=== PATIENT | female | born 1965 | race Caucasian/White ===

== ENCOUNTER 2017-11-10 04:13 | Day surgery (SDC) | payer SELFPAY ==
[~2017-11-10] VITALS: Ht 154.9 cm; Wt 54.4 kg
[~2017-11-10 04:13] MED LIST: PRD10T PO
[2017-11-10] MEDS ORDERED: fentaNYL INJECTION 100 MCG/2 ML AMP IVP ONE ×2 (04:30→05:45)
[2017-11-10] MEDS ORDERED: ONDANSETRON 4 MG/2 ML (SDV) Z0FRAN IVP ONE ×2 (04:30→05:45)
[2017-11-10] MEDS: NS IV 1000 ML 1,000 ML IV SCH ×2 (04:38→05:39)
--- NOTE | 2017-11-10 04:38 | ED Abdominal Pain ---
General Stated Complaint: PANCREATITIS ATTACK,VOMITING,POSS FEVER Source of Information: Patient, Other Exam Limitations: No Limitations (WARREN WALSH) History of Present Illness Date Seen by Provider: November 10, 2017 Time Seen by Provider: 04:25 Initial Comments The patient presents to the ER by private conveyance with a chief complaint she is having epigastric abdominal pain consistent with her history of pancreatitis. Her epigastric pain radiates to her back. It's sharp, constant. She has poorly controlled diabetes. She does not take her blood sugars anymore because stresses are out. She had an A1c about for 5 months ago of 10. She has a history of hypertriglyceridemia above 1200 several years ago when she had a pancreatitis attack. She does not take fish oil her statins due to adverse effects. She denies alcohol intake. She does not use insulin for her diabetes just Amaryl, metformin. She says she's been taking her medications as prescribed. She denies any trauma, dysuria, chills but she thinks she might of been having some fever the last several days. The pain started last night about 2130 after eating dinner. She says the last time she had pancreatitis she had to be put in the hospital for 8 days on Dilaudid. (WARREN WALSH) Allergies and Home Medications Allergies Coded Allergies: sulfamethoxazole (Verified Allergy, Intermediate, HIVES, 03/05/16) trimethoprim (Verified Allergy, Intermediate, HIVES, 03/05/16) Home Medications Prednisone 10 Mg Tab, 10 MG PO BID Prescribed by: DEEPA RAMIREZ on 03/06/16 0149 Patient Home Medication List Home Medication List Reviewed: Yes (WARREN WALSH) Review of Systems Constitutional: No chills, No diaphoresis EENTM: No Blurred Vision, No Double Vision Respiratory: Denies Cough, Denies Shortness of Air Cardiovascular: Denies Chest Pain, Denies Edema Gastrointestinal: See HPI; Denies Abdomen Distended; Abdominal Pain; Denies Constipated, Denies Diarrhea; Nausea, Poor Appetite, Poor Fluid Intake, Vomiting Genitourinary: Denies Burning, Denies Discharge, Denies Drainage Musculoskeletal: No back pain, No joint pain Skin: No pruritus, No rash Psychiatric/Neurological: Denies Headache, Denies Numbness, Denies Paresthesia (WARERN WALSH) Past Zkegfzz-Aicmnx-Nulpdz Hx Patient Social History Alcohol Use: Denies Use Recreational Drug Use: No Smoking Status: Never a Smoker Recent Foreign Travel: No Contact w/Someone Who Travel: No Recent Hopitalizations: No (WARREN WALSH) Seasonal Allergies Seasonal Allergies: No (WARREN WALSH) Past Medical History Appendectomy Reproductive Disorders: No Pancreatitis Diabetes, Non-Insulin dep Anxiety (WARREN WALSH) Physical Exam Vital Signs Vital Signs - First Documented 11/10/17 04:20 Temp 97.7 Pulse 117 Resp 20 B/P (MAP) 149/100 (116) Pulse Ox 98 O2 Delivery Room Air (DEEPA VILLEGAS MD) Vital Signs Capillary Refill : (WARREN WALSH) General Appearance: WD/WN, mild distress HEENT: PERRL/EOMI, normal ENT inspection, TMs normal; No pharynx normal ( oropharynx is dry) Neck: non-tender, full range of motion, supple Respiratory: chest non-tender, lungs clear, normal breath sounds, no respiratory distress, no accessory muscle use Cardiovascular: normal peripheral pulses, regular rate, rhythm, no edema Peripheral Pulses: 2+ Radial Pulses (R), 2+ Radial Pulses (L) Gastrointestinal: normal bowel sounds, no organomegaly, guarding (epigastric), tenderness Extremities: normal inspection, no pedal edema, normal capillary refill Neurologic/Psychiatric: alert, oriented x 3 Skin: normal color, warm/dry (WARREN WALSH) Progress/Results/Core Measures Results/Orders Lab Results Laboratory Tests Test 11/10/17 04:30 11/10/17 04:34 11/10/17 05:10 11/10/17 06:27 Range/Units White Blood Count 5.1 4.3-11.0 10^3/uL Red Blood Count 4.93 4.35-5.85 10^6/uL Hemoglobin 14.2 11.5-16.0 G/DL Hematocrit 40 35-52 % Mean Corpuscular Volume 82 80-99 FL Mean Corpuscular Hemoglobin 29 25-34 PG Mean Corpuscular Hemoglobin Concent 35 32-36 G/DL Red Cell Distribution Width 13.4 10.0-14.5 % Platelet Count 131 130-400 10^3/uL Mean Platelet Volume 10.1 7.4-10.4 FL Neutrophils (%) (Auto) 90 H 42-75 % Lymphocytes (%) (Auto) 7 L 12-44 % Monocytes (%) (Auto) 3 0-12 % Eosinophils (%) (Auto) 0 0-10 % Basophils (%) (Auto) 0 0-10 % Neutrophils # (Auto) 4.6 1.8-7.8 X 10^3 Lymphocytes # (Auto) 0.4 L 1.0-4.0 X 10^3 Monocytes # (Auto) 0.2 0.0-1.0 X 10^3 Eosinophils # (Auto) 0.0 0.0-0.3 10^3/uL Basophils # (Auto) 0.0 0.0-0.1 10^3/uL Neutrophils % (Manual) 80 % Lymphocytes % (Manual) 6 % Monocytes % (Manual) 2 % Eosinophils % (Manual) 0 % Basophils % (Manual) 0 % Band Neutrophils 12 % Blood Morphology Comment NORMAL Sodium Level 136 135-145 MMOL/L Potassium Level 4.0 3.6-5.0 MMOL/L Chloride Level 102 98-107 MMOL/L Carbon Dioxide Level 18 L 21-32 MMOL/L Anion Gap 16 H 5-14 MMOL/L Blood Urea Nitrogen 16 7-18 MG/DL Creatinine 0.82 0.60-1.30 MG/DL Estimat Glomerular Filtration Rate > 60 BUN/Creatinine Ratio 20 Glucose Level 325 H 70-105 MG/DL Calcium Level 9.8 8.5-10.1 MG/DL Magnesium Level 1.9 1.8-2.4 MG/DL Total Bilirubin 1.2 H 0.1-1.0 MG/DL Aspartate Amino Transf (AST/SGOT) 25 5-34 U/L Alanine Aminotransferase (ALT/SGPT) 33 0-55 U/L Alkaline Phosphatase 88 40-136 U/L C-Reactive Protein High Sensitivity 1.45 H 0.00-0.50 MG/DL Total Protein 8.6 H 6.4-8.2 GM/DL Albumin 4.7 H 3.2-4.5 GM/DL Triglycerides Level 315 H <150 MG/DL Lipase 61 8-78 U/L Glucometer 308 H 276 H 70-110 MG/DL Urine Color YELLOW Urine Clarity CLEAR Urine pH 6 5-9 Urine Specific [place] 1.010 L 1.016-1.022 Urine Protein 1+ H NEGATIVE Urine Glucose (UA) 4+ H NEGATIVE Urine Ketones 3+ H NEGATIVE Urine Nitrite NEGATIVE NEGATIVE Urine Bilirubin NEGATIVE NEGATIVE Urine Urobilinogen NORMAL NORMAL MG/DL Urine Leukocyte Esterase NEGATIVE NEGATIVE Urine RBC (Auto) NEGATIVE NEGATIVE Urine RBC RARE /HPF Urine WBC NONE /HPF Urine Squamous Epithelial Cells 2-5 /HPF Urine Crystals NONE /LPF Urine Bacteria TRACE /HPF Urine Casts NONE /LPF Urine Mucus NEGATIVE /LPF Urine Culture Indicated NO Urine Opiates Screen NEGATIVE NEGATIVE Urine Oxycodone Screen NEGATIVE NEGATIVE Urine Methadone Screen NEGATIVE NEGATIVE Urine Propoxyphene Screen NEGATIVE NEGATIVE Urine Barbiturates Screen NEGATIVE NEGATIVE Ur Tricyclic Antidepressants Screen NEGATIVE NEGATIVE Urine Phencyclidine Screen NEGATIVE NEGATIVE Urine Amphetamines Screen NEGATIVE NEGATIVE Urine Methamphetamines Screen NEGATIVE NEGATIVE Urine Benzodiazepines Screen POSITIVE H NEGATIVE Urine Cocaine Screen NEGATIVE NEGATIVE Urine Cannabinoids Screen POSITIVE H NEGATIVE Test 11/10/17 06:38 Range/Units Sodium Level 138 135-145 MMOL/L Potassium Level 3.7 3.6-5.0 MMOL/L Chloride Level 107 98-107 MMOL/L Carbon Dioxide Level 18 L 21-32 MMOL/L Anion Gap 13 5-14 MMOL/L Blood Urea Nitrogen 14 7-18 MG/DL Creatinine 0.71 0.60-1.30 MG/DL Estimat Glomerular Filtration Rate > 60 BUN/Creatinine Ratio 20 Glucose Level 275 H 70-105 MG/DL Calcium Level 8.2 L 8.5-10.1 MG/DL (DEEPA VILLEGAS MD) My Orders Orders - EDEPA VILLEGAS MD Accucheck Stat ONCE (11/10/17 06:23) Abdomen, Flat & Upright/Decub (11/10/17 06:23) Us Gallbladder [id number] (11/10/17 06:23) Basic Metabolic Panel (11/10/17 06:33) Promethazine Injection (Phenergan Injec (11/10/17 07:30) Metoclopramide Injection (Reglan Injecti (11/10/17 09:00) Consult Family Medicine (11/10/17 09:18) Accucheck Stat ONCE (11/10/17 09:32) (DEEPA VILLEGAS MD) Medications Given in ED Current Medications Medications Dose Ordered Sig/Valentino Route Start Time Stop Time Status Last Admin Dose Admin Fentanyl Citrate 50 mcg ONCE ONCE IVP 11/10/17 04:30 11/10/17 04:33 DC 11/10/17 04:38 50 MCG Fentanyl Citrate 50 mcg ONCE ONCE IVP 11/10/17 05:45 11/10/17 05:46 DC 11/10/17 06:37 50 MCG Metoclopramide HCl 5 mg ONCE ONCE IVP 11/10/17 09:00 11/10/17 09:01 DC 11/10/17 08:59 5 MG Ondansetron HCl 4 mg ONCE ONCE IVP 11/10/17 04:30 11/10/17 04:33 DC 11/10/17 04:38 4 MG Ondansetron HCl 4 mg ONCE ONCE IVP 11/10/17 05:45 11/10/17 05:46 DC 11/10/17 06:23 4 MG Promethazine HCl 25 mg ONCE ONCE IVP 11/10/17 07:30 11/10/17 07:31 DC 11/10/17 07:32 25 MG (DEEPA VILLEGAS MD) Vital Signs/I&O 11/10/17 11/10/17 04:20 06:37 Temp 97.7 97.7 Pulse 117 Resp 20 B/P (MAP) 149/100 (116) Pulse Ox 98 O2 Delivery Room Air (DEEPA VILLEGAS MD) Progress Progress Note #1: Time: 04:36 Progress Note The patient is requesting that we treat her pancreatitis here in the ER and if possible she would like to do outpatient therapy. We will start with 2 L of saline, 50 g of fentanyl, 4 mg Zofran and check her lipase, triglycerides, CBC , CMP. Her vitals are okay except for tachycardia. She has significant elevated inflammatory markers or white cell count we would consider scanning looking for abscess formation around the pancreas. Progress Note #2: Time: 05:36 Progress Note Urine is positive for ketones, she has hyperglycemia, elevated gap and metabolic acidosis. She is in DKA. We started her already on 2 L of fluids. Her pain and nausea still not under control. We will give her some more fentanyl and Zofran. Negra Telles is on ICU diversion until late this morning or early afternoon at the earliest. We will look for placement nearby for ICU management of her DKA. (WARREN WALSH) Progress Note #1: Time: 06:28 Progress Note Care of this patient was assumed from Dr. Walsh at shift change. She has been reexamined. She received 2 L of IV fluids and a dose of Zofran. Fentanyl has been given for pain. On reassessment, patient seems to be a bit bloated in the upper abdomen. She has mild upper abdominal tenderness and flinches with palpation of the right upper quadrant. She began retching and dry heaving during my exam. Case was discussed with Dr. Walsh. Labs were reviewed. A repeat fingerstick blood sugar was 276. Plan at present was to transfer to [facility]. However, EMS transport is not immediately available. Due to the pain and recurrent heaving, I will perform some imaging including a KUB and upright x-ray and a gallbladder ultrasound. A BMP will also be re-checked. Patient reported having some diarrhea over the past 3 days but her last bowel movement within the last 24 hours was normal. Progress Note #2: Time: 07:30 Progress Note Despite repeat dose of Zofran, patient is retching again. A dose of Phenergan is being administered. Abdominal x-ray demonstrated no evidence for bowel obstruction. Bowel gas pattern was nonspecific. Gallbladder ultrasound is pending. Progress Note #3: Time: 08:35 Progress Note Patient is feeling better now after Phenergan. Gallbladder ultrasound revealed a thickened gallbladder wall with pericholecystic fluid suspicious for acute cholecystitis. Case was reviewed with Dr. Velasquez he will present to the emergency room to assess the patient. Surgery is tentatively anticipated. Vital signs are stable at this time and patient remains afebrile. Tachycardia resolved. Pain is controlled after multiple doses of fentanyl. Given the overall picture and progression of her workup, I do not believe at this time patient has DKA. I believe she likely has a metabolic acidosis related to vomiting and diarrhea secondary to acute cholecystitis. Transfer to [facility] will be canceled as we now have bed availability. Progress Note #4: Time: 09:04 Progress Note Patient began retching again. Reglan was ordered. Progress Note #5: Time: 09:17 Progress Note Dry heaving and retching is now controlled after Reglan. Dr. Velasquez is in the room to assess the patient. (DEEPA VILLEGAS MD) Diagnostic Imaging Diagonstic Imaging: Xray Plain Films/CT/US/NM/MRI: abdomen, pelvis Comments KUB and upright x-ray viewed by me. Report not yet available. There is a nonspecific bowel gas pattern with no evidence of obstruction or free air. Stomach is decompressed. Diagonstic Imaging: Ultrasound Plain Films/CT/US/NM/MRI: abdomen Comments Gallbladder ultrasound was discussed with electrical controls technician and report reviewed. See report below: NAME: [facility]IN[facility] REC#: [id number] PT STATUS: REG ER : 1965 PHYSICIAN: DEEPA VILLEGAS MD ADMIT DATE: 11/10/17/ER Draft Date of Exam:11/10/17 US GALLBLADDER [id number] PROCEDURE: US Gallbladder. TECHNIQUE: Multiple real-time grayscale images were obtained over the right upper quadrant in various projections. INDICATION: Abdominal pain, pancreatitis. COMPARISON: There are no prior studies available for comparison. FINDINGS: There is no evidence for cholelithiasis but the gallbladder wall is markedly thickened and irregular. The wall measures approximately 10 MM (normal 3 mm or less). There may be a trace amount of pericholecystic fluid present, as well. These findings do suggest acute cholecystitis. If further imaging is desired, then a nuclear medicine hepatobiliary scan would be recommended. The common bile duct was not visualized due to bowel gas. The pancreas was also obscured by bowel gas. The liver does not appear enlarged. There is no focal mass involving the liver and the biliary tree is not abnormally distended. The right kidney is unremarkable. The aorta was not well visualized. IMPRESSION: 1. The gallbladder wall is thickened and has a lobulated appearance. There is also a trace amount of pericholecystic fluid present. There is no evidence for cholelithiasis but the appearance of the gallbladder does suggest acute cholecystitis. Recommendations as above. 2. There is no acute abnormality of the right upper quadrant noted otherwise. Dictated on workstation # [id number] Dict: 11/10/17 0759 Trans: 11/10/17 0817 [facility] [id number] Interpreted by: NANCY RODRIGUES MD (DEEPA VILLEGAS MD) Transfer of Care Time: 06:03 Care transferred to: Antonio (WARREN WALSH) Departure Communication (Admissions) Time/Spoke to Admitting Phy: 08:02 Dr. Velasquez Time/Spoke to Consulting Phy: 09:09 Dr. Johns (DEEPA VILLEGAS MD) Impression Primary Impression: Acute cholecystitis Additional Impressions: Metabolic acidosis Nausea vomiting and diarrhea Hyperglycemia Type II diabetes mellitus Qualified Codes: E11.9 - Type 2 diabetes mellitus without complications Disposition: ADMITTED INPATIENT Condition: Improved Admissions Decision to Admit Reason: Admit from ER (General) Decision to Admit/Date: November 10, 2017 Time/Decision to Admit Time: 08:02 (DEEPA VILLEGAS MD) Transfer Time Spoke to Accepting Phy: 05:50 Transfer Progress Notes Sj Ortiz Onecall Dr Kebede, Transfer Facility: [place], [place]. Method of Transfer: EMS (WARREN WALSH) Departure-Patient Inst. Referrals: [facility] [place]) Primary Care Physician ISREAL MORELAND (Family) Primary Care Physician WARREN WALSH November 10, 2017 04:37 DEEPA VILLEGAS MD November 10, 2017 06:31
[2017-11-10 04:42] LABS: BASOPHILS % (AUTO) 0 % (0-10); EOSINOPHILS % (AUTO) 0 % (0-10); HEMATOCRIT 40 % (35-52); HEMOGLOBIN 14.2 G/DL (11.5-16.0); LYMPHOCYTES # (AUTO) 0.4 X 10^3 (1.0-4.0); LYMPHOCYTES % (AUTO) 7 % (12-44); MEAN CORPUSCULAR HEMOGLOBIN 29 PG (25-34); MEAN CORPUSCULAR HGB CONC 35 G/DL (32-36); MEAN CORPUSCULAR VOLUME 82 FL (80-99); MEAN PLATELET VOLUME 10.1 FL (7.4-10.4); MONOCYTES # (AUTO) 0.2 X 10^3 (0.0-1.0); MONOCYTES % (AUTO) 3 % (0-12); NEUTROPHILS # (AUTO) 4.6 X 10^3 (1.8-7.8); NEUTROPHILS % (AUTO) 90 % (42-75); PLATELET COUNT 131 10^3/uL (130-400); RED BLOOD COUNT 4.93 10^6/uL (4.35-5.85); RED CELL DISTRIBUTION WIDTH 13.4 % (10.0-14.5); WHITE BLOOD COUNT 5.1 10^3/uL (4.3-11.0)
[2017-11-10 05:01] LABS: BAND NEUTROPHILS 12 %; BASOPHILS % (MANUAL) 0 %; EOSINOPHILS % (MANUAL) 0 %; LYMPHOCYTES % (MANUAL) 6 %; MONOCYTES % (MANUAL) 2 %; NEUTROPHILS % (MANUAL) 80 %; RBC MORPH NORMAL
[2017-11-10 05:06] LABS: ALANINE AMINOTRANSFERASE 33 U/L (0-55); ALBUMIN 4.7 GM/DL (3.2-4.5); ALKALINE PHOSPHATASE 88 U/L (40-136); BILIRUBIN,TOTAL 1.2 MG/DL (0.1-1.0); BUN/CREATININE RATIO 20; CALCIUM 9.8 MG/DL (8.5-10.1); CARBON DIOXIDE 18 MMOL/L (21-32); CHLORIDE 102 MMOL/L (98-107); CREATININE SERUM 0.82 MG/DL (0.60-1.30); GFR ESTIMATED > 60; GLUCOSE 325 MG/DL (70-105); LIPASE 61 U/L (8-78); MAGNESIUM 1.9 MG/DL (1.8-2.4); SODIUM 136 MMOL/L (135-145); TOTAL PROTEIN 8.6 GM/DL (6.4-8.2); TRIGLYCERIDES 315 MG/DL (<150)
[2017-11-10] MEDS ORDERED: GLIM2TAB (05:07)
[2017-11-10] MEDS ORDERED: ALPR1TAB7 (05:07)
[2017-11-10] MEDS ORDERED: METF500T8 (05:07)
[2017-11-10 05:22] LABS: BILIRUBIN,URINE NEGATIVE (NEGATIVE); CLARITY,URINE CLEAR; COLOR,URINE YELLOW; GLUCOSE, URINE (UA) 4+ (NEGATIVE); KETONES,URINE 3+ (NEGATIVE); LEUKOCYTE ESTERASE ,URINE NEGATIVE (NEGATIVE); NITRITE,URINE NEGATIVE (NEGATIVE); PH,URINE 6 (5-9); PROTEIN,URINE 1+ (NEGATIVE); UROBILINOGEN,URINE NORMAL (NORMAL)
[2017-11-10 05:33] LABS: BACTERIA,URINE TRACE /HPF; RBC,URINE RARE /HPF
[2017-11-10 05:34] LABS: AMPHETAMINE SCREEN, URINE NEGATIVE (NEGATIVE); BARBITURATE SCREEN URINE NEGATIVE (NEGATIVE); BENZODIAZEPINES SCREEN URINE POSITIVE (NEGATIVE); CANNABINOID SCREEN, URINE POSITIVE (NEGATIVE); COCAINE SCREEN URINE NEGATIVE (NEGATIVE); METHADONE STAT NEGATIVE (NEGATIVE); METHAMPHETAMINE SCREEN URINE S NEGATIVE (NEGATIVE); OPIATE SCREEN URINE NEGATIVE (NEGATIVE); OXYCODONE STAT NEGATIVE (NEGATIVE); PROPOXYPHENE STAT NEGATIVE (NEGATIVE); TRICYCLIC ANTIDEPRESSANTS SCRE NEGATIVE (NEGATIVE)
[2017-11-10] MEDS ORDERED: 1/2 NS W/KCL 20 MEQ/L 1,000 ML IV SCH (06:00)
[2017-11-10 06:59] LABS: BUN/CREATININE RATIO 20; CALCIUM 8.2 MG/DL (8.5-10.1); CARBON DIOXIDE 18 MMOL/L (21-32); CHLORIDE 107 MMOL/L (98-107); CREATININE SERUM 0.71 MG/DL (0.60-1.30); GFR ESTIMATED > 60; GLUCOSE 275 MG/DL (70-105); POTASSIUM 3.7 MMOL/L (3.6-5.0); SODIUM 138 MMOL/L (135-145)
[2017-11-10] MEDS ORDERED: PROMETHAZINE INJ 25 MG/ML (PHENERGAN) AMP IVP ONE (07:30)
--- NOTE | 2017-11-10 07:56 | Diagnostic Imaging Report ---
EXAM: Abdomen, supine and erect. INDICATION: Nausea, vomiting COMPARISON: There are no prior studies available for comparison. FINDINGS: There is some gas in both the large and small bowel in a nonspecific fashion. There is no evidence for a bowel obstruction. There is no mass, organomegaly or pathological calcification evident. There does appear to be degenerative disc and bony disease at L4-5 and L5-S1. There is no fracture or acute bony abnormality evident, however. IMPRESSION: The bowel gas pattern is nonspecific. There is no acute abnormality evident. Dictated by: Dictated on workstation # [id number]
--- NOTE | 2017-11-10 08:17 | Diagnostic Imaging Report ---
PROCEDURE: US Gallbladder. TECHNIQUE: Multiple real-time grayscale images were obtained over the right upper quadrant in various projections. INDICATION: Abdominal pain, pancreatitis. COMPARISON: There are no prior studies available for comparison. FINDINGS: There is no evidence for cholelithiasis but the gallbladder wall is markedly thickened and irregular. The wall measures approximately 10 MM (normal 3 mm or less). There may be a trace amount of pericholecystic fluid present, as well. These findings do suggest acute cholecystitis. If further imaging is desired, then a nuclear medicine hepatobiliary scan would be recommended. The common bile duct was not visualized due to bowel gas. The pancreas was also obscured by bowel gas. The liver does not appear enlarged. There is no focal mass involving the liver and the biliary tree is not abnormally distended. The right kidney is unremarkable. The aorta was not well visualized. IMPRESSION: 1. The gallbladder wall is thickened and has a lobulated appearance. There is also a trace amount of pericholecystic fluid present. There is no evidence for cholelithiasis but the appearance of the gallbladder does suggest acute cholecystitis. Recommendations as above. 2. There is no acute abnormality of the right upper quadrant noted otherwise. Dictated by: Dictated on workstation # [id number]
[2017-11-10] MEDS ORDERED: METOCLOPRAMIDE INJ 10 MG/2 ML (REGLAN) IVP ONE (09:00)
[2017-11-10] MEDS ORDERED: ceFAZolin 2 GM IV Premixed 50 ML IV ONE (09:30)
--- NOTE | 2017-11-10 09:33 | Consultation ---
History of Present Illness History of Present Illness Patient Consulted On(mo/time) 11/10/17 09:32 Time Seen by Provider: 09:06 History of Present Illness Surgery asked to consult regarding Acute Cholecystitis. HPI per ED: The patient presents to the ER by private conveyance with a chief complaint she is having epigastric abdominal pain consistent with her history of pancreatitis. Her epigastric pain radiates to her back. It's sharp, constant. She has poorly controlled diabetes. She does not take her blood sugars anymore because stresses are out. She had an A1c about for 5 months ago of 10. She has a history of hypertriglyceridemia above 1200 several years ago when she had a pancreatitis attack. She does not take fish oil her statins due to adverse effects. She denies alcohol intake. She does not use insulin for her diabetes just Amaryl, metformin. She says she's been taking her medications as prescribed. She denies any trauma, dysuria, chills but she thinks she might of been having some fever the last several days. The pain started last night about 2130 after eating dinner. She says the last time she had pancreatitis she had to be put in the hospital for 8 days on Dilaudid. When I saw pt she still was having nausea, minimal abdominal pain (maybe 2-3 out of 10) with no real radiation of the pain. Pt does not remember why she had pancreatitis in 2004, denies gallstones or alcohol intake. Nothing is helping the vomiting. Allergies and Home Medications Allergies Coded Allergies: sulfamethoxazole (Verified Allergy, Intermediate, HIVES, 03/05/16) trimethoprim (Verified Allergy, Intermediate, HIVES, 03/05/16) Home Medications Prednisone 10 Mg Tab, 10 MG PO BID Prescribed by: DEEPA RAMIREZ on 03/06/16 0149 Patient Home Medication List Home Medication List Reviewed: Yes Past Hetkblf-Tgoigt-Gyrddu Hx Patient Social History Alcohol Use: Denies Use Recreational Drug Use: No Smoking Status: Never a Smoker 2nd Hand Smoke Exposure: No Recent Foreign Travel: No Contact w/Someone Who Travel: No Recent Infectious Disease Expo: No Recent Hopitalizations: No Seasonal Allergies Seasonal Allergies: No Surgeries History of Surgeries: Yes Surgeries: Appendectomy Respiratory History of Respiratory Disorde: No Cardiovascular History of Cardiac Disorders: No Neurological History of Neurological Disord: No Reproductive System : No Hx Reproductive Disorders: No Genitourinary History of Genitourinary Disor: No Gastrointestinal History of Gastrointestinal Di: Yes Gastrointestinal Disorders: Pancreatitis Musculoskeletal History of Musculoskeletal Dis: No Endocrine History of Endocrine Disorders: Yes Endocrine Disorders: Diabetes, Non-Insulin dep HEENT History of HEENT Disorders: No Cancer History of Cancer: No Psychosocial History of Psychiatric Problem: Yes Behavioral Health Disorders: Anxiety Integumentary History of Skin or Integumenta: No Blood Transfusions History of Blood Disorders: No Family Medical History Significant Family History: Cancer (Grandfather of stomach CA), Diabetes ( Mother, Father and Siblings), Hypertension (Parents and sister) Review of Systems-General Constitutional: No chills, No diaphoresis; dizziness, malaise, weakness EENTM: No blurred vision, No double vision, No mouth pain, No mouth swelling, No nose congestion, No throat swelling Respiratory: No cough, No dyspnea on exertion, No hemoptysis Cardiovascular: No chest pain, No edema, No palpitations Gastrointestinal: abdominal pain; No jaundice; nausea, vomiting Genitourinary: No dysuria, No frequency, No hematuria Musculoskeletal: No back pain, No joint pain, No joint swelling, No muscle stiffness Skin: No change in color, No change in hair/nails, No rash Psychiatric/Neurological: Anxiety, Depressed; Denies Headache, Denies Seizure, Denies Tingling Other pt denies any abnormal bleeding or bruising. Physical Exam-General Problems Physical Exam Vital Signs Vital Signs - First Documented 11/10/17 04:20 Temp 97.7 Pulse 117 Resp 20 B/P (MAP) 149/100 (116) Pulse Ox 98 O2 Delivery Room Air Capillary Refill : Less Than 3 Seconds General Appearance: WD/WN, moderate distress Eyes: Bilateral Eye PERRL, Bilateral Eye EOMI HEENT: pharynx normal; No scleral icterus (R), No scleral icterus (L), No pale conjunctivae (R), No pale conjunctivae (L) Neck: non-tender, full range of motion, supple, normal inspection Respiratory: chest non-tender, lungs clear, normal breath sounds, no respiratory distress, no accessory muscle use Cardiovascular: regular rate, rhythm, no edema, systolic murmur Gastrointestinal: soft, no organomegaly, no pulsatile mass, tenderness ( epigastric and RUQ) Rectal: deferred Back: no CVA tenderness, no vertebral tenderness Extremities: normal range of motion, non-tender, normal inspection, no pedal edema, no calf tenderness Neurologic/Psychiatric: 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 nml as tested, no motor/sensory deficits, alert, normal mood/affect, oriented x 3 Skin: normal color, warm/dry Lymphatic: no adenopathy (neck, axilla or groin) Data Review Labs Laboratory Tests 11/10/17 04:30: White Blood Count 5.1, Red Blood Count 4.93, Hemoglobin 14.2, Hematocrit 40, Mean Corpuscular Volume 82, Mean Corpuscular Hemoglobin 29, Mean Corpuscular Hemoglobin Concent 35, Red Cell Distribution Width 13.4, Platelet Count 131, Mean Platelet Volume 10.1, Neutrophils (%) (Auto) 90H, Lymphocytes (%) (Auto) 7L , Monocytes (%) (Auto) 3, Eosinophils (%) (Auto) 0, Basophils (%) (Auto) 0, Neutrophils # (Auto) 4.6, Lymphocytes # (Auto) 0.4L, Monocytes # (Auto) 0.2, Eosinophils # (Auto) 0.0, Basophils # (Auto) 0.0, Neutrophils % (Manual) 80, Lymphocytes % (Manual) 6, Monocytes % (Manual) 2, Eosinophils % (Manual) 0, Basophils % (Manual) 0, Band Neutrophils 12, Blood Morphology Comment NORMAL, Sodium Level 136, Potassium Level 4.0, Chloride Level 102, Carbon Dioxide Level 18L, Anion Gap 16H, Blood Urea Nitrogen 16, Creatinine 0.82, Estimat Glomerular Filtration Rate > 60, BUN/Creatinine Ratio 20, Glucose Level 325H, Calcium Level 9.8, Magnesium Level 1.9, Total Bilirubin 1.2H, Aspartate Amino Transf ( AST/SGOT) 25, Alanine Aminotransferase (ALT/SGPT) 33, Alkaline Phosphatase 88, C -Reactive Protein High Sensitivity 1.45H, Total Protein 8.6H, Albumin 4.7H, Triglycerides Level 315H, Lipase 61 11/10/17 04:34: Glucometer 308H 11/10/17 05:10: Urine Color YELLOW, Urine Clarity CLEAR, Urine pH 6, Urine Specific [place] 1.010L, Urine Protein 1+H, Urine Glucose (UA) 4+H, Urine Ketones 3+H, Urine Nitrite NEGATIVE, Urine Bilirubin NEGATIVE, Urine Urobilinogen NORMAL, Urine Leukocyte Esterase NEGATIVE, Urine RBC (Auto) NEGATIVE, Urine RBC RARE, Urine WBC NONE, Urine Squamous Epithelial Cells 2-5, Urine Crystals NONE, Urine Bacteria TRACE, Urine Casts NONE, Urine Mucus NEGATIVE, Urine Culture Indicated NO, Urine Opiates Screen NEGATIVE, Urine Oxycodone Screen NEGATIVE, Urine Methadone Screen NEGATIVE, Urine Propoxyphene Screen NEGATIVE, Urine Barbiturates Screen NEGATIVE, Ur Tricyclic Antidepressants Screen NEGATIVE, Urine Phencyclidine Screen NEGATIVE, Urine Amphetamines Screen NEGATIVE, Urine Methamphetamines Screen NEGATIVE, Urine Benzodiazepines Screen POSITIVEH, Urine Cocaine Screen NEGATIVE, Urine Cannabinoids Screen POSITIVEH 11/10/17 06:27: Glucometer 276H 11/10/17 06:38: Sodium Level 138, Potassium Level 3.7, Chloride Level 107, Carbon Dioxide Level 18L, Anion Gap 13, Blood Urea Nitrogen 14, Creatinine 0.71, Estimat Glomerular Filtration Rate > 60, BUN/Creatinine Ratio 20, Glucose Level 275H, Calcium Level 8.2L Assessment/Plan Assessment/Plan Assessment/Plan Intractable Nausea and Vomiting Acute Cholecystitis without Cholelithiasis Hyperglycemia DM II Pt will be taken to the OR for laparoscopic cholecystectomy, possible cholangiogram, possible open. She has been given IVF and her glucose is trending down. US was read as acute cholecystitis; wall 1cm thick with pericholecystic fluid. Pt WBC in normal. Discussed risks and complications not limited to pain, bleeding, infection, scar and damage to bowel or bile ducts with need for further procedure. I also discussed the fact that she may not have resolution of her symptoms; however, the gallbladder appears to be the most likely cause of her problems. She does not appear to have pancreatitis at this time, although could develop after surgery. All questions answered to her and her 's satisfaction. MAGEN WEINER DO November 10, 2017 09:33
[2017-11-10] MEDS ORDERED: MIDAZOLAM 2 MG/2 ML (VERSED) VIAL ONE (10:24)
[2017-11-10] MEDS ORDERED: fentaNYL INJECTION 100 MCG/2 ML AMP ONE ×2 (10:24→12:00)
[2017-11-10] MEDS ORDERED: LIDOCAINE/EPI 1%-1:200,000 (XYLOCAINE) 10 ML VIAL ONE (10:24)
[2017-11-10] MEDS ORDERED: SEVOFLURANE (ULTANE) 15 ML INHAL SOLN ONE ×4 (10:27→11:19)
[2017-11-10] MEDS ORDERED: ONDANSETRON 4 MG/2 ML (SDV) Z0FRAN ONE (10:27)
[2017-11-10] MEDS ORDERED: SUCCINYLCHOLINE INJ 100 MG/5 ML SYR ONE (10:27)
[2017-11-10] MEDS ORDERED: proPOfol 200 MG/20 ML (DIPRIVAN) VIAL IV ONE (10:27)
[2017-11-10] MEDS ORDERED: LIDOCAINE PF 2% 5 ML (XYLOCAINE) VIAL ONE (10:27)
[2017-11-10] MEDS ORDERED: ROCURONIUM 10 MG/ML 5 ML SYRINGE IV ONE (10:27)
[2017-11-10] MEDS: LACTATED RINGERS 1,000 ML IV PRN ×2 (10:43→11:35)
[2017-11-10] MEDS ORDERED: ceFAZolin 1,000 MG (ANCEF) VIAL ONE (10:51)
[2017-11-10] MEDS ORDERED: fentaNYL INJECTION 100 MCG/2 ML AMP IVP PRN (11:00)
[2017-11-10] MEDS ORDERED: PROMETHAZINE INJ 25 MG/ML (PHENERGAN) AMP IVP PRN (11:00)
[2017-11-10] MEDS ORDERED: HYDROmorphone 1 MG/ML (DILAUDID) 1 ML SYRINGE IV PRN (11:00)
[2017-11-10] MEDS ORDERED: diphenhydrAMINE 50 MG/ML INJ (BENADRYL) ONE (11:00)
[2017-11-10] MEDS ORDERED: ONDANSETRON 4 MG/2 ML (SDV) Z0FRAN IVP PRN (11:00)
[2017-11-10] MEDS ORDERED: NEOSTIGMINE 1 MG/ML 5 ML SYRINGE ONE (11:34)
[2017-11-10] MEDS ORDERED: GLYCOPYRROLATE 0.2 MG/ML (ROBINUL) 2 ML VIAL ONE (11:34)
--- NOTE | 2017-11-10 12:13 | Progress Note-Post Operative ---
Post-Operative Progess Note Surgeon (s)/Safety Supervisor (s) Surgeon MAGEN WEINER DO Safety Supervisor: none Pre-Operative Diagnosis Acute Hayley without stones, Hyperglycemia, Intractable nausea and vomiting Post-Operative Diagnosis Same Procedure & Operative Findings Date of Procedure 11/10/17 Procedure Performed/Findings Lap hayley with IOC Anesthesia Type GET Estimated Blood Loss Estimated blood loss (mL): 150ml Specimens/Packing Specimens Removed GB and contents MAGEN WEINER DO November 10, 2017 12:13
[2017-11-10] MEDS ORDERED: ACHD5005 PO (12:14)
--- NOTE | 2017-11-10 12:16 | Discharge Inst-Surgical ---
Discharge Inst-Surgical Depart Medication/Instructions New, Converted or Re-Newed RX: RX Given to Pt/Family Patient Instructions Follow up Appt: Make appointment for 1-2 weeks. Instructions: No lifting greater than 10 pounds. No strenuous activity. May shower in 24 hours, no tub bath or soaking. Use incentive spirometer at home as directed. No Smoking Skin/Wound Care: You need to leave the Dermabond on over incision it will fall off on its own. Symptoms to Report: Appetite Changes, Extremity Discoloration, Numbness/Tingling, Swelling Increased , Bleeding Excessive, Eyesight Changes, Pain Increased, Urine Color Change, Constipation(Persistent), Fever over 101 degree F, Pain/Pressure in chest, Urinating Difficulty, Cough Up/Vomit Blood, Heart Beat Irreg/Pounding, Pain/ Pressure in jaw, Vaginal Bleeding Increase, Cramps in feet or legs, Lightheadedness, Pain/Pressure in shoulder, Diarrhea(Persistent), Memory Changes Suddenly, Questions/Concerns, Weight gain consecutive days, Dizziness/ Fainting, Nausea/Vomiting, Shortness of Breath, Weight gain over 2 pounds. If eyes or skin turn yellow notify physician. If questions or concerns contact your physician Or seek help at emergency department. Activity Activity Instructions: Avoid Pulling & Pushing, Avoid Stress to Incision Driving Instructions: No Driving/Refer to Diet Discharge Diet: Avoid Fatty Foods, Low Fat/Low Cholesterol Diet After 24 Hours: Clear Liquid if Nauseous If Any Problems/Questions/Issu: Contact Your Physician, Go to Emergency Room, Go to [facility] Care Skin/Wound Care Infection Signs and Symptoms: Increased Redness, Foul Odor of Wound, Increased Drainage, Skin Itchy or Has a Rash, Increased Swelling, Temperature Above 101 F Wound Care Comment: heating pad to neck and shoulder tonight for pain Bathing Instructions: Shower Stitches/Floyd/Dermabond Dis: Dermabond Ice Pack: Ice On and Off Site MAGEN WEINER DO November 10, 2017 12:16
--- NOTE | 2017-11-10 12:32 | Anesthesia-General Post-Op ---
General Patient Condition Mental Status/LOC: Same as Preop Cardiovascular: Satisfactory Nausea/Vomiting: Absent Respiratory: Satisfactory Pain: Controlled Complications: Absent Post Op Complications Complications None Follow Up Care/Instructions Patient Instructions None needed. Anesthesia/Patient Condition Patient Condition Patient is doing well, no complaints, stable vital signs, no apparent adverse anesthesia problems. No complications reported per nursing. ANGLE HUANG CRNA November 10, 2017 12:32
[2017-11-10] MEDS: morphine INJ 10 MG/ML 1ML (SYR OR VIAL) IVP PRN ×2 (12:40→12:45)
--- NOTE | 2017-11-10 12:48 | Diagnostic Imaging Report ---
EXAM: FLUOROSCOPY INDICATION: GB REMOVAL IN OR COMPARISON: Gallbladder ultrasound 11/10/2017. FINDINGS: 74 images were acquired during removal of the gallbladder and intraoperative cholangiogram. Common bile duct is normal in caliber with no filling defects identified. Contrast reflux into the intrahepatic biliary ducts which appear unremarkable. IMPRESSION: Normal intraoperative cholangiogram after cholecystectomy. Fluoroscopy time 13.2 seconds. 7.74 mGy. Dictated by: Dictated on workstation # [id number]
[2017-11-10 13:30] VITALS: BP 111/74
[2017-11-10 15:55] VITALS: BP 111/74
--- NOTE | 2017-11-10 17:37 | OPERATIVE REPORT ---
DATE OF SERVICE: 11/10/2017 PREOPERATIVE DIAGNOSES: 1. Acute cholecystitis without stones. 2. Hyperglycemia. 3. Intractable nausea and vomiting. POSTOPERATIVE DIAGNOSES: 1. Acute cholecystitis without stones. 2. Hyperglycemia. 3. Intractable nausea and vomiting. PROCEDURE: Laparoscopic cholecystectomy, intraoperative cholangiogram. SURGEON: Parveen Velasquez DO. SUPERVISOR SOAKERS: None. ANESTHESIA: General endotracheal tube. SPECIMEN: Gallbladder and contents. BLOOD LOSS: Approximately 150 mL. FLUIDS: Per anesthesia. POSTOPERATIVE CONDITION: Stable. INDICATION FOR PROCEDURE: The patient is a 52-year-old female who came in with intractable nausea and vomiting, found to have acute cholecystitis. No stones seen diagnosed with ultrasound, thickened gallbladder wall and pericholecystic fluid. FINDINGS: The patient had some pericholecystic fluid and edema, but there was some thickened fat around the gallbladder and is very vascular had a lot of large veins coming from the liver into the gallbladder and there was an intrahepatic gallbladder. PROCEDURE NOTE: After informed consent was obtained, the patient was brought to the operating room, placed on the operating table in supine position. She was sterilely prepped and draped in normal fashion. Local lidocaine was used to infiltrate the skin above the umbilicus. Made incision with #11 blade, carried down to skin into subcutaneous tissue, then deepened down to subcutaneous tissue by electrocautery down to the fascia. Fascia was then incised with electrocautery and bluntly entered the abdomen, swept a finger around, placed 0 Vicryl [id number] suture, then placed 11 mm trocar port under direct visualization. Created pneumoperitoneum and placed 3 more ports in normal fashion using local lidocaine, 11 blade for stab incision and the VersaStep system, all done under direct visualization, one subxiphoid and 2 in the right upper quadrant. The patient then placed slightly reverse Trendelenburg and rotated left. Able to visualize the gallbladder looked thickened and slightly edematous. There is also very intrahepatic and there was lot of vasculature to it. Able to grasp the gallbladder at the fundus and taken in superior direction and then pushed away the duodenum which was slightly adhered down to the distal portion of the gallbladder with some blunt dissection also use a little bit of a Bovie electrocautery. Once this was pushed away then able to grasp down Anamika's pouch and pulled in the inferolateral direction and start dissecting out cystic duct and cystic artery. I was able to get around the cystic duct and placed 1 clip distally and then placed one distally two proximally on the cystic artery. Cut the cystic duct half-way through Metzenbaum scissors and shot a cholangiogram. Good spillage of dye down the cystic duct into the common bile duct and down into the small intestine, appeared to be and possibly some stones during this cholangiogram, but then they kind of went away, so I believe this may have just been some air bubbles. The contrast also went up into common hepatic and then right and left hepatics did not delineate the pancreatic duct. Removed the cholangiogram catheter, placed 2 clips proximally on the cystic duct then cut the cystic duct and cystic artery with Metzenbaum scissors. Started removing the gallbladder from bed of liver with L-hook cautery it was very intrahepatic and there was lot of big vasculature veins to it, kept bleeding because of vessels feeding the gallbladder even from the top. I ran into a couple large veins that bled a little bit controlled these with clips as well as Bovie electrocautery. It was very thickened tissue fat surrounding the gallbladder. This was very difficult to get down. Finally, able to get the gallbladder completely off the bed of liver placed a bag in the abdomen, placed the gallbladder in the bag and then removed this through a supraumbilical incision. Placed the port back in the abdomen, copiously irrigated with normal saline, suctioned this out. Hemostasis was obtained in the bed of liver with the Bovie electrocautery. There was no bleeding at the end of the case. Pictures taken to confirm this suctioned out all the fluid looked around, no other obvious pathology placed the patient supine and suctioned out the fluid and then the pneumoperitoneum, removed all ports under direct visualization and then closed the supraumbilical incision, closing the fascia with 0 Vicryl suture previously placed. Copiously irrigated all incisions with normal saline, closing 3 small 5 mm incision with a single interrupted 4-0 undyed Monocryl subcuticular stitch, closed supraumbilical incision with 3 interrupted 4-0 undyed Monocryl subcuticular stitches. Area was cleaned and dried and Dermabond placed as well as Band-Aids. The patient then transferred to recovery room in stable condition. Sponge, instrument and needle count correct at the end of the case. Job ID: [id number] DocumentID: [id number] Dictated Date: 11/10/2017 15:21:37 Check Processing Clerk Date: 11/10/2017 17:36:30 Dictated By: PARVEEN VELASQUEZ DO
== END 2017-11-10 15:50 | disposition home or self-care (01) ==
LOC: EDUNIT# 04:13 → ER 04:17 → SDC 09:37 → 4TH 09:39 → SDC 15:50
PROVIDERS: ATTEND Surgery
DX: K81.0 Acute cholecystitis (principal); E11.65 Type 2 diabetes mellitus with hyperglycemia; E87.2 Acidosis; R19.7 Diarrhea, unspecified; Z79.84 Long term (current) use of oral hypoglycemic drugs; Z79.899 Other long term (current) drug therapy
CPT/HCPCS: 36415; 74019; 76705; 80048; 80053; 80306; 81000; 82962; 83690; 83735; 84478; 84703; 85007; 85027; 86141; 86850; 86900; 86901; 86920; 87081; 88304; 96361; 96374; 96375; 96376

== ENCOUNTER 2018-07-17 11:00 | Emergency (ER) | payer SELFPAY ==
[~2018-07-17] VITALS: Ht 157.5 cm; Wt 61.2 kg
[~2018-07-17 11:00] MED LIST changes: +ACHD5005 PO; +ALPR1TAB7; +GLIM2TAB; +METF500T8
--- OUTSIDE RECORDS SUMMARY | 2018-07-17 11:05 | XMS REPORT ---
Author Author ISREAL MORELAND Organization [facility] Address [address] [place] [address] Care Team Providers Care As400 Programmer Analyst Name Role Phone ISREAL MORELAND Unavailable PROBLEMS Type Condition ICD9-CM Code [id number] Code Onset Dates Condition Status SNOMED Code Problem Anxiety disorder, unspecified F41.9 Active 228722743 Problem Violation of controlled substance agreement Z91.14 Active 478987866 Problem Intestinal malabsorption, unspecified K90.9 Active 44275254 Problem Acquired hypothyroidism E03.9 Active 848022809 Problem Diabetes E11.9 Active 022910236 Problem Hypertriglyceridemia E78.1 Active 810371124 Problem Status post cholecystectomy Z90.49 Active 984833770 ALLERGIES Substance Reaction Event Type Date Status Sulfamethoxazole-Trimethoprim anaphylaxis Drug Allergy Mar, Active ENCOUNTERS Encounter Location Date Diagnosis [facility] [id number] [place] [address] 87602- 1820 Mar, Diabetes E11.9 ; Hyperglycemia R73.9 ; Anxiety disorder, unspecified F41.9 ; Marijuana smoker F12.90 and Acquired hypothyroidism E03.9 [facility] [address] [address] 06[address] Jan, Yeast infection B37.9 [facility] [id number] [place] [address] 24762- 4444 Jan, [facility] [id number] [place] [address] 37432- 3554 Dec, Intestinal malabsorption, unspecified K90.9 ; Diarrhea, unspecified R19.7 ; Diabetes E11.9 and Marijuana smoker F12.90 [facility] [address] [facility] [id number] [id number] Dec, Dental examination Z01.20 [facility] [id number] [place] [address] [id number] Dec, 2017 Dental examination Z01.20 and Dental caries K02.9 [place] [address] 22900- 5100 02 Dec, 2017 Benzodiazepine use agreement exists Z02.89 ; Therapeutic drug monitoring Z51.81 and Violation of controlled substance agreement Z91.14 [place] [address] 50811- 4894 Nov, [facility] [address] 07269- 7752 04 Nov, 2017 Ketoacidosis E87.2 ; Status post cholecystectomy Z90.49 ; Diabetes E11.9 ; Acquired hypothyroidism E03.9 ; Hypertriglyceridemia E78.1 and Vaginal yeast infection B37.3 [place] [id number] [place] [address] 51252- 3070 October, [facility] [id number] [place] [address] 09380- 7121 Sep, [facility] [id number] [place] [address] 17886- 8722 Aug, [facility] [id number] [place] [address] 91413- 3008 Jul, [facility] [id number] [place] [address] 77760- 1862 Jun, [facility] [id number] [place] [address] 92073- 1118 Jun, Diabetes E11.9 and Drug-induced acute pancreatitis with uninfected necrosis K85.31 [facility] [address] 96037- 9794 May, [facility] [id number] [place] [address] 06767- 6174 Apr, [facility] [id number] [place] [address] 33322 -4532 Apr, Crushing injury of right foot, initial encounter S97.81XA [facility] [id number] [place] [address] 20796- 0687 Feb, [facility] [id number] [place] [address] 91474- 3142 Feb, [facility] [id number] [place] [address] 23782 -1070 Feb, Acute non-recurrent pansinusitis J01.40 [facility] [id number] [place] [address] 04902- 7955 Feb, [facility] [id number] [place] [address] 98682- 0525 Jan, [facility] [id number] [place] [address] 11155- 5577 Nov, [facility] [id number] [place] [address] 84890- 6865 October, [facility] [id number] [place] [address] 35197- 9905 October, Diabetes E11.9 ; Anxiety disorder, unspecified F41.9 and Acquired hypothyroidism E03.9 [facility] [id number] [place] [address] 38576- 9867 October, [facility] [id number] [place] [address] 09887- 4256 Sep, [facility] [id number] [place] [address] 15256- 1847 Sep, [facility] [id number] [place] [address] 56694- 4604 Aug, [facility] [id number] [place] [address] 67406- 0546 Jul, [facility] [id number] [place] [address] 84784- 2546 Jul, [facility] [id number] [place] [address] 00196- 3517 Jul, [facility] [id number] [place] [address] 90540- 4277 Jul, [facility] [id number] [place] [address] 01789- 8085 Jul, Acute non-recurrent maxillary sinusitis J01.00 [facility] [id number] [place] [address] 30052- 2807 Jul, [facility] [id number] [place] [address] 13019- 6156 Jun, [facility] [id number] [place] [address] 40997- 9375 May, [facility] [id number] [place] [address] 43608- 2800 Apr, [facility] [id number] [place] [address] 07806- 4305 Mar, Diabetes E11.9 [facility] [id number] [place] [address] 06329- 0509 28 Feb, 2016 Pelvic pain R10.2 ; Leukocytosis, unspecified D72.829 ; Constipation, unspecified constipation type K59.00 and History of pancreatitis Z87.19 [facility] [id number] [place] [address] 02629- 8124 Feb, [facility] [id number] [place] [address] 70259- 9035 14 Feb, 2016 Diabetes E11.9 [facility] [id number] [place] [address] 77925- 9347 13 Feb, 2016 [facility] [id number] [place] [address] 24331- 3997 2016 Vaginal yeast infection B37.3 [facility] [id number] [address]- 9928 Feb, [facility] [id number] [place] [address] 14941- 9386 Jan, Diabetes E11.9 [facility] [id number] [place] [address] 36855- 2450 Jan, Anxiety disorder, unspecified F41.9 [facility] [id number] [place] [address] 04743- 2886 Jan, Vaginal yeast infection B37.3 [facility] [id number] [place] [address] 31798- 5319 Jan, [facility] [id number] [place] [address] 16239- 9430 Dec, Anxiety disorder, unspecified F41.9 [facility] [id number] [place] [address] 67011- 6900 Dec, Vaginal yeast infection B37.3 [facility] [id number] [place] [address] 05409- 6235 Nov, Anxiety disorder, unspecified F41.9 [facility] [id number] [place] [address] 64080- 7395 Nov, Anxiety disorder, unspecified F41.9 [facility] [id number] [place] [address] 75540- 7311 October, Anxiety disorder, unspecified F41.9 [facility] [id number] [place] [address] 85095- 3792 October, Diabetes E11.9 [facility] [id number] [place] [address] 32300- 4366 Sep, Anxiety disorder, unspecified F41.9 [facility] [id number] [place] [address] 32232- 5733 Sep, [facility] [id number] [place] [address] 85289- 7175 Aug, Vaginal yeast infection B37.3 [facility] [id number] [place] [address] 20878- 9592 Aug, [facility] [id number] [place] [address] 95595- 6656 Jul, [facility] [id number] [place] [address] 42897- 2347 Jun, [facility] [id number] [place] [address] 05905- 0727 Jun, [facility] [id number] [place] [address] 13760- 8758 Jun, [facility] [id number] [place] [address] 65710- 7807 May, [facility] [id number] [place] [address] 38574- 7634 Apr, Diabetes E11.9 ; Acquired hypothyroidism E03.9 ; Hyperlipidemia, unspecified hyperlipidemia E78.5 and Anxiety F41.9 [facility] [id number] [place] [address] 84304- 2465 Apr, [facility] [id number] [place] [address] 88162- 8508 Mar, [facility] [id number] [place] [address] 30056- 9306 Feb, [facility] [id number] [place] [address] 99261- 1071 Feb, [facility] [id number] [place] [address] 69819- 9235 Jan, [facility] [id number] [place] [address] 975033- 5283 Dec, [facility] [id number] [place] [address] 61015- 5756 Dec, DUB (dysfunctional uterine bleeding) 626.8 and Pap test, as part of routine gynecological examination V76.2 [facility] [address], [place] [address]- 0876 Dec, [facility] [address] [address]- 8296 Dec, [facility] [address], [place] [address]- 6326 Nov, [facility] [address], [place] [address] 2546 Nov, [facility] [id number] [place] [address] 03775- 8456 Nov, Diabetes 250.00 [facility] [address], [place] [address] 2546 Nov, [facility] [address] [address]- 7616 October, [facility] [address] [address]- 0876 October, Diabetes 250.00 [facility] [address] [address]- 5256 October, [facility] [address] [address]- 9436 October, [facility] [address], [place] [address]- 2546 October, [facility] [id number] [address]- 2546 October, [facility] [address] [address]- 2546 October, [facility] [id number] [address]- 2546 Sep, [facility] [address], [place] [address]- 8507 Sep, [facility] [place] [facility] [address] [id number] [place] [address]- 7245 13 Sep, 2014 [facility] [place] [facility] [address] [id number] [place] [address]- 5421 Aug, [facility] [place] [facility] [address] [id number] [place] [address]- 2921 Aug, [facility] [place] [facility] [address] [id number] [place] [address]- 7160 Aug, [facility] [place] [facility] [address] [id number] [place] [address]- 4261 Aug, [facility] [place] [facility] [address] [id number] [place] [address]- 6471 Aug, [facility] [place] [facility] [address] [facility] [id number] [place] [address]- 9799 Aug, [facility] [place] [facility] [address] [id number] [place] [address]- 2471 Aug, [facility] [place] [facility] [address] [id number] [place] [address]- 5245 Aug, [facility] [place] [facility] [address] [id number], [place] [address]- 3791 Aug, [facility] [place] [facility] [address] [id number], [place] [address]- 8248 Jul, 2014 [facility] [place] [facility] [address] [id number], [place] [address]- 7897 Jul, 2014 [facility] [place] [facility] [address] [id number] [place] [address]- 5964 Jul, 2014 [facility] [place] [facility] [address] [id number] [place] [address]- 5681 Jul, 2014 [facility] [place] [facility] [address] [facility] [id number], [place] [address]- 1577 Jul, 2014 [facility] [place] [facility] [address] [id number] [place] [address]- 2546 Jul, [facility] [place] [facility] [address] [id number] [place] [address]- 0973 Jul, [facility] [place] [facility] [address] [id number] [place] [address]- 3406 Jul, [facility] [place] [facility] [address] [id number] [place] [address]- 9848 Jun, [facility] [place] [facility] [address] [id number] [place] [address]- 1116 Jun, [facility] [place] [facility] [address] [id number] [place] [address]- 8334 Jun, [facility] [place] [facility] [address] [id number] [place] [address]- 4210 Jun, [facility] [place] [facility] [address] [id number] [place] [address]- 5199 Jun, [facility] [place] [facility] [address] [id number] [place] [address]- 7364 Jun, [facility] [place] [facility] [address] [id number] [place] [address]- 9299 Jun, [facility] [place] [facility] [address] [id number] [place] [address]- 1545 Jun, [facility] [place] [facility] [address] [id number] [place] [address]- 1784 Jun, [facility] [place] [facility] [address] [id number] [place] [address]- 2853 Jun, [facility] [place] [facility] [address] [id number] [place] [address]- 1499 Jun, [facility] [place] [facility] [address] [id number] [place] [address]- 3226 Jun, [facility] [place] [facility] [address] [id number] [place] [address]- 5269 May, [facility] [place] [facility] [address] [id number] [place] [address]- 8062 May, [facility] [place] [facility] [address] [id number] [place] [address]- 9555 May, [facility] [place] [facility] [address] [id number] [place] [address]- 9106 May, [facility] [place] [facility] [address] [id number] [place] [address]- 2936 May, [facility] [place] [facility] [address] [id number] [place] [address]- 9049 17 May, 2014 [facility] [place] [facility] [address] [id number] [place] [address]- 0200 15 May, 2014 [facility] [place] [facility] [address] [id number] [place] [address]- 6955 May, [facility] [place] [facility] [address] [id number] [place] [address]- 7378 May, [facility] [place] [facility] [address] [id number] [place] [address]- 5923 May, [facility] [place] [facility] [address] [id number] [place] [address]- 4064 May, [facility] [place] [facility] [address] [id number] [place] [address]- 1320 May, [facility] [place] [facility] [address] [id number] [place] [address]- 2597 08 May, 2014 [facility] [place] [facility] [address] [id number] [place] [address]- 2920 Apr, [facility] [place] [facility] [address] [id number] [place] [address]- 5149 Apr, [facility] [place] [facility] [address] [id number] [place] [address]- 1524 Apr, [facility] [place] [facility] [address] [id number] [place] [address]- 6344 Apr, [facility] [place] [facility] [address] [id number] [place] [address]- 6004 Apr, [facility] [place] [facility] [address] [id number] [place] [address]- 7131 Apr, [facility] [place] [facility] [address] [id number] [place] [address]- 8863 Mar, [facility] [place] [facility] [address] [id number] [place] [address]- 9913 Mar, [facility] [place] [facility] [address] [id number] [place] [address]- 6475 Mar, [facility] [place] [facility] [address] [id number] [place] [address]- 8387 Mar, [facility] [place] [facility] [address] [id number] [place] [address]- 3297 Feb, [facility] [place] [facility] [address] [id number] [place] [address]- 1249 24 Feb, 2014 [facility] [place] [facility] [address] [id number] [place] [address]- 0310 Feb, [facility] [place] [facility] [address] [id number] [place] [address]- 4424 Feb, [facility] [place] [facility] [address] [id number] [place] [address]- 9541 Feb, [facility] [place] [facility] [address] [id number] [place] [address]- 9263 Feb, [facility] [place] [facility] [address] [id number] [place] [address]- 5560 Jan, [facility] [place] [facility] [address] [id number] [place] [address]- 6218 Jan, [facility] [place] [facility] [address] [id number] [place] [address]- 4389 Dec, [facility] [place] [facility] [address] [id number] [place] [address]- 7298 Dec, [facility] [place] [facility] [address] [id number] [place] [address]- 3688 Nov, [facility] [place] [facility] [address] [id number] [place] [address]- 6227 Nov, [facility] [place] [facility] [address] [id number] [place] [address]- 2769 Nov, [facility] [place] [facility] [address] [id number] [place] [address]- 7545 October, [facility] [place] [facility] [address] [id number] [place] [address]- 1227 October, [facility] [place] [facility] [address] [id number] [place] [address]- 8620 Sep, [facility] [place] [facility] [address] [id number] [place] [address]- 4656 Sep, [facility] [place] [facility] [address] [id number] [place] [address]- 3711 Sep, [facility] [place] [facility] [address] [id number] [place] [address]- 0871 Sep, [facility] [place] [facility] [address] [id number] [place] [address]- 3960 Sep, [facility] [place] [facility] [address] [id number] [place] [address]- 1407 Sep, [facility] [place] [facility] [address] [id number] [place] [address]- 0548 Sep, [facility] [place] [facility] [address] [id number] [place] [address]- 8858 Sep, [facility] [place] [facility] [address] [id number] [place] [address]- 9976 Sep, [facility] [place] [facility] [address] [id number] [place] [address]- 0356 Sep, [facility] [place] [facility] [address] [id number] [place] [address]- 2146 Aug, [facility] [place] [facility] [address] [id number] [place] [address]- [address] Aug, [facility] [place] [facility] [address] [id number] [place] [address] Jul, [facility] [place] [facility] [address] [id number] [place] [address] Jul, [facility] [place] [facility] [address] [id number] [place] [address] Apr, [facility] [place] [facility] [address] [id number] [place] [address] Apr, [facility] [place] [facility] [address] [id number] [place] [address] Mar, [facility] [place] [facility] [address] [id number] [place] [address] Mar, [facility] [place] [facility] [address] [id number] [place] [address] Feb, [facility] [place] [facility] [address] [id number] [place] [address] Jan, [facility] [place] [facility] [address] [id number] [place] [address] Jan, [facility] [place] [facility] [address] [id number] [place] [address] Dec, [facility] [place] [facility] [address] [id number] [place] [address] Jul, [facility] [place] [facility] [address] [id number] [place] [address]10 Jun, [facility] [place] [facility] [address] [id number] [place] [address] 25[address] May, [facility] [place] [facility] [address] [id number] [place] [address] 19 May, 2012 [facility] [place] [facility] [address] [id number] [place] 19 May, 2012 [facility] [place] [facility] [address] [id number] [place] [address] 13 May, 2012 [facility] [place] [facility] [address] [id number] [place] [address] May, [facility] [place] [facility] [address] [id number] [place] [address] Apr, [facility] [place] [facility] [address] [id number] [place] [address] Apr, [facility] [place] [facility] [address] [id number] [place] [address] 19 Mar, 2012 [facility] [place] [facility] [address] [id number] [place] [address]- [address] 18 Mar, 2012 [facility] [place] [facility] [address] [id number] [place] [address] 17 Mar, 2012 [facility] [place] [facility] [address] [id number] [place] [address]47 17 Mar, 2012 [facility] [place] [facility] [address] [facility] [id number] [place] [address] 16 Mar, 2012 [facility] [place] [facility] [address] [id number] [place] [address] 16 Mar, 2012 [facility] [place] [facility] [address] [id number] [place] [address]- [address] 15 Mar, 2012 [facility] [place] [facility] [address] [id number] [place] [address] 27 Feb, 2012 [facility] [place] [facility] [address] [id number] [place] [address]- [address] 26 Feb, 2012 [facility] [place] [facility] [address] [id number] [place] [address] Dec, [facility] [place] [facility] [address] [id number] [place] [address] Dec, [facility] [place] [facility] [address] [id number] [place] [address]- [address]94 Nov, [facility] [place] [facility] [address] [id number] [place] [address]- [address] Nov, [facility] [place] [facility] [address] [id number] [place] [address] Nov, [facility] [place] [facility] [address] [id number] [place] [address] Nov, [facility] [place] [facility] [address] [id number] [place] [address]- [address] Nov, [facility] [place] [facility] [address] [id number] [place] [address] Sep, [facility] [place] [facility] [address] [id number] [place] [address] Aug, [facility] [place] [facility] [address] [id number] [place] [address] Jul, [facility] [place] [facility] [address] [id number] [place] [address] Jun, [facility] [place] [facility] [address] [id number] [place] [address] Jun, [facility] [place] [facility] [address] [id number] [place] [address] Jun, [facility] [place] [facility] [address] [id number] [place] [address]- [address] Jun, [facility] [place] [facility] [address] [id number] [place] [address] May, [facility] [place] [facility] [address] [id number] [place] [address]- [address] May, [facility] [place] [facility] [id number] [place] [address] May, [facility] [id number] [place] [address] May, [facility] [id number] [place] [address] May, [facility] [id number] [place] [address] May, [facility] [id number] [place] [address] Mar, [facility] [id number] [place] [address] Mar, [facility] [id number] [place] [address] Jun, [facility] [id number] [place] [address]- [address] May, [facility] [id number] [place] [address] May, [facility] [id number] [address] [address] Apr, [facility] [facility] [id number] [address] Apr, [facility] [id number] [address] Mar, [facility] [id number] [address] Mar, [facility] [id number] [address] Jul, IMMUNIZATIONS No Known Immunizations SOCIAL HISTORY Never Assessed REASON FOR VISIT 3 mo f/u --CAMILLE Dillard PLAN OF CARE Activity Details Follow Up 3 Months Reason:DM Pending Test TSH VITAL SIGNS Height 62 in 2018-03-18 Weight 140.6 lbs 2018-03-18 Temperature 97.8 degrees Fahrenheit 2018-03-18 Heart Rate 72 bpm 2018-03-18 Respiratory Rate 18 2018-03-18 BMI 25.71 kg/m2 2018-03-18 Blood pressure systolic 104 mmHg 2018-03-18 Blood pressure diastolic 62 mmHg 2018-03-18 MEDICATIONS Medication Instructions Dosage Frequency Start Date End Date Duration Status Glucocard Expression Monitor w/Device as directed October, 50 Active MetFORMIN HCl ER 500 mg TAKE TWO TABLETS BY MOUTH TWICE DAILY WITH MEALS. MUST BE TEVA BRAND 90 Active Ibuprofen 800 MG Orally Once a day 1 tablet 24h Active Potassium 99 MG Orally Once a day 1 tablet 24h Active Amaryl 4 MG Orally once in AM and 1 in PM TAKE TWO TABLETS BY MOUTH 90 days Active RESULTS Name Result Date Reference Range A1C (IN HOUSE) 2018-03-18 A1C IN HOUSE 8.1 4.3 - 5.6 % Previous A1c 9.4 Lot [id number] Exp date 08/2019 PROCEDURES Procedure Date Ordered Result Body Site GLYCATED HEMOGLOBIN TEST Mar 18, 2018 ASSAY THYROID STIM HORMONE Mar 18, 2018 VENIPUNCT, ROUTINE* Mar 18, 2018 INSTRUCTIONS MEDICATIONS ADMINISTERED No Known Medications MEDICAL (GENERAL) HISTORY Type Description Date Medical History hypothyroidism Medical History type II diabetes Medical History back pain Medical History hyperlipidemia Medical History anxiety Medical History mood disorder Medical History heart murmur Medical History chronic bronchitis Medical History [place] Surgical History appendectomy Surgical History gallbladder removal Hospitalization History childbirth Hospitalization History pancreatitis 2005 Hospitalization History appendectomy Hospitalization History Anaphylaxis to Bactrim 2015
--- OUTSIDE RECORDS SUMMARY | 2018-07-17 11:05 | XMS REPORT ---
Author Author ISREAL MORELAND [facility] Address [address] [place] [address] Care Team Providers Care [place] Pumper Name Role Phone ISREAL MORELAND Unavailable PROBLEMS Type Condition ICD9-CM Code XFW61-DD Code Onset Dates Condition Status SNOMED Code Problem Anxiety disorder, unspecified F41.9 Active 608698341 Problem Violation of controlled substance agreement Z91.14 Active 584946336 Problem Intestinal malabsorption, unspecified K90.9 Active 98654313 Problem Acquired hypothyroidism E03.9 Active 072200090 Problem Diabetes E11.9 Active 240766297 Problem Hypertriglyceridemia E78.1 Active 338062989 Problem Status post cholecystectomy Z90.49 Active 144988951 ALLERGIES No Information ENCOUNTERS Encounter Location Date Diagnosis [facility] [address] [address] Mar, [facility] [address] [address] Jan, Yeast infection B37.9 [place] [address] [address] Jan, [facility] [address] [address] Dec, Intestinal malabsorption, unspecified K90.9 ; Diarrhea, unspecified R19.7 ; Diabetes E11.9 and Marijuana smoker F12.90 [facility] [address] [id number] Dec, Dental examination Z01.20 [facility] [id number] [place] [id number] Dec, Dental examination Z01.20 and Dental caries K02.9 [facility] [address] [address] Dec, Benzodiazepine use agreement exists Z02.89 ; Therapeutic drug monitoring Z51.81 and Violation of controlled substance agreement Z91.14 [place] [address] [address] 05 Nov, 2017 [place] [address] [address] Nov, Ketoacidosis E87.2 ; Status post cholecystectomy Z90.49 ; Diabetes E11.9 ; Acquired hypothyroidism E03.9 ; Hypertriglyceridemia E78.1 and Vaginal yeast infection B37.3 [place] [address] [address] October, [place] [address] [address]- [address] Sep, [place] [address] [address] Aug, [facility] [address] [address]- [address] Jul, [place] [address] [address] Jun, [place] [address] [address] Jun, Diabetes E11.9 and Drug-induced acute pancreatitis with uninfected necrosis K85.31 [place] [address] [address] May, [facility] [address] [address] Apr, [facility] [address] [address] Apr, Crushing injury of right foot, initial encounter S97.81XA [place] [address] [address] Feb, [facility] [address] [address] Feb, [facility] [id number] [address] Feb, Acute non-recurrent pansinusitis J01.40 [facility] [address] [address] Feb, [facility] [id number] [place] [address]- 7031 Jan, [facility] [id number] [place] [address] 76298- 0380 Nov, [facility] [id number] [place] [address] 06150- 2673 October, [facility] [id number] [place] [address] 25432- 6302 October, Diabetes E11.9 ; Anxiety disorder, unspecified F41.9 and Acquired hypothyroidism E03.9 [facility] [address], [place] [address] October, [facility] [id number] [place] [address] 28928- 5608 Sep, [facility] [id number] [address] 8[address] Sep, [facility] [id number] [address] Aug, [facility] [id number] [place] [address] 86[address] Jul, [facility] [id number] [place] [address] 24606- 4856 Jul, [facility] [address], [place] [address]- 24[address] Jul, [facility] [id number] [address]- 270[address] Jul, [facility] [id number] [place] [address] 12244- 3799 Jul, Acute non-recurrent maxillary sinusitis J01.00 [facility] [id number] [place] [address] 12353- 0536 Jul, [facility] [id number] [place] [address] 92532- 2025 Jun, [facility] [id number] [place] [address] 7[address]96- 5234 May, [facility] [id number] [place] [address] 58751- 3966 Apr, [facility] [id number] [place] [address] 41782- 3338 Mar, Diabetes E11.9 [facility] [id number] [place] [address] 92644- 0912 28 Feb, 2016 Pelvic pain R10.2 ; Leukocytosis, unspecified D72.829 ; Constipation, unspecified constipation type K59.00 and History of pancreatitis Z87.19 [facility] [address], [place] [address]- [address] 22 Feb, 2016 [facility] [id number] [place] [address] 77620- 7925 14 Feb, 2016 Diabetes E11.9 [facility] [address], [place] [address]- [address] 13 Feb, 2016 [facility] [id number] [place] [address] 62741- 0845 2016 Vaginal yeast infection B37.3 [facility] [id number] [place] [address] 67290- 8751 08 Feb, 2016 [facility] [id number] [place] [address] 38545- 0853 Jan, Diabetes E11.9 [facility] [id number], [place] [address]- 6[address] Jan, Anxiety disorder, unspecified F41.9 [facility] [id number] [place] [address] 151448- 5012 Jan, Vaginal yeast infection B37.3 [facility] [id number] [place] [address] 49509- 2918 Jan, [facility] [id number] [place] [address] 04866- 7342 Dec, Anxiety disorder, unspecified F41.9 [facility] [id number] [place] [address] 13263- 3402 Dec, Vaginal yeast infection B37.3 [facility] [id number] [place] [address] 05311- 9916 Nov, Anxiety disorder, unspecified F41.9 [facility] [id number] [place] [address] 40995- 0406 Nov, Anxiety disorder, unspecified F41.9 [facility] [id number] [place] [address] 03396- 3753 October, Anxiety disorder, unspecified F41.9 [facility] [address], [place] [address]- 1369 October, Diabetes E11.9 [facility] [id number] [place] [address] 06726- 5760 Sep, Anxiety disorder, unspecified F41.9 [facility] [id number] [place] [address] 98917- 9083 Sep, [facility] [id number] [place] [address] 086462- 0965 Aug, Vaginal yeast infection B37.3 [facility] [address], [place] [address]- 0565 Aug, [facility] [address], [place] [address]- 7[address] Jul, [facility] [id number] [place] [address] 616488- 5636 Jun, [facility] [id number] [place] [address] 72196- 4444 Jun, [facility] [id number] [place] [address] 96653- 0109 Jun, [facility] [id number] [place] [address] 427849- 6764 May, [facility] [id number] [place] [address] 502822- 0649 Apr, Diabetes E11.9 ; Acquired hypothyroidism E03.9 ; Hyperlipidemia, unspecified hyperlipidemia E78.5 and Anxiety F41.9 [facility] [id number] [place] [address] 78493- 9836 Apr, [facility] [id number] [place] [address] 73846- 8772 Mar, [facility] [id number] [place] [address] [id number]- 8985 Feb, [facility] [id number] [place] [address] 20933- 8008 Feb, [facility] [id number] [place] [address] 11208- 9754 Jan, [facility] [id number] [place] [address] 07027- 5903 Dec, [facility] [id number] [place] [address] 10985- 8280 Dec, DUB (dysfunctional uterine bleeding) 626.8 and Pap test, as part of routine gynecological examination V76.2 [facility] [id number] [place] [address] 20630- 3502 Dec, [facility] [address] [id number] [place] [address]- 8221 Dec, [facility] [address] [id number] [place] [address]- 2034 Nov, [facility] [address] [id number] [place] [address]- 4186 Nov, [facility] [address] [id number] [place] [address]- 3548 Nov, Diabetes 250.00 [facility] [address] [id number] [place] [address]- 2117 Nov, [facility] [address] [id number] [place] [address]- 8046 October, [facility] [address] [id number] [place] [address]- 0865 October, Diabetes 250.00 [facility] [address] [id number] [place] [address]- 9459 October, [facility] [address] [id number] [place] [address]- 3352 October, [facility] [address] [id number] [place] [address]- 5223 October, [facility] [address] [id number] [place] [address]- 2726 October, [facility] [address] [id number] [address]- 9486 October, [facility] [address] [id number] [place] [address]- 7699 Sep, [facility] [address] [id number] [place] [address]- 1540 Sep, [facility] [address] [id number] [place] [address]- 2072 Sep, [facility] [address] [id number] [place] [address]- 9807 Aug, 2014 [facility] [place] [facility] [address] [id number] [place] [address]- 9302 Aug, 2014 [facility] [place] [facility] [address] [id number] [place] [address]- 4666 Aug, 2014 [facility] [place] [facility] [address] [id number] [place] [address]- 9686 Aug, 2014 [facility] [place] [facility] [address] [id number] [place] [address]- 3086 Aug, 2014 [facility] [place] [facility] [address] [id number] [place] [address]- 6302 Aug, 2014 [facility] [place] [facility] [address] [id number] [place] [address]- 5126 Aug, 2014 [facility] [place] [facility] [address] [id number] [place] [address]- 9875 Aug, 2014 [facility] [place] [facility] [address] [id number] [place] [address]- 1560 Aug, 2014 [facility] [place] [facility] [address] [id number] [place] [address]- 1172 Jul, 2014 [facility] [place] [facility] [address] [facility] [id number] [place] [address]- 0587 Jul, 2014 [facility] [place] [facility] [address] [id number] [place] [address]- 4176 Jul, 2014 [facility] [place] [facility] [address] [facility] [id number] [place] [address]- 2546 Jul, 2014 [facility] [place] [facility] [address] [id number] [place] [address]- 5206 Jul, 2014 [facility] [place] [facility] [address] [facility] [id number] [place] [address]- 2546 Jul, 2014 [facility] [place] [facility] [address] [facility] [id number] [place] [address]- 2546 Jul, [facility] [place] [facility] [address] [id number] [place] [address]- 1379 Jul, [facility] [place] [facility] [address] [id number] [place] [address]- 8436 Jun, [facility] [place] [facility] [address] [id number] [place] [address]- 2034 Jun, [facility] [place] [facility] [address] [id number] [place] [address]- 1454 Jun, [facility] [place] [facility] [address] [id number] [place] [address]- 8422 Jun, [facility] [place] [facility] [address] [id number] [place] [address]- 1573 Jun, [facility] [place] [facility] [address] [id number] [place] [address]- 1764 Jun, [facility] [place] [facility] [address] [id number] [place] [address]- 6116 Jun, [facility] [place] [facility] [address] [id number] [place] [address]- 5586 Jun, [facility] [place] [facility] [address] [id number] [place] [address]- 0899 Jun, [facility] [place] [facility] [address] [id number], [place] [address]- 0359 Jun, [facility] [place] [facility] [address] [id number], [place] [address]- 2654 Jun, [facility] [place] [facility] [address] [id number] [place] [address]- 0001 Jun, [facility] [place] [facility] [address] [id number] [place] [address]- 9236 May, [facility] [place] [facility] [address] [id number] [place] [address]- 5684 May, [facility] [place] [facility] [address] [id number] [place] [address]- 9121 22 May, 2014 [facility] [place] [facility] [address] [id number] [place] [address]- 0709 22 May, 2014 [facility] [place] [facility] [address] [id number] [place] 5126 17 May, 2014 [facility] [place] [facility] [address] [id number] [place] 0456 17 May, 2014 [facility] [place] [facility] [address] [id number] [place] [address]- 8226 15 May, 2014 [facility] [place] [facility] [address] [id number] [place] [address]- 4890 15 May, 2014 [facility] [place] [facility] [address] [id number] [place] [address]- 5908 12 May, 2014 [facility] [place] [facility] [address] [id number] [place] [address]- 5339 08 May, 2014 [facility] [place] [facility] [address] [id number] [place] [address]- 5197 08 May, 2014 [facility] [place] [facility] [address] [id number] [place] [address]- 2628 08 May, 2014 [facility] [place] [facility] [address] [facility] [id number] [place] [address]- 9404 08 May, 2014 [facility] [place] [facility] [address] [id number] [place] [address]- 8855 Apr, [facility] [place] [facility] [address] [id number] [place] [address]- 3423 Apr, [facility] [place] [facility] [address] [id number] [place] [address]- 7662 Apr, [facility] [place] [facility] [address] [id number] [place] [address]- 6149 13 Apr, 2014 [facility] [place] [facility] [address] [id number] [place] 0132 Apr, [facility] [place] [facility] [address] [id number] [place] [address]- 8236 Apr, [facility] [place] [facility] [address] [id number] [place] [address]- 2856 Mar, [facility] [place] [facility] [address] [id number] [place] 9335 Mar, [facility] [place] [facility] [address] [id number] [place] [address]- 4102 Mar, [facility] [place] [facility] [address] [id number] [place] [address]- 4402 Mar, [facility] [place] [facility] [address] [id number] [place] [address]- 3132 Feb, [facility] [place] [facility] [address] [id number] [place] [address]- 5219 Feb, [facility] [place] [facility] [address] [id number] [place] [address]- 0926 Feb, [facility] [place] [facility] [address] [id number] [place] [address]- 0663 Feb, [facility] [place] [facility] [address] [id number] [place] [address]- 4436 Feb, [facility] [place] [facility] [address] [id number] [place] [address]- 0357 Feb, [facility] [place] [facility] [address] [id number] [place] [address]- 1417 Jan, [facility] [place] [facility] [address] [id number] [place] [address]- 8505 Jan, [facility] [place] [facility] [address] [id number] [place] [address]- 3771 Dec, [facility] [place] [facility] [address] [id number] [place] [address]- 3012 Dec, [facility] [place] [facility] [address] [id number] [place] [address]- 9583 Nov, [facility] [place] [facility] [address] [id number] [place] [address]- 3662 Nov, [facility] [place] [facility] [address] [id number] [place] 2662 Nov, [facility] [place] [facility] [address] [id number] [place] [address]- 8124 October, [facility] [place] [facility] [address] [id number] [place] [address]- 8202 October, [facility] [place] [facility] [address] [id number] [place] [address]- 3835 Sep, [facility] [place] [facility] [address] [id number] [place] [address]- 7664 Sep, [facility] [place] [facility] [address] [id number] [place] [address]- 3391 Sep, [facility] [place] [facility] [address] [id number] [place] [address]- 3117 Sep, [facility] [place] [facility] [address] [id number] [place] [address]- 1906 Sep, [facility] [place] [facility] [address] [id number] [place] [address]- 0024 Sep, [facility] [place] [facility] [address] [id number] [place] [address]- 0147 Sep, [facility] [place] [facility] [address] [id number] [place] [address]- 3454 Sep, [facility] [place] [facility] [address] [id number] [place] [address]- 0243 Sep, [facility] [place] [facility] [address] [id number] [place] [address]- 7537 Sep, [facility] [place] [facility] [address] [id number] [place] [address]- 6255 Aug, [facility] [place] [facility] [address] [id number] [place] [address]- 2546 Aug, [facility] [address] [id number] [place] [address]- 4696 Jul, [facility] [place] [facility] [address] [id number] [place] [address]- 2546 Jul, [facility] [address] [id number] [place] [address]- 2546 Apr, [facility] [place] [facility] [address] [id number] [place] [address]- 2546 Apr, [facility] [place] [facility] [address] [id number] [place] [address]- 5966 Mar, [facility] [place] [facility] [address] [id number] [place] [address]- 4466 Mar, [facility] [place] [facility] [address] [id number] [place] [address] Feb, [facility] [address] [id number] [place] [address] Jan, [facility] [place] [facility] [address] [id number] [place] [address] Jan, [facility] [address] [id number] [place] [address] Dec[place] [facility] [place] [facility] [address] [id number] [place] [address] Jul, [facility] [place] [facility] [address] [id number] [place] [address] Jun, [facility] [place] [facility] [address] [id number] [place] [address] May, [facility] [place] [facility] [address] [id number] [place] [address] May, [facility] [place] [facility] [address] [id number] [place] [address] May, [facility] [place] [facility] [address] [id number] [place] [address] May, [facility] [place] [facility] [address] [id number] [place] [address] May, [facility] [place] [facility] [address] [id number] [place] [address] Apr, [facility] [place] [facility] [address] [id number] [place] [address] Apr, [facility] [place] [facility] [address] [id number] [place] [address] 19 Mar, 2012 [facility] [place] [facility] [address] [id number] [place] [address] 18 Mar, 2012 [facility] [place] [facility] [address] [id number] [place] [address] 17 Mar, 2012 [facility] [place] [facility] [address] [id number] [place] [address] 17 Mar, 2012 [facility] [place] [facility] [address] [id number] [place] [address] 16 Mar, 2012 [facility] [place] [facility] [address] [facility] [id number] [address] 16 Mar, 2012 [facility] [place] [facility] [address] [id number], [place] [address] 15 Mar, 2012 [facility] [place] [facility] [address] [id number], [place] [address] Feb, [facility] [place] [facility] [address] [id number] [place] [address] [address] Feb, [facility] [place] [facility] [address] [id number], [place] [address] Dec, [facility] [place] [facility] [address] [facility] [id number] [place] [address] Dec, [facility] [place] [facility] [address] [id number] [place] [address] Nov, [facility] [place] [facility] [address] [id number] [place] [address] Nov, [facility] [place] [facility] [address] [id number] [place] [address] Nov, [facility] [place] [facility] [address] [id number] [place] [address] Nov, [facility] [place] [facility] [address] [id number] [place] [address] Nov, [facility] [place] [facility] [address] [id number] [place] [address] Sep, [facility] [place] [facility] [address] [id number] [place] [address] Aug, [facility] [place] [facility] [address] [id number] [place] [address] Jul, [facility] [place] [facility] [address] [id number] [place] [address] Jun, [facility] [place] [facility] [address] [id number] [place] [address] Jun, [facility] [place] [facility] [address] [id number] [place] [address] Jun, [facility] [place] [facility] [address] [id number] [place] [address] Jun, [facility] [place] [facility] [address] [id number] [place] [address] 1483 May, [facility] [place] [facility] [address] [id number] [place] [address] May, [facility] [place] [facility] [address] [id number] [place] [address] May, [facility] [place] [facility] [address] [id number] [place] [address] May, [facility] [id number] [address] May, [facility] [id number], [place] [address] May, [facility] [id number] [address] Mar, [facility] [id number] [place] [address] Mar, [facility] [id number] [address] Jun, [facility] [id number] [place] [address] May, [facility] [id number], [place] [address] May, [facility] [id number] [place] [address] Apr, [facility] [id number] [address] Apr, [facility] [id number] [place] [address] Mar, [facility] [address] [id number] [address] Mar, [facility] [address], [place] [address] Jul, IMMUNIZATIONS No Known Immunizations SOCIAL HISTORY Never Assessed REASON FOR VISIT Rx Request PLAN OF CARE VITAL SIGNS MEDICATIONS Medication Instructions Dosage Frequency Start Date End Date Duration Status Diflucan 100 mg Orally on day #1 and then 1 tab daily for 9 more days 2 tablet Jan, Feb, 10 day(s) Active RESULTS No Results PROCEDURES No Known procedures INSTRUCTIONS MEDICATIONS ADMINISTERED No Known Medications MEDICAL [...] History appendectomy Hospitalization History Anaphylaxis to Bactrim 2016
--- OUTSIDE RECORDS SUMMARY | 2018-07-17 11:06 | XMS REPORT ---
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 Name Role Phone ISREAL MORELAND Unavailable PROBLEMS Type Condition ICD9-CM Code PEG43-AL Code Onset Dates Condition Status SNOMED Code Problem Anxiety disorder, unspecified F41.9 Active 299991248 Problem Violation of controlled substance agreement Z91.14 Active 644093093 Problem Intestinal malabsorption, unspecified K90.9 Active 35236090 Problem Acquired hypothyroidism E03.9 Active 252526088 Problem Diabetes E11.9 Active 903794719 Problem Hypertriglyceridemia E78.1 Active 282156366 Problem Status post cholecystectomy Z90.49 Active 789273074 ALLERGIES No Information ENCOUNTERS Encounter Location Date Diagnosis [facility] [address] [address] Mar, [facility] [address] [address] Jan, Yeast infection B37.9 [place] [address] [address] Jan, [facility] [address] [address] Dec, Intestinal malabsorption, unspecified K90.9 ; Diarrhea, unspecified R19.7 ; Diabetes E11.9 and Marijuana smoker F12.90 [facility] [address] [id number] Dec, Dental examination Z01.20 [facility] [id number] [place] [address] [id number] Dec, Dental examination Z01.20 and Dental caries K02.9 [facility] [address] [address] Dec, Benzodiazepine use agreement exists Z02.89 ; Therapeutic drug monitoring Z51.81 and Violation of controlled substance agreement Z91.14 [place] [address] [address] 05 Nov, 2017 [place] [address] [address] Nov, Ketoacidosis E87.2 ; Status post cholecystectomy Z90.49 ; Diabetes E11.9 ; Acquired hypothyroidism E03.9 ; Hypertriglyceridemia E78.1 and Vaginal yeast infection B37.3 [place] [address] [address] October, [place] [address] [address] Sep, [place] [address] [address] Aug, 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 [address] [address] Apr, [facility] [address] [address] Apr, Crushing injury of right foot, initial encounter S97.81XA [place] [address] [address] Feb, [facility] [address], [place] [address] Feb, [facility] [address], [place] [address] Feb, Acute non-recurrent pansinusitis J01.40 [facility] [address] [address] Feb, [facility] [id number] [place] [address]- 6914 Jan, [facility] [id number] [place] [address] 76902- 3665 Nov, [facility] [id number] [place] [address]- 6801 October, [facility] [id number] [place] [address] 75[address]- 0507 October, Diabetes E11.9 ; Anxiety disorder, unspecified F41.9 and Acquired hypothyroidism E03.9 [facility] [address] [address] October, [facility] [id number] [place] [address] 43190- 1705 Sep, [facility] [address] [address] Sep, [facility] [id number] [address] Aug, [facility] [address], [place] [address] Jul, [facility] [id number] [place] [address]40- 2816 Jul, [facility] [address], [place] [address] Jul, [facility] [id number], [place] [address] Jul, [facility] [id number] [place] [address] 34[address]- 7439 Jul, Acute non-recurrent maxillary sinusitis J01.00 [facility] [address] [place] [address] 37247- 2463 Jul, [facility] [id number] [place] [address] 60411- 0444 Jun, [facility] [id number] [place] [address]- 6885 May, [facility] [id number] [place] [address] 6[address]- 2311 Apr, [facility] [id number] [place] [address]90- 6017 Mar, Diabetes E11.9 [facility] [id number] [place] [address]40- 3074 28 Feb, 2016 Pelvic pain R10.2 ; Leukocytosis, unspecified D72.829 ; Constipation, unspecified constipation type K59.00 and History of pancreatitis Z87.19 [facility] [address], [place] [address] 22 Feb, 2016 [facility] [id number] [place] [address] 31611- 1144 14 Feb, [address] [facility] [address], [place] [address] 4362 13 Feb, 2016 [facility] [id number] [place] [address] 38267- 1241 2016 Vaginal yeast infection B37.3 [facility] [address] [place] [address]- 2003 08 Feb, 2016 [facility] [id number] [place] [address] 30226- 5444 Jan, Diabetes [address]11.9 [facility] [address] [address] Jan, Anxiety disorder, unspecified F41.9 [facility] [address] [place] [address] 148045- 5051 Jan, Vaginal yeast infection B37.3 [facility] [address] [place] [address]8852- 6963 Jan, [facility] [address] [place] [address] 39049- 4129 Dec, Anxiety disorder, unspecified F41.9 [facility] [id number] [place] [address] 97948- 8912 Dec, Vaginal yeast infection B37.3 [facility] [address] [place] [address] 87510- 5224 Nov, Anxiety disorder, unspecified F41.9 [facility] [id number] [place] [address] 42441- 3464 Nov, Anxiety disorder, unspecified F41.9 [facility] [address] [place] [address] 58153- 3515 October, Anxiety disorder, unspecified F41.9 [facility] [address] [address]- 267[address] October, Diabetes E11.9 [facility] [address] [place] [address] 03248- 9531 Sep, Anxiety disorder, unspecified F41.9 [facility] [address] [place] [address] 41832- 7076 Sep, [facility] [address] [place] [address] 102542- 1344 Aug, Vaginal yeast infection B37.3 [facility] [address], [place] [address] 98[address] Aug, [facility] [address], [place] [address]- [address] Jul, [facility] [id number] [place] [address] 951229- 3953 Jun, [facility] [id number] [place] [address] 32856- 1458 Jun, [facility] [id number] [place] [address] 92861- 4837 Jun, [facility] [id number] [place] [address] 766634- 4435 May, [facility] [id number] [place] [address] 542961- 3801 Apr, Diabetes E11.9 ; Acquired hypothyroidism E03.9 ; Hyperlipidemia, unspecified hyperlipidemia E78.[address] [facility] [id number] [place] [address] 45556- 2721 Apr, [facility] [id number] [place] [address] 35670- 3740 Mar, [facility] [id number] [place] [address] 94337376- 4787 Feb, [facility] [id number] [place] [address] 22620- 9047 Feb, [facility] [id number] [place] [address] 27320- 1159 Jan, [facility] [address] [place] [address] 93810- 1715 Dec, [facility] [id number] [place] [address] 58224- 9091 Dec, DUB (dysfunctional uterine bleeding) 626.8 and Pap test, as part of routine gynecological examination V76.2 [facility] [id number] [place] [address] 24776- 7447 Dec, [facility] [address] [id number] [place] [address]- 1296 Dec, [facility] [address] [id number] [place] [address]- 1040 Nov, [facility] [address] [id number] [place] [address]- 1822 Nov, [facility] [address] [id number] [place] [address]- 9628 Nov, Diabetes 250.00 [facility] [address] [id number] [place] [address]- 4230 Nov, [facility] [address] [id number] [place] [address]- 5206 October, [facility] [address] [id number] [place] [address]- 5507 October, Diabetes 250.00 [facility] [address] [id number] [place] [address]- 5898 October, [facility] [address] [id number] [place] [address]- 0560 October, [facility] [address] [id number] [place] [address]- 2988 October, [facility] [address] [id number] [place] [address]- 5826 October, [facility] [address] [id number] [address]- 6616 October, [facility] [address] [id number] [place] [address]- 7061 Sep, [facility] [address] [id number] [place] [address]- 4428 Sep, [facility] [address] [id number] [place] [address]- 7025 Sep, [facility] [address] [id number] [place] [address]- 0632 Aug, 2014 [facility] [place] [facility] [address] [id number] [place] [address]- 5046 Aug, 2014 [facility] [place] [facility] [address] [id number] [place] [address]- 8616 Aug, 2014 [facility] [place] [facility] [address] [id number] [place] [address]- 3562 Aug, 2014 [facility] [place] [facility] [address] [id number] [place] [address]- 8831 Aug, 2014 [facility] [place] [facility] [address] [id number] [place] [address]- 1901 Aug, 2014 [facility] [place] [facility] [address] [id number] [place] [address]- 6096 Aug, 2014 [facility] [place] [facility] [address] [id number] [place] [address]- 3353 Aug, 2014 [facility] [place] [facility] [address] [id number] [place] [address]- 6811 Aug, 2014 [facility] [place] [facility] [address] [id number] [place] [address]- 1946 Jul, 2014 [facility] [place] [facility] [address] [facility] [id number] [place] [address]- 9002 Jul, 2014 [facility] [place] [facility] [address] [id number] [place] [address]- 7036 Jul, 2014 [facility] [place] [facility] [address] [facility] [id number] [place] [address]- 2546 Jul, 2014 [facility] [place] [facility] [address] [id number] [place] [address]- 4376 Jul, 2014 [facility] [place] [facility] [address] [facility] [id number] [place] [address]- 2546 Jul, 2014 [facility] [place] [facility] [address] [facility] [id number] [place] [address]- 2546 Jul, [facility] [place] [facility] [address] [id number] [place] [address]- 6661 Jul, [facility] [place] [facility] [address] [id number] [place] [address]- 1306 Jun, [facility] [place] [facility] [address] [id number] [place] [address]- 8700 Jun, [facility] [place] [facility] [address] [id number] [place] [address]- 4130 Jun, [facility] [place] [facility] [address] [id number] [place] [address]- 9497 Jun, [facility] [place] [facility] [address] [id number] [place] [address]- 1154 Jun, [facility] [place] [facility] [address] [id number] [place] [address]- 5981 Jun, [facility] [place] [facility] [address] [id number] [place] [address]- 0090 Jun, [facility] [place] [facility] [address] [id number] [place] [address]- 0469 Jun, [facility] [place] [facility] [address] [id number] [place] [address]- 9552 Jun, [facility] [place] [facility] [address] [id number], [place] [address]- 0015 Jun, [facility] [place] [facility] [address] [id number], [place] [address]- 8062 Jun, [facility] [place] [facility] [address] [id number] [place] [address]- 7941 Jun, [facility] [place] [facility] [address] [id number] [place] [address]- 6236 May, [facility] [place] [facility] [address] [id number] [place] [address]- 2562 May, [facility] [place] [facility] [address] [id number] [place] [address]- 0009 22 May, 2014 [facility] [place] [facility] [address] [id number] [place] [address]- 8449 22 May, 2014 [facility] [place] [facility] [address] [id number] [place] 4996 17 May, 2014 [facility] [place] [facility] [address] [id number] [place] [address]106 17 May, 2014 [facility] [place] [facility] [address] [id number] [place] [address]- 1564 15 May, 2014 [facility] [place] [facility] [address] [id number] [place] [address]- 7810 15 May, 2014 [facility] [place] [facility] [address] [id number] [place] [address]- 3354 12 May, 2014 [facility] [place] [facility] [address] [id number] [place] [address]- 2754 08 May, 2014 [facility] [place] [facility] [address] [id number] [place] [address]- 4117 08 May, 2014 [facility] [place] [facility] [address] [id number] [place] [address]- 4373 08 May, 2014 [facility] [place] [facility] [address] [facility] [id number] [place] [address]- 1774 08 May, 2014 [facility] [place] [facility] [address] [id number] [place] [address]- 9286 Apr, [facility] [place] [facility] [address] [id number] [place] [address]- 6946 Apr, [facility] [place] [facility] [address] [id number] [place] [address]- 6927 Apr, [facility] [place] [facility] [address] [id number] [place] [address]- 3709 13 Apr, 2014 [facility] [place] [facility] [address] [id number] [place] 2799 Apr, [facility] [place] [facility] [address] [id number] [place] [address]- 7355 Apr, [facility] [place] [facility] [address] [id number] [place] [address]- 9056 Mar, [facility] [place] [facility] [address] [id number] [place] 2808 Mar, [facility] [place] [facility] [address] [id number] [place] [address]- 8809 Mar, [facility] [place] [facility] [address] [id number] [place] [address]- 4854 Mar, [facility] [place] [facility] [address] [id number] [place] [address]- 9792 Feb, [facility] [place] [facility] [address] [id number] [place] [address]- 9948 Feb, [facility] [place] [facility] [address] [id number] [place] [address]- 6533 Feb, [facility] [place] [facility] [address] [id number] [place] [address]- 2400 Feb, [facility] [place] [facility] [address] [id number] [place] [address]- 0812 Feb, [facility] [place] [facility] [address] [id number] [place] [address]- 8129 Feb, [facility] [place] [facility] [address] [id number] [place] [address]- 4905 Jan, [facility] [place] [facility] [address] [id number] [place] [address]- 7296 Jan, [facility] [place] [facility] [address] [id number] [place] [address]- 2166 Dec, [facility] [place] [facility] [address] [id number] [place] [address]- 5630 Dec, [facility] [place] [facility] [address] [id number] [place] [address]- 7857 Nov, [facility] [place] [facility] [address] [id number] [place] [address]- 3223 Nov, [facility] [place] [facility] [address] [id number] [place] 1363 Nov, [facility] [place] [facility] [address] [id number] [place] [address]- 3568 October, [facility] [place] [facility] [address] [id number] [place] [address]- 5816 October, [facility] [place] [facility] [address] [id number] [place] [address]- 0498 Sep, [facility] [place] [facility] [address] [id number] [place] [address]- 1057 Sep, [facility] [place] [facility] [address] [id number] [place] [address]- 6993 Sep, [facility] [place] [facility] [address] [id number] [place] [address]- 2877 Sep, [facility] [place] [facility] [address] [id number] [place] [address]- 9859 Sep, [facility] [place] [facility] [address] [id number] [place] [address]- 6356 Sep, [facility] [place] [facility] [address] [id number] [place] [address]- 7037 Sep, [facility] [place] [facility] [address] [id number] [place] [address]- 1795 Sep, [facility] [place] [facility] [address] [id number] [place] [address]- 6027 Sep, [facility] [place] [facility] [address] [id number] [place] [address]- 8964 Sep, [facility] [place] [facility] [address] [id number] [place] [address]- 2679 Aug, [facility] [place] [facility] [address] [id number] [place] [address]- 2546 Aug, [facility] [address] [id number] [place] [address]- 5736 Jul, [facility] [place] [facility] [address] [id number] [place] [address]- 2546 Jul, [facility] [address] [id number] [place] [address]- 2546 Apr, [facility] [place] [facility] [address] [id number] [place] [address]- 2546 Apr, [facility] [place] [facility] [address] [id number] [place] [address]- 4306 Mar, [facility] [place] [facility] [address] [id number] [place] [address]- 7946 Mar, [facility] [place] [facility] [address] [id number] [place] [address]- 2546 Feb, [facility] [address] [id number] [place] [address]- 2546 Jan, [facility] [place] [facility] [address] [id number] [place] [address]- 2546 Jan, [facility] [address] [id number] [place] [address]- 2546 Dec, [facility] [place] [facility] [address] [id number] [place] [address]- 2546 Jul, [facility] [place] [facility] [address] [id number] [place] [address]- 2546 Jun, [facility] [place] [facility] [address] [id number] [place] [address]- 2546 May, [facility] [place] [facility] [address] [id number] [place] [address]- 2546 May, [facility] [place] [facility] [address] [id number] [place] [address]- 7018 May, [facility] [place] [facility] [address] [id number] [place] [address]- 3197 May, [facility] [place] [facility] [address] [id number] [place] [address]- 4482 May, [facility] [place] [facility] [address] [id number] [place] [address] Apr, [facility] [place] [facility] [address] [id number] [place] [address] Apr, [facility] [place] [facility] [address] [id number] [place] [address] 19 Mar, 2012 [facility] [place] [facility] [address] [id number] [place] [address] 18 Mar, 2012 [facility] [place] [facility] [address] [id number] [place] [address] 17 Mar, 2012 [facility] [place] [facility] [address] [id number] [place] [address] 17 Mar, 2012 [facility] [place] [facility] [address] [id number] [place] [address] 16 Mar, 2012 [facility] [place] [facility] [address] [facility] [id number] [address] 16 Mar, 2012 [facility] [place] [facility] [address] [id number][place] [address] 15 Mar, 2012 [facility] [place] [facility] [address] [id number], [place] [address] Feb, [facility] [place] [facility] [address] [id number] [place] [address] Feb, [facility] [place] [facility] [address] [id number], [place] [address] Dec, [facility] [place] [facility] [address] [facility] [id number] [place] [address] Dec, [facility] [place] [facility] [address] [id number] [place] [address] Nov, [facility] [place] [facility] [address] [id number] [place] [address] Nov, [facility] [place] [facility] [address] [id number] [place] [address] Nov, [facility] [place] [facility] [address] [id number] [place] [address] Nov, [facility] [place] [facility] [address] [id number] [place] [address] Nov, [facility] [place] [facility] [address] [id number] [place] [address] Sep, [facility] [place] [facility] [address] [id number] [place] [address] Aug, [facility] [place] [facility] [address] [id number] [place] [address] Jul, [facility] [place] [facility] [address] [id number] [place] [address] Jun, [facility] [place] [facility] [address] [id number] [place] [address] Jun, [facility] [place] [facility] [address] [id number] [place] [address] Jun, [facility] [place] [facility] [address] [id number] [place] [address] Jun, [facility] [place] [facility] [address] [id number] [place] [address] May, [facility] [place] [facility] [address] [id number] [place] [address] May, [facility] [place] [facility] [address] [id number] [place] [address] May, [facility] [place] [facility] [address] [id number] [place] [address] May, [facility] [address] [facility] [id number] [address] May, [facility] [id number] [address] May, [facility] [address] [facility] [id number][place] [address] Mar, [facility] [id number] [place] [address] 137[address] Mar, [facility] [address] [facility] [id number] [address] Jun, [facility] [id number] [place] [address] May, [facility] [id number] [address] May, [facility] [id number] [address] Apr, [facility] [id number] [address] Apr, [facility] [id number] [address] Mar, [facility] [id number], [place] [address] Mar, [facility] [id number] [id number] Jul, IMMUNIZATIONS No Known Immunizations SOCIAL HISTORY Never Assessed REASON FOR VISIT medication PLAN OF CARE VITAL SIGNS MEDICATIONS Unknown Medications RESULTS No Results PROCEDURES No Known procedures [...]
--- OUTSIDE RECORDS SUMMARY | 2018-07-17 11:06 | XMS REPORT ---
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 Operator Name Role Phone ISREAL MORELAND Unavailable PROBLEMS Type Condition ICD9-CM Code CQF49-DQ Code Onset Dates Condition Status SNOMED Code Problem Anxiety disorder, unspecified F41.9 Active 206531411 Problem Violation of controlled substance agreement Z91.14 Active 230189185 Problem Intestinal malabsorption, unspecified K90.9 Active 77782998 Problem Acquired hypothyroidism E03.9 Active 997987392 Problem Diabetes E11.9 Active 361022858 Problem Hypertriglyceridemia E78.1 Active 816332909 Problem Status post cholecystectomy Z90.49 Active 910468648 ALLERGIES Substance Reaction Event Type Date Status Sulfamethoxazole-Trimethoprim anaphylaxis Drug Allergy Dec, Active ENCOUNTERS Encounter Location Date Diagnosis [facility] [id number] [place] [address] 17870- 9592 Mar, [facility] [id number] [place] [address] 16133- 6843 Jan, Yeast infection B37.9 [facility] [id number] [place] [address] 14037- 8194 Jan, [facility] [id number] [place] [address] 66833- 1629 Dec, Intestinal malabsorption, unspecified K90.9 ; Diarrhea, unspecified R19.7 ; Diabetes E11.9 and Marijuana smoker F12.90 [facility] [id number] [place] [address] [id number] Dec, Dental examination Z01.20 [facility] [address] [id number] [id number] Dec, Dental examination Z01.20 and Dental caries K02.9 [facility] [id number] [place] [address] 07161- 1817 02 Dec, 2017 Benzodiazepine use agreement exists Z02.89 ; Therapeutic drug monitoring Z51.81 and Violation of controlled substance agreement Z91.14 [facility] [id number] [place] [address] 44556- 7684 05 Nov, 2017 [facility] [address] 73149- 8939 04 Nov, 2017 Ketoacidosis E87.2 ; Status post cholecystectomy Z90.49 ; Diabetes E11.9 ; Acquired hypothyroidism E03.9 ; Hypertriglyceridemia E78.1 and Vaginal yeast infection B37.3 [place] [address] [address]74- 2014 October, [facility] [address] 65608- 4091 Sep, [facility] [address] 04019- 7926 Aug, [facility] [address] 01365- 8527 Jul, [facility] [id number] [place] [address] 45003- 6622 Jun, [facility] [id number] [place] [address] 27425- 4898 Jun, Diabetes E11.9 and Drug-induced acute pancreatitis with uninfected necrosis K85.31 [facility] [id number] [place] [address] 43544- 2252 May, [facility] [address] 12101- 0246 Apr, [facility] [id number] [place] [address] 88244 -0541 10 Apr, 2017 Crushing injury of right foot, initial encounter S97.81XA [facility] [address] [id number] [address] 3708 Feb, [facility] [id number] [place] [address] 19479- 7269 Feb, [facility] [address] [address] Feb, Acute non-recurrent pansinusitis J01.40 [facility] [id number] [place] [address] 25724- 7672 Feb, [facility] [id number] [place] [address] 96255- 0773 Jan, [facility] [id number] [place] [address] 31854- 6126 Nov, [facility] [id number] [place] [address] 16371- 9156 October, [facility] [id number] [place] [address] 86635- 0403 October, Diabetes E11.9 ; Anxiety disorder, unspecified F41.9 and Acquired hypothyroidism E03.9 [facility] [id number] [place] [address] 16590- 2922 October, [facility] [address] [address]- 5866 Sep, [facility] [address] [address]- 0580 Sep, [facility] [address] [address]- 7094 Aug, [facility] [id number] [place] [address] 82826- 6743 Jul, [facility] [address] [address]- 1159 Jul, [facility] [id number] [place] [address] 47639- 4410 Jul, [facility] [address] [address]- 9137 Jul, [facility] [id number] [place] [address] 07437- 3304 Jul, Acute non-recurrent maxillary sinusitis J01.00 [facility] [id number] [place] [address] 70002- 8346 Jul, [facility] [id number] [place] [address] 79489- 7510 Jun, [facility] [id number] [place] [address] 25615- 4703 May, [facility] [id number] [place] [address] 30788- 8729 Apr, [facility] [id number] [place] [address] 93546- 3782 Mar, Diabetes E11.9 [facility] [id number] [place] [address] 36435- 3829 28 Feb, 2016 Pelvic pain R10.2 ; Leukocytosis, unspecified D72.829 ; Constipation, unspecified constipation type K59.00 and History of pancreatitis Z87.19 [facility] [address] [address]- 4401 Feb, [facility] [id number] [place] [address] 58458- 6451 14 Feb, 2016 Diabetes E11.9 [facility] [address] [address]- 5333 13 Feb, 2016 [facility] [id number] [place] [address] 80103- 2036 2016 Vaginal yeast infection B37.3 [facility] [id number] [place] [address] 68809- 4802 08 Feb, 2016 [facility] [id number] [address]- 2592 Jan, Diabetes E11.9 [facility] [id number] [place] [address] 32220- 2102 Jan, Anxiety disorder, unspecified F41.9 [facility] [id number] [place] [address] 94441- 0013 Jan, Vaginal yeast infection B37.3 [facility] [id number] [place] [address] 46858- 3506 Jan, [facility] [id number] [place] [address] 92999- 9679 Dec, Anxiety disorder, unspecified F41.9 [facility] [id number] [place] [address] 39061- 1441 Dec, Vaginal yeast infection B37.3 [facility] [id number] [place] [address] 63332- 5762 Nov, Anxiety disorder, unspecified F41.9 [facility] [id number] [place] [address] 45923- 2124 Nov, Anxiety disorder, unspecified F41.9 [facility] [id number] [place] [address] 50238- 4275 October, Anxiety disorder, unspecified F41.9 [facility] [id number] [place] [address] 22734- 9705 October, Diabetes E11.9 [facility] [id number] [place] [address] 81525- 8167 Sep, Anxiety disorder, unspecified F41.9 [facility] [id number] [place] [address] 30274- 7022 Sep, [facility] [id number] [place] [address] 57809- 6830 Aug, Vaginal yeast infection B37.3 [facility] [id number] [place] [address] 37826- 6220 Aug, [facility] [id number] [place] [address] 40883- 2228 Jul, [facility] [id number] [place] [address] 26907- 8685 Jun, [facility] [id number] [place] [address] 71464- 3197 Jun, [facility] [address] 98693- 2181 Jun, [facility] [id number] [place] [address] 83346- 9719 May, [facility] [address] 12515- 4253 Apr, Diabetes E11.9 ; Acquired hypothyroidism E03.9 ; Hyperlipidemia, unspecified hyperlipidemia E78.5 and Anxiety F41.9 [facility] [id number] [place] [address] 06804- 0134 Apr, [facility] [id number] [place] [address] 55503- 4401 Mar, [facility] [id number] [place] [address] 01989- 8199 Feb, [facility] [id number] [place] [address] 45387- 8019 Feb, [facility] [id number] [place] [address] 41870- 2323 Jan, [facility] [id number] [place] [address] 73041- 7559 Dec, [facility] [id number] [place] [address] 391024- 5118 Dec, DUB (dysfunctional uterine bleeding) 626.8 and Pap test, as part of routine gynecological examination V76.2 [facility] [id number] [place] [address] [place] [address]- 7010 Dec, [facility] [address] [id number] [place] [address]- 4453 Dec, [facility] [address] [facility] [id number] [place] [address]- 6286 Nov, [facility] [address] [id number] [place] [address]- 7156 Nov, [facility] [address] [id number] [place] [address]- 2139 Nov, Diabetes 250.00 [facility] [id number] [place] [address], [place] [address]- 3596 Nov, [facility] [id number] [place] [address]- 4446 October, [facility] [id number] [place] [address]- 8518 October, Diabetes 250.00 [facility] [address] [id number] [place] [address]- 5125 October, [facility] [id number] [place] [address]- 3725 October, [facility] [id number] [address]- 0940 October, [facility] [id number] [place] [address]- 3076 October, [facility] [address] [id number] [address]- 0866 October, [facility] [address] [id number] [place] [address]- 5176 Sep, [facility] [address] [id number] [place] [address]- 1956 Sep, [facility] [id number] [address]- 3332 Sep, [facility] [place] [facility] [address] [id number] [place] [address]- 4363 Aug, [facility] [place] [facility] [address] [id number] [place] [address]- 6392 Aug, [facility] [place] [facility] [address] [id number] [place] [address]- 5750 Aug, [facility] [place] [facility] [address] [id number] [place] [address]- 5565 Aug, 2014 [facility] [place] [facility] [address] [id number] [place] [address]- 9090 Aug, [facility] [place] [facility] [address] [id number] [place] [address]- 3238 Aug, [facility] [place] [facility] [address] [id number] [place] [address]- 2183 Aug, [facility] [place] [facility] [address] [id number] [place] [address]- 5542 Aug, [facility] [place] [facility] [address] [id number] [place] [address]- 7501 Aug, [facility] [place] [facility] [address] [id number] [place] [address]- 5347 Jul, 2014 [facility] [place] [facility] [address] [id number] [place] [address]- 8632 Jul, 2014 [facility] [place] [facility] [address] [id number] [address]- 6332 Jul, 2014 [facility] [place] [facility] [address] [id number] [place] [address]- 4231 Jul, 2014 [facility] [place] [facility] [address] [id number] [place] [address]- 8224 Jul, 2014 [facility] [place] [facility] [address] [id number] [place] [address]- 9302 Jul, 2014 [facility] [place] [facility] [address] [id number] [place] [address]- 2546 Jul, [facility] [address] [id number] [place] [address]- 4056 Jul, [facility] [place] [facility] [address] [id number] [place] [address]- 4896 Jun, [facility] [address] [id number] [place] [address]- 4856 Jun, [facility] [place] [facility] [address] [id number] [place] [address]- 5373 Jun, [facility] [address] [id number] [place] [address]- 0866 Jun, [facility] [address] [id number] [place] [address]- 8839 Jun, [facility] [address] [id number] [place] [address]- 0670 Jun, [facility] [address] [id number] [place] [address]- 5726 Jun, [facility] [place] [facility] [address] [id number] [place] [address]- 8168 Jun, [facility] [address] [id number] [place] [address]- 6121 Jun, [facility] [place] [facility] [address] [id number] [place] [address]- 8492 Jun, [facility] [place] [facility] [address] [id number] [place] [address]- 9695 Jun, [facility] [place] [facility] [address] [id number] [place] [address]- 1906 Jun, [facility] [place] [facility] [address] [id number] [place] [address]- 7466 May, [facility] [place] [facility] [address] [id number] [place] [address]- 0446 May, [facility] [place] [facility] [address] [id number] [place] [address]- 5429 May, [facility] [place] [facility] [address] [id number] [place] [address]- 0716 May, [facility] [place] [facility] [address] [id number] [place] 1451 May, [facility] [place] [facility] [address] [id number] [place] [address]- 7872 May, [facility] [place] [facility] [address] [id number] [place] [address]- 3915 May, [facility] [place] [facility] [address] [id number] [place] [address]- 6277 May, [facility] [place] [facility] [address] [id number] [place] [address]- 5439 May, [facility] [place] [facility] [address] [id number] [place] [address]- 0622 May, [facility] [place] [facility] [address] [id number] [place] [address]- 0822 May, [facility] [place] [facility] [address] [id number] [place] [address]- 3329 May, [facility] [place] [facility] [address] [id number] [place] [address]- 4293 May, [facility] [place] [facility] [address] [id number] [place] [address]- 5497 Apr, [facility] [place] [facility] [address] [id number] [place] [address]- 5613 Apr, [facility] [place] [facility] [address] [id number] [place] [address]- 5146 Apr, [facility] [place] [facility] [address] [id number] [place] 9357 Apr, [facility] [place] [facility] [address] [id number] [place] [address]- 6725 Apr, [facility] [place] [facility] [address] [id number] [place] [address]- 2095 Apr, [facility] [place] [facility] [address] [id number] [place] [address]- 1147 Mar, [facility] [place] [facility] [address] [id number] [place] [address]- 3698 Mar, [facility] [place] [facility] [address] [id number] [place] [address]- 9963 Mar, [facility] [place] [facility] [address] [id number] [place] [address]- 8887 Mar, [facility] [place] [facility] [address] [id number] [place] [address]- 1194 Feb, [facility] [place] [facility] [address] [id number] [place] [address]- 7607 Feb, [facility] [place] [facility] [address] [id number] [place] [address]- 3141 Feb, [facility] [place] [facility] [address] [id number] [place] [address]- 2512 Feb, [facility] [place] [facility] [address] [id number] [place] [address]- 9747 Feb, [facility] [place] [facility] [address] [id number] [place] [address]- 3737 Feb, [facility] [place] [facility] [address] [id number] [place] [address]- 6335 Jan, [facility] [place] [facility] [address] [id number] [place] [address]- 9566 Jan, [facility] [place] [facility] [address] [id number] [place] [address]- 1824 Dec, [facility] [place] [facility] [address] [id number] [place] [address]- 0151 Dec, [facility] [place] [facility] [address] [id number] [place] [address]- 0863 Nov, [facility] [place] [facility] [address] [id number] [place] [address]- 9590 Nov, [facility] [place] [facility] [address] [id number] [place] 3594 Nov, [facility] [place] [facility] [address] [id number] [place] [address]- 5155 October, [facility] [place] [facility] [address] [id number] [place] [address]- 0489 October, [facility] [place] [facility] [address] [id number] [place] [address]- 9786 Sep, [facility] [place] [facility] [address] [id number] [place] [address]- 5269 Sep, [facility] [place] [facility] [address] [id number] [place] [address]- 5096 Sep, [facility] [place] [facility] [address] [id number] [place] [address]- 2524 Sep, [facility] [place] [facility] [address] [id number] [place] [address]- 0473 Sep, [facility] [place] [facility] [address] [id number] [place] [address]- 9012 Sep, [facility] [place] [facility] [address] [id number] [place] [address]- 4959 Sep, [facility] [place] [facility] [address] [id number] [place] [address]- 9186 Sep, [facility] [place] [facility] [address] [id number] [place] [address]- 2031 Sep, [facility] [place] [facility] [address] [id number] [place] 4128 Sep, [facility] [place] [facility] [address] [id number] [place] [address]- 6556 Aug, [facility] [place] [facility] [address] [id number] [place] [address]- 1224 Aug, [facility] [place] [facility] [address] [id number] [place] [address]- 4286 Jul, [facility] [place] [facility] [address] [id number] [place] [address] 2546 Jul, [facility] [place] [facility] [address] [id number] [place] [address]- 3554 Apr, [facility] [place] [facility] [address] [id number] [place] [address]- 1129 Apr, [facility] [place] [facility] [address] [id number] [place] [address]- 8077 Mar, [facility] [place] [facility] [address] [id number] [place] [address]- 1347 Mar, [facility] [place] [facility] [address] [id number] [place] [address]- 1111 Feb, [facility] [place] [facility] [address] [id number] [place] [address]- 8982 Jan, [facility] [place] [facility] [address] [id number] [place] [address] Jan, [facility] [place] [facility] [address] [id number] [place] [address] Dec, [facility] [place] [facility] [address] [id number] [place] [address] Jul, [facility] [place] [facility] [address] [id number] [place] [address] Jun, [facility] [place] [facility] [address] [id number] [place] [address] May, [facility] [place] [facility] [address] [id number] [place] [address] May, [facility] [place] [facility] [address] [id number] [place] [address] 19 May, 2012 [facility] [place] [facility] [address] [id number] [place] [address] May, [facility] [place] [facility] [address] [id number] [place] [address] May, [facility] [place] [facility] [address] [id number] [place] [address] Apr, [facility] [place] [facility] [address] [id number] [place] [address] Apr, [facility] [place] [facility] [address] [id number] [place] [address], [place] [address] 19 Mar, 2012 [facility] [place] [facility] [address] [id number] [place] [address] 18 Mar, 2012 [facility] [place] [facility] [address] [id number] [place] [address] 17 Mar, 2012 [facility] [place] [facility] [address] [id number] [place] [address] 17 Mar, 2012 [facility] [place] [facility] [address] [id number] [place] [address] 16 Mar, 2012 [facility] [place] [facility] [address] [facility] [id number] [place] [address] 16 Mar, 2012 [facility] [place] [facility] [address] [id number] [place] [address] 15 Mar, 2012 [facility] [place] [facility] [address] [id number] [place] [address] 27 Feb, 2012 [facility] [place] [facility] [address] [id number] [place] [address] Feb, [facility] [place] [facility] [address] [id number] [place] [address] Dec, [facility] [place] [facility] [address] [id number] [place] [address] Dec, [facility] [address] [id number] [place] [address] Nov, [facility] [place] [facility] [address] [id number] [place] [address] 8461 Nov, [facility] [place] [facility] [address] [id number] [place] [address]66 Nov, [facility] [place] [facility] [address] [id number] [place] [address] Nov, [facility] [place] [facility] [address] [id number] [place] [address] Nov, [facility] [place] [facility] [address] [id number] [place] [address] Sep, [facility] [place] [facility] [address] [id number] [place] [address] Aug, [facility] [place] [facility] [address] [id number] [place] [address] Jul, [facility] [place] [facility] [address] [id number] [place] [address] Jun, [facility] [place] [facility] [address] [id number] [place] [address] Jun, [facility] [place] [facility] [address] [id number] [place] [address] Jun, [facility] [place] [facility] [address] [id number] [place] [address] Jun, [facility] [place] [facility] [address] [id number] [place] [address] May, [facility] [place] [facility] [address] [id number] [place] [address] May, [facility] [place] [facility] [address] [id number] [place] [address] May, [facility] [place] [facility] [id number] [address] 08 May, 2011 [facility] [id number] [address] May, [facility] [id number] [address] May, [facility] [id number] [address] Mar, [facility] [address] [id number] [address] Mar, [facility] [id number] [place] [address] Jun, [facility] [id number] [address] May, [facility] [id number] [address] May, [facility] [id number] [address] Apr, [facility] [id number] [address] [address] Apr, [facility] [id number] [address] Mar, [facility] [id number] [address] Mar, [facility] [address] [id number] [address] Jul, IMMUNIZATIONS No Known Immunizations SOCIAL HISTORY Never Assessed REASON FOR VISIT Diabetes, PT reports she would like to discuss some diabetic questions. - Armin OBRIEN , PT wants to know her blood type -Armin OBRIEN PLAN OF CARE Activity Details Follow Up 3 Months Reason:DM VITAL SIGNS Height 62 in 2018-01-09 Weight 136.6 lbs 2018-01-09 Temperature 97.7 degrees Fahrenheit 2018-01-09 Heart Rate 90 bpm 2018-01-09 Respiratory Rate 20 2018-01-09 Oximetry 99 % 2018-01-09 BMI 24.98 kg/m2 2018-01-09 Blood pressure systolic 128 mmHg 2018-01-09 Blood pressure diastolic 68 mmHg 2018-01-09 MEDICATIONS Medication Instructions Dosage Frequency Start Date End Date Duration Status MetFORMIN HCl ER 500 mg TAKE TWO TABLETS BY MOUTH TWICE DAILY WITH MEALS. MUST BE TEVA BRAND 30 days Active Amaryl 2 MG TAKE TWO TABLETS BY MOUTH TWICE DAILY 90 days Active Glucocard Expression Monitor w/Device as directed October, Active Potassium 99 MG Orally Once a day 1 tablet 24h Active Ibuprofen 800 MG Orally Once a day 1 tablet 24h Active RESULTS No Results PROCEDURES No Known [...] removal Hospitalization History childbirth Hospitalization History pancreatitis 2004 Hospitalization History appendectomy Hospitalization History Anaphylaxis to Bactrim 2015
--- OUTSIDE RECORDS SUMMARY | 2018-07-17 11:07 | XMS REPORT ---
Author Author RAMIN DAVIDSON [facility] Address Unknown Care Team Providers Care Nib Adjuster Name Role Phone RAMIN DAVIDSON Unavailable PROBLEMS Type Condition ICD9-CM Code EXV48-FB Code Onset Dates Condition Status SNOMED Code Problem Anxiety disorder, unspecified F41.9 Active 974692908 Problem Violation of controlled substance agreement Z91.14 Active 893179502 Problem Intestinal malabsorption, unspecified K90.9 Active 94946976 Problem Acquired hypothyroidism E03.9 Active 326126940 Problem Diabetes E11.9 Active 450771642 Problem Hypertriglyceridemia E78.1 Active 057468434 Problem Status post cholecystectomy Z90.49 Active 236747469 ALLERGIES Substance Reaction Event Type Date Status Sulfamethoxazole-Trimethoprim anaphylaxis Drug Allergy Dec, Active ENCOUNTERS Encounter Location Date Diagnosis [facility] [address] [address] Mar, [facility] [address] [address]- [address] Jan, Yeast infection B37.9 [facility] [address] [address]- 366[address] Jan, [facility] [address] [address]- 3604 Dec, Intestinal malabsorption, unspecified K90.9 ; Diarrhea, unspecified R19.7 ; Diabetes E11.9 and Marijuana smoker F12.90 [facility] [id number] [place] [address] [id number] Dec, Dental examination Z01.20 [facility] [id number] [place] [address] [id number] Dec, Dental examination Z01.20 and Dental caries K02.9 [facility] [address] [address]- [address] Dec, Benzodiazepine use agreement exists Z02.89 ; Therapeutic drug monitoring Z51.81 and Violation of controlled substance agreement Z91.14 [place] [address] [address]- [address] 05 Nov, 2017 [place] [address] [address]- [address]51 Nov, Ketoacidosis E87.2 ; Status post cholecystectomy Z90.49 ; Diabetes E11.9 ; Acquired hypothyroidism E03.9 ; Hypertriglyceridemia E78.1 and Vaginal yeast infection B37.3 [place] [address] [address]- 7773 October, [place] [address] [address]- 2780 Sep, [place] [address] [address]- 6679 Aug, [facility] [address] [address]- 0259 Jul, [place] [address] [address]- 9606 Jun, [place] [address] [address]- 7759 Jun, Diabetes E11.9 and Drug-induced acute pancreatitis with uninfected necrosis K85.31 [place] [address] [address]- 8794 May, [facility] [address] [address]- 8696 Apr, [facility] [address] [address] Apr, Crushing injury of right foot, initial encounter S97.81XA [place] [address] 8[address]- 9365 Feb, [facility] [address] [address] Feb, [facility] [address] [address] Feb, Acute non-recurrent pansinusitis J01.40 [facility] [address] [address] 4[address] Feb, [facility] [id number] [place] [address] 08249- 3367 Jan, [facility] [id number] [place] [address] 12945- 6699 Nov, [facility] [id number] [place] [address] 82329- 4485 October, [facility] [id number] [place] [address] 39935- 4549 October, Diabetes E11.9 ; Anxiety disorder, unspecified F41.9 and Acquired hypothyroidism E03.9 [facility] [address] [address]- 4887 October, [facility] [id number] [place] [address] 50229- 8948 Sep, [facility] [address] [address]- 6246 Sep, [facility] [id number] [address]- 2195 Aug, [facility] [address] [address]- 5217 Jul, [facility] [id number] [place] [address] 12373- 6863 Jul, [facility] [address] [address]- 4969 Jul, [facility] [id number] [address]- 0360 Jul, [facility] [id number] [place] [address] 61919- 7285 Jul, Acute non-recurrent maxillary sinusitis J01.00 [facility] [id number] [place] [address] 01424- 4509 Jul, [facility] [id number] [place] [address] 08774- 4578 Jun, [facility] [id number] [place] [address] 49888- 9697 May, [facility] [id number] [place] [address] 14448- 9823 Apr, [facility] [id number] [place] [address] 22086- 1232 Mar, Diabetes E11.9 [facility] [id number] [place] [address] 60538- 8442 28 Feb, 2016 Pelvic pain R10.2 ; Leukocytosis, unspecified D72.829 ; Constipation, unspecified constipation type K59.00 and History of pancreatitis Z87.19 [facility] [address] [address]- 6447 22 Feb, 2016 [facility] [id number] [place] [address] 26453- 7642 14 Feb, 2016 Diabetes E11.9 [facility] [address] [address]- 3408 13 Feb, 2016 [facility] [id number] [place] [address] 22224- 4782 2016 Vaginal yeast infection B37.3 [facility] [id number] [place] [address] 02986- 0293 08 Feb, 2016 [facility] [id number] [place] [address] 83590- 0377 Jan, Diabetes E11.9 [facility] [address] [address]- 3271 Jan, Anxiety disorder, unspecified F41.9 [facility] [id number] [place] [address] 402751- 0591 Jan, Vaginal yeast infection B37.3 [facility] [id number] [place] [address] 63012- 5149 Jan, [facility] [id number] [place] [address] 86790- 1552 Dec, Anxiety disorder, unspecified F41.9 [facility] [id number] [place] [address] 41738- 6278 Dec, Vaginal yeast infection B37.3 [facility] [id number] [place] [address] 80102- 0665 Nov, Anxiety disorder, unspecified F41.9 [facility] [id number] [place] [address] 41820- 4450 Nov, Anxiety disorder, unspecified F41.9 [facility] [id number] [place] [address] 93344- 5860 October, Anxiety disorder, unspecified F41.9 [facility] [address] [address]- 5503 October, Diabetes E11.9 [facility] [id number] [place] [address] 72612- 9298 Sep, Anxiety disorder, unspecified F41.9 [facility] [id number] [place] [address] 68258- 2172 Sep, [facility] [id number] [place] [address] 378541- 3301 Aug, Vaginal yeast infection B37.3 [facility] [address] [address]- 0797 Aug, [facility] [address] [address]- 0607 Jul, [facility] [id number] [place] [address] 391889- 6643 Jun, [facility] [id number] [place] [address] 14377- 2516 Jun, [facility] [id number] [place] [address] 77851- 0606 Jun, [facility] [id number] [place] [address] 047895- 4150 May, [facility] [id number] [place] [address] 130104- 5987 Apr, Diabetes E11.9 ; Acquired hypothyroidism E03.9 ; Hyperlipidemia, unspecified hyperlipidemia E78.5 and Anxiety F41.9 [facility] [id number] [place] [address] 87903- 4541 Apr, [facility] [id number] [place] [address] 67228- 8149 Mar, [facility] [id number] [place] [address] 87738442- 0345 Feb, [facility] [id number] [place] [address] 86600- 5603 Feb, [facility] [id number] [place] [address] 73070- 5671 Jan, [facility] [id number] [place] [address] 12432- 9104 Dec, [facility] [id number] [place] [address] 52702- 6863 Dec, DUB (dysfunctional uterine bleeding) 626.8 and Pap test, as part of routine gynecological examination V76.2 [facility] [id number] [place] [address] 20222- 4469 Dec, [facility] [address] [id number] [place] [address]- 3244 Dec, [facility] [address] [id number] [place] [address]- 5423 Nov, [facility] [address] [id number] [place] [address]- 5436 Nov, [facility] [address] [id number] [place] [address]- 4579 Nov, Diabetes 250.00 [facility] [address] [id number] [place] [address]- 2033 Nov, [facility] [address] [id number] [place] [address]- 5736 October, [facility] [address] [id number] [place] [address]- 0727 October, Diabetes 250.00 [facility] [address] [id number] [place] [address]- 0612 October, [facility] [address] [id number] [place] [address]- 0458 October, [facility] [address] [id number] [place] [address]- 9454 October, [facility] [address] [id number] [place] [address]- 3936 October, [facility] [address] [id number] [address]- 5166 October, [facility] [address] [id number] [place] [address]- 2866 Sep, [facility] [address] [id number] [place] [address]- 2022 Sep, [facility] [address] [id number] [place] [address]- 1355 Sep, [facility] [address] [id number] [place] [address]- 8451 Aug, 2014 [facility] [place] [facility] [address] [id number] [place] [address]- 2772 Aug, 2014 [facility] [place] [facility] [address] [id number] [place] [address]- 0546 Aug, 2014 [facility] [place] [facility] [address] [id number] [place] [address]- 1966 Aug, 2014 [facility] [place] [facility] [address] [id number] [place] [address]- 3562 Aug, 2014 [facility] [place] [facility] [address] [id number] [place] [address]- 4763 Aug, 2014 [facility] [place] [facility] [address] [id number] [place] [address]- 2896 Aug, 2014 [facility] [place] [facility] [address] [id number] [place] [address]- 0106 Aug, 2014 [facility] [place] [facility] [address] [id number] [place] [address]- 4531 Aug, 2014 [facility] [place] [facility] [address] [id number] [place] [address]- 7222 Jul, 2014 [facility] [place] [facility] [address] [facility] [id number] [place] [address]- 9051 Jul, 2014 [facility] [place] [facility] [address] [id number] [place] [address]- 3746 Jul, 2014 [facility] [place] [facility] [address] [facility] [id number] [place] [address]- 2546 Jul, 2014 [facility] [place] [facility] [address] [id number] [place] [address]- 5116 Jul, 2014 [facility] [place] [facility] [address] [facility] [id number] [place] [address]- 2546 Jul, 2014 [facility] [place] [facility] [address] [facility] [id number] [place] [address]- 2546 Jul, [facility] [place] [facility] [address] [id number] [place] [address]- 5800 Jul, [facility] [place] [facility] [address] [id number] [place] [address]- 2026 Jun, [facility] [place] [facility] [address] [id number] [place] [address]- 2091 Jun, [facility] [place] [facility] [address] [id number] [place] [address]- 6927 Jun, [facility] [place] [facility] [address] [id number] [place] [address]- 9945 Jun, [facility] [place] [facility] [address] [id number] [place] [address]- 9750 Jun, [facility] [place] [facility] [address] [id number] [place] [address]- 3288 Jun, [facility] [place] [facility] [address] [id number] [place] [address]- 4560 Jun, [facility] [place] [facility] [address] [id number] [place] [address]- 7732 Jun, [facility] [place] [facility] [address] [id number] [place] [address]- 4698 Jun, [facility] [place] [facility] [address] [id number] [place] [address]- 0028 Jun, [facility] [place] [facility] [address] [id number] [place] [address]- 8734 Jun, [facility] [place] [facility] [address] [id number] [place] [address]- 3502 Jun, [facility] [place] [facility] [address] [id number] [place] [address]- 2376 May, [facility] [place] [facility] [address] [id number] [place] [address]- 2428 May, [facility] [place] [facility] [address] [id number] [place] [address]- 1444 22 May, 2014 [facility] [place] [facility] [address] [id number] [place] [address]- 1424 22 May, 2014 [facility] [place] [facility] [address] [id number] [place] 6506 17 May, 2014 [facility] [place] [facility] [address] [id number] [place] 5796 17 May, 2014 [facility] [place] [facility] [address] [id number] [place] [address]- 3109 15 May, 2014 [facility] [place] [facility] [address] [id number] [place] [address]- 5871 15 May, 2014 [facility] [place] [facility] [address] [id number] [place] [address]- 0907 12 May, 2014 [facility] [place] [facility] [address] [id number] [place] [address]- 9536 08 May, 2014 [facility] [place] [facility] [address] [id number] [place] [address]- 1879 08 May, 2014 [facility] [place] [facility] [address] [id number] [place] [address]- 4685 08 May, 2014 [facility] [place] [facility] [address] [facility] [id number] [place] [address]- 8340 08 May, 2014 [facility] [place] [facility] [address] [id number] [place] [address]- 3678 Apr, [facility] [place] [facility] [address] [id number] [place] [address]- 7819 Apr, [facility] [place] [facility] [address] [id number] [place] [address]- 2827 Apr, [facility] [place] [facility] [address] [id number] [place] [address]- 2448 13 Apr, 2014 [facility] [place] [facility] [address] [id number] [place] 1620 Apr, [facility] [place] [facility] [address] [id number] [place] [address]- 7934 Apr, [facility] [place] [facility] [address] [id number] [place] [address]- 7145 Mar, [facility] [place] [facility] [address] [id number] [place] 8073 Mar, [facility] [place] [facility] [address] [id number] [place] [address]- 1274 Mar, [facility] [place] [facility] [address] [id number] [place] [address]- 3121 Mar, [facility] [place] [facility] [address] [id number] [place] [address]- 7919 Feb, [facility] [place] [facility] [address] [id number] [place] [address]- 1298 Feb, [facility] [place] [facility] [address] [id number] [place] [address]- 1978 Feb, [facility] [place] [facility] [address] [id number] [place] [address]- 2401 Feb, [facility] [place] [facility] [address] [id number] [place] [address]- 2611 Feb, [facility] [place] [facility] [address] [id number] [place] [address]- 4684 Feb, [facility] [place] [facility] [address] [id number] [place] [address]- 7571 Jan, [facility] [place] [facility] [address] [id number] [place] [address]- 3455 Jan, [facility] [place] [facility] [address] [id number] [place] [address]- 5658 Dec, [facility] [place] [facility] [address] [id number] [place] [address]- 7622 Dec, [facility] [place] [facility] [address] [id number] [place] [address]- 7129 Nov, [facility] [place] [facility] [address] [id number] [place] [address]- 1133 Nov, [facility] [place] [facility] [address] [id number] [place] 3593 Nov, [facility] [place] [facility] [address] [id number] [place] [address]- 6460 October, [facility] [place] [facility] [address] [id number] [place] [address]- 2933 October, [facility] [place] [facility] [address] [id number] [place] [address]- 1846 Sep, [facility] [place] [facility] [address] [id number] [place] [address]- 5798 Sep, [facility] [place] [facility] [address] [id number] [place] [address]- 9939 Sep, [facility] [place] [facility] [address] [id number] [place] [address]- 7539 Sep, [facility] [place] [facility] [address] [id number] [place] [address]- 8811 Sep, [facility] [place] [facility] [address] [id number] [place] [address]- 1502 Sep, [facility] [place] [facility] [address] [id number] [place] [address]- 7503 Sep, [facility] [place] [facility] [address] [id number] [place] [address]- 9966 Sep, [facility] [place] [facility] [address] [id number] [place] [address]- 8954 Sep, [facility] [place] [facility] [address] [id number] [place] [address]- 2992 Sep, [facility] [place] [facility] [address] [id number] [place] [address]- 3619 Aug, [facility] [place] [facility] [address] [id number] [place] [address]- 2546 Aug, [facility] [address] [id number] [place] [address]- [address] Jul, [facility] [place] [facility] [address] [id number] [place] [address] Jul, [facility] [address] [id number] [place] [address] Apr, [facility] [place] [facility] [address] [id number] [place] [address] Apr, [facility] [place] [facility] [address] [id number] [place] [address] Mar, [facility] [place] [facility] [address] [id number] [place] [address] Mar, [facility] [place] [facility] [address] [id number] [place] [address] Feb, [facility] [address] [id number] [place] [address] Jan, [facility] [place] [facility] [address] [id number] [place] [address] Jan, [facility] [address] [id number] [place] [address] Dec, [facility] [place] [facility] [address] [id number] [place] [address] Jul, [facility] [place] [facility] [address] [id number] [place] [address] Jun, [facility] [place] [facility] [address] [id number] [place] [address] May, [facility] [place] [facility] [address] [id number] [place] [address] May, [facility] [place] [facility] [address] [id number] [place] [address] May, [facility] [place] [facility] [address] [id number] [place] [address] May, [facility] [place] [facility] [address] [id number] [place] [address] May, [facility] [place] [facility] [address] [id number] [place] [address] Apr, [facility] [place] [facility] [address] [id number] [place] [address] Apr, [facility] [place] [facility] [address] [id number] [place] [address] 19 Mar, 2012 [facility] [place] [facility] [address] [id number] [place] [address] 18 Mar, 2012 [facility] [place] [facility] [address] [id number] [place] [address] 17 Mar, 2012 [facility] [place] [facility] [address] [id number] [place] [address] 17 Mar, 2012 [facility] [place] [facility] [address] [id number] [place] [address] 16 Mar, 2012 [facility] [place] [facility] [address] [facility] [id number] [address] 16 Mar, 2012 [facility] [place] [facility] [address] [id number] [place] [address] 15 Mar, 2012 [facility] [place] [facility] [address] [id number] [place] [address] Feb, [facility] [place] [facility] [address] [id number] [place] [address] Feb, [facility] [place] [facility] [address] [id number] [place] [address] Dec, [facility] [place] [facility] [address] [facility] [id number] [place] [address] Dec, [facility] [place] [facility] [address] [id number] [place] [address] Nov, [facility] [place] [facility] [address] [id number] [place] [address] 39[address] Nov, [facility] [place] [facility] [address] [id number] [place] [address] Nov, [facility] [place] [facility] [address] [id number] [place] [address] Nov, [facility] [place] [facility] [address] [id number] [place] [address] Nov, [facility] [place] [facility] [address] [id number] [place] [address] Sep, [facility] [place] [facility] [address] [id number] [place] [address] Aug, [facility] [place] [facility] [address] [id number] [place] [address] Jul, [facility] [place] [facility] [address] [id number] [place] [address] Jun, [facility] [place] [facility] [address] [id number] [place] [address] Jun, [facility] [place] [facility] [address] [id number] [place] [address] Jun, [facility] [place] [facility] [address] [id number] [place] [address]- [address] Jun, [facility] [place] [facility] [address] [id number] [place] [address] May, [facility] [place] [facility] [address] [id number] [place] [address]- 9148 May, [facility] [place] [facility] [address] [id number] [place] [address] May, [facility] [place] [facility] [address] [id number] [place] [address]- [address] May, [facility] [id number] [address] May, [facility] [id number] [place] [address]- [address] May, [facility] [id number] [place] [address]- [address] Mar, [facility] [id number] [place] [address]- [address] Mar, [facility] [id number] [place] [address]- [address] Jun, [facility] [id number] [place] [address]- [address] May, [facility] [id number] [place] [address]- [address] May, [facility] [id number] [place] [phone] Apr, [facility] [id number] [place] [address] [phone] Apr, [facility] [id number] [place] [address] [phone] Mar, [facility] [id number] [place] [address] [phone] Mar, [facility] [id number] [place] [phone] Jul, IMMUNIZATIONS No Known Immunizations SOCIAL HISTORY Never Assessed REASON FOR VISIT Pieces of tooth/pain after TE PLAN OF CARE Activity Details Follow Up prn Reason:hygiene VITAL SIGNS MEDICATIONS Medication Instructions Dosage Frequency Start Date End Date Duration Status Amaryl 2 MG TAKE TWO TABLETS BY MOUTH TWICE DAILY 90 days Active MetFORMIN HCl ER 500 mg TAKE TWO TABLETS BY MOUTH TWICE DAILY WITH MEALS. MUST BE TEVA BRAND 30 days Active Glucocard Expression Monitor w/Device as directed October, Active Potassium 99 MG Orally Once a day 1 tablet 24h Active Cinnamon 500 MG Orally 2 times a day 2 capsules 12h Active Ibuprofen 800 MG Orally Once a day 1 tablet 24h Active RESULTS No Results PROCEDURES Procedure Date Ordered Result Body Site INTRAORL-PERIAPICAL 1 FILM [id number] January 01, 2018 [place] COMPS - UNUSUL CIRCUMSTANCES RPT January 01, 2018 INSTRUCTIONS MEDICATIONS ADMINISTERED No Known Medications [...]
--- OUTSIDE RECORDS SUMMARY | 2018-07-17 11:07 | XMS REPORT ---
Author Author RAMIN DAVIDSON [facility] Address Unknown Care Team Providers Care Uniform Maker Name Role Phone RAMIN DAVIDSON Unavailable PROBLEMS Type Condition ICD9-CM Code [id number] Code Onset Dates Condition Status SNOMED Code Problem Anxiety disorder, unspecified F41.9 Active 048565382 Problem Violation of controlled substance agreement Z91.14 Active 876763534 Problem Intestinal malabsorption, unspecified K90.9 Active 86134519 Problem Acquired hypothyroidism E03.9 Active 848234790 Problem Diabetes E11.9 Active 880425739 Problem Hypertriglyceridemia E78.1 Active 583908968 Problem Status post cholecystectomy Z90.49 Active 939477714 ALLERGIES Substance Reaction Event Type Date Status Sulfamethoxazole-Trimethoprim anaphylaxis Drug Allergy Dec, Active ENCOUNTERS Encounter Location Date Diagnosis [facility] [address] [address] Mar, [facility] [address] [address] Jan, Yeast infection B37.9 [facility] [address] [address]- [address] Jan, [facility] [address] [address] Dec, Intestinal malabsorption, unspecified K90.9 ; Diarrhea, unspecified R19.7 ; Diabetes E11.9 and Marijuana smoker F12.90 [facility] [id number] [place] [address] [id number] Dec, Dental examination Z01.20 [facility] [id number] [place] [address] [id number] Dec, Dental examination Z01.20 and Dental caries K02.9 [facility] [address] [address] Dec, Benzodiazepine use agreement exists Z02.89 ; Therapeutic drug monitoring Z51.81 and Violation of controlled substance agreement Z91.14 [place] [address] [address] 05 Nov, 2017 [place] [address] [address] Nov, Ketoacidosis E87.2 ; Status post cholecystectomy Z90.49 ; Diabetes E11.9 ; Acquired hypothyroidism E03.9 ; Hypertriglyceridemia E78.1 and Vaginal yeast infection B37.3 [place] [address] [address]- [address] October, [place] [address] [address]- [address] Sep, [place] [address] [address] Aug, [facility] [address] [address]- [address] Jul, [place] [address] [address]- [address] Jun, [place] [address] [address]- [address] Jun, Diabetes E11.9 and Drug-induced acute pancreatitis with uninfected necrosis K85.31 [place] [address] [address]- [address] May, [facility] [address] [address] Apr, [facility] [address] [address] Apr, Crushing injury of right foot, initial encounter S97.81XA [place] [address] [address]- [address] Feb, [facility] [address] [address] Feb, [facility] [address] [address] Feb, Acute non-recurrent pansinusitis J01.40 [facility] [address] [address] 112[address] Feb, [facility] [id number] [place] [address] 57067- 9767 Jan, [facility] [id number] [place] [address] 01616- 7416 Nov, [facility] [id number] [place] [address] 95577- 9530 October, [facility] [id number] [place] [address] 89888- 6172 October, Diabetes E11.9 ; Anxiety disorder, unspecified F41.9 and Acquired hypothyroidism E03.9 [facility] [address], [place] [address] October, [facility] [id number] [place] [address] 09731- 0104 Sep, [facility] [address], [place] [address] 22[address] Sep, [facility] [id number], [place] [address] 7[address] Aug, [facility] [address], [place] [address]- 4897 Jul, [facility] [id number] [place] [address] 40643- 9104 Jul, [facility] [address], [place] [address]- 4658 Jul, [facility] [id number], [place] [address] 98[address] Jul, [facility] [id number] [place] [address] 89213- 5916 Jul, Acute non-recurrent maxillary sinusitis J01.00 [facility] [address] [place] [address] 40665- 0637 Jul, [facility] [id number] [place] [address] 08580- 9660 Jun, [facility] [id number] [place] [address] 90849- 5228 May, [facility] [id number] [place] [address] 88771- 3676 Apr, [facility] [id number] [place] [address] 02862- 9336 Mar, Diabetes E11.9 [facility] [id number] [place] [address] 94955- 8832 28 Feb, 2016 Pelvic pain R10.2 ; Leukocytosis, unspecified D72.829 ; Constipation, unspecified constipation type K59.00 and History of pancreatitis Z87.19 [facility] [address], [place] [address]- [address] 22 Feb, 2016 [facility] [id number] [place] [address] 98623- 2985 14 Feb, 2016 Diabetes E11.9 [facility] [address], [place] [address]- 56[address] 13 Feb, 2016 [facility] [id number] [place] [address] 50453- 9412 2016 Vaginal yeast infection B37.3 [facility] [address] [place] [address] 50168- 0176 08 Feb, 2016 [facility] [id number] [place] [address] 23468- 9025 Jan, Diabetes E11.9 [facility] [address], [place] [address]- 5246 Jan, Anxiety disorder, unspecified F41.9 [facility] [id number] [place] [address] 509941- 7354 Jan, Vaginal yeast infection B37.3 [facility] [address] [place] [address] 43128- 7349 Jan, [facility] [address] [place] [address] 06969- 6409 Dec, Anxiety disorder, unspecified F41.9 [facility] [id number] [place] [address] 09016- 8018 Dec, Vaginal yeast infection B37.3 [facility] [id number] [place] [address] 50811- 7442 Nov, Anxiety disorder, unspecified F41.9 [facility] [id number] [place] [address] 17905- 5468 Nov, Anxiety disorder, unspecified F41.9 [facility] [address] [place] [address] 24152- 3992 October, Anxiety disorder, unspecified F41.9 [facility] [address], [place] [address]- 5764 October, Diabetes E11.9 [facility] [id number] [place] [address] 06959- 9673 Sep, Anxiety disorder, unspecified F41.9 [facility] [address] [place] [address] 08044- 8076 Sep, [facility] [id number] [place] [address] 721628- 2383 Aug, Vaginal yeast infection B37.3 [facility] [address], [place] [address]- 9125 Aug, [facility] [address], [place] [address]- 8547 Jul, [facility] [id number] [place] [address] 493518- 2659 Jun, [facility] [id number] [place] [address] 60154- 6073 Jun, [facility] [id number] [place] [address] 42330- 0116 Jun, [facility] [id number] [place] [address] 470345- 7740 May, [facility] [id number] [place] [address] 780982- 4479 Apr, Diabetes E11.9 ; Acquired hypothyroidism E03.9 ; Hyperlipidemia, unspecified hyperlipidemia E78.5 and Anxiety F41.9 [facility] [id number] [place] [address] 82701- 8091 Apr, [facility] [id number] [place] [address] 84116- 7566 Mar, [facility] [id number] [place] [address] [id number]- 9351 Feb, [facility] [id number] [place] [address] 42067- 1390 Feb, [facility] [id number] [place] [address] 59735- 0138 Jan, [facility] [id number] [place] [address] 80794- 1477 Dec, [facility] [id number] [place] [address] 89668- 0421 Dec, DUB (dysfunctional uterine bleeding) 626.8 and Pap test, as part of routine gynecological examination V76.2 [facility] [id number] [place] [address] 38489- 9506 Dec, [facility] [address] [id number] [place] [address]- 7056 Dec, [facility] [address] [id number] [place] [address]- 0132 Nov, [facility] [address] [id number] [place] [address]- 8531 Nov, [facility] [address] [id number] [place] [address]- 0038 Nov, Diabetes 250.00 [facility] [address] [id number] [place] [address]- 5437 Nov, [facility] [address] [id number] [place] [address]- 5616 October, [facility] [address] [id number] [place] [address]- 8640 October, Diabetes 250.00 [facility] [address] [id number] [place] [address]- 8242 October, [facility] [address] [id number] [place] [address]- 6364 October, [facility] [address] [id number] [place] [address]- 6737 October, [facility] [address] [id number] [place] [address]- 6596 October, [facility] [address] [id number] [address]- 5916 October, [facility] [address] [id number] [place] [address]- 5817 Sep, [facility] [address] [id number] [place] [address]- 3769 Sep, [facility] [address] [id number] [place] [address]- 0150 Sep, [facility] [address] [id number] [place] [address]- 8956 Aug, 2014 [facility] [place] [facility] [address] [id number] [place] [address]- 3141 Aug, 2014 [facility] [place] [facility] [address] [id number] [place] [address]- 5026 Aug, 2014 [facility] [place] [facility] [address] [id number] [place] [address]- 9773 Aug, 2014 [facility] [place] [facility] [address] [id number] [place] [address]- 6812 Aug, 2014 [facility] [place] [facility] [address] [id number] [place] [address]- 9533 Aug, 2014 [facility] [place] [facility] [address] [id number] [place] [address]- 4886 Aug, 2014 [facility] [place] [facility] [address] [id number] [place] [address]- 0395 Aug, 2014 [facility] [place] [facility] [address] [id number] [place] [address]- 9535 Aug, 2014 [facility] [place] [facility] [address] [id number] [place] [address]- 9725 Jul, 2014 [facility] [place] [facility] [address] [facility] [id number] [place] [address]- 1911 Jul, 2014 [facility] [place] [facility] [address] [id number] [place] [address]- 0056 Jul, 2014 [facility] [place] [facility] [address] [facility] [id number] [place] [address]- 2546 Jul, 2014 [facility] [place] [facility] [address] [id number] [place] [address]- 7346 Jul, 2014 [facility] [place] [facility] [address] [facility] [id number] [place] [address]- 2546 Jul, 2014 [facility] [place] [facility] [address] [facility] [id number] [place] [address]- 2546 Jul, [facility] [place] [facility] [address] [id number] [place] [address]- 2275 Jul, [facility] [place] [facility] [address] [id number] [place] [address]- 8666 Jun, [facility] [place] [facility] [address] [id number] [place] [address]- 9281 Jun, [facility] [place] [facility] [address] [id number] [place] [address]- 0423 Jun, [facility] [place] [facility] [address] [id number] [place] [address]- 3171 Jun, [facility] [place] [facility] [address] [id number] [place] [address]- 1551 Jun, [facility] [place] [facility] [address] [id number] [place] [address]- 0570 Jun, [facility] [place] [facility] [address] [id number] [place] [address]- 7100 Jun, [facility] [place] [facility] [address] [id number] [place] [address]- 7178 Jun, [facility] [place] [facility] [address] [id number] [place] [address]- 8608 Jun, [facility] [place] [facility] [address] [id number], [place] [address]- 4124 Jun, [facility] [place] [facility] [address] [id number], [place] [address]- 9322 Jun, [facility] [place] [facility] [address] [id number] [place] [address]- 6390 Jun, [facility] [place] [facility] [address] [id number] [place] [address]- 2476 May, [facility] [place] [facility] [address] [id number] [place] [address]- 6083 May, [facility] [place] [facility] [address] [id number] [place] [address]- 7425 22 May, 2014 [facility] [place] [facility] [address] [id number] [place] [address]- 0836 22 May, 2014 [facility] [place] [facility] [address] [id number] [place] 5496 17 May, 2014 [facility] [place] [facility] [address] [id number] [place] 5186 17 May, 2014 [facility] [place] [facility] [address] [id number] [place] [address]- 7212 15 May, 2014 [facility] [place] [facility] [address] [id number] [place] [address]- 9440 15 May, 2014 [facility] [place] [facility] [address] [id number] [place] [address]- 9511 12 May, 2014 [facility] [place] [facility] [address] [id number] [place] [address]- 0729 08 May, 2014 [facility] [place] [facility] [address] [id number] [place] [address]- 6079 08 May, 2014 [facility] [place] [facility] [address] [id number] [place] [address]- 7281 08 May, 2014 [facility] [place] [facility] [address] [facility] [id number] [place] [address]- 3535 08 May, 2014 [facility] [place] [facility] [address] [id number] [place] [address]- 0415 Apr, [facility] [place] [facility] [address] [id number] [place] [address]- 4727 Apr, [facility] [place] [facility] [address] [id number] [place] [address]- 1710 Apr, [facility] [place] [facility] [address] [id number] [place] [address]- 6486 13 Apr, 2014 [facility] [place] [facility] [address] [id number] [place] 3264 Apr, [facility] [place] [facility] [address] [id number] [place] [address]- 7121 Apr, [facility] [place] [facility] [address] [id number] [place] [address]- 6595 Mar, [facility] [place] [facility] [address] [id number] [place] 2337 Mar, [facility] [place] [facility] [address] [id number] [place] [address]- 9719 Mar, [facility] [place] [facility] [address] [id number] [place] [address]- 8803 Mar, [facility] [place] [facility] [address] [id number] [place] [address]- 5832 Feb, [facility] [place] [facility] [address] [id number] [place] [address]- 3793 Feb, [facility] [place] [facility] [address] [id number] [place] [address]- 3697 Feb, [facility] [place] [facility] [address] [id number] [place] [address]- 5978 Feb, [facility] [place] [facility] [address] [id number] [place] [address]- 2631 Feb, [facility] [place] [facility] [address] [id number] [place] [address]- 3821 Feb, [facility] [place] [facility] [address] [id number] [place] [address]- 3901 Jan, [facility] [place] [facility] [address] [id number] [place] [address]- 8898 Jan, [facility] [place] [facility] [address] [id number] [place] [address]- 1760 Dec, [facility] [place] [facility] [address] [id number] [place] [address]- 6939 Dec, [facility] [place] [facility] [address] [id number] [place] [address]- 6940 Nov, [facility] [place] [facility] [address] [id number] [place] [address]- 6371 Nov, [facility] [place] [facility] [address] [id number] [place] 4165 Nov, [facility] [place] [facility] [address] [id number] [place] [address]- 5517 October, [facility] [place] [facility] [address] [id number] [place] [address]- 6973 October, [facility] [place] [facility] [address] [id number] [place] [address]- 8183 Sep, [facility] [place] [facility] [address] [id number] [place] [address]- 6642 Sep, [facility] [place] [facility] [address] [id number] [place] [address]- 4829 Sep, [facility] [place] [facility] [address] [id number] [place] [address]- 0249 Sep, [facility] [place] [facility] [address] [id number] [place] [address]- 1481 Sep, [facility] [place] [facility] [address] [id number] [place] [address]- 2708 Sep, [facility] [place] [facility] [address] [id number] [place] [address]- 0510 Sep, [facility] [place] [facility] [address] [id number] [place] [address]- 4247 Sep, [facility] [place] [facility] [address] [id number] [place] [address]- 2888 Sep, [facility] [place] [facility] [address] [id number] [place] [address]- 3827 Sep, [facility] [place] [facility] [address] [id number] [place] [address]- 0072 Aug, [facility] [place] [facility] [address] [id number] [place] [address]- 2546 Aug, [facility] [address] [id number] [place] [address]- 1076 Jul, [facility] [place] [facility] [address] [id number] [place] [address]- 2546 Jul, [facility] [address] [id number] [place] [address]- 2546 Apr, [facility] [place] [facility] [address] [id number] [place] [address]- 2546 Apr, [facility] [place] [facility] [address] [id number] [place] [address]- 5016 Mar, [facility] [place] [facility] [address] [id number] [place] [address]- 4186 Mar, [facility] [place] [facility] [address] [id number] [place] [address]- 2546 Feb, [facility] [address] [id number] [place] [address]- 2546 Jan, [facility] [place] [facility] [address] [id number] [place] [address] Jan, [facility] [address] [id number] [place] [address] Dec, [facility] [place] [facility] [address] [id number] [place] [address] Jul, [facility] [place] [facility] [address] [id number] [place] [address] Jun, [facility] [place] [facility] [address] [id number] [place] [address] May, [facility] [place] [facility] [address] [id number] [place] [address]- [address] May, [facility] [place] [facility] [address] [id number] [place] [address] May, [facility] [place] [facility] [address] [id number] [place] [address] May, [facility] [place] [facility] [address] [id number] [place] [address] May, [facility] [place] [facility] [address] [id number] [place] [address] Apr, [facility] [place] [facility] [address] [id number] [place] [address] Apr, [facility] [place] [facility] [address] [id number] [place] [address] 19 Mar, 2012 [facility] [place] [facility] [address] [id number] [place] [address]- 9183 18 Mar, 2012 [facility] [place] [facility] [address] [id number] [place] [address]- [address] 17 Mar, 2012 [facility] [place] [facility] [address] [id number] [place] [address] 17 Mar, 2012 [facility] [place] [facility] [address] [id number] [place] [address] 16 Mar, 2012 [facility] [place] [facility] [address] [facility] [id number], [place] [address] 16 Mar, 2012 [facility] [place] [facility] [address] [id number], [place] [address] 15 Mar, 2012 [facility] [place] [facility] [address] [id number], [place] [address] Feb, [facility] [place] [facility] [address] [id number] [place] [address] Feb, [facility] [place] [facility] [address] [id number], [place] [address] Dec, [facility] [place] [facility] [address] [facility] [id number] [place] [address] Dec, [facility] [place] [facility] [address] [id number] [place] [address] Nov, [facility] [place] [facility] [address] [id number] [place] [address] 47[address] Nov, [facility] [place] [facility] [address] [id number] [place] [address] 48[address] Nov, [facility] [place] [facility] [address] [id number] [place] [address]676 Nov, [facility] [place] [facility] [address] [id number] [place] [address] 39[address] Nov, [facility] [place] [facility] [address] [id number] [place] [address] Sep, [facility] [place] [facility] [address] [id number] [place] [address] Aug, [facility] [place] [facility] [address] [id number] [place] [address] 112[address] Jul, [facility] [place] [facility] [address] [id number] [place] [address] Jun, [facility] [place] [facility] [address] [id number] [place] [address]- [address] Jun, [facility] [place] [facility] [address] [id number] [place] [address] Jun, [facility] [place] [facility] [address] [id number] [place] [address] Jun, [facility] [place] [facility] [address] [id number] [place] [address]- [address]597 May, [facility] [place] [facility] [address] [id number] [place] [address] May, [facility] [place] [facility] [address] [id number] [place] [address]706 May, [facility] [place] [facility] [address] [id number] [place] [address] May, [facility] [id number] [address] May, [facility] [id number] [place] [address] May, [facility] [id number], [place] [address] Mar, [facility] [id number] [place] [address]- [address] Mar, [facility] [id number] [place] [address]- 1451 Jun, [facility] [id number] [place] [address]- 6[address] May, [facility] [id number] [place] [address]- [address] May, [facility] [id number] [place] [address]- [address] Apr, [facility] [id number] [place] [address]- 9347 Apr, [facility] [id number] [place] [address]- [address]874 Mar, [facility] [id number] [place] [address]- 7[address] Mar, [facility] [id number] [place] [address]- [address]14 Jul, IMMUNIZATIONS No Known Immunizations SOCIAL HISTORY Never Assessed REASON FOR VISIT ISRRAEL/TE PLAN OF CARE Activity Details Follow Up prn Reason:hygiene VITAL SIGNS Blood pressure systolic 106 mmHg 2017-12-25 Blood pressure diastolic 62 mmHg 2017-12-25 MEDICATIONS Medication Instructions Dosage Frequency Start Date End Date Duration Status Amaryl 2 MG TAKE TWO TABLETS BY MOUTH TWICE DAILY 90 days Active MetFORMIN HCl ER 500 mg TAKE TWO TABLETS BY MOUTH TWICE DAILY WITH MEALS. MUST BE TEVA BRAND 30 days Active Ibuprofen 800 MG Orally Once a day 1 tablet 24h Active Glucocard Expression Monitor w/Device as directed October, Active Potassium 99 MG Orally Once a day 1 tablet 24h Active Cinnamon 500 MG Orally 2 times a day 2 capsules 12h Active RESULTS No Results PROCEDURES Procedure Date Ordered Result Body Site LTD ORAL EVALUATION - PROBLEM FOCUS December 25, 2017 INTRAORL-PERIAPICAL 1 FILM 05273 December 25, 2017 SURG REMOVAL ERUPTED TOOTH December 25, 2017 BITEWING - SINGLE FILM December 25, 2017 INSTRUCTIONS MEDICATIONS ADMINISTERED No Known Medications MEDICAL [...]
--- OUTSIDE RECORDS SUMMARY | 2018-07-17 11:08 | XMS REPORT ---
Author Author ISREAL MORELAND [facility] Address [address] [place] [address] Care Team Providers Care Senior Clerk Name Role Phone ISREAL MORELAND Unavailable PROBLEMS Type Condition ICD9-CM Code XMM31-UL Code Onset Dates Condition Status SNOMED Code Problem Anxiety disorder, unspecified F41.9 Active 062767012 Problem Violation of controlled substance agreement Z91.14 Active 994990364 Problem Intestinal malabsorption, unspecified K90.9 Active 41058345 Problem Acquired hypothyroidism E03.9 Active 305667302 Problem Diabetes E11.9 Active 852923216 Problem Hypertriglyceridemia E78.1 Active 126917672 Problem Status post cholecystectomy Z90.49 Active [id number] ALLERGIES No Information ENCOUNTERS Encounter Location Date Diagnosis [facility] [address] [address] Mar, [facility] [address] [address] Jan, Yeast infection B37.9 [place] [address] [address] Jan, [facility] [address] [address] Dec, Intestinal malabsorption, unspecified K90.9 ; Diarrhea, unspecified R19.7 ; Diabetes E11.9 and Marijuana smoker F12.90 [facility] [address] [id number] Dec, Dental examination Z01.20 [facility] [id number] [place] [id number] Dec, Dental examination Z01.20 and Dental caries K02.9 [facility] [address] [address] Dec, Benzodiazepine use agreement exists Z02.89 ; Therapeutic drug monitoring Z51.81 and Violation of controlled substance agreement Z91.14 [place] [address] [address] 05 Nov, 2017 [place] [address] [address] Nov, Ketoacidosis E87.2 ; Status post cholecystectomy Z90.49 ; Diabetes E11.9 ; Acquired hypothyroidism E03.9 ; Hypertriglyceridemia E78.1 and Vaginal yeast infection B37.3 [place] [address] [address] October, [place] [address] [address]- 8[address] Sep, [place] [address] [address]- 8[address] Aug, 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 [address] [address]- [address] Apr, [facility] [address] [address] Apr, Crushing injury of right foot, initial encounter S97.81XA [place] [address] [address]- [address] Feb, [facility] [address], [place] [address] Feb, [facility] [address], [place] [address] Feb, Acute non-recurrent pansinusitis J01.40 [facility] [address], [place] [address] 9[address] Feb, [facility] [id number] [place] [address] 16529- 3847 Jan, [facility] [id number] [place] [address] 69854- 7864 Nov, [facility] [id number] [place] [address] 08269- 8737 October, [facility] [id number] [place] [address] 65388- 0933 October, Diabetes E11.9 ; Anxiety disorder, unspecified F41.9 and Acquired hypothyroidism E03.9 [facility] [address], [place] [address] 0[address] October, [facility] [id number] [place] [address] 16007- 0850 Sep, [facility] [address], [place] [address] 49[address] Sep, [facility] [id number] [address] Aug, [facility] [address], [place] [address]- 75[address] Jul, [facility] [id number] [place] [address] 23846- 3410 Jul, [facility] [address], [place] [address]- 6349 Jul, [facility] [id number] [address] 59[address] Jul, [facility] [address] [id number] [place] [address] 57176- 2929 Jul, Acute non-recurrent maxillary sinusitis J01.00 [facility] [id number] [place] [address] 34360- 3185 Jul, [facility] [id number] [place] [address] 56362- 3387 Jun, [facility] [id number] [place] [address] 85483- 1102 May, [facility] [id number] [place] [address] 33848- 6019 Apr, [facility] [id number] [place] [address] 14186- 2896 Mar, Diabetes E11.9 [facility] [address] [place] [id number] [place] [address] 65494- 4351 28 Feb, 2016 Pelvic pain R10.2 ; Leukocytosis, unspecified D72.829 ; Constipation, unspecified constipation type K59.00 and History of pancreatitis Z87.19 [facility] [address], [place] [address]- [address] 22 Feb, 2016 [facility] [id number] [place] [address] 42239- 1825 14 Feb, 2016 Diabetes E11.9 [facility] [address], [place] [address]- [address] 13 Feb, 2016 [facility] [id number] [place] [address] 87304- 6741 2016 Vaginal yeast infection B37.3 [facility] [id number] [place] [address] 39240- 2625 08 Feb, 2016 [facility] [id number] [place] [address] 83318- 0066 Jan, Diabetes E11.9 [facility] [address], [place] [address]- 60[address] Jan, Anxiety disorder, unspecified F41.9 [facility] [id number] [place] [address] 900966- 5287 Jan, Vaginal yeast infection B37.3 [facility] [id number] [place] [address] 20813- 0038 Jan, [facility] [id number] [place] [address] 62358- 6105 Dec, Anxiety disorder, unspecified F41.9 [facility] [id number] [place] [address] 99527- 2598 Dec, Vaginal yeast infection B37.3 [facility] [id number] [place] [address] 67370- 4354 Nov, Anxiety disorder, unspecified F41.9 [facility] [id number] [place] [address] 56536- 5029 Nov, Anxiety disorder, unspecified F41.9 [facility] [id number] [place] [address] 08816- 6624 October, Anxiety disorder, unspecified F41.9 [facility] [address], [place] [address]- 8569 October, Diabetes E11.9 [facility] [id number] [place] [address] 25982- 5620 Sep, Anxiety disorder, unspecified F41.9 [facility] [id number] [place] [address] 78432- 7084 Sep, [facility] [id number] [place] [address] 558905- 5942 Aug, Vaginal yeast infection B37.3 [facility] [address], [place] [address]- 5595 Aug, [facility] [address], [place] [address]- 5393 Jul, [facility] [id number] [place] [address] 226937- 7536 Jun, [facility] [id number] [place] [address] 65950- 6951 Jun, [facility] [id number] [place] [address] 86148- 8917 Jun, [facility] [id number] [place] [address] 150708- 4521 May, [facility] [id number] [place] [address] 984082- 6824 Apr, Diabetes E11.9 ; Acquired hypothyroidism E03.9 ; Hyperlipidemia, unspecified hyperlipidemia E78.5 and Anxiety F41.9 [facility] [id number] [place] [address] 74841- 8100 Apr, [facility] [id number] [place] [address] 59132- 4633 Mar, [facility] [id number] [place] [address] [id number]- 6400 Feb, [facility] [id number] [place] [address] 40997- 8787 Feb, [facility] [id number] [place] [address] 59635- 8279 Jan, [facility] [id number] [place] [address] 44858- 0931 Dec, [facility] [id number] [place] [address] 66038- 2814 Dec, DUB (dysfunctional uterine bleeding) 626.8 and Pap test, as part of routine gynecological examination V76.2 [facility] [id number] [place] [address] 58463- 1168 Dec, [facility] [address] [id number] [place] [address]- 1954 Dec, [facility] [address] [id number] [place] [address]- 0357 Nov, [facility] [address] [id number] [place] [address]- 9327 Nov, [facility] [address] [id number] [place] [address]- 3782 Nov, Diabetes 250.00 [facility] [address] [id number] [place] [address]- 2648 Nov, [facility] [address] [id number] [place] [address]- 8296 October, [facility] [address] [id number] [place] [address]- 9164 October, Diabetes 250.00 [facility] [address] [id number] [place] [address]- 2788 October, [facility] [address] [id number] [place] [address]- 6224 October, [facility] [address] [id number] [place] [address]- 8860 October, [facility] [address] [id number] [place] [address]- 6596 October, [facility] [address] [id number], [place] [address]- 1636 October, [facility] [address] [id number] [place] [address]- 9686 Sep, [facility] [address] [id number] [place] [address]- 8514 Sep, [facility] [address] [id number] [place] [address]- 7277 Sep, [facility] [address] [id number] [place] [address]- 0673 Aug, 2014 [facility] [place] [facility] [address] [id number] [place] [address]- 3688 Aug, 2014 [facility] [place] [facility] [address] [id number] [place] [address]- 8956 Aug, 2014 [facility] [place] [facility] [address] [id number] [place] [address]- 2091 Aug, 2014 [facility] [place] [facility] [address] [id number] [place] [address]- 1771 Aug, 2014 [facility] [place] [facility] [address] [id number] [place] [address]- 8844 Aug, 2014 [facility] [place] [facility] [address] [id number] [place] [address]- 4466 Aug, 2014 [facility] [place] [facility] [address] [id number] [place] [address]- 4380 Aug, 2014 [facility] [place] [facility] [address] [id number] [place] [address]- 0092 Aug, 2014 [facility] [place] [facility] [address] [id number] [place] [address]- 8004 Jul, 2014 [facility] [place] [facility] [address] [facility] [id number] [place] [address]- 3629 Jul, 2014 [facility] [place] [facility] [address] [id number] [place] [address]- 1866 Jul, 2014 [facility] [place] [facility] [address] [facility] [id number] [place] [address]- 2546 Jul, 2014 [facility] [place] [facility] [address] [id number] [place] [address]- 6746 Jul, 2014 [facility] [place] [facility] [address] [facility] [id number] [place] [address]- 2546 Jul, 2014 [facility] [place] [facility] [address] [facility] [id number] [place] [address]- 2546 Jul, [facility] [place] [facility] [address] [id number] [place] [address]- 8627 Jul, [facility] [place] [facility] [address] [id number] [place] [address]- 9866 Jun, [facility] [place] [facility] [address] [id number] [place] [address]- 9121 Jun, [facility] [place] [facility] [address] [id number] [place] [address]- 4322 Jun, [facility] [place] [facility] [address] [id number] [place] [address]- 7209 Jun, [facility] [place] [facility] [address] [id number] [place] [address]- 6601 Jun, [facility] [place] [facility] [address] [id number] [place] [address]- 5440 Jun, [facility] [place] [facility] [address] [id number] [place] [address]- 2122 Jun, [facility] [place] [facility] [address] [id number] [place] [address]- 4105 Jun, [facility] [place] [facility] [address] [id number] [place] [address]- 6381 Jun, [facility] [place] [facility] [address] [id number], [place] [address]- 8649 Jun, [facility] [place] [facility] [address] [id number], [place] [address]- 1417 Jun, [facility] [place] [facility] [address] [id number] [place] [address]- 2001 Jun, [facility] [place] [facility] [address] [id number] [place] [address]- 8076 May, [facility] [place] [facility] [address] [id number] [place] [address]- 5677 May, [facility] [place] [facility] [address] [id number] [place] [address]- 8048 22 May, 2014 [facility] [place] [facility] [address] [id number] [place] [address]- 6281 22 May, 2014 [facility] [place] [facility] [address] [id number] [place] 9636 17 May, 2014 [facility] [place] [facility] [address] [id number] [place] 9826 17 May, 2014 [facility] [place] [facility] [address] [id number] [place] [address]- 8275 15 May, 2014 [facility] [place] [facility] [address] [id number] [place] [address]- 7781 15 May, 2014 [facility] [place] [facility] [address] [id number] [place] [address]- 4936 12 May, 2014 [facility] [place] [facility] [address] [id number] [place] [address]- 3762 08 May, 2014 [facility] [place] [facility] [address] [id number] [place] [address]- 9547 08 May, 2014 [facility] [place] [facility] [address] [id number] [place] [address]- 1903 08 May, 2014 [facility] [place] [facility] [address] [facility] [id number] [place] [address]- 1918 08 May, 2014 [facility] [place] [facility] [address] [id number] [place] [address]- 8490 Apr, [facility] [place] [facility] [address] [id number] [place] [address]- 5263 Apr, [facility] [place] [facility] [address] [id number] [place] [address]- 2350 Apr, [facility] [place] [facility] [address] [id number] [place] [address]- 0962 13 Apr, 2014 [facility] [place] [facility] [address] [id number] [place] 6839 Apr, [facility] [place] [facility] [address] [id number] [place] [address]- 3679 Apr, [facility] [place] [facility] [address] [id number] [place] [address]- 0017 Mar, [facility] [place] [facility] [address] [id number] [place] 2228 Mar, [facility] [place] [facility] [address] [id number] [place] [address]- 7450 Mar, [facility] [place] [facility] [address] [id number] [place] [address]- 2766 Mar, [facility] [place] [facility] [address] [id number] [place] [address]- 3834 Feb, [facility] [place] [facility] [address] [id number] [place] [address]- 0201 Feb, [facility] [place] [facility] [address] [id number] [place] [address]- 5910 Feb, [facility] [place] [facility] [address] [id number] [place] [address]- 8313 Feb, [facility] [place] [facility] [address] [id number] [place] [address]- 6879 Feb, [facility] [place] [facility] [address] [id number] [place] [address]- 6138 Feb, [facility] [place] [facility] [address] [id number] [place] [address]- 2578 Jan, [facility] [place] [facility] [address] [id number] [place] [address]- 6178 Jan, [facility] [place] [facility] [address] [id number] [place] [address]- 3070 Dec, [facility] [place] [facility] [address] [id number] [place] [address]- 0984 Dec, [facility] [place] [facility] [address] [id number] [place] [address]- 8176 Nov, [facility] [place] [facility] [address] [id number] [place] [address]- 6693 Nov, [facility] [place] [facility] [address] [id number] [place] [address]- 3454 Nov, [facility] [place] [facility] [address] [id number] [place] [address]- 6601 October, [facility] [place] [facility] [address] [id number] [place] [address]- 5469 October, [facility] [place] [facility] [address] [id number] [place] [address]- 6001 Sep, [facility] [place] [facility] [address] [id number] [place] [address]- 5767 Sep, [facility] [place] [facility] [address] [id number] [place] [address]- 2330 Sep, [facility] [place] [facility] [address] [id number] [place] [address]- 9672 Sep, [facility] [place] [facility] [address] [id number] [place] [address]- 5691 Sep, [facility] [place] [facility] [address] [id number] [place] [address]- 9259 Sep, [facility] [place] [facility] [address] [id number] [place] [address]- 4884 Sep, [facility] [place] [facility] [address] [id number] [place] [address]- 7211 Sep, [facility] [place] [facility] [address] [id number] [place] [address]- 1667 Sep, [facility] [place] [facility] [address] [id number] [place] [address]- 8582 Sep, [facility] [place] [facility] [address] [id number] [place] [address]- 8076 Aug, [facility] [place] [facility] [address] [id number] [place] [address]- 2546 Aug, [facility] [address] [id number] [place] [address]- 8926 Jul, [facility] [place] [facility] [address] [id number] [place] [address]- 2546 Jul, [facility] [address] [id number] [place] [address]- 2546 Apr, [facility] [place] [facility] [address] [id number] [place] [address]- 2546 Apr, [facility] [place] [facility] [address] [id number] [place] [address]- 3346 Mar, [facility] [place] [facility] [address] [id number] [place] [address]- 3736 Mar, [facility] [place] [facility] [address] [id number] [place] [address]- 2546 Feb, [facility] [address] [id number] [place] [address]- 2546 Jan, [facility] [place] [facility] [address] [id number] [place] [address]- 2546 Jan, [facility] [address] [id number] [place] [address]- 2546 Dec, [facility] [place] [facility] [address] [id number] [place] [address]- 2546 Jul, [facility] [place] [facility] [address] [id number] [place] [address] Jun, [facility] [place] [facility] [address] [id number] [place] [address] May, [facility] [place] [facility] [address] [id number] [place] [address] May, [facility] [place] [facility] [address] [id number] [place] [address] May, [facility] [place] [facility] [address] [id number] [place] [address] May, [facility] [place] [facility] [address] [id number] [place] [address] May, [facility] [place] [facility] [address] [id number] [place] [address] Apr, [facility] [place] [facility] [address] [id number] [place] [address] Apr, [facility] [place] [facility] [address] [id number] [place] [address] 19 Mar, 2012 [facility] [place] [facility] [address] [id number] [place] [address] 18 Mar, 2012 [facility] [place] [facility] [address] [id number] [place] [address] 17 Mar, 2012 [facility] [place] [facility] [address] [id number] [place] [address] 17 Mar, 2012 [facility] [place] [facility] [address] [id number] [place] [address] 16 Mar, 2012 [facility] [place] [facility] [address] [facility] [id number], [place] [address] 16 Mar, 2012 [facility] [place] [facility] [address] [id number], [place] [address] 15 Mar, 2012 [facility] [place] [facility] [address] [id number], [place] [address] Feb, [facility] [place] [facility] [address] [id number] [place] [address] Feb, [facility] [place] [facility] [address] [id number], [place] [address] Dec, [facility] [place] [facility] [address] [facility] [id number] [place] [address] Dec, [facility] [place] [facility] [address] [id number] [place] [address] Nov, [facility] [place] [facility] [address] [id number] [place] [address] Nov, [facility] [place] [facility] [address] [id number] [place] [address] Nov, [facility] [place] [facility] [address] [id number] [place] [address] Nov, [facility] [place] [facility] [address] [id number] [place] [address] Nov, [facility] [place] [facility] [address] [id number] [place] [address] Sep, [facility] [place] [facility] [address] [id number] [place] [address] Aug, [facility] [place] [facility] [address] [id number] [place] [address] 2015 Jul, [facility] [place] [facility] [address] [id number] [place] [address] Jun, [facility] [place] [facility] [address] [id number] [place] [address] Jun, [facility] [place] [facility] [address] [id number] [place] [address] Jun, [facility] [place] [facility] [address] [id number] [place] [address] Jun, [facility] [place] [facility] [address] [id number] [place] [address] May, [facility] [place] [facility] [address] [id number] [place] [address] May, [facility] [place] [facility] [address] [id number] [place] [address] May, [facility] [place] [facility] [address] [id number] [place] [address] May, [facility] [id number], [place] [address] May, [facility] [id number], [place] [address] May, [facility] [address] [facility] [id number], [place] [address] Mar, [facility] [id number] [place] [address] Mar, [facility] [id number], [place] [address] Jun, [facility] [id number] [place] [address] May, [facility] [id number], [place] [address] May, [facility] [id number], [place] [address] Apr, [facility] [id number], [place] [address] Apr, [facility] [id number], [place] [address] Mar, [facility] [id number], [place] [address] Mar, [facility] [id number], [place] [address] Jul, IMMUNIZATIONS No Known Immunizations SOCIAL HISTORY Never Assessed REASON FOR VISIT Xanax/Contract Violation PLAN OF CARE VITAL SIGNS MEDICATIONS Unknown [...]
--- OUTSIDE RECORDS SUMMARY | 2018-07-17 11:08 | XMS REPORT ---
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 [employer] Name Role Phone ISREAL MORELAND Unavailable PROBLEMS Type Condition ICD9-CM Code [id number] Code Onset Dates Condition Status SNOMED Code Problem Anxiety disorder, unspecified F41.9 Active 841498674 Problem Violation of controlled substance agreement Z91.14 Active 683027928 Problem Intestinal malabsorption, unspecified K90.9 Active 66789283 Problem Acquired hypothyroidism E03.9 Active 672815708 Problem Diabetes E11.9 Active 175160833 Problem Hypertriglyceridemia E78.1 Active 328436103 Problem Status post cholecystectomy Z90.49 Active 237829211 ALLERGIES Substance Reaction Event Type Date Status Sulfamethoxazole-Trimethoprim anaphylaxis Drug Allergy Nov, Active ENCOUNTERS Encounter Location Date Diagnosis [facility] [id number] [place] [address] 54636- 4745 Mar, [facility] [id number] [place] [address] 77535- 5156 Jan, [facility] [address] [place] [address] 22460- 4913 Dec, Intestinal malabsorption, unspecified K90.9 ; Diarrhea, unspecified R19.7 ; Diabetes E11.9 and Marijuana smoker F12.90 [facility] [id number] [id number] Dec, Dental examination Z01.20 [facility] [address] [place] [address] [id number] Dec, Dental examination Z01.20 and Dental caries K02.9 [facility] [id number] [place] [address] 41294- 6030 02 Chiki, 2018 Benzodiazepine use agreement exists Z02.89 ; Therapeutic drug monitoring Z51.81 and Violation of controlled substance agreement Z91.14 [place] [id number] [place] [address] 18888- 8957 Nov, [facility] [id number] [place] [address] 23001- 5142 04 Nov, 2017 Ketoacidosis E87.2 ; Status post cholecystectomy Z90.49 ; Diabetes E11.9 ; Acquired hypothyroidism E03.9 ; Hypertriglyceridemia E78.1 and Vaginal yeast infection B37.3 [place] [address] 61832- 2497 October, [place] [address] 14361- 7095 Sep, [facility] [address] 98457- 9949 Aug, [facility] [address] 30731- 5556 Jul, [facility] [id number] [place] [address] 95386- 8309 Jun, [facility] [address] 83231- 6628 Jun, Diabetes E11.9 and Drug-induced acute pancreatitis with uninfected necrosis K85.31 [place] [id number] [place] [address] 46938- 6827 May, [facility] [id number] [place] [address] 62343- 5518 Apr, [facility] [id number] [place] [address] 91681 -5010 Apr, Crushing injury of right foot, initial encounter S97.81XA [facility] [id number] [place] [address] 43921- 0662 Feb, [facility] [address] 13479- 5930 Feb, [facility] [id number], [place] [address] Feb, Acute non-recurrent pansinusitis J01.40 [facility] [address] [address] 7863 Feb, [facility] [address] [address] 8589 Jan, [facility] [address] [address] 6605 Nov, [facility] [id number] [place] [address] 10542- 3606 October, [facility] [address], [place] [address] 9643 October, Diabetes E11.9 ; Anxiety disorder, unspecified F41.9 and Acquired hypothyroidism E03.9 [facility] [address], [place] [address] 3972 October, [facility] [id number] [address] 6727 Sep, [facility] [address], [place] [address] 7948 Sep, [facility] [address], [place] [address] 7815 Aug, [facility] [address] [place] [address]- 1495 Jul, [facility] [address], [place] [address]- 4974 Jul, [facility] [address], [place] [address] 4520 Jul, [facility] [address], [place] [address]- 4265 Jul, [facility] [address] [place] [address] 65301- 6702 Jul, Acute non-recurrent maxillary sinusitis J01.00 [facility] [id number] [place] [address] 45958- 9502 Jul, [facility] [id number] [place] [address] 12598- 1374 Jun, [facility] [id number] [place] [address] 99516- 1835 May, [facility] [id number] [place] [address] 96375- 5454 Apr, [facility] [id number] [place] [address] 73142- 2301 Mar, Diabetes E11.9 [facility] [id number] [place] [address] 00660- 4473 28 Feb, 2016 Pelvic pain R10.2 ; Leukocytosis, unspecified D72.829 ; Constipation, unspecified constipation type K59.00 and History of pancreatitis Z87.19 [facility] [id number] [place] [address] 15868- 8076 22 Feb, 2016 [facility] [id number] [place] [address] 02525- 8947 14 Feb, 2016 Diabetes E11.9 [facility] [id number] [place] [address] 66799- 3505 13 Feb, 2016 [facility] [id number] [place] [address] 38679- 1891 2016 Vaginal yeast infection B37.3 [facility] [id number] [place] [address] 44300- 0705 08 Feb, 2016 [facility] [id number] [place] [address] 43174- 1022 30 Jan, 2016 Diabetes E11.9 [facility] [id number] [place] [address] 50082- 4470 Jan, Anxiety disorder, unspecified F41.9 [facility] [address], [place] [address]- 9526 Jan, Vaginal yeast infection B37.3 [facility] [address], [place] [address]- 1878 Jan, [facility] [id number] [place] [address] 13720- 3693 Dec, Anxiety disorder, unspecified F41.9 [facility] [address], [place] [address]- 4733 Dec, Vaginal yeast infection B37.3 [facility] [address], [place] [address]- 2798 Nov, Anxiety disorder, unspecified F41.9 [facility] [address] [place] [address] 82872- 6960 Nov, Anxiety disorder, unspecified F41.9 [facility] [address], [place] [address]- 7999 October, Anxiety disorder, unspecified F41.9 [facility] [address], [place] [address]- 9698 October, Diabetes E11.9 [facility] [address], [place] [address]- 6407 Sep, Anxiety disorder, unspecified F41.9 [facility] [address], [place] [address]- 6717 Sep, [facility] [id number] [address]- 1168 Aug, Vaginal yeast infection B37.3 [facility] [address], [place] [address]- 2930 Aug, [facility] [address] [place] [address] 76071- 7706 Jul, [facility] [address] [place] [address] 91318- 9010 Jun, [facility] [id number] [place] [address] 21491- 0900 Jun, [facility] [id number] [place] [address] 74284- 4511 Jun, [facility] [id number] [place] [address] 70158- 6590 May, [facility] [id number] [place] [address] 64041- 8484 Apr, Diabetes E11.9 ; Acquired hypothyroidism E03.9 ; Hyperlipidemia, unspecified hyperlipidemia E78.5 and Anxiety F41.9 [facility] [id number] [place] [address] 09113- 1967 Apr, [facility] [id number] [place] [address] 12912- 9547 Mar, [facility] [id number] [place] [address] 92007- 0607 Feb, [facility] [id number] [place] [address] 19099- 0162 Feb, [facility] [address] [place] [address] 23737- 5896 Jan, [facility] [id number] [place] [address] 56885- 8686 Dec, [facility] [id number] [place] [address] 83455- 9598 Dec, Pap test, as part of routine gynecological examination V76.2 and DUB (dysfunctional uterine bleeding) 626.8 [facility] [id number] [place] [address] 51749- 6618 Dec, [facility] [id number] [place] [address] 24572- 5446 Dec, [facility] [address] [id number] [place] [address]- 3405 Nov, [facility] [address] [id number] [place] [address]- 6206 Nov, [facility] [address] [facility] [id number] [place] [address]- 9966 Nov, Diabetes 250.00 [facility] [address] [id number] [place] [address]- 2056 Nov, [facility] [address] [id number] [place] [address]- 3516 October, [facility] [address] [id number] [place] [address]- 9947 October, Diabetes 250.00 [facility] [address] [id number] [place] [address]- 8876 October, [facility] [address] [id number] [place] [address]- 8231 October, [facility] [address] [id number] [place] [address]- 3888 October, [facility] [address] [facility] [id number] [place] [address]- 5276 October, [facility] [address] [id number] [place] [address]- 4006 October, [facility] [address] [id number] [address]- 4026 Sep, [facility] [address] [id number] [place] [address]- 9256 Sep, [facility] [address] [facility] [id number] [place] [address]- 2646 Sep, [facility] [address] [id number] [address]- 3876 Aug, [facility] [place] [facility] [address] [id number] [place] [address]- 7465 Aug, 2014 [facility] [place] [facility] [address] [id number] [place] [address]- 1970 Aug, 2014 [facility] [place] [facility] [address] [id number] [place] [address]- 4200 Aug, 2014 [facility] [place] [facility] [address] [id number] [place] [address]- 9419 Aug, 2014 [facility] [place] [facility] [address] [id number] [place] [address]- 9581 Aug, 2014 [facility] [place] [facility] [address] [id number] [place] [address]- 8614 Aug, 2014 [facility] [place] [facility] [address] [id number] [place] [address]- 0984 Aug, [facility] [place] [facility] [address] [id number] [place] [address]- 3965 Aug, [facility] [place] [facility] [address] [id number] [place] [address]- 9805 Jul, 2014 [facility] [place] [facility] [address] [id number] [place] [address]- 0685 Jul, 2014 [facility] [place] [facility] [address] [id number] [place] [address]- 8002 Jul, 2014 [facility] [place] [facility] [address] [id number] [place] [address]- 4766 Jul, 2014 [facility] [place] [facility] [address] [id number] [place] [address]- 8102 Jul, 2014 [facility] [place] [facility] [address] [id number] [place] [address]- 3853 Jul, 2014 [facility] [place] [facility] [address] [id number] [place] [address]- 6658 Jul, 2014 [facility] [place] [facility] [address] [id number] [place] [address]- 9426 Jul, [facility] [place] [facility] [address] [id number] [place] [address]- 8997 Jun, [facility] [place] [facility] [address] [id number] [place] [address]- 2485 Jun, [facility] [place] [facility] [address] [id number] [place] [address]- 7559 Jun, [facility] [place] [facility] [address] [id number] [place] [address]- 8738 Jun, [facility] [place] [facility] [address] [id number] [place] [address]- 4300 Jun, [facility] [place] [facility] [address] [id number] [place] [address]- 4465 Jun, [facility] [place] [facility] [address] [id number] [place] [address]- 5296 Jun, [facility] [place] [facility] [address] [id number] [place] [address]- 9431 Jun, [facility] [place] [facility] [address] [id number] [place] [address]- 1581 Jun, [facility] [place] [facility] [address] [id number] [place] [address]- 9645 Jun, [facility] [place] [facility] [address] [id number] [place] [address]- 7819 Jun, [facility] [place] [facility] [address] [id number] [place] [address]- 6821 Jun, [facility] [place] [facility] [address] [id number] [place] [address]- 2957 May, [facility] [place] [facility] [address] [id number] [place] [address]- 4536 May, [facility] [place] [facility] [address] [id number] [place] [address]- 0969 May, [facility] [place] [facility] [address] [id number] [place] [address]- 4116 May, [facility] [place] [facility] [address] [id number] [place] [address]- 1090 May, [facility] [place] [facility] [address] [id number] [place] [address]- 8952 May, [facility] [place] [facility] [address] [id number] [place] [address]- 3325 May, [facility] [place] [facility] [address] [id number] [place] [address]- 6950 15 May, 2014 [facility] [place] [facility] [address] [id number] [place] [address]- 9668 May, [facility] [place] [facility] [address] [id number] [place] [address]- 5991 May, [facility] [place] [facility] [address] [id number] [place] [address]- 9683 May, [facility] [place] [facility] [address] [id number] [place] [address]- 4179 May, [facility] [place] [facility] [address] [id number] [place] [address]- 0932 May, [facility] [place] [facility] [address] [id number] [place] [address]- 4117 Apr, [facility] [place] [facility] [address] [id number] [place] [address]- 2621 Apr, [facility] [place] [facility] [address] [id number] [place] [address]- 2961 Apr, [facility] [place] [facility] [address] [id number] [place] [address]- 4148 Apr, [facility] [place] [facility] [address] [id number] [place] [address]- 4527 10 Apr, 2014 [facility] [place] [facility] [address] [id number], [place] [address]- 7086 Apr, [facility] [place] [facility] [address] [id number] [place] [address]- 7313 Mar, [facility] [place] [facility] [address] [id number] [place] 1955 Mar, [facility] [place] [facility] [address] [id number] [place] [address]- 8037 Mar, [facility] [place] [facility] [address] [id number] [place] [address]- 1372 Mar, [facility] [place] [facility] [address] [id number] [place] [address]- 9155 Feb, [facility] [place] [facility] [address] [id number] [place] [address]- 5341 Feb, [facility] [place] [facility] [address] [id number] [place] [address]- 9196 Feb, [facility] [place] [facility] [address] [id number] [place] [address]- 5696 Feb, [facility] [place] [facility] [address] [id number] [place] [address]- 1049 Feb, [facility] [place] [facility] [address] [id number] [place] [address]- 1028 Feb, [facility] [place] [facility] [address] [id number] [place] [address]- 2520 Jan, [facility] [place] [facility] [address] [id number], [place] [address]- 4881 Jan, [facility] [place] [facility] [address] [id number] [place] [address]- 7936 Dec, [facility] [place] [facility] [address] [id number] [place] [address]- 1941 Dec, [facility] [place] [facility] [address] [id number] [place] [address]- 7036 Nov, [facility] [place] [facility] [address] [id number] [place] [address]- 3262 Nov, [facility] [address] [id number] [place] [address]- 2354 Nov, [facility] [address] [id number] [place] [address]- 0067 October, [facility] [address] [id number] [place] [address]- 8454 October, [facility] [address] [id number] [place] [address]- 6873 Sep, [facility] [address] [id number] [place] [address]- 4899 Sep, [facility] [address] [id number] [place] [address]- 6769 Sep, [facility] [address] [id number] [place] [address]- 4557 Sep, [facility] [address] [id number] [place] [address]- 5040 Sep, [facility] [address] [id number] [place] [address]- 3251 Sep, [facility] [address] [id number] [place] [address]- 6563 Sep, [facility] [place] [facility] [address] [id number] [place] [address]- 8233 Sep, [facility] [address] [id number] [place] [address]- 8908 Sep, [facility] [place] [facility] [address] [id number] [place] [address]- 9571 Sep, [facility] [place] [facility] [address] [id number] [place] [address]- 0633 Aug, [facility] [place] [facility] [address] [id number] [place] [address]- 7336 Aug, [facility] [address] [id number] [place] [address]- 1276 Jul, [facility] [place] [facility] [address] [id number] [place] [address]- 6076 Jul, [facility] [place] [facility] [address] [id number] [place] [address] Apr, [facility] [place] [facility] [address] [id number] [place] [address] Apr, [facility] [place] [facility] [address] [id number] [place] [address] Mar, [facility] [place] [facility] [address] [id number] [place] [address] Mar, [facility] [place] [facility] [address] [id number] [place] [address] Feb, [facility] [place] [facility] [address] [id number] [place] [address] Jan, [facility] [place] [facility] [address] [id number] [place] [address] Jan, [facility] [place] [facility] [address] [id number] [place] [address] Dec, [facility] [place] [facility] [address] [id number] [place] [address] Jul, [facility] [place] [facility] [address] [id number], [place] [address] Jun, [facility] [place] [facility] [address] [id number] [place] [address] May, [facility] [place] [facility] [address] [id number] [place] [address] May, [facility] [place] [facility] [address] [id number] [place] [address] May, [facility] [place] [facility] [address] [id number] [place] [address] 13 May, 2012 [facility] [place] [facility] [address] [id number] [place] [address] 13 May, 2012 [facility] [place] [facility] [address] [id number] [place] [address] 27 Apr, 2012 [facility] [place] [facility] [address] [id number] [place] [address] 27 Apr, 2012 [facility] [place] [facility] [address] [id number] [place] [address] 19 Mar, 2012 [facility] [place] [facility] [address] [id number] [place] [address] 18 Mar, 2012 [facility] [place] [facility] [address] [id number] [place] [address] 17 Mar, 2012 [facility] [place] [facility] [address] [id number] [place] [address] 17 Mar, 2012 [facility] [place] [facility] [address] [id number] [place] [address] 16 Mar, 2012 [facility] [place] [facility] [address] [id number] [place] [address] 1394 16 Mar, 2012 [facility] [place] [facility] [address] [facility] [id number] [place] [address] 15 Mar, 2012 [facility] [place] [facility] [address] [id number] [place] [address] 27 Feb, 2012 [facility] [place] [facility] [address] [id number] [place] [address] Feb, [facility] [place] [facility] [address] [id number] [place] [address] Dec, [facility] [place] [facility] [address] [facility] [id number] [place] [address] Dec, [facility] [place] [facility] [address] [facility] [id number] [place] [address] Nov, [facility] [place] [facility] [address] [id number] [place] [address] Nov, [facility] [place] [facility] [address] [id number] [place] [address] Nov, [facility] [place] [facility] [address] [id number] [place] [address] Nov, [facility] [place] [facility] [address] [id number] [place] [address] Nov, [facility] [place] [facility] [address] [id number] [place] [address] Sep, [facility] [place] [facility] [address] [id number] [place] [address] Aug, [facility] [place] [facility] [address] [id number] [place] [address] Jul, [facility] [place] [facility] [address] [id number] [place] [address] Jun, [facility] [place] [facility] [address] [id number] [place] [address] Jun, [facility] [place] [facility] [address] [id number] [place] [address] Jun, [facility] [place] [facility] [address] [id number] [place] [address] Jun, [facility] [place] [facility] [address] [id number] [place] [address] May, [facility] [place] [facility] [address] [id number] [place] [address] May, [facility] [place] [facility] [address] [id number] [place] [address] May, [facility] [place] [facility] [address] [id number] [place] [address] 9584 May, [facility] [place] [facility] [address] [id number], [place] [address] May, [facility] [address] [id number] [address] May, [facility] [id number] [address] Mar, [facility] [id number], [place] [address] Mar, [facility] [id number] [place] [id number]- [address] Jun, [facility] [address] [id number] [address] May, [facility] [id number] [place] [phone] May, [facility] [id number] [place] [phone] Apr, [facility] [id number] [place] [phone] Apr, [facility] [id number] [place] [phone] Mar, [facility] [id number] [address] Mar, [facility] [id number] [place] [address] Jul, IMMUNIZATIONS No Known Immunizations SOCIAL HISTORY Never Assessed REASON FOR VISIT ER f/u [facility] 11/17/17 Ketoacidosis, gallbladder removal, PT is concerned a/ b CBD oil PLAN OF CARE Activity Details Follow Up next available Reason:DM VITAL SIGNS Height 62 in 2017-11-19 Weight 142 lbs 2017-11-19 Temperature 98.2 degrees Fahrenheit 2017-11-19 Heart Rate 90 bpm 2017-11-19 Respiratory Rate 20 2017-11-19 BMI 25.97 kg/m2 2017-11-19 Blood pressure systolic 118 mmHg 2017-11-19 Blood pressure diastolic 78 mmHg 2017-11-19 MEDICATIONS Medication Instructions Dosage Frequency Start Date End Date Duration Status Cinnamon 500 MG Orally 2 times a day 2 capsules 12h Active Potassium 99 MG Orally Once a day 1 tablet 24h Active Xanax 1 MG Orally Once a day 1 tablet 24h Sep, Active Glucocard Expression Monitor w/Device as directed October, Active Amaryl 2 MG TAKE TWO TABLETS BY MOUTH TWICE DAILY 90 days Active MetFORMIN HCl ER 500 mg TAKE TWO TABLETS BY MOUTH TWICE DAILY WITH MEALS. MUST BE TEVA BRAND 90 days Active Ibuprofen 800 MG Orally Once a day 1 tablet 24h Active RESULTS Name Result Date Reference Range A1C (IN HOUSE) 2017-11-19 A1C IN HOUSE 9.4 4.3 - 5.6 % Previous A1c 10.2 Lot [id number] Exp date 08/2019 PROCEDURES Procedure Date Ordered Result Body Site GLYCATED HEMOGLOBIN TEST November 19, 2017 INSTRUCTIONS MEDICATIONS ADMINISTERED No Known Medications [...]
--- OUTSIDE RECORDS SUMMARY | 2018-07-17 11:09 | XMS REPORT ---
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 Name Role Phone ISREAL MORELAND Unavailable PROBLEMS Type Condition ICD9-CM Code YCM83-VP Code Onset Dates Condition Status SNOMED Code Problem Anxiety disorder, unspecified F41.9 Active 055084032 Problem Violation of controlled substance agreement Z91.14 Active 797617748 Problem Intestinal malabsorption, unspecified K90.9 Active 43040764 Problem Acquired hypothyroidism E03.9 Active 136700131 Problem Diabetes E11.9 Active 123794528 Problem Hypertriglyceridemia E78.1 Active 402833069 Problem Status post cholecystectomy Z90.49 Active 618014512 ALLERGIES No Information ENCOUNTERS Encounter Location Date Diagnosis [facility] [id number] [place] [address] 82428- 5250 Dec, Intestinal malabsorption, unspecified K90.9 ; Diarrhea, unspecified R19.7 ; Diabetes E11.9 and Marijuana smoker F12.90 [facility] [id number] [place] [address] [id number] Dec, Dental examination Z01.20 [facility] [id number] [place] [address] [id number] Dec, Dental examination Z01.20 and Dental caries K02.9 [facility] [id number] [place] [address] 24132- 8046 Dec, Benzodiazepine use agreement exists Z02.89 ; Therapeutic drug monitoring Z51.81 and Violation of controlled substance agreement Z91.14 [facility] [id number] [place] [address] 07736- 0227 Nov, [facility] [id number] [place] [address] 16138- 3921 Nov, Ketoacidosis E87.2 ; Status post cholecystectomy Z90.49 ; Diabetes E11.9 ; Acquired hypothyroidism E03.9 ; Hypertriglyceridemia E78.1 and Vaginal yeast infection B37.3 [facility] [id number] [place] [address] 20086- 0324 October, [place] [address] 31851- 3191 Sep, [facility] [address] 04540- 1520 Aug, [place] [address] 86128- 0791 Jul, [place] [address] 32655- 7899 Jun, [place] [address] 45456- 0975 Jun, Diabetes E11.9 and Drug-induced acute pancreatitis with uninfected necrosis K85.31 [place] [id number] [place] [address] 62748- 4621 May, [place] [address] 72406- 6439 Apr, [facility] [place] [id number] [place] [address] 70231 -7731 Apr, Crushing injury of right foot, initial encounter S97.81XA [place] [id number] [place] [address] 91943- 0390 Feb, [place] [address] 38608- 2172 Feb, [facility] [id number] [place] [address] 38979 -0851 19 Feb, 2017 Acute non-recurrent pansinusitis J01.40 [place] [address] 28670- 1340 Feb, [facility] [id number] [place] [address] 41400- 9258 Jan, [facility] [id number] [place] [address] 23158- 4212 Nov, [facility] [id number] [place] [address] 646330- 8006 October, [facility] [id number] [place] [address] 829784- 1771 October, Diabetes E11.9 ; Anxiety disorder, unspecified F41.9 and Acquired hypothyroidism E03.9 [facility] [id number] [place] [address] 69864- 4032 October, [facility] [id number] [place] [address] 14121- 9073 Sep, [facility] [id number] [place] [address] 85552- 4028 Sep, [facility] [id number] [place] [address] 99278- 0428 Aug, [facility] [id number] [place] [address] 71329- 1547 Jul, [facility] [id number] [place] [address] 92943- 2514 Jul, [facility] [id number] [place] [address] 91864- 4789 Jul, [facility] [id number] [place] [address] 60775- 9901 Jul, [facility] [id number] [place] [address] 71577- 7127 Jul, Acute non-recurrent maxillary sinusitis J01.00 [facility] [id number] [place] [address] 45214- 6682 Jul, [facility] [address] [address]- 6101 09 Jun, 2016 [facility] [id number] [place] [address] 15554- 3588 May, [facility] [id number] [place] [address] 60771- 0418 Apr, [facility] [id number] [place] [address] 45488- 1515 Mar, Diabetes E11.9 [facility] [id number] [place] [address] 42001- 9972 28 Feb, 2016 Pelvic pain R10.2 ; Leukocytosis, unspecified D72.829 ; Constipation, unspecified constipation type K59.00 and History of pancreatitis Z87.19 [facility] [id number] [place] [address] 75714- 3184 22 Feb, 2016 [facility] [id number] [place] [address] 97564- 3638 14 Feb, 2016 Diabetes E11.9 [facility] [id number] [place] [address] 99230- 8808 13 Feb, 2016 [facility] [id number] [place] [address] 95253- 2119 2016 Vaginal yeast infection B37.3 [facility] [address] [place] [address] 56807- 3244 08 Feb, 2016 [facility] [id number] [place] [address] 80982- 0052 30 Jan, 2016 Diabetes E11.9 [facility] [id number] [place] [address] 91687- 3974 Jan, Anxiety disorder, unspecified F41.9 [facility] [address] [place] [address] 14326- 3660 17 Jan, 2016 Vaginal yeast infection B37.3 [facility] [id number] [place] [address] 83706- 5881 Jan, [facility] [address] [address]- 8381 Dec, Anxiety disorder, unspecified F41.9 [facility] [address] 6226 Dec, Vaginal yeast infection B37.3 [facility] [id number] [place] [address] 766314- 6581 Nov, Anxiety disorder, unspecified F41.9 [facility] [address] 4799 Nov, Anxiety disorder, unspecified F41.9 [facility] [id number] [place] [address] 551089- 3156 October, Anxiety disorder, unspecified F41.9 [facility] [id number] [place] [address] 81257- 3466 October, Diabetes E11.9 [facility] [address], [place] [address]- 5390 Sep, Anxiety disorder, unspecified F41.9 [facility] [address] 5671 Sep, [facility] [address], [place] [address]- 7509 Aug, Vaginal yeast infection B37.3 [facility] [address] [address]- 3695 Aug, [facility] [address] 4458 Jul, [facility] [address]- 8787 Jun, [facility] [address], [place] [address]- 1824 Jun, [facility] [id number] [place] [address] 77153- 1051 Jun, [facility] [id number] [place] [address] 53156- 7749 May, [facility] [id number] [place] [address] 23188- 9307 Apr, Diabetes E11.9 ; Acquired hypothyroidism E03.9 ; Hyperlipidemia, unspecified hyperlipidemia E78.5 and Anxiety F41.9 [facility] [id number] [place] [address] 22057- 8767 Apr, [facility] [id number] [place] [address] 85244- 5545 Mar, [facility] [id number] [place] [address] 05233- 1372 Feb, [facility] [id number] [place] [address] 96948- 5300 Feb, [facility] [id number] [place] [address] 85391- 2428 Jan, [facility] [id number] [place] [address] 31223- 2684 Dec, [facility] [id number] [place] [address] 90673- 6514 Dec, DUB (dysfunctional uterine bleeding) 626.8 and Pap test, as part of routine gynecological examination V76.2 [facility] [id number] [place] [address] 67523- 4817 Dec, [facility] [id number] [place] [address] 62126- 3794 Dec, [facility] [id number] [place] [address] 07814- 8547 Nov, [facility] [id number] [place] [address] 79906- 7573 Nov, [facility] [address] [facility] [id number] [place] [address]- 5891 Nov, Diabetes 250.00 [facility] [address] [id number] [place] [address]- 5194 Nov, [facility] [address] [id number] [place] [address]- 7915 October, [facility] [address] [id number] [place] [address]- 8394 October, Diabetes 250.00 [facility] [address] [id number] [place] [address]- 9754 October, [facility] [address] [id number] [place] [address]- 2896 October, [facility] [address] [id number] [place] [address]- 5239 October, [facility] [address] [id number] [place] [address]- 4176 October, [facility] [address] [id number] [place] [address]- 7458 October, [facility] [address] [id number] [place] [address]- 8617 Sep, [facility] [address] [id number] [place] [address]- 7915 Sep, [facility] [address] [id number], [place] [address]- 7856 Sep, [facility] [address] [id number] [place] [address]- 6935 Aug, [facility] [address] [id number] [place] [address]- 5976 Aug, [facility] [address] [id number] [place] [address]- 6458 Aug, [facility] [address] [id number], [place] [address]- 1342 Aug, [facility] [place] [facility] [address] [id number] [place] [address]- 8641 Aug, 2014 [facility] [place] [facility] [address] [id number] [place] [address]- 7254 Aug, 2014 [facility] [place] [facility] [address] [facility] [id number] [place] [address]- 2589 Aug, 2014 [facility] [place] [facility] [address] [id number] [place] [address]- 7905 Aug, 2014 [facility] [place] [facility] [address] [id number] [place] [address]- 1432 Aug, [facility] [place] [facility] [address] [id number] [place] [address]- 1777 Jul, 2014 [facility] [place] [facility] [address] [facility] [id number] [place] [address]- 8439 Jul, 2014 [facility] [place] [facility] [address] [facility] [id number] [place] [address]- 8553 Jul, 2014 [facility] [place] [facility] [address] [facility] [id number] [place] [address]- 4560 Jul, 2014 [facility] [place] [facility] [address] [facility] [id number] [place] [address]- 5227 Jul, 2014 [facility] [place] [facility] [address] [facility] [id number] [place] [address]- 5928 Jul, 2014 [facility] [place] [facility] [address] [facility] [id number] [place] [address]- 7546 Jul, 2014 [facility] [place] [facility] [address] [id number] [place] [address]- 7785 Jul, 2014 [facility] [place] [facility] [address] [facility] [id number] [place] [address]- 9017 Jun, [facility] [place] [facility] [address] [facility] [id number] [place] [address]- 8929 Jun, [facility] [place] [facility] [address] [id number] [place] [address]- 3198 Jun, [facility] [place] [facility] [address] [id number] [place] [address]- 6650 Jun, [facility] [place] [facility] [address] [id number] [place] [address]- 5921 Jun, [facility] [place] [facility] [address] [id number] [place] [address]- 0965 Jun, [facility] [place] [facility] [address] [id number] [place] [address]- 2953 Jun, [facility] [place] [facility] [address] [id number] [place] [address]- 8018 Jun, [facility] [place] [facility] [address] [id number] [place] [address]- 3147 Jun, [facility] [place] [facility] [address] [id number] [place] [address]- 5828 Jun, [facility] [place] [facility] [address] [id number] [place] [address]- 9844 Jun, [facility] [place] [facility] [address] [id number] [place] [address]- 2360 Jun, [facility] [place] [facility] [address] [id number] [place] [address]- 6269 May, [facility] [place] [facility] [address] [id number] [place] [address]- 4421 May, [facility] [place] [facility] [address] [id number] [place] [address]- 8023 May, [facility] [place] [facility] [address] [id number] [place] [address]- 2823 May, [facility] [place] [facility] [address] [id number] [place] [address]- 0752 May, [facility] [place] [facility] [address] [id number], [place] [address]- 9116 17 May, 2014 [facility] [place] [facility] [address] [id number] [place] [address]- 4935 May, [facility] [place] [facility] [address] [id number] [place]- 7444 May, [facility] [place] [facility] [address] [id number] [place] [address]- 5456 May, [facility] [place] [facility] [address] [id number] [place] [address]- 4638 May, [facility] [place] [facility] [address] [id number] [place] [address]- 3056 May, [facility] [place] [facility] [address] [id number] [place] [address]- 0384 May, [facility] [place] [facility] [address] [facility] [id number] [place] [address]- 1540 May, [facility] [place] [facility] [address] [id number] [place] [address]- 7847 Apr, [facility] [place] [facility] [address] [id number] [place] [address]- 1866 Apr, [facility] [place] [facility] [address] [id number], [place] [address]- 7895 Apr, [facility] [place] [facility] [address] [id number], [place] [address]- 9673 Apr, [facility] [place] [facility] [address] [id number], [place] [address]- 6974 Apr, [facility] [place] [facility] [address] [id number], [place] [address]- 7150 Apr, [facility] [place] [facility] [address] [id number], [place] [address]- 0464 Mar, [facility] [place] [facility] [address] [id number] [place] [address]- 0516 Mar, [facility] [place] [facility] [address] [id number] [place] [address]- 1007 Mar, [facility] [place] [facility] [address] [id number] [place] [address]- 3735 Mar, [facility] [place] [facility] [address] [id number] [place] [address]- 9798 Feb, [facility] [place] [facility] [address] [id number] [place] [address]- 6884 Feb, [facility] [place] [facility] [address] [id number] [place] [address]- 4086 Feb, [facility] [place] [facility] [address] [id number] [place] [address]- 3550 Feb, [facility] [place] [facility] [address] [id number] [place] [address]- 3685 Feb, [facility] [place] [facility] [address] [id number] [place] [address]- 0956 Feb, [facility] [place] [facility] [address] [id number] [place] [address]- 0018 Jan, [facility] [place] [facility] [address] [id number] [place] [address]- 2950 Jan, [facility] [place] [facility] [address] [id number] [place] [address]- 6623 Dec, [facility] [place] [facility] [address] [id number] [place] [address]- 9529 Dec, [facility] [place] [facility] [address] [id number] [place] [address]- 9549 Nov, [facility] [place] [facility] [address] [id number] [place] [address]- 0283 Nov, [facility] [place] [facility] [address] [id number] [place] [address]- 2176 Nov, [facility] [place] [facility] [address] [id number] [place] [address]- 3251 October, [facility] [place] [facility] [address] [id number] [place] [address]- 0054 October, [facility] [place] [facility] [address] [id number] [place] [address]- 6855 Sep, [facility] [place] [facility] [address] [id number] [place] 9113 Sep, [facility] [place] [facility] [address] [id number] [place] [address]- 7542 Sep, [facility] [place] [facility] [address] [id number] [place] [address]- 2857 Sep, [facility] [place] [facility] [address] [id number] [place] [address]- 8647 Sep, [facility] [place] [facility] [address] [id number] [place] [address]- 6686 Sep, [facility] [place] [facility] [address] [id number] [place] [address]- 4859 Sep, [facility] [place] [facility] [address] [id number] [place] [address]- 1906 Sep, [facility] [place] [facility] [address] [id number] [place] [address]- 1457 Sep, [facility] [place] [facility] [address] [id number] [place] [address]- 0958 Sep, [facility] [place] [facility] [address] [id number], [place] [address] Aug, [facility] [place] [facility] [address] [id number] [place] [address] Aug, [facility] [place] [facility] [address] [id number] [place] [address] Jul, [facility] [place] [facility] [address] [id number] [place] [address] Jul, [facility] [place] [facility] [address] [id number] [place] [address] Apr, [facility] [address] [id number] [place] [address] Apr, [facility] [place] [facility] [address] [id number] [place] [address] Mar, [facility] [address] [id number] [place] [address] Mar, [facility] [place] [facility] [address] [id number] [place] [address] Feb, [facility] [address] [id number] [place] [address] Jan, [facility] [place] [facility] [address] [id number] [place] [address] Jan, [facility] [address] [id number] [place] [address] Dec, [facility] [address] [id number] [place] [address] Jul, [facility] [place] [facility] [address] [id number] [place] [address] Jun, [facility] [address] [id number] [place] [address] May, [facility] [place] [facility] [address] [id number] [place] [address] May, [facility] [place] [facility] [address] [id number] [place] [address] May, [facility] [place] [facility] [address] [id number] [place] [address] May, [facility] [place] [facility] [address] [id number] [place] [address] May, [facility] [place] [facility] [address] [id number] [place] [address] Apr, [facility] [place] [facility] [address] [id number] [place] [address] Apr, [facility] [place] [facility] [address] [id number] [place] [address] 19 Mar, 2012 [facility] [place] [facility] [address] [id number] [place] [address] 18 Mar, 2012 [facility] [place] [facility] [address] [id number] [place] [address] 17 Mar, 2012 [facility] [place] [facility] [address] [id number] [place] [address] 17 Mar, 2012 [facility] [place] [facility] [address] [id number] [place] [address] 16 Mar, 2012 [facility] [place] [facility] [address] [id number] [place] [address] 16 Mar, 2012 [facility] [place] [facility] [address] [id number] [place] [address] 15 Mar, 2012 [facility] [place] [facility] [address] [id number] [place] [address] Feb, [facility] [place] [facility] [address] [id number] [place] [address] Feb, [facility] [place] [facility] [address] [id number] [place] [address] Dec, [facility] [place] [facility] [address] [id number], [place] [address] Dec, [facility] [place] [facility] [address] [id number] [place] [address] Nov, [facility] [place] [facility] [address] [id number] [place] [address] Nov, [facility] [place] [facility] [address] [id number] [place] [address] Nov, [facility] [place] [facility] [address] [id number], [place] [address] Nov, [facility] [address] [id number] [place] [address] Nov, [facility] [place] [facility] [address] [id number] [place] [address] Sep, [facility] [place] [facility] [address] [id number] [place] [address] Aug, [facility] [place] [facility] [address] [id number] [place] [address] Jul, [facility] [place] [facility] [address] [id number] [place] [address] Jun, [facility] [place] [facility] [address] [id number] [place] [address] Jun, [facility] [address] [id number] [place] [address] Jun, [facility] [place] [facility] [address] [id number] [place] [address] Jun, [facility] [address] [id number] [place] [address] May, [facility] [place] [facility] [address] [id number] [place] [address] May, [facility] [place] [facility] [address] [id number], [place] [address] May, [facility] [place] [facility] [address] [id number], [place] [address] May, [facility] [place] [facility] [address] [id number] [place] [address] May, [facility] [place] [facility] [address] [id number] [place] [address]- [address] May, [facility] [place] [facility] [address] [id number] [place] [address] Mar, [facility] [place] [facility] [address] [id number], [place] [address] 10 Mar, 2011 [facility] [address] [id number], [place] [address] Jun, [facility] [id number], [place] [address] May, [facility] [address] [id number], [place] [address] May, [facility] [id number], [place] [address] Apr, [facility] [id number], [place] [address] Apr, [facility] [id number], [place] [address] Mar, [facility] [facility] [id number], [place] [address], [facility] [id number], [place] [address] Jul, IMMUNIZATIONS No Known Immunizations SOCIAL HISTORY Never Assessed REASON FOR VISIT Xanax on Hold PLAN OF CARE VITAL SIGNS MEDICATIONS Medication Instructions Dosage Frequency Start Date End Date Duration Status Xanax 1 MG Orally Once a day 1 tablet 24h Sep, Active RESULTS No Results PROCEDURES No Known [...]
--- OUTSIDE RECORDS SUMMARY | 2018-07-17 11:09 | XMS REPORT ---
Author Author ISREAL MORELAND Organization [facility] Address [address] [place] [address] Care Team Providers Care Utility Driver Name Role Phone ISREAL MORELAND Unavailable PROBLEMS Type Condition ICD9-CM Code HCT05-EH Code Onset Dates Condition Status SNOMED Code Problem Anxiety disorder, unspecified F41.9 Active 260589260 Problem Violation of controlled substance agreement Z91.14 Active 425606745 Problem Intestinal malabsorption, unspecified K90.9 Active 46605618 Problem Acquired hypothyroidism E03.9 Active 646887757 Problem Diabetes E11.9 Active 162159607 Problem Hypertriglyceridemia E78.1 Active 645836124 Problem Status post cholecystectomy Z90.49 Active 332023236 ALLERGIES No Information ENCOUNTERS Encounter Location Date Diagnosis [facility] [address] [address] Mar, [facility] [address] [address]- [address]557 Jan, [facility] [id number] [place] [address] 24087- 0822 Dec, Intestinal malabsorption, unspecified K90.9 ; Diarrhea, unspecified R19.7 ; Diabetes E11.9 and Marijuana smoker F12.90 [facility] [id number] [place] [id number] Dec, Dental examination Z01.20 [facility] [address] [id number] Dec, Dental examination Z01.20 and Dental caries K02.9 [facility] [address] [address] Dec, Benzodiazepine use agreement exists Z02.89 ; Therapeutic drug monitoring Z51.81 and Violation of controlled substance agreement Z91.14 [facility] [id number] [place] [address] 42263- 7600 Nov, [facility] [id number] [place] [address] 58950- 2137 Nov, Ketoacidosis E87.2 ; Status post cholecystectomy Z90.49 ; Diabetes E11.9 ; Acquired hypothyroidism E03.9 ; Hypertriglyceridemia E78.1 and Vaginal yeast infection B37.3 [facility] [id number] [place] [address] 08375- 1631 October, [facility] [id number] [place] [address] 39632- 1760 Sep, [facility] [id number] [place] [address] 85877- 6289 Aug, [facility] [id number] [place] [address] 51979- 7070 Jul, [facility] [id number] [place] [address] 95742- 3036 Jun, [facility] [id number] [place] [address] 48712- 5151 Jun, Diabetes E11.9 and Drug-induced acute pancreatitis with uninfected necrosis K85.31 [facility] [id number] [place] [address] 50102- 6144 May, [facility] [id number] [place] [address] 95235- 5224 Apr, [facility] [id number] [place] [address] 54951 -4218 Apr, Crushing injury of right foot, initial encounter S97.81XA [facility] [id number] [place] [address] 31551- 3836 Feb, [facility] [id number] [place] [address] 55320- 0464 Feb, [facility] [id number] [address] Feb, Acute non-recurrent pansinusitis J01.40 [facility] [id number] [address]- 34[address] Feb, [facility] [id number] [place] [address] 38876- 8791 Jan, [facility] [id number] [place] [address] 57075- 4714 Nov, [facility] [id number] [place] [address] 06283- 9344 October, [facility] [id number] [place] [address] 40083- 8993 October, Diabetes E11.9 ; Anxiety disorder, unspecified F41.9 and Acquired hypothyroidism E03.9 [facility] [id number] [place] [address] 98122- 3661 October, [facility] [id number] [place] [address] 82565- 2318 Sep, [facility] [id number] [place] [address] 85620- 4908 Sep, [facility] [id number] [address]- 6658 Aug, [facility] [id number] [place] [address] 22047- 6643 Jul, [facility] [address] [address]- 4472 Jul, [facility] [id number] [place] [address] 18924- 3667 Jul, [facility] [address] [address]- 8037 Jul, [facility] [id number] [place] [address] 40680- 8214 Jul, Acute non-recurrent maxillary sinusitis J01.00 [facility] [id number] [place] [address] 53602- 8906 Jul, [facility] [id number] [place] [address] 01782- 2149 Jun, [facility] [id number] [place] [address] 66659- 4295 May, [facility] [id number] [place] [address] 32696- 4587 Apr, [facility] [id number] [place] [address] 53674- 1128 Mar, Diabetes E11.9 [facility] [id number] [place] [address] 33624- 7355 28 Feb, 2016 Pelvic pain R10.2 ; Leukocytosis, unspecified D72.829 ; Constipation, unspecified constipation type K59.00 and History of pancreatitis Z87.19 [facility] [id number] [place] [address] 64060- 8072 22 Feb, 2016 [facility] [id number] [place] [address] 58674- 9565 14 Feb, 2016 Diabetes E11.9 [facility] [id number] [place] [address] 78914- 0135 Feb, [facility] [id number] [place] [address] 77360- 7026 2016 Vaginal yeast infection B37.3 [facility] [id number] [place] [address] 33219- 8524 08 Feb, 2016 [facility] [id number] [place] [address] 81942- 3448 Jan, Diabetes E11.9 [facility] [id number] [place] [address] 36314- 2271 Jan, Anxiety disorder, unspecified F41.9 [facility] [address] [facility] [id number] [address]- 8320 Jan, Vaginal yeast infection B37.3 [facility] [address] [facility] [id number] [address]- 4300 Jan, [facility] [address] [address]- 9740 Dec, Anxiety disorder, unspecified F41.9 [facility] [id number] [address]- 2680 Dec, Vaginal yeast infection B37.3 [facility] [id number] [address]- 2127 Nov, Anxiety disorder, unspecified F41.9 [facility] [address] [address]- 0826 Nov, Anxiety disorder, unspecified F41.9 [facility] [address] [address]- 5825 October, Anxiety disorder, unspecified F41.9 [facility] [address] [address]- 5127 October, Diabetes E11.9 [facility] [id number] [address]- 2701 Sep, Anxiety disorder, unspecified F41.9 [facility] [address] [address]- 7536 Sep, [facility] [id number] [address]- 6450 Aug, Vaginal yeast infection B37.3 [facility] [id number] 6465 Aug, [facility] [id number] [address]- 0308 Jul, [facility] [id number] [address]- 3420 Jun, [facility] [id number] [place] [address] 37166- 4378 Jun, [facility] [id number] [address]- 5346 Jun, [facility] [id number] [place] [address] 50953- 2556 May, [facility] [id number] [place] [address] 77002- 6771 Apr, Diabetes E11.9 ; Acquired hypothyroidism E03.9 ; Hyperlipidemia, unspecified hyperlipidemia E78.5 and Anxiety F41.9 [facility] [id number] [address]- 3312 Apr, [facility] [id number] [place] [address] 28395- 4353 Mar, [facility] [id number] [place] [address] 87787- 8129 Feb, [facility] [id number] [place] [address] 35607- 0976 Feb, [facility] [id number] [place] [address] 96269- 7308 Jan, [facility] [id number] [place] [address] 78633- 6474 Dec, [facility] [id number] [place] [address] 33296- 6905 Dec, Pap test, as part of routine gynecological examination V76.2 and DUB (dysfunctional uterine bleeding) 626.8 [facility] [address] [address]19 Dec, [facility] [id number] [place] [address] 81662- 6603 Dec, [facility] [address] [facility] [id number] [place] [address]- 9246 Nov, [facility] [address] [id number] [place] [address] Nov, [facility] [address] [id number] [place] 7583 Nov, Diabetes 250.00 [facility] [address] [id number] [place] [address]- 4238 Nov, [facility] [address] [id number] [place] [address]- 6649 October, [facility] [address] [id number] [place] [address]- 3041 October, Diabetes 250.00 [facility] [address] [facility] [id number] [place] [address]- 0021 October, [facility] [address] [id number] [address]- 5679 October, [facility] [address] [id number] [place] [address]- 8527 October, [facility] [address] [facility] [id number] [place] 2418 October, [facility] [address] [facility] [id number] [place] [address]- 1864 October, [facility] [address] [id number] [address]- 3380 Sep, [facility] [address] [id number] [place] [address]- 1821 Sep, [facility] [address] [id number] [place] [address]- 2499 Sep, [facility] [address] [id number] [place] [address]- 4862 Aug, [facility] [address] [id number] [address]- 4580 Aug, 2014 [facility] [place] [facility] [address] [id number] [place] [address]- 5958 Aug, 2014 [facility] [place] [facility] [address] [id number] [place] [address]- 0538 Aug, 2014 [facility] [place] [facility] [address] [facility] [id number] [place] [address]- 6174 Aug, 2014 [facility] [place] [facility] [address] [id number] [place] [address]- 8006 Aug, 2014 [facility] [place] [facility] [address] [id number] [place] [address]- 0448 Aug, [facility] [place] [facility] [address] [facility] [id number] [place] [address]- 0610 Aug, 2014 [facility] [place] [facility] [address] [facility] [id number] [place] [address]- 8962 Aug, [facility] [place] [facility] [address] [facility] [id number] [place] [address]- 3082 Jul, 2014 [facility] [place] [facility] [address] [facility] [id number] [place] [address]- 7732 Jul, 2014 [facility] [place] [facility] [address] [facility] [id number] [address]- 4015 Jul, 2014 [facility] [place] [facility] [address] [facility] [id number] [place] [address]- 4462 Jul, 2014 [facility] [place] [facility] [address] [facility] [id number] [address]- 9998 Jul, 2014 [facility] [place] [facility] [address] [facility] [id number] [place] [address]- 2912 Jul, 2014 [facility] [place] [facility] [address] [facility] [id number] [address]- 8172 Jul, 2014 [facility] [place] [facility] [address] [facility] [id number] [address]- 8608 Jul, [facility] [place] [facility] [address] [id number] [place] [address]- 2341 Jun, [facility] [place] [facility] [address] [id number] [place] [address]- 6888 Jun, [facility] [place] [facility] [address] [id number] [place] [address]- 9781 Jun, [facility] [place] [facility] [address] [id number] [place] [address]- 9217 Jun, [facility] [place] [facility] [address] [id number] [place] [address]- 8096 Jun, [facility] [place] [facility] [address] [id number] [place] [address]- 2532 Jun, [facility] [place] [facility] [address] [id number] [place] [address]- 0141 Jun, [facility] [place] [facility] [address] [id number] [place] [address]- 3865 Jun, [facility] [place] [facility] [address] [id number] [place] [address]- 1647 Jun, [facility] [place] [facility] [address] [id number] [place] [address]- 9053 Jun, [facility] [place] [facility] [address] [id number] [place] [address]- 7948 Jun, [facility] [place] [facility] [address] [id number] [place] [address]- 1914 Jun, [facility] [place] [facility] [address] [id number] [place] [address]- 5175 May, [facility] [place] [facility] [address] [id number] [place] [address]- 2786 May, [facility] [place] [facility] [address] [id number] [place] [address]- 8757 May, [facility] [place] [facility] [address] [id number] [place] [address]- 5345 May, [facility] [place] [facility] [address] [id number] [place] [address]- 4079 May, [facility] [place] [facility] [address] [id number] [place] 4116 May, [facility] [place] [facility] [address] [id number] [place] [address]- 9121 15 May, 2014 [facility] [place] [facility] [address] [id number] [place] [address]- 9149 15 May, 2014 [facility] [place] [facility] [address] [id number] [place] [address]- 3052 May, [facility] [place] [facility] [address] [id number] [place] [address]- 1322 May, [facility] [place] [facility] [address] [id number] [place] [address]- 1223 May, [facility] [place] [facility] [address] [id number] [place] [address]- 5191 May, [facility] [place] [facility] [address] [id number] [place] [address]- 5969 May, [facility] [place] [facility] [address] [id number] [place] [address]- 1704 Apr, [facility] [place] [facility] [address] [id number] [place] [address]- 9257 Apr, [facility] [place] [facility] [address] [id number] [place] [address]- 6416 Apr, [facility] [place] [facility] [address] [id number] [place] [address]- 4897 Apr, [facility] [place] [facility] [address] [id number] [place] [address]- 0311 Apr, [facility] [place] [facility] [address] [id number] [place] [address]- 9322 Apr, [facility] [place] [facility] [address] [id number] [place] [address]- 6668 Mar, [facility] [place] [facility] [address] [id number] [place] [address]- 9074 Mar, [facility] [place] [facility] [address] [id number] [place] [address]- 2106 Mar, [facility] [place] [facility] [address] [id number] [place] [address]- 7005 Mar, [facility] [place] [facility] [address] [id number] [place] [address]- 1075 Feb, [facility] [place] [facility] [address] [id number] [place] [address]- 6871 Feb, [facility] [place] [facility] [address] [id number] [place] [address]- 6264 Feb, [facility] [place] [facility] [address] [id number] [place] [address]- 9294 Feb, [facility] [place] [facility] [address] [id number] [place] [address]- 9714 Feb, [facility] [place] [facility] [address] [id number] [place] [address]- 2264 Feb, [facility] [place] [facility] [address] [id number] [place] [address]- 5840 Jan, [facility] [place] [facility] [address] [id number] [place] [address]- 8713 Jan, [facility] [place] [facility] [address] [id number] [place] [address] Dec, [facility] [place] [facility] [address] [id number] [place] [address] Dec, [facility] [place] [facility] [address] [id number] [place] [address] Nov, [facility] [place] [facility] [address] [id number] [place] [address] Nov, [facility] [place] [facility] [address] [id number] [place] [address] Nov, [facility] [place] [facility] [address] [id number] [place] [address] October, [facility] [place] [facility] [address] [id number] [place] [address] October, [facility] [place] [facility] [address] [id number] [place] [address] Sep, [facility] [place] [facility] [address] [id number] [place] [address] Sep, [facility] [place] [facility] [address] [id number] [place] [address] Sep, [facility] [place] [facility] [address] [id number] [place] [address] Sep, [facility] [place] [facility] [address] [id number] [place] [address] Sep, [facility] [place] [facility] [address] [id number] [place] [address] Sep, [facility] [place] [facility] [address] [id number] [place] [address] Sep, [facility] [place] [facility] [address] [id number] [place] [address] Sep, [facility] [place] [facility] [address] [id number] [address] Sep, [facility] [place] [facility] [address] [id number] [place] [address] Sep, [facility] [place] [facility] [address] [id number] [place] [address] Aug, [facility] [place] [facility] [address] [id number] [place] [address] Aug, [facility] [place] [facility] [address] [id number] [place] [address] Jul, [facility] [address] [id number] [place] [address] Jul, [facility] [place] [facility] [address] [id number] [place] [address] Apr, [facility] [place] [facility] [address] [id number] [place] [address] Apr, [facility] [place] [facility] [address] [id number] [place] [address] Mar, [facility] [place] [facility] [address] [id number] [place] [address] Mar, [facility] [place] [facility] [address] [id number] [place] [address] Feb, [facility] [place] [facility] [address] [id number] [place] [address] Jan, [facility] [place] [facility] [address] [id number] [place] [address] Jan, [facility] [place] [facility] [address] [id number] [place] [address] Dec, [facility] [place] [facility] [address] [facility] [id number] [place] [address] Jul, [facility] [place] [facility] [address] [id number] [place] [address] Jun, [facility] [place] [facility] [address] [id number] [place] [address] May, [facility] [place] [facility] [address] [id number] [place] [address] May, [facility] [place] [facility] [address] [id number] [place] [address] May, [facility] [place] [facility] [address] [id number] [place] [address] May, [facility] [place] [facility] [address] [id number] [place] [address] 13 May, 2012 [facility] [place] [facility] [address] [id number] [place] [address] Apr, [facility] [place] [facility] [address] [id number] [place] [address] Apr, [facility] [place] [facility] [address] [id number] [place] [address] Mar, [facility] [place] [facility] [address] [id number] [place] [address] 18 Mar, 2012 [facility] [place] [facility] [address] [id number] [place] [address] 17 Mar, 2012 [facility] [place] [facility] [address] [id number] [place] [address] 17 Mar, 2012 [facility] [place] [facility] [address] [id number] [place] [address] 16 Mar, 2012 [facility] [place] [facility] [address] [id number] [place] [address] 16 Mar, 2012 [facility] [place] [facility] [address] [id number] [place] [address] 15 Mar, 2012 [facility] [place] [facility] [address] [id number] [place] [address] 27 Feb, 2012 [facility] [place] [facility] [address] [id number] [address] Feb, [facility] [place] [facility] [address] [id number] [place] [address] Dec, [facility] [place] [facility] [address] [id number] [place] [address] Dec, [facility] [place] [facility] [address] [id number] [place] [address] Nov, [facility] [place] [facility] [address] [id number] [place] [address] Nov, [facility] [address] [id number] [place] [address] Nov, [facility] [place] [facility] [address] [id number] [place] [address] Nov, [facility] [place] [facility] [address] [id number] [place] [address] Nov, [facility] [place] [facility] [address] [id number] [place] [address] Sep, [facility] [place] [facility] [address] [id number] [place] [address] Aug, [facility] [place] [facility] [address] [id number] [place] [address] Jul, [facility] [address] [id number] [place] [address] Jun, [facility] [place] [facility] [address] [id number] [place] [address] Jun, [facility] [place] [facility] [address] [id number] [place] [address] Jun, [facility] [place] [facility] [address] [id number] [place] [address] Jun, [facility] [place] [facility] [address] [id number] [place] [address] May, [facility] [place] [facility] [address] [id number] [place] [address] May, [facility] [place] [facility] [address] [id number] [place] [address] May, [facility] [place] [facility] [address] [id number] [place] [address] May, [facility] [place] [facility] [address] [id number] [place] [address] May, [facility] [place] [facility] [address] [id number] [address] May, [facility] [id number] [address] Mar, [facility] [address] [facility] [id number] [address] Mar, [facility] [address] [facility] [id number] [address] Jun, [facility] [address] [facility] [id number] [address] May, [facility] [id number] [address] May, [facility] [id number] [address] Apr, [facility] [id number] [address] Apr, [facility] [id number] [address] Mar, [facility] [id number] [address] Mar, [facility] [address] [id number] [address] Jul, IMMUNIZATIONS No Known Immunizations SOCIAL HISTORY Never Assessed REASON FOR VISIT Controlled Med Refill 11/21/17 PLAN OF CARE VITAL SIGNS MEDICATIONS Medication Instructions Dosage Frequency Start Date End Date Duration Status Xanax 1 MG Orally Once a day 1 tablet 24h Sep, 28 days Active RESULTS No Results PROCEDURES No Known [...]
--- OUTSIDE RECORDS SUMMARY | 2018-07-17 11:10 | XMS REPORT ---
Author Author ISREAL MORELAND Organization [employer] Address Unknown Phone Unavailable Care Team Providers Care Toe Sewer Name Role Phone ISREAL MORELAND CP Unavailable Allergies No Known Allergies Problems Problem Type Condition Code Onset Dates Condition Status Problem Pure hyperglyceridemia 272.1 Active Problem Dysuria 788.1 Active Problem Other bursitis disorders 727.3 Active Problem Diabetes 250.00 Active Problem Unspecified episodic mood disorder 296.90 Active Problem Anxiety state, unspecified 300.00 Active Problem Lumbago 724.2 Active Problem Other chronic nonalcoholic liver disease 571.8 Active Medications Medication Code System Code Instructions Start Date End Date Status Dosage Xanax [facility] [id number] 1 MG Orally Once a day October 27, 2014 1 tablet Results No Known Results Summary Purpose [employer] Submission
--- OUTSIDE RECORDS SUMMARY | 2018-07-17 11:10 | XMS REPORT ---
Author Author ISREAL MORELAND Organization [facility] Address [address] [place] [address] Care Team Providers Care Business Intelligence Engineer Name Role Phone ISREAL MORELAND Unavailable PROBLEMS Type Condition ICD9-CM Code QFZ65-AT Code Onset Dates Condition Status SNOMED Code Problem Violation of controlled substance agreement Z91.14 Active 495891528 Problem Status post cholecystectomy Z90.49 Active 665285371 Problem Diabetes E11.9 Active 560950292 Problem Anxiety disorder, unspecified F41.9 Active 804121413 Problem Hypertriglyceridemia E78.1 Active 765052345 Problem Acquired hypothyroidism E03.9 Active 785635787 ALLERGIES No Information ENCOUNTERS Encounter Location Date Diagnosis [place] [address] [address] Dec, [facility] [address] [place] [address] [id number] Dec, Dental examination Z01.20 [facility] [address] [id number] Dec, Dental examination Z01.20 and Dental caries K02.9 [place] [address] [address]- [address] Dec, Benzodiazepine use agreement exists Z02.89 ; Therapeutic drug monitoring Z51.81 and Violation of controlled substance agreement Z91.14 [place] [address] [place] [id number] [place] [address] 37049- 7081 Nov, [place] [address] [address]- [address] Nov, Ketoacidosis E87.2 ; Status post cholecystectomy Z90.49 ; Diabetes E11.9 ; Acquired hypothyroidism E03.9 ; Hypertriglyceridemia E78.1 and Vaginal yeast infection B37.3 [facility] [address] [place] [id number] [place] [address] 29925- 4997 October, [facility] [address] [place] [id number] [place] [address] 55728- 2727 Sep, [facility] [address] [place] [id number] [place] [address] 33871- 4657 Aug, [facility] [address] 48366- 5255 Jul, [facility] [address] [place] [id number] [place] [address] 85175- 0952 Jun, [facility] [address] [place] [id number] [place] [address] 64987- 8793 Jun, Diabetes E11.9 and Drug-induced acute pancreatitis with uninfected necrosis K85.31 [place] [address] 20765- 5339 May, [facility] [address] [place] [id number] [place] [address] 82671- 5859 Apr, [facility] [address] [place] [id number] [place] [address] 86447 -8352 Apr, Crushing injury of right foot, initial encounter S97.81XA [facility] [address] [place] [id number] [place] [address] 41098- 1546 Feb, [facility] [address] [place] [id number] [place] [address] 37802- 3606 Feb, [facility] [address] [place] [id number] [place] [address] 63086 -1183 Feb, Acute non-recurrent pansinusitis J01.40 [facility] [address] [place] [id number] [place] [address] 86495- 3097 Feb, [facility] [address] [place] [id number] [place] [address] 74798- 0630 Jan, [facility] [address], [place] [address]- 9169 Nov, [facility] [address] [place] [id number] [place] [address] 48522- 3285 October, [facility] [address] [place] [id number] [place] [address] 67670- 5081 October, Diabetes E11.9 ; Anxiety disorder, unspecified F41.9 and Acquired hypothyroidism E03.9 [facility] [address] [place] [id number] [address]- 4114 October, [facility] [address] [place] [id number] [place] [address] 32371- 1836 Sep, [facility] [address] [place] [id number] [place] [address] 58649- 3984 Sep, [facility] [address] [place] [id number] [place] [address] 51598- 0986 Aug, [facility] [address] [place] [address] 37152- 5734 Jul, [facility] [address] [place] [id number] [place] [address] 25117- 5105 Jul, [facility] [address] [address]- 9273 Jul, [facility] [address] [place] [id number] [place] [address] 01119- 5430 Jul, [facility] [address] [place] [id number] [address]- 6044 Jul, Acute non-recurrent maxillary sinusitis J01.00 [facility] [address] [place] [id number] [place] [address] 85666- 5425 Jul, [facility] [address] [address]- 8203 Jun, [facility] [address] [place] [id number] [place] [address] 73630- 7590 May, [facility] [address], [place] [address]- 2901 Apr, [facility] [address] [place] [address] 34410- 3143 Mar, Diabetes E11.9 [facility] [address] [address]- 8234 28 Feb, 2016 Pelvic pain R10.2 ; Leukocytosis, unspecified D72.829 ; Constipation, unspecified constipation type K59.00 and History of pancreatitis Z87.19 [facility] [address] [place] [address] 78153- 9377 22 Feb, 2016 [facility] [address] [place] [address] 49458- 9208 14 Feb, 2016 Diabetes E11.9 [facility] [address] [place] [id number] [place] [address] 91148- 0686 13 Feb, 2016 [facility] [address] [place] [address] 06044- 9758 2016 Vaginal yeast infection B37.3 [facility] [address] [place] [address] 34139- 3876 08 Feb, 2016 [facility] [address], [place] [address]- 2647 30 Jan, 2016 Diabetes E11.9 [facility] [address], [place] [address]- 2122 Jan, Anxiety disorder, unspecified F41.9 [facility] [address], [place] [address]- 9587 Jan, Vaginal yeast infection B37.3 [facility] [address], [place] [address]- 0864 Jan, [facility] [address] [place] [address] 95633- 7556 Dec, Anxiety disorder, unspecified F41.9 [facility] [address], [place] [address]- 2575 Dec, Vaginal yeast infection B37.3 [facility] [address] [place] [address] 454092- 8337 Nov, Anxiety disorder, unspecified F41.9 [facility] [address] [place] [address] 261927- 1033 Nov, Anxiety disorder, unspecified F41.9 [facility] [address] [place] [address] 20689- 0352 October, Anxiety disorder, unspecified F41.9 [facility] [address] [place] [id number] [place] [address] 08928- 2628 October, Diabetes E11.9 [facility] [address] [place] [address] 13708- 4612 Sep, Anxiety disorder, unspecified F41.9 [facility] [address] [place] [address] 26309- 2253 Sep, [facility] [address] [place] [id number] [place] [address] 32310- 7286 Aug, Vaginal yeast infection B37.3 [facility] [address], [place] [address]- 3509 Aug, [facility] [address] [place] [address] 67320- 7478 Jul, [facility] [address], [place] [address]- 4366 Jun, [facility] [address] [place] [id number] [place] [address] 81065- 6777 Jun, [facility] [address] 0692 Jun, [facility] [address] [place] [id number] [place] [address] 69129- 3220 May, [facility] [address] [place] [id number] [place] [address] 13561- 9825 Apr, Diabetes E11.9 ; Acquired hypothyroidism E03.9 ; Hyperlipidemia, unspecified hyperlipidemia E78.5 and Anxiety F41.9 [facility] [address] [place] [id number] [place] [address] 897946- 1428 Apr, [facility] [address] 71086- 3061 Mar, [facility] [address] [place] [id number] [place] [address] 414060- 0913 Feb, [facility] [address] 047036- 4861 Feb, [facility] [address] [place] [id number] [place] [address] 61605- 2325 Jan, [facility] [address] [place] [id number] [place] [address] 55403- 9668 Dec, [facility] [address] [place] [id number] [place] [address] 01101- 0405 Dec, DUB (dysfunctional uterine bleeding) 626.8 and Pap test, as part of routine gynecological examination V76.2 [facility] [address] [place] [id number] [place] [address] 98481- 0183 Dec, [facility] [address] [place] [id number] [place] [address] 33755- 0935 Dec, [facility] [address] [place] [id number] [place] [address] 624785- 9690 Nov, [facility] [address] 580926- 0873 Nov, [facility] [address] [place] [id number] [place] [address] 67587- 0863 Nov, Diabetes 250.00 [facility] [address] 81237- 8639 Nov, [facility] [address] [id number] [place] [address]- 7708 October, [facility] [address] [facility] [id number] [place] [address]- 5827 October, Diabetes 250.00 [facility] [address] [id number] [place] [address]- 1506 October, [facility] [address] [id number] [place] [address]- 9421 October, [facility] [address] [id number] [place] [address]- 0100 October, [facility] [address] [id number] [place] [address]- 5754 October, [facility] [address] [facility] [id number] [place] [address]- 0574 October, [facility] [address] [id number] [place] [address]- 3188 Sep, [facility] [address] [id number] [place] [address]- 9594 Sep, [facility] [address] [facility] [id number] [place] [address]- 8772 Sep, [facility] [address] [id number] [place] [address]- 7486 Aug, [facility] [address] [id number] [place] [address]- 2329 Aug, [facility] [place] [facility] [address] [id number] [place] [address]- 9082 Aug, [facility] [address] [id number] [place] [address]- 4556 Aug, [facility] [address] [id number] [place] [address]- 7775 Aug, [facility] [place] [facility] [address] [id number] [place] [address]- 7279 Aug, [facility] [place] [facility] [address] [id number] [place] [address]- 1886 Aug, 2014 [facility] [place] [facility] [address] [id number] [place] [address]- 7471 Aug, [facility] [place] [facility] [address] [id number] [place] [address]- 8950 Aug, [facility] [place] [facility] [address] [id number] [place] [address]- 3825 Jul, 2014 [facility] [place] [facility] [address] [id number] [place] [address]- 0698 Jul, 2014 [facility] [place] [facility] [address] [id number] [place] [address]- 7085 Jul, 2014 [facility] [place] [facility] [address] [id number] [place] [address]- 8033 Jul, 2014 [facility] [place] [facility] [address] [id number] [place] [address]- 3991 Jul, [facility] [place] [facility] [address] [id number] [place] [address]- 2068 Jul, 2014 [facility] [place] [facility] [address] [id number] [place] [address]- 1836 Jul, 2014 [facility] [place] [facility] [address] [id number] [place] [address]- 1646 Jul, [facility] [place] [facility] [address] [id number] [place] [address]- 2561 Jun, [facility] [place] [facility] [address] [id number] [place] [address]- 7245 Jun, [facility] [place] [facility] [address] [id number] [place] [address]- 9623 Jun, [facility] [place] [facility] [address] [id number] [place] [address]- 4089 Jun, [facility] [place] [facility] [address] [id number] [place] [address]- 7482 Jun, [facility] [place] [facility] [address] [id number] [place] [address]- 4271 Jun, [facility] [place] [facility] [address] [id number] [place] [address]- 6657 Jun, [facility] [place] [facility] [address] [id number] [place] [address]- 3068 Jun, [facility] [place] [facility] [address] [id number] [place] [address]- 2853 Jun, [facility] [place] [facility] [address] [id number] [place] [address]- 3914 Jun, [facility] [place] [facility] [address] [id number] [place] [address]- 5625 Jun, [facility] [place] [facility] [address] [id number] [place] [address]- 2540 Jun, [facility] [place] [facility] [address] [id number] [place] [address]- 8308 May, [facility] [place] [facility] [address] [id number] [place] [address]- 1972 May, [facility] [place] [facility] [address] [id number] [place] [address]- 4082 May, [facility] [place] [facility] [address] [id number] [place] [address]- 1323 May, [facility] [place] [facility] [address] [id number] [place] [address]- 8723 17 May, 2014 [facility] [place] [facility] [address] [id number] [place] 7083 17 May, 2014 [facility] [place] [facility] [address] [id number] [place] [address]- 7628 May, [facility] [place] [facility] [address] [id number] [place] [address]- 7756 May, [facility] [place] [facility] [address] [id number] [place] [address]- 2987 May, [facility] [place] [facility] [address] [id number] [place] 2693 May, [facility] [place] [facility] [address] [id number] [place] [address]- 5855 May, [facility] [place] [facility] [address] [id number] [place] [address]- 4865 May, [facility] [place] [facility] [address] [id number] [place] [address]- 6636 May, [facility] [place] [facility] [address] [id number] [place] [address]- 1910 Apr, [facility] [place] [facility] [address] [id number] [place] [address]- 8389 Apr, [facility] [place] [facility] [address] [id number] [place] [address]- 0925 Apr, [facility] [place] [facility] [address] [id number] [place] [address]- 9227 Apr, [facility] [place] [facility] [address] [id number] [place] [address]- 2042 Apr, [facility] [place] [facility] [address] [id number] [place] [address]- 1599 Apr, [facility] [place] [facility] [address] [id number] [place] [address]- 9097 Mar, [facility] [place] [facility] [address] [id number] [place] [address]- 5947 Mar, [facility] [place] [facility] [address] [id number] [place] [address]- 0440 Mar, [facility] [place] [facility] [address] [id number] [place] [address]- 4679 Mar, [facility] [place] [facility] [address] [id number] [place] [address]- 3133 Feb, [facility] [place] [facility] [address] [id number] [place] [address]- 2598 Feb, [facility] [place] [facility] [address] [id number] [place] [address]- 1056 Feb, [facility] [place] [facility] [address] [id number] [place] [address]- 6132 Feb, [facility] [place] [facility] [address] [id number] [place] [address]- 9451 Feb, [facility] [place] [facility] [address] [id number] [place] [address]- 3404 Feb, [facility] [place] [facility] [address] [id number] [place] [address]- 4982 Jan, [facility] [place] [facility] [address] [id number] [place] [address]- 0709 Jan, [facility] [place] [facility] [address] [id number] [place] [address]- 6735 Dec, [facility] [place] [facility] [address] [id number] [place] [address]- 6030 Dec, [facility] [place] [facility] [address] [id number] [place] [address]- 6291 Nov, [facility] [place] [facility] [address] [id number] [place] [address]- 9595 Nov, [facility] [place] [facility] [address] [id number] [place] [address]- 0002 Nov, [facility] [place] [facility] [address] [id number] [place] 9983 October, [facility] [place] [facility] [address] [id number] [place] 8327 October, [facility] [place] [facility] [address] [id number] [place] [address]- 3386 16 Sep, 2013 [facility] [address] [id number] [place] [address]- 5217 Sep, [facility] [place] [facility] [address] [id number] [place] [address]- 8832 Sep, [facility] [address] [id number] [place] [address]- 6154 Sep, [facility] [place] [facility] [address] [id number] [place] [address]- 2380 Sep, [facility] [address] [id number] [place] [address]- 1055 Sep, [facility] [place] [facility] [address] [id number] [place] [address]- 4617 Sep, [facility] [place] [facility] [address] [id number] [place] [address]- 1540 Sep, [facility] [address] [id number] [place] [address]- 0603 Sep, [facility] [place] [facility] [address] [id number] [place] [address]- 7253 Sep, [facility] [address] [id number] [place] [address]- 0726 Aug, [facility] [place] [facility] [address] [id number] [place] [address]- 6086 Aug, [facility] [place] [facility] [address] [id number] [place] [address]- 8416 Jul, [facility] [place] [facility] [address] [id number] [place] [address]- 4948 Jul, [facility] [place] [facility] [address] [id number] [place] [address]- 7726 Apr, [facility] [place] [facility] [address] [id number] [place] [address]- 3752 Apr, [facility] [address] [id number] [place] [address]- 7711 Mar, [facility] [place] [facility] [address] [id number] [place] [address]- 1749 Mar, [facility] [place] [facility] [address] [id number] [place] [address]- 5335 Feb, [facility] [place] [facility] [address] [id number] [place] [address]- 7846 Jan, [facility] [place] [facility] [address] [id number] [place] [address]- 8778 Jan, [facility] [place] [facility] [address] [id number] [place] [address]- 3785 Dec, [facility] [place] [facility] [address] [id number] [place] [address]- 3283 Jul, [facility] [place] [facility] [address] [id number] [place] [address]- 7454 Jun, [facility] [place] [facility] [address] [id number] [place] [address]- 6071 May, [facility] [place] [facility] [address] [id number] [place] [address]- 3187 May, [facility] [place] [facility] [address] [id number], [place] [address]- 2963 May, [facility] [place] [facility] [address] [id number], [place] [address]- 7779 May, [facility] [place] [facility] [address] [id number] [place] [address]- 4166 May, [facility] [place] [facility] [address] [id number], [place] [address]- 9661 Apr, [facility] [place] [facility] [address] [id number] [place] 0871 Apr, [facility] [place] [facility] [address] [id number] [place] [address]- 4164 19 Mar, 2012 [facility] [place] [facility] [address] [id number] [place] [address]- 7900 18 Mar, 2012 [facility] [place] [facility] [address] [id number] [place] 3776 17 Mar, 2012 [facility] [place] [facility] [address] [id number] [place] [address] 17 Mar, 2012 [facility] [place] [facility] [address] [id number] [place] [address] 16 Mar, 2012 [facility] [place] [facility] [address] [id number] [place] [address] 16 Mar, 2012 [facility] [place] [facility] [address] [id number] [place] [address] 15 Mar, 2012 [facility] [place] [facility] [address] [id number] [place] [address] 27 Feb, 2012 [facility] [place] [facility] [address] [id number] [place] [address] 26 Feb, 2012 [facility] [place] [facility] [address] [id number] [place] [address] Dec, [facility] [place] [facility] [address] [facility] [id number] [place] [address] Dec, [facility] [place] [facility] [address] [id number] [place] [address] Nov, [facility] [place] [facility] [address] [id number] [place] [address] Nov, [facility] [place] [facility] [address] [id number] [place] [address] Nov, [facility] [place] [facility] [address] [id number] [place] [address] Nov, [facility] [place] [facility] [address] [id number] [place] [address] Nov, [facility] [place] [facility] [address] [id number] [place] [address] Sep, [facility] [place] [facility] [address] [id number] [place] [address] Aug, [facility] [place] [facility] [address] [id number] [place] [address] Jul, [facility] [place] [facility] [address] [id number] [place] [address] Jun, [facility] [address] [id number] [place] [address] Jun, [facility] [place] [facility] [address] [id number] [place] [address] Jun, [facility] [address] [id number] [place] [address] Jun, [facility] [address] [id number] [place] [address] May, [facility] [place] [facility] [address] [id number] [place] [address] May, [facility] [place] [facility] [address] [id number] [place] [address] May, [facility] [place] [facility] [address] [id number] [place] [address] May, [facility] [place] [facility] [address] [id number] [place] [address] May, [facility] [place] [facility] [address] [id number] [place] [address] May, [facility] [place] [facility] [address] [id number] [place] [address] Mar, [facility] [place] [facility] [address] [id number] [place] [address] 10 Mar, 2011 [facility] [place] [facility] [address] [id number] [address] Jun, [facility] [address] [id number] [address] May, [facility] [address] [id number] [address] May, [facility] [address] [id number], [place] [address] Apr, [facility] [id number] [address] Apr, [facility] [address] [id number] [address] Mar, [facility] [id number], [place] [address] Mar, [facility] [address] [id number] [address] Jul, IMMUNIZATIONS No Known Immunizations SOCIAL HISTORY Never Assessed REASON FOR VISIT Controlled Med Refill 09/05/17 PLAN OF CARE VITAL SIGNS MEDICATIONS Medication [...]
--- OUTSIDE RECORDS SUMMARY | 2018-07-17 11:10 | XMS REPORT ---
Author Author ISREAL MORELAND Organization [employer] Address Unknown Phone Unavailable Care Team Providers Care Supervisor [employer] Name Role Phone ISREAL MORELAND CP Unavailable [...] Start Date End Date Status Dosage Xanax [facility] [address]-93 1 MG Orally Once a day October 27, 2014 1 tablet Results No Known Results Summary Purpose [employer] Submission
--- OUTSIDE RECORDS SUMMARY | 2018-07-17 11:10 | XMS REPORT ---
Author Author ISREAL MORELAND Organization [facility] Address [address] [place] [address] Care Team Providers Care Ingot Supervisor Name Role Phone ISREAL MORELAND Unavailable PROBLEMS Type Condition ICD9-CM Code NMN96-YY Code Onset Dates Condition Status SNOMED Code Problem Anxiety disorder, unspecified F41.9 Active 815192457 Problem Violation of controlled substance agreement Z91.14 Active 654528799 Problem Intestinal malabsorption, unspecified K90.9 Active 99158145 Problem Acquired hypothyroidism E03.9 Active 283020182 Problem Diabetes E11.9 Active 268781806 Problem Hypertriglyceridemia E78.1 Active 765916022 Problem Status post cholecystectomy Z90.49 Active 733742129 ALLERGIES No Information ENCOUNTERS Encounter Location Date Diagnosis [facility] [id number] [place] [address] 99679- 0668 Dec, Intestinal malabsorption, unspecified K90.9 ; Diarrhea, unspecified R19.7 ; Diabetes E11.9 and Marijuana smoker F12.90 [facility] [id number] [place] [address] [id number] Dec, Dental examination Z01.20 [facility] [id number] [place] [address] [id number] Dec, Dental examination Z01.20 and Dental caries K02.9 [facility] [address] [place] [address] 36389- 5857 Dec, Benzodiazepine use agreement exists Z02.89 ; Therapeutic drug monitoring Z51.81 and Violation of controlled substance agreement Z91.14 [facility] [id number] [place] [address] 68536- 8105 Nov, [facility] [id number] [place] [address] 28893- 9171 Nov, Ketoacidosis E87.2 ; Status post cholecystectomy Z90.49 ; Diabetes E11.9 ; Acquired hypothyroidism E03.9 ; Hypertriglyceridemia E78.1 and Vaginal yeast infection B37.3 [facility] [id number] [place] [address] 36344- 4128 October, [place] [address] 54770- 5121 Sep, [facility] [address] 03299- 1652 Aug, [place] [address] 41657- 3080 Jul, [place] [address] 26648- 8320 Jun, [place] [address] 84458- 6726 Jun, Diabetes E11.9 and Drug-induced acute pancreatitis with uninfected necrosis K85.31 [place] [id number] [place] [address] 59751- 2363 May, [place] [address] 41063- 9166 Apr, [facility] [place] [id number] [place] [address] 30134 -8456 Apr, Crushing injury of right foot, initial encounter S97.81XA [place] [id number] [place] [address] 31636- 4223 Feb, [place] [address] 05128- 3373 Feb, [facility] [id number] [place] [address] 64475 -7937 19 Feb, 2017 Acute non-recurrent pansinusitis J01.40 [place] [address] 68018- 9801 Feb, [facility] [id number] [place] [address] 07518- 3767 Jan, [facility] [id number] [place] [address] 17029- 3296 Nov, [facility] [id number] [place] [address] 674189- 1197 October, [facility] [id number] [place] [address] 531777- 5873 October, Diabetes E11.9 ; Anxiety disorder, unspecified F41.9 and Acquired hypothyroidism E03.9 [facility] [id number] [place] [address] 29041- 3890 October, [facility] [id number] [place] [address] 97321- 0956 Sep, [facility] [id number] [place] [address] 16107- 0003 Sep, [facility] [id number] [place] [address] 15190- 8724 Aug, [facility] [id number] [place] [address] 58947- 7498 Jul, [facility] [id number] [place] [address] 89007- 2874 Jul, [facility] [id number] [place] [address] 57436- 1951 Jul, [facility] [id number] [place] [address] 29897- 0660 Jul, [facility] [id number] [place] [address] 91952- 3035 Jul, Acute non-recurrent maxillary sinusitis J01.00 [facility] [id number] [place] [address] 85458- 3899 Jul, [facility] [address] [address]- 2243 09 Jun, 2016 [facility] [id number] [place] [address] 16259- 6572 May, [facility] [id number] [place] [address] 66462- 5332 Apr, [facility] [id number] [place] [address] 99603- 6384 Mar, Diabetes E11.9 [facility] [id number] [place] [address] 04515- 8537 28 Feb, 2016 Pelvic pain R10.2 ; Leukocytosis, unspecified D72.829 ; Constipation, unspecified constipation type K59.00 and History of pancreatitis Z87.19 [facility] [id number] [place] [address] 41077- 2285 22 Feb, 2016 [facility] [id number] [place] [address] 40236- 7577 14 Feb, 2016 Diabetes E11.9 [facility] [id number] [place] [address] 22870- 3001 13 Feb, 2016 [facility] [id number] [place] [address] 25164- 8659 2016 Vaginal yeast infection B37.3 [facility] [address] [place] [address] 05512- 7166 08 Feb, 2016 [facility] [id number] [place] [address] 86648- 2699 30 Jan, 2016 Diabetes E11.9 [facility] [id number] [place] [address] 69961- 6856 Jan, Anxiety disorder, unspecified F41.9 [facility] [address] [place] [address] 25152- 2050 17 Jan, 2016 Vaginal yeast infection B37.3 [facility] [id number] [place] [address] 25470- 2064 Jan, [facility] [address] [address]- 8984 Dec, Anxiety disorder, unspecified F41.9 [facility] [address] 8606 Dec, Vaginal yeast infection B37.3 [facility] [id number] [place] [address] 804326- 3397 Nov, Anxiety disorder, unspecified F41.9 [facility] [address] 3737 Nov, Anxiety disorder, unspecified F41.9 [facility] [id number] [place] [address] 173831- 5885 October, Anxiety disorder, unspecified F41.9 [facility] [id number] [place] [address] 01976- 0005 October, Diabetes E11.9 [facility] [address] [address]- 4318 Sep, Anxiety disorder, unspecified F41.9 [facility] [address] 3152 Sep, [facility] [address] [address]- 0708 Aug, Vaginal yeast infection B37.3 [facility] [address] [address]- 9000 Aug, [facility] [address] 2428 Jul, [facility] [address] 2170 Jun, [facility] [address] [address]- 9926 Jun, [facility] [id number] [place] [address] 87281- 0322 Jun, [facility] [id number] [place] [address] 71658- 2676 May, [facility] [id number] [place] [address] 18042- 2598 Apr, Diabetes E11.9 ; Acquired hypothyroidism E03.9 ; Hyperlipidemia, unspecified hyperlipidemia E78.5 and Anxiety F41.9 [facility] [id number] [place] [address] 16385- 8248 Apr, [facility] [id number] [place] [address] 54822- 9334 Mar, [facility] [id number] [place] [address] 68786- 5191 Feb, [facility] [id number] [place] [address] 93521- 3376 Feb, [facility] [id number] [place] [address] 90053- 9216 Jan, [facility] [id number] [place] [address] 27059- 6340 Dec, [facility] [id number] [place] [address] 95623- 2619 Dec, DUB (dysfunctional uterine bleeding) 626.8 and Pap test, as part of routine gynecological examination V76.2 [facility] [id number] [place] [address] 90850- 9447 Dec, [facility] [id number] [place] [address] 94410- 3364 Dec, [facility] [id number] [place] [address] 86373- 2928 Nov, [facility] [id number] [place] [address] 73358- 8146 Nov, [facility] [address] [facility] [id number] [place] [address]- 9048 Nov, Diabetes 250.00 [facility] [address] [id number] [place] [address]- 7218 Nov, [facility] [address] [id number] [place] [address]- 7680 October, [facility] [address] [id number] [place] [address]- 7113 October, Diabetes 250.00 [facility] [address] [id number] [place] [address]- 9429 October, [facility] [address] [id number] [place] [address]- 6416 October, [facility] [address] [id number] [place] [address]- 7137 October, [facility] [address] [id number] [place] [address]- 3096 October, [facility] [address] [id number] [place] [address]- 6712 October, [facility] [address] [id number] [place] [address]- 3299 Sep, [facility] [address] [id number] [place] [address]- 7597 Sep, [facility] [address] [id number] [address]- 5663 Sep, [facility] [address] [id number] [place] [address]- 9605 Aug, [facility] [address] [id number] [place] [address]- 4206 Aug, [facility] [address] [id number] [place] [address]- 6680 Aug, [facility] [address] [id number] [address]- 4619 Aug, [facility] [place] [facility] [address] [id number] [place] [address]- 0024 Aug, 2014 [facility] [place] [facility] [address] [id number] [place] [address]- 0497 Aug, 2014 [facility] [place] [facility] [address] [facility] [id number] [place] [address]- 9928 Aug, 2014 [facility] [place] [facility] [address] [id number] [place] [address]- 1661 Aug, 2014 [facility] [place] [facility] [address] [id number] [place] [address]- 9083 Aug, [facility] [place] [facility] [address] [id number] [place] [address]- 8383 Jul, 2014 [facility] [place] [facility] [address] [facility] [id number] [place] [address]- 1129 Jul, 2014 [facility] [place] [facility] [address] [facility] [id number] [place] [address]- 2823 Jul, 2014 [facility] [place] [facility] [address] [facility] [id number] [place] [address]- 3709 Jul, 2014 [facility] [place] [facility] [address] [facility] [id number] [place] [address]- 2885 Jul, 2014 [facility] [place] [facility] [address] [facility] [id number] [place] [address]- 9403 Jul, 2014 [facility] [place] [facility] [address] [facility] [id number] [place] [address]- 1350 Jul, 2014 [facility] [place] [facility] [address] [id number] [place] [address]- 4930 Jul, 2014 [facility] [place] [facility] [address] [facility] [id number] [place] [address]- 2362 Jun, [facility] [place] [facility] [address] [facility] [id number] [place] [address]- 8156 Jun, [facility] [place] [facility] [address] [id number] [place] [address]- 9623 Jun, [facility] [place] [facility] [address] [id number] [place] [address]- 5489 Jun, [facility] [place] [facility] [address] [id number] [place] [address]- 8930 Jun, [facility] [place] [facility] [address] [id number] [place] [address]- 3748 Jun, [facility] [place] [facility] [address] [id number] [place] [address]- 7026 Jun, [facility] [place] [facility] [address] [id number] [place] [address]- 8807 Jun, [facility] [place] [facility] [address] [id number] [place] [address]- 7005 Jun, [facility] [place] [facility] [address] [id number] [place] [address]- 6169 Jun, [facility] [place] [facility] [address] [id number] [place] [address]- 8535 Jun, [facility] [place] [facility] [address] [id number] [place] [address]- 3906 Jun, [facility] [place] [facility] [address] [id number] [place] [address]- 9490 May, [facility] [place] [facility] [address] [id number] [place] [address]- 4932 May, [facility] [place] [facility] [address] [id number] [place] [address]- 8239 May, [facility] [place] [facility] [address] [id number] [place] [address]- 1377 May, [facility] [place] [facility] [address] [id number] [place] [address]- 2581 May, [facility] [place] [facility] [address] [id number], [place] [address]- 3579 17 May, 2014 [facility] [place] [facility] [address] [id number] [place] [address]- 6076 May, [facility] [place] [facility] [address] [id number] [place] 4461 May, [facility] [place] [facility] [address] [id number] [place] [address]- 4693 May, [facility] [place] [facility] [address] [id number] [place] [address]- 4159 May, [facility] [place] [facility] [address] [id number] [place] [address]- 3153 May, [facility] [place] [facility] [address] [id number] [place] [address]- 5816 May, [facility] [place] [facility] [address] [facility] [id number] [place] [address]- 9161 May, [facility] [place] [facility] [address] [id number] [place] [address]- 3616 Apr, [facility] [place] [facility] [address] [id number] [place] [address]- 9291 Apr, [facility] [place] [facility] [address] [id number], [place] [address]- 9547 Apr, [facility] [place] [facility] [address] [id number], [place] [address]- 9573 Apr, [facility] [place] [facility] [address] [id number], [place] [address]- 3433 Apr, [facility] [place] [facility] [address] [id number], [place] [address]- 2760 Apr, [facility] [place] [facility] [address] [id number], [place] [address]- 9240 Mar, [facility] [place] [facility] [address] [id number] [place] [address]- 4647 Mar, [facility] [place] [facility] [address] [id number] [place] [address]- 8902 Mar, [facility] [place] [facility] [address] [id number] [place] [address]- 0425 Mar, [facility] [place] [facility] [address] [id number] [place] [address]- 6325 Feb, [facility] [place] [facility] [address] [id number] [place] [address]- 1757 Feb, [facility] [place] [facility] [address] [id number] [place] [address]- 2077 Feb, [facility] [place] [facility] [address] [id number] [place] [address]- 1649 Feb, [facility] [place] [facility] [address] [id number] [place] [address]- 0524 Feb, [facility] [place] [facility] [address] [id number] [place] [address]- 6291 Feb, [facility] [place] [facility] [address] [id number] [place] [address]- 9656 Jan, [facility] [place] [facility] [address] [id number] [place] [address]- 3507 Jan, [facility] [place] [facility] [address] [id number] [place] [address]- 2230 Dec, [facility] [place] [facility] [address] [id number] [place] [address]- 0899 Dec, [facility] [place] [facility] [address] [id number] [place] [address]- 0113 Nov, [facility] [place] [facility] [address] [id number] [place] [address]- 9889 Nov, [facility] [place] [facility] [address] [id number] [place] [address]- 8427 Nov, [facility] [place] [facility] [address] [id number] [place] [address]- 7059 October, [facility] [place] [facility] [address] [id number] [place] [address]- 9784 October, [facility] [place] [facility] [address] [id number] [place] [address]- 6535 Sep, [facility] [place] [facility] [address] [id number] [place] 4009 Sep, [facility] [place] [facility] [address] [id number] [place] [address]- 5881 Sep, [facility] [place] [facility] [address] [id number] [place] [address]- 3276 Sep, [facility] [place] [facility] [address] [id number] [place] [address]- 8212 Sep, [facility] [place] [facility] [address] [id number] [place] [address]- 9708 Sep, [facility] [place] [facility] [address] [id number] [place] [address]- 8997 Sep, [facility] [place] [facility] [address] [id number] [place] [address]- 5972 Sep, [facility] [place] [facility] [address] [id number] [place] [address]- 8311 Sep, [facility] [place] [facility] [address] [id number] [place] [address]- 0435 Sep, [facility] [place] [facility] [address] [id number], [place] [address]- 7965 Aug, [facility] [place] [facility] [address] [id number] [place] [address]- 0314 Aug, [facility] [place] [facility] [address] [id number] [place] [address] Jul, [facility] [place] [facility] [address] [id number] [place] [address] Jul, [facility] [place] [facility] [address] [id number] [place] [address] Apr, [facility] [address] [id number] [place] [address] Apr, [facility] [place] [facility] [address] [id number] [place] Mar, [facility] [address] [id number] [place] [address] Mar, [facility] [place] [facility] [address] [id number] [place] [address] Feb, [facility] [address] [id number] [place] [address] Jan, [facility] [place] [facility] [address] [id number] [place] [address] Jan, [facility] [address] [id number] [place] [address] Dec, [facility] [address] [id number] [place] [address] Jul, [facility] [place] [facility] [address] [id number] [place] [address] Jun, [facility] [address] [id number] [place] [address] May, [facility] [place] [facility] [address] [id number] [place] [address] May, [facility] [place] [facility] [address] [id number] [place] [address] May, [facility] [place] [facility] [address] [id number] [place] [address] May, [facility] [place] [facility] [address] [id number] [place] [address] May, [facility] [place] [facility] [address] [id number] [place] [address] Apr, [facility] [place] [facility] [address] [id number] [place] [address] Apr, [facility] [place] [facility] [address] [id number] [place] [address] 19 Mar, 2012 [facility] [place] [facility] [address] [id number] [place] [address] 18 Mar, 2012 [facility] [place] [facility] [address] [id number] [place] [address] 17 Mar, 2012 [facility] [place] [facility] [address] [id number] [place] [address]71 17 Mar, 2012 [facility] [place] [facility] [address] [id number] [place] [address]67 16 Mar, 2012 [facility] [place] [facility] [address] [id number] [place] [address] 16 Mar, 2012 [facility] [place] [facility] [address] [id number] [place] [address] 15 Mar, 2012 [facility] [place] [facility] [address] [id number] [place] [address] Feb, [facility] [place] [facility] [address] [id number] [place] [address] Feb, [facility] [place] [facility] [address] [id number] [place] [address] Dec, [facility] [place] [facility] [address] [id number], [place] [address] Dec, [facility] [place] [facility] [address] [id number] [place] [address] Nov, [facility] [place] [facility] [address] [id number] [place] [address] Nov, [facility] [place] [facility] [address] [id number] [place] [address] Nov, [facility] [place] [facility] [address] [id number], [place] [address] Nov, [facility] [address] [id number] [place] [address] Nov, [facility] [place] [facility] [address] [id number] [place] [address] Sep, [facility] [place] [facility] [address] [id number] [place] [address] Aug, [facility] [place] [facility] [address] [id number] [place] [address] Jul, [facility] [place] [facility] [address] [id number] [place] [address] Jun, [facility] [place] [facility] [address] [id number] [place] [address]- [address] Jun, [facility] [address] [id number] [place] [address] Jun, [facility] [place] [facility] [address] [id number] [place] [address] Jun, [facility] [address] [id number] [place] [address] May, [facility] [place] [facility] [address] [id number] [place] [address] May, [facility] [place] [facility] [address] [id number], [place] [address] May, [facility] [place] [facility] [address] [id number], [place] [address] May, [facility] [place] [facility] [address] [id number] [place] [address] May, [facility] [place] [facility] [address] [id number] [place] [address] May, [facility] [place] [facility] [address] [id number] [place] [address] Mar, [facility] [place] [facility] [address] [id number] [address] 10 Mar, 2011 [facility] [address] [id number], [place] [address] Jun, [facility] [id number], [place] [address] May, [facility] [address] [id number], [place] [address] May, [facility] [id number], [place] [address] Apr, [facility] [id number], [place] [address] Apr, [facility] [id number], [place] [address] Mar, [facility] [id number], [place] [address] Mar, [facility] [address] [id number], [place] [address] Jul, IMMUNIZATIONS No Known Immunizations SOCIAL HISTORY Never Assessed REASON FOR VISIT Controlled Med Refill 10/03/17 PLAN OF CARE VITAL SIGNS MEDICATIONS Medication [...]
--- OUTSIDE RECORDS SUMMARY | 2018-07-17 11:11 | XMS REPORT ---
Author Author ISREAL MORELAND Organization [employer] Address Unknown Phone Unavailable Care Team Providers Care Grading Clerk Name Role Phone ISREAL MORELAND CP Unavailable [...] Instructions Start Date End Date Status Dosage Amaryl [facility] [address]-99 2 MG Orally 2 times a day PT CAN ONLY USE [employer] 1 tablets in the morning and 1 in the evening Results No Known Results Summary Purpose eClinical[employer] Submission
--- OUTSIDE RECORDS SUMMARY | 2018-07-17 11:11 | XMS REPORT ---
Author Author KATHARINE MONTEZ [facility] Address [address] [place] [address] Care Team Providers Care Nailing Machine Feeder Name Role Phone KATHARINE MONTEZ Unavailable PROBLEMS Type Condition ICD9-CM Code PTQ13-AU Code Onset Dates Condition Status SNOMED Code Problem Acquired hypothyroidism E03.9 Active 307530214 Problem Diabetes E11.9 Active 950275199 Problem Anxiety disorder, unspecified F41.9 Active 914092804 ALLERGIES No Information SOCIAL HISTORY Never Assessed PLAN OF CARE VITAL SIGNS MEDICATIONS Medication Instructions Dosage Frequency Start Date End Date Duration Status Diflucan 150 MG 1 tablet Jul, Aug, 10 day(s) Active RESULTS No Results PROCEDURES No Known procedures IMMUNIZATIONS No Known Immunizations MEDICAL (GENERAL) HISTORY Type Description Date Medical History hypothyroidism Medical History type II diabetes Medical History back pain Medical History hyperlipidemia Medical History anxiety Medical History mood disorder Medical History heart murmur Medical History chronic bronchitis Medical History [place] Surgical History appendectomy Hospitalization History childbirth Hospitalization History pancreatitis 2005 Hospitalization History appendectomy Hospitalization History Anaphylaxis to Bactrim 2016
--- OUTSIDE RECORDS SUMMARY | 2018-07-17 11:11 | XMS REPORT ---
Author Author ISREAL MORELAND Organization [employer] Address Unknown Phone Unavailable Care Team Providers Care R Developer Name Role Phone ISREAL MORELAND CP Unavailable Allergies No Known Allergies Problems Problem Type Condition Code Onset Dates Condition Status Problem Anxiety state, unspecified 300.00 Active Problem Pure hyperglyceridemia 272.1 Active Problem Diabetes 250.00 Active Problem Dysuria 788.1 Active Problem Anxiety disorder, unspecified F41.9 Active Problem Other chronic nonalcoholic liver disease 571.8 Active Problem Unspecified episodic mood disorder 296.90 Active Problem Other bursitis disorders 727.3 Active Problem Lumbago 724.2 Active Medications No Known Medications Results No Known Results Summary Purpose eClinical[employer] Submission
--- OUTSIDE RECORDS SUMMARY | 2018-07-17 11:11 | XMS REPORT ---
Author Author ISREAL MORELAND [facility] Address [address] [place] [address] Care Team Providers Care Transportation Solutions Manager Name Role Phone ISREAL MORELAND Unavailable PROBLEMS Type Condition ICD9-CM Code HMP31-JK Code Onset Dates Condition Status SNOMED Code Problem Anxiety disorder, unspecified F41.9 Active 246580665 ALLERGIES Unknown Allergies SOCIAL HISTORY No smoking Hx information available PLAN OF CARE VITAL SIGNS MEDICATIONS Unknown Medications RESULTS No Results PROCEDURES No Known procedures IMMUNIZATIONS No Known Immunizations
--- OUTSIDE RECORDS SUMMARY | 2018-07-17 11:11 | XMS REPORT ---
Author Author ISREAL MORELAND [facility] e[employer] Address Unknown Phone Unavailable Care Team Providers Care Payloader Operator Name Role Phone ISREAL MORELAND CP Unavailable Allergies No Known Allergies Problems Problem Type Condition Code Onset Dates Condition Status Assessment Vaginal yeast infection B37.3 Active Problem Anxiety state, unspecified 300.00 Active Problem Pure hyperglyceridemia 272.1 Active Problem Diabetes 250.00 Active Problem Dysuria 788.1 Active Problem Anxiety disorder, unspecified F41.9 Active Problem Other chronic nonalcoholic liver disease 571.8 Active Problem Unspecified episodic mood disorder 296.90 Active Problem Other bursitis disorders 727.3 Active Problem Lumbago 724.2 Active Medications Medication Code System Code Instructions Start Date End Date Status Dosage Diflucan [facility] [address]-32 150 MG Orally one time. May repeat in 3 days if symptoms persist. 1 tablet Results No Known Results Summary Purpose [employer]ClinicalWorks Submission
--- OUTSIDE RECORDS SUMMARY | 2018-07-17 11:11 | XMS REPORT ---
Author Author KATHARINE MONTEZ Organization [employer] Address Unknown Phone Unavailable Care Team Providers Care Camera Storage Clerk Name Role Phone KATHARINE MONTEZ CP Unavailable Allergies No Known Allergies Problems [...] Start Date End Date Status Dosage Amaryl [facility] [address]-04 2 MG TAKE ONE TABLET BY MOUTH TWICE DAILY IN THE MORNING AND THE EVENING MetFORMIN HCl ER [facility] [id number] 500 MG Orally 2 times a day 2 tablet with morning and evening meal Xanax [facility] [address]-92 1 MG Orally Once a day September 24, 2015 1 tablet Diflucan [facility] [address]-07 100 MG Orally Once a day Feb 02, 2016 2016 1 tablet Results No Known Results Summary Purpose eClinicalWorks Submission
--- OUTSIDE RECORDS SUMMARY | 2018-07-17 11:11 | XMS REPORT ---
Author Author ISREAL MORELAND [facility] Address [address] [place] [address] Care Team Providers Care Public Service Officer Name Role Phone ISREAL MORELAND Unavailable PROBLEMS Type Condition ICD9-CM Code NAZ63-NM Code Onset Dates Condition Status SNOMED Code Problem Violation of controlled substance agreement Z91.14 Active 681121415 Problem Status post cholecystectomy Z90.49 Active 423793175 Problem Diabetes E11.9 Active 566110500 Problem Anxiety disorder, unspecified F41.9 Active 760696237 Problem Hypertriglyceridemia E78.1 Active 909996755 Problem Acquired hypothyroidism E03.9 Active 238009934 ALLERGIES No Information ENCOUNTERS Encounter Location Date Diagnosis [place] [id number] [place] [address] 45839- 0292 Dec, [place] [id number] [place] [address] 71297- 8819 Dec, Benzodiazepine use agreement exists Z02.89 ; Therapeutic drug monitoring Z51.81 and Violation of controlled substance agreement Z91.14 [place] [address], [place] [address] Nov, [place] [id number] [place] [address] 41379- 9999 Nov, Ketoacidosis E87.2 ; Status post cholecystectomy Z90.49 ; Diabetes E11.9 ; Acquired hypothyroidism E03.9 ; Hypertriglyceridemia E78.1 and Vaginal yeast infection B37.3 [place] [id number] [place] [address] 89670- 0413 October, [place] [id number] [place] [address] 08156- 9454 Sep, [place] [address] [place] [address] 32[address] Aug, [facility] [id number] [place] [address] 92900- 6847 Jul, [facility] [id number] [place] [address] 80295- 2841 Jun, [facility] [id number] [place] [address] 86142- 9439 Jun, Diabetes E11.9 and 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 [id number] [place] [address] 10560 -2272 Apr, Crushing injury of right foot, initial encounter S97.81XA [facility] [id number] [place] [address] 41276- 8794 Feb, [facility] [id number] [place] [address] 55816- 9580 Feb, [facility] [id number] [place] [address] 42941 -7589 Feb, Acute non-recurrent pansinusitis J01.40 [facility] [id number] [place] [address] 84657- 0009 Feb, [facility] [id number] [place] [address] 08747- 5270 Jan, [facility] [id number] [place] [address] 07170- 3073 Nov, [facility] [id number] [place] [address] 69812- 8826 October, [facility] [id number] [place] [address] 44524- 6432 October, Diabetes E11.9 ; Anxiety disorder, unspecified F41.9 and Acquired hypothyroidism E03.9 [facility] [id number] [place] [address] 01116- 0300 October, [facility] [id number] [place] [address] 42804- 5764 Sep, [facility] [id number] [place] [address] 41025- 5386 Sep, [facility] [id number] [place] [address] 42392- 1322 Aug, [facility] [id number] [place] [address] 03166- 4494 Jul, [facility] [id number] [place] [address] 06704- 5697 Jul, [facility] [id number] [place] [address] 61109- 8311 Jul, [facility] [id number] [place] [address] 05081- 4384 Jul, [facility] [id number] [place] [address] 49458- 1695 Jul, Acute non-recurrent maxillary sinusitis J01.00 [facility] [id number] [place] [address] 45266- 8477 Jul, [facility] [id number] [place] [address] 84674- 3256 Jun, [facility] [id number] [place] [address] 42814- 2239 May, [facility] [id number] [place] [address] 451251- 3034 Apr, [facility] [id number] [place] [address] 38421- 8049 Mar, Diabetes E11.9 [facility] [address], [place] [address]- 8285 28 Feb, 2016 Pelvic pain R10.2 ; Leukocytosis, unspecified D72.829 ; Constipation, unspecified constipation type K59.00 and History of pancreatitis Z87.19 [facility] [id number] [place] [address] 96185- 8889 22 Feb, 2016 [facility] [id number] [place] [address] 68429- 6637 14 Feb, 2016 Diabetes E11.9 [facility] [id number] [place] [address] 58755- 8335 13 Feb, 2016 [facility] [id number] [place] [address] 55688- 4110 2016 Vaginal yeast infection B37.3 [facility] [id number] [place] [address] 20982- 0406 Feb, [facility] [id number] [place] [address] 28908- 7677 Jan, Diabetes E11.9 [facility] [id number] [place] [address] 82941- 6751 Jan, Anxiety disorder, unspecified F41.9 [facility] [id number] [place] [address] 82315- 9132 Jan, Vaginal yeast infection B37.3 [facility] [id number] [place] [address] 31051- 4099 Jan, [facility] [id number] [place] [address] 27018- 8278 Dec, Anxiety disorder, unspecified F41.9 [facility] [id number] [place] [address] 58377- 1960 Dec, Vaginal yeast infection B37.3 [facility] [id number] [place] [address] 80136- 1630 Nov, Anxiety disorder, unspecified F41.9 [facility] [id number] [place] [address] 95469- 4056 Nov, Anxiety disorder, unspecified F41.9 [facility] [id number] [place] [address] 239908- 4579 October, Anxiety disorder, unspecified F41.9 [facility] [id number] [place] [address] 88460- 1789 October, Diabetes E11.9 [facility] [id number] [place] [address] 29215- 5567 Sep, Anxiety disorder, unspecified F41.9 [facility] [id number] [place] [address] 11039- 8208 Sep, [facility] [id number] [place] [address] 94687- 5766 Aug, Vaginal yeast infection B37.3 [facility] [id number] [place] [address] 35364- 9579 Aug, [facility] [id number] [place] [address] 15988- 2596 Jul, [facility] [id number] [place] [address] 08463- 1815 Jun, [facility] [id number] [place] [address] 87931- 3605 Jun, [facility] [id number] [place] [address] 82362- 9648 Jun, [facility] [id number] [place] [address] 80414- 8827 May, [facility] [id number] [place] [address] 69790- 4180 Apr, Diabetes E11.9 ; Acquired hypothyroidism E03.9 ; Hyperlipidemia, unspecified hyperlipidemia E78.5 and Anxiety F41.9 [facility] [address], [place] [address]- 2546 Apr, [facility] [address], [place] [address]- 0846 Mar, [facility] [address], [place] [address]- 2546 Feb, [facility] [id number] [place] [address] 84496- 2546 Feb, [facility] [id number] [address]- 2546 Jan, [facility] [id number] [place] [address] 72152- 6256 Dec, [facility] [address], [place] [address]- 3566 Dec, Pap test, as part of routine gynecological examination V76.2 and DUB (dysfunctional uterine bleeding) 626.8 [facility] [address], [place] [address]- 5426 Dec, [facility] [address] [address]- 0766 Dec, [facility] [address], [place] [address]- 9126 Nov, [facility] [address], [place] [address]- 2546 Nov, [facility] [address], [place] [address]- 2546 Nov, Diabetes 250.00 [facility] [address], [place] [address] 2546 Nov, [facility] [address], [place] [address]- 2546 October, [facility] [id number] [address]- 3626 October, Diabetes 250.00 [facility] [address] [id number] [place] [address]- 4836 October, [facility] [address] [id number] [place] [address]- 4718 October, [facility] [address] [id number] [place] [address]- 6057 October, [facility] [place] [facility] [address] [id number] [place] [address]- 5851 October, [facility] [address] [id number] [place] [address]- 6162 October, [facility] [address] [id number] [place] [address]- 4484 Sep, [facility] [address] [id number] [place] [address]- 4061 Sep, [facility] [address] [id number] [place] [address]- 1232 Sep, [facility] [place] [facility] [address] [id number] [place] [address]- 1880 Aug, [facility] [place] [facility] [address] [id number] [place] [address]- 4988 Aug, [facility] [place] [facility] [address] [id number] [place] [address]- 8555 Aug, [facility] [place] [facility] [address] [id number] [place] [address]- 6967 Aug, [facility] [place] [facility] [address] [id number] [place] [address]- 2066 Aug, [facility] [place] [facility] [address] [id number] [place] [address]- 3136 Aug, [facility] [place] [facility] [address] [id number] [place] [address]- 8550 Aug, [facility] [place] [facility] [address] [id number] [place] [address]- 2712 Aug, [facility] [place] [facility] [address] [id number] [place] [address]- 0853 Aug, [facility] [place] [facility] [address] [id number] [place] [address]- 5486 Jul, 2014 [facility] [place] [facility] [address] [id number] [place] [address]- 5766 Jul, 2014 [facility] [place] [facility] [address] [id number] [place] [address]- 5301 Jul, 2014 [facility] [place] [facility] [address] [id number] [place] [address]- 1466 Jul, 2014 [facility] [place] [facility] [address] [id number] [place] [address]- 5056 Jul, 2014 [facility] [place] [facility] [address] [id number] [place] [address]- 8420 Jul, 2014 [facility] [place] [facility] [address] [id number] [place] [address]- 6301 Jul, [facility] [place] [facility] [address] [id number] [place] [address]- 2055 Jul, [facility] [place] [facility] [address] [id number] [place] [address]- 6459 Jun, [facility] [place] [facility] [address] [id number] [place] [address]- 6167 Jun, [facility] [place] [facility] [address] [id number] [place] [address]- 9941 Jun, [facility] [place] [facility] [address] [id number] [place] [address]- 1948 Jun, [facility] [place] [facility] [address] [id number] [place] [address]- 4005 Jun, [facility] [place] [facility] [address] [id number] [place] [address]- 0272 Jun, [facility] [place] [facility] [address] [id number] [place] [address]- 6174 Jun, [facility] [place] [facility] [address] [id number] [place] [address]- 8214 Jun, [facility] [place] [facility] [address] [id number] [place] [address]- 2121 Jun, [facility] [place] [facility] [address] [id number] [place] [address]- 5891 Jun, [facility] [place] [facility] [address] [id number] [place] [address]- 2694 Jun, [facility] [place] [facility] [address] [id number] [place] [address]- 8558 Jun, [facility] [place] [facility] [address] [id number] [place] [address]- 9422 May, [facility] [place] [facility] [address] [id number] [place] [address]- 2108 May, [facility] [place] [facility] [address] [id number] [place] [address]- 8713 May, [facility] [place] [facility] [address] [id number] [place] [address]- 6644 May, [facility] [place] [facility] [address] [id number] [place] [address]- 0709 May, [facility] [place] [facility] [address] [id number] [place] [address]- 9430 17 May, 2014 [facility] [place] [facility] [address] [id number] [place] [address]- 2307 15 May, 2014 [facility] [place] [facility] [address] [id number] [place] [address]- 0216 15 May, 2014 [facility] [place] [facility] [address] [id number] [place] 3120 12 May, 2014 [facility] [place] [facility] [address] [id number], [place] [address]- 7519 08 May, 2014 [facility] [place] [facility] [address] [id number] [place] [address]- 0632 May, [facility] [place] [facility] [address] [id number] [place] [address]- 6636 May, [facility] [place] [facility] [address] [id number] [place] [address]- 9263 May, [facility] [place] [facility] [address] [id number] [place] [address]- 5755 Apr, [facility] [place] [facility] [address] [id number] [place] [address]- 2298 Apr, [facility] [place] [facility] [address] [id number] [place] [address]- 8124 Apr, [facility] [place] [facility] [address] [id number] [place] [address]- 2932 Apr, [facility] [place] [facility] [address] [id number], [place] [address]- 7199 Apr, [facility] [place] [facility] [address] [id number] [place] [address]- 7695 Apr, [facility] [place] [facility] [address] [facility] [id number] [place] [address]- 8555 Mar, [facility] [place] [facility] [address] [id number] [place] [address]- 4077 Mar, [facility] [place] [facility] [address] [id number], [place] [address]- 9177 Mar, [facility] [place] [facility] [address] [id number], [place] [address]- 5621 Mar, [facility] [place] [facility] [address] [id number], [place] [address]- 9519 Feb, [facility] [place] [facility] [address] [id number], [place] [address]- 2012 Feb, [facility] [place] [facility] [address] [id number] [place] [address]- 5251 Feb, [facility] [place] [facility] [address] [id number] [place] [address]- 8096 Feb, [facility] [place] [facility] [address] [id number] [place] [address]- 5697 Feb, [facility] [place] [facility] [address] [id number] [place] [address]- 3864 Feb, [facility] [place] [facility] [address] [id number] [place] [address]- 4151 Jan, [facility] [place] [facility] [address] [id number] [place] [address]- 0616 Jan, [facility] [place] [facility] [address] [id number] [place] [address]- 9398 Dec, [facility] [place] [facility] [address] [id number] [place] [address]- 2848 Dec, [facility] [place] [facility] [address] [id number] [place] [address]- 0179 Nov, [facility] [place] [facility] [address] [id number] [place] [address]- 6224 Nov, [facility] [place] [facility] [address] [id number] [place] [address]- 1261 Nov, [facility] [place] [facility] [address] [id number] [place] [address]- 8649 October, [facility] [place] [facility] [address] [id number] [place] [address]- 1180 October, [facility] [place] [facility] [address] [id number] [place] [address]- 6154 Sep, [facility] [place] [facility] [address] [id number] [place] [address]- 0826 Sep, [facility] [place] [facility] [address] [id number] [place] [address]- 7316 Sep, [facility] [place] [facility] [address] [id number] [place] 9204 Sep, [facility] [place] [facility] [address] [id number] [place] [address]- 8169 Sep, [facility] [place] [facility] [address] [id number] [place] [address]- 0807 Sep, [facility] [place] [facility] [address] [id number] [place] [address]- 4114 Sep, [facility] [place] [facility] [address] [id number] [place] 6174 Sep, [facility] [place] [facility] [address] [id number] [place] [address]- 0690 Sep, [facility] [place] [facility] [address] [id number] [place] [address]- 0418 Sep, [facility] [place] [facility] [address] [id number] [place] [address]- 2279 Aug, [facility] [place] [facility] [address] [id number] [place] [address]- 4674 Aug, [facility] [place] [facility] [address] [id number] [place] [address]- 3816 Jul, [facility] [place] [facility] [address] [id number], [place] [address]- 4575 Jul, [facility] [place] [facility] [address] [id number], [place] [address]- 4183 Apr, [facility] [place] [facility] [address] [id number] [place] [address]- 5944 Apr, [facility] [place] [facility] [address] [id number] [place] [address]- 3402 Mar, [facility] [place] [facility] [address] [id number] [place] [address]- 5662 Mar, [facility] [place] [facility] [address] [id number] [place] [address]- 9298 Feb, [facility] [address] [id number] [place] [address]- 7226 Jan, [facility] [address] [id number] [place] [address] 2546 Jan, [facility] [address] [id number] [place] [address] Dec, [facility] [address] [id number] [place] [address] Jul, [facility] [address] [id number] [place] [address], [place] [address] Jun, [facility] [address] [id number] [place] [address] May, [facility] [address] [id number] [place] [address] May, [facility] [address] [id number] [place] [address] May, [facility] [address] [facility] [id number] [place] [address] May, [facility] [address] [facility] [id number] [place] [address] May, [facility] [address] [id number] [place] [address] Apr, [facility] [address] [id number] [place] [address] Apr, [facility] [place] [facility] [address] [id number] [place] [address] 19 Mar, 2012 [facility] [place] [facility] [address] [id number] [place] [address] 18 Mar, 2012 [facility] [address] [id number] [place] [address] Mar, [facility] [place] [facility] [address] [id number] [place] [address]- 4252 17 Mar, 2012 [facility] [place] [facility] [address] [id number] [place] [address] Mar, [facility] [place] [facility] [address] [id number] [place] [address] 16 Mar, 2012 [facility] [place] [facility] [address] [id number] [place] [address]- [address] 15 Mar, 2012 [facility] [place] [facility] [address] [id number] [place] [address] 27 Feb, 2012 [facility] [place] [facility] [address] [id number] [place] [address] 27[address] Feb, [facility] [place] [facility] [address] [id number] [place] [address]- 9199 Dec, [facility] [place] [facility] [address] [id number], [place] [address] Dec, [facility] [place] [facility] [address] [id number] [place] [address] Nov, [facility] [place] [facility] [address] [facility] [id number], [place] [address] Nov, [facility] [place] [facility] [address] [facility] [id number], [place] [address] Nov, [facility] [place] [facility] [address] [id number], [place] [address] Nov, [facility] [place] [facility] [address] [id number], [place] [address] Nov, [facility] [place] [facility] [address] [id number], [place] [address] Sep, [facility] [place] [facility] [address] [facility] [id number], [place] [address] Aug, [facility] [place] [facility] [address] [id number], [place] [address] 06 Jul, 2011 [facility] [address] [id number] [place] [address]- [address] Jun, [facility] [address] [id number] [place] [address] Jun, [facility] [address] [facility] [id number] [place] [address]647 Jun, [facility] [address] [id number] [place] [address] Jun, [facility] [address] [id number] [place] [address] May, [facility] [address] [id number] [place] [address] 95[address] May, [facility] [address] [facility] [id number] [place] [address] May, [facility] [address] [id number] [place] [address] May, [facility] [address] [facility] [id number] [place] [address] May, [facility] [address] [facility] [id number] [place] [address]- 6[address] May, [facility] [address] [id number] [place] [address] Mar, [facility] [place] [facility] [address] [id number], [place] [address] Mar, [facility] [place] [facility] [address] [id number] [place] [address]- [address] Jun, [facility] [place] [facility] [address] [id number] [place] [address] 12[address] May, [facility] [place] [facility] [address] [facility] [id number] [place] [address] May, [facility] [place] [facility] [address] [facility] [id number], [place] [address] Apr, [facility] [address] [id number], [place] [address] Apr, [facility] [address] [id number], [place] [address] Mar, [facility] [address] [facility] [id number], [place] [address] Mar, [facility] [address] [facility] [place] [id number] [id number] Jul, IMMUNIZATIONS No Known Immunizations SOCIAL HISTORY Never Assessed REASON FOR VISIT Controlled Med Refill 08/08/17 PLAN OF CARE VITAL SIGNS MEDICATIONS Medication [...]
--- OUTSIDE RECORDS SUMMARY | 2018-07-17 11:11 | XMS REPORT ---
Author Author ISREAL MORELAND [facility] Address [address] [place] [address] Care Team Providers Care Manager Process Improvement Name Role Phone ISREAL MORELAND Unavailable PROBLEMS Type Condition ICD9-CM Code XDE76-BX Code Onset Dates Condition Status SNOMED Code Problem Hypertriglyceridemia E78.1 Active 379677635 Problem Status post cholecystectomy Z90.49 Active 921232597 Problem Anxiety disorder, unspecified F41.9 Active 912948182 Problem Acquired hypothyroidism E03.9 Active 888698443 Problem Diabetes E11.9 Active 445541200 ALLERGIES Substance Reaction Event Type Date Status Sulfamethoxazole-Trimethoprim anaphylaxis Drug Allergy Jun, Active ENCOUNTERS Encounter Location Date Diagnosis [place] [id number] [place] [address] 65879- 9583 Dec, [facility] [place] [id number] [place] [address] 68670- 9808 Nov, [place] [id number] [place] [address] 64381- 7130 Nov, Ketoacidosis E87.2 ; Status post cholecystectomy Z90.49 ; Diabetes E11.9 ; Acquired hypothyroidism E03.9 ; Hypertriglyceridemia E78.1 and Vaginal yeast infection B37.3 [facility], [place] [id number] [place] [address] 90913- 6896 October, [facility], [place] [id number] [place] [address] 30544- 5831 Sep, [facility], [place] [id number] [place] [address] 55885- 3377 Aug, [facility], [place] [id number] [place] [address] 00958- 7475 Jul, [place] [id number] [place] [address] 93091- 3791 Jun, [facility], [place] [id number] [place] [address] 05652- 7586 Jun, Diabetes E11.9 and Drug-induced acute pancreatitis with uninfected necrosis K85.31 [facility], [place] [id number] [place] [address] 09304- 2510 May, [facility], [place] [address] 26221- 2910 Apr, [facility] [id number] [place] [address] 83263 -6294 Apr, Crushing injury of right foot, initial encounter S97.81XA [facility], [place] [id number] [place] [address] 76715- 3925 Feb, [facility], [place] [address] 22626- 4304 Feb, [facility] [id number] [place] [address] 86224 -8273 Feb, Acute non-recurrent pansinusitis J01.40 [facility], [place] [id number] [place] [address] 93351- 5122 Feb, [facility], [place] [id number] [place] [address] 47880- 8388 Jan, [facility], [place] [id number] [place] [address] 75782- 3171 Nov, [facility], [place] [id number] [place] [address] 59083- 5264 October, [facility], [place] [id number] [place] [address] 17764- 2278 October, Diabetes E11.9 ; Anxiety disorder, unspecified F41.9 and Acquired hypothyroidism E03.9 [facility], [place] [id number] [place] [address] 30436- 4606 October, [facility], [place] [address] [address]- 2779 Sep, [facility], [place] [id number] [place] [address] 03896- 1506 Sep, [facility], [place] [id number] [place] [address] 73441- 0806 Aug, [facility], [place] [id number] [place] [address] 93710- 2437 Jul, [facility], [place] [id number] [place] [address] 55722- 8536 Jul, [facility], [place] [id number] [place] [address] 64769- 3458 Jul, [facility], [place] [id number] [place] [address] 72447- 0073 Jul, [facility], [place] [id number] [place] [address] 22903- 3529 Jul, Acute non-recurrent maxillary sinusitis J01.00 [facility], [place] [id number] [place] [address] 10133- 1932 Jul, [facility], [place] [address] 1040 Jun, [facility], [place] [id number] [place] [address] 87190- 2916 May, [facility], [place] [id number] [place] [address] 75743- 5104 Apr, [facility], [place] [id number] [place] [address] 502421- 1821 Mar, Diabetes E11.9 [facility], [place] [address] [address]- 1159 28 Feb, 2016 Pelvic pain R10.2 ; Leukocytosis, unspecified D72.829 ; Constipation, unspecified constipation type K59.00 and History of pancreatitis Z87.19 [facility], [place] [address] [place] [address]- 3916 22 Feb, 2016 [facility], [place] [id number] [place] [address] 07394- 5516 14 Feb, 2016 Diabetes E11.9 [facility], [place] [id number] [place] [address] 04698 2546 13 Feb, 2016 [facility], [place] [id number] [place] [address] 53486 254 2016 Vaginal yeast infection B37.3 [facility], [place] [id number] [place] [address] 16170- 7236 Feb, [facility], [place] [id number] [place] [address] 32651- 5160 Jan, Diabetes E11.9 [facility], [place] [id number] [place] [address] 69413- 0031 Jan, Anxiety disorder, unspecified F41.9 [facility], [place] [id number] [place] [address] 33988- 3244 Jan, Vaginal yeast infection B37.3 [facility], [place] [address], [place] [address]- 3572 Jan, [facility], [place] [address], [place] [address]- 3510 Dec, Anxiety disorder, unspecified F41.9 [facility], [place] [address], [place] [address]- 9367 Dec, Vaginal yeast infection B37.3 [facility], [place] [address] [address]- 0386 Nov, Anxiety disorder, unspecified F41.9 [facility], [place] [address], [place] [address]- 6102 Nov, Anxiety disorder, unspecified F41.9 [facility], [place] [address] [address]- 6862 October, Anxiety disorder, unspecified F41.9 [facility], [place] [id number] [address]- 6804 October, Diabetes E11.9 [facility], [place] [address], [place] [address]- 4015 Sep, Anxiety disorder, unspecified F41.9 [facility], [place] [address], [place] [address]- 4702 Sep, [facility], [place] [id number] [place] [address] 70612- 6062 Aug, Vaginal yeast infection B37.3 [facility], [place] [address], [place] [address]- 8037 Aug, [facility], [place] [id number] [place] [address] 28472- 3195 Jul, [facility], [place] [id number] [place] [address] 16298- 2908 Jun, [facility], [place] [address] [address]- 2019 Jun, [facility], [place] [address] [place] [address]- 0154 Jun, [facility], [place] [address] [place] [address]- 9035 May, [facility], [place] [address] [address]- 6184 Apr, Diabetes E11.9 ; Acquired hypothyroidism E03.9 ; Hyperlipidemia, unspecified hyperlipidemia E78.5 and Anxiety F41.9 [facility], [place] [address], [place] [address]- 4057 Apr, [facility], [place] [id number] [place] [address] 57756- 8988 Mar, [facility], [place] [address], [place] [address] 254 Feb, [facility], [place] [address], [place] [address]- 2546 Feb, [facility], [place] [address], [place] [address]- 2546 Jan, [facility], [place] [id number] [place] [address] 39943- 2546 Dec, [facility], [place] [address], [place] [address]- 0141 Dec, DUB (dysfunctional uterine bleeding) 626.8 and Pap test, as part of routine gynecological examination V76.2 [facility], [place] [address], [place] [address]- 4856 Dec, [facility], [place] [id number] [place] [address] 44670- 2546 Dec, [facility], [place] [address], [place] [address]- 6650 Nov, [facility], [place] [address], [place] [address]- 1126 Nov, [facility], [place] [address], [place] [address]- 2856 Nov, Diabetes 250.00 [facility], [place] [address], [place] [address]- 2546 Nov, [facility], [place] [id number], [place] [address] 2544 October, [facility], [place] [id number] [place] [address] 90495 2546 October, Diabetes 250.00 [facility], [place] [id number] [address]- 2546 October, [facility], [place] [address], [place] [address]- 0942 October, [facility] [place] [facility] [address] [id number] [place] [address]- 3841 October, [facility] [place] [facility] [address] [id number] [place] [address]- 1806 October, [facility] [place] [facility] [address] [id number] [place] [address]- 1800 October, [facility] [place] [facility] [address] [id number] [place] [address]- 2500 Sep, [facility] [place] [facility] [address] [id number] [place] [address]- 0241 Sep, [facility] [place] [facility] [address] [id number] [place] [address]- 6410 Sep, [facility] [place] [facility] [address] [id number] [place] [address]- 3730 Aug, [facility] [place] [facility] [address] [id number] [place] [address]- 0008 Aug, [facility] [place] [facility] [address] [id number] [place] [address]- 2011 Aug, [facility] [place] [facility] [address] [id number] [place] [address]- 4314 Aug, [facility] [place] [facility] [address] [id number] [place] [address]- 3719 Aug, [facility] [place] [facility] [address] [id number] [place] [address]- 4052 Aug, [facility] [place] [facility] [address] [id number] [place] [address]- 8495 Aug, [facility] [place] [facility] [address] [id number] [place] [address]- 6084 Aug, [facility] [place] [facility] [address] [id number] [place] [address]- 1212 Aug, [facility] [place] [facility] [address] [id number] [place] [address]- 8377 Jul, 2014 [facility] [place] [facility] [address] [id number] [place] [address]- 8998 Jul, 2014 [facility] [place] [facility] [address] [id number] [place] [address]- 2546 Jul, 2014 [facility] [place] [facility] [address] [id number] [place] [address]- 8295 Jul, 2014 [facility] [place] [facility] [address] [id number] [place] [address]- 8666 Jul, 2014 [facility] [place] [facility] [address] [id number] [place] [address]- 2603 Jul, 2014 [facility] [place] [facility] [address] [id number] [place] [address]- 9915 Jul, 2014 [facility] [place] [facility] [address] [id number] [place] [address]- 4050 Jul, [facility] [place] [facility] [address] [id number] [place] [address]- 8000 Jun, [facility] [place] [facility] [address] [id number] [place] [address]- 2604 Jun, [facility] [place] [facility] [address] [id number] [place] [address]- 6203 Jun, [facility] [place] [facility] [address] [id number] [place] [address]- 6764 Jun, [facility] [place] [facility] [address] [id number] [place] [address]- 6169 Jun, [facility] [place] [facility] [address] [id number] [place] [address]- 6968 Jun, [facility] [place] [facility] [address] [id number] [place] [address]- 4471 Jun, [facility] [place] [facility] [address] [id number], [place] [address]- 9211 Jun, [facility] [place] [facility] [address] [id number] [place] [address]- 3142 Jun, [facility] [place] [facility] [address] [id number] [place] 1995 Jun, [facility] [place] [facility] [address] [id number] [place] [address]- 8864 Jun, [facility] [place] [facility] [address] [id number] [place] [address]- 2718 Jun, [facility] [place] [facility] [address] [id number] [place] [address]- 9298 May, [facility] [place] [facility] [address] [id number] [place] [address]- 7716 May, [facility] [place] [facility] [address] [id number] [place] [address]- 9352 May, [facility] [place] [facility] [address] [id number] [place] [address]- 2014 May, [facility] [place] [facility] [address] [id number] [place] [address]- 6640 May, [facility] [place] [facility] [address] [id number] [place] [address]- 6604 May, [facility] [place] [facility] [address] [id number] [place] [address]- 6977 15 May, 2014 [facility] [place] [facility] [address] [id number] [place] [address]- 7635 15 May, 2014 [facility] [place] [facility] [address] [id number] [place] [address]- 4014 May, [facility] [place] [facility] [address] [id number] [place] [address]- 8017 08 May, 2014 [facility] [place] [facility] [address] [id number] [place] [address]- 0963 May, [facility] [place] [facility] [address] [id number] [place] [address]- 6671 08 May, 2014 [facility] [place] [facility] [address] [id number] [place] [address]- 1465 May, [facility] [place] [facility] [address] [id number] [place] [address]- 6241 Apr, [facility] [place] [facility] [address] [id number] [place] [address]- 0734 Apr, [facility] [place] [facility] [address] [id number] [place] [address]- 6559 Apr, [facility] [place] [facility] [address] [id number] [place] [address]- 4693 Apr, [facility] [place] [facility] [address] [id number] [place] [address]- 9418 Apr, [facility] [place] [facility] [address] [id number] [place] [address]- 1462 Apr, [facility] [place] [facility] [address] [id number] [place] [address]- 2974 Mar, [facility] [place] [facility] [address] [id number] [place] [address]- 3188 Mar, [facility] [place] [facility] [address] [id number] [place] [address]- 6167 Mar, [facility] [place] [facility] [address] [id number] [place] [address]- 3135 Mar, [facility] [place] [facility] [address] [id number] [place] [address]- 5123 Feb, [facility] [place] [facility] [address] [id number] [place] [address]- 2674 Feb, [facility] [place] [facility] [address] [id number] [place] [address]- 6367 Feb, [facility] [place] [facility] [address] [id number] [place] [address]- 3555 Feb, [facility] [place] [facility] [address] [id number] [place] [address]- 3609 Feb, [facility] [place] [facility] [address] [id number] [place] [address]- 8919 Feb, [facility] [place] [facility] [address] [id number] [place] [address]- 2999 Jan, [facility] [place] [facility] [address] [id number] [place] [address]- 3460 Jan, [facility] [place] [facility] [address] [id number] [place] [address]- 0286 Dec, [facility] [place] [facility] [address] [id number] [place] [address]- 7183 Dec, [facility] [place] [facility] [address] [id number] [place] [address]- 7086 Nov, [facility] [place] [facility] [address] [id number] [place] [address]- 4841 Nov, [facility] [place] [facility] [address] [id number] [place] [address]- 2161 Nov, [facility] [place] [facility] [address] [id number] [place] [address]- 4253 October, [facility] [place] [facility] [address] [id number] [place] [address]- 9604 October, [facility] [place] [facility] [address] [id number] [place] [address]- 9366 Sep, [facility] [place] [facility] [address] [id number] [place] [address]- 3539 Sep, [facility] [place] [facility] [address] [id number] [place] [address]- 2102 Sep, [facility] [place] [facility] [address] [id number] [place] [address]- 9876 Sep, [facility] [place] [facility] [address] [id number] [place] [address]- 5545 Sep, [facility] [place] [facility] [address] [id number] [place] [address]- 4511 Sep, [facility] [place] [facility] [address] [id number] [place] [address]- 0100 Sep, [facility] [place] [facility] [address] [id number] [place] [address]- 1184 Sep, [facility] [place] [facility] [address] [id number] [place] [address]- 8329 Sep, [facility] [place] [facility] [address] [id number] [place] [address]- 9304 Sep, [facility] [place] [facility] [address] [id number] [place] [address]- 3969 Aug, [facility] [place] [facility] [address] [id number] [place] [address]- 3113 Aug, [facility] [place] [facility] [address] [id number] [place] [address]- 1089 Jul, [facility] [place] [facility] [address] [id number] [place] [address]- 6410 Jul, [facility] [place] [facility] [address] [id number] [place] [address]- 3583 Apr, [facility] [place] [facility] [address] [id number] [place] [address]- 7902 Apr, [facility] [place] [facility] [address] [id number] [place] [address]- 2863 Mar, [facility] [place] [facility] [address] [id number] [place] [address]- 5461 Mar, [facility] [place] [facility] [address] [id number] [place] [address] Feb, [facility] [place] [facility] [address] [id number] [place] [address] Jan, [facility] [place] [facility] [address] [id number] [place] [address] Jan, [facility] [place] [facility] [address] [id number] [place] [address] Dec, [facility] [place] [facility] [address] [id number] [place] [address] Jul, [facility] [place] [facility] [address] [id number] [place] [address] Jun, [facility] [address] [id number] [place] [address] May, [facility] [place] [facility] [address] [id number] [place] [address] May, [facility] [address] [id number] [place] [address] May, [facility] [address] [id number] [place] [address] May, [facility] [place] [facility] [address] [id number] [place] [address] May, [facility] [place] [facility] [address] [id number] [place] [address] Apr, [facility] [place] [facility] [address] [id number] [place] [address] Apr, [facility] [place] [facility] [address] [id number] [place] [address] Mar, [facility] [place] [facility] [address] [id number] [place] [address] 18 Mar, 2012 [facility] [place] [facility] [address] [id number] [place] [address] Mar, [facility] [place] [facility] [address] [id number] [place] [address] Mar, [facility] [place] [facility] [address] [id number] [place] [address] Mar, [facility] [place] [facility] [address] [id number] [place] [address] 16 Mar, 2012 [facility] [place] [facility] [address] [id number] [place] [address] Mar, [facility] [place] [facility] [address] [id number] [place] [address] Feb, [facility] [place] [facility] [address] [id number] [place] [address] Feb, [facility] [place] [facility] [address] [id number] [place] [address] Dec, [facility] [place] [facility] [address] [id number] [place] [address] Dec, [facility] [place] [facility] [address] [id number] [place] [address] Nov, [facility] [place] [facility] [address] [id number] [place] [address] Nov, [facility] [place] [facility] [address] [id number] [place] [address] Nov, [facility] [place] [facility] [address] [id number] [place] [address] Nov, [facility] [place] [facility] [address] [id number], [place] [address] Nov, [facility] [place] [facility] [address] [id number], [place] [address] Sep, [facility] [place] [facility] [address] [id number] [place] [address] Aug, [facility] [place] [facility] [address] [id number] [place] [address] Jul, [facility] [place] [facility] [address] [id number] [place] [address] Jun, [facility] [place] [facility] [address] [id number] [place] [address] 11 Jun, 2011 [facility] [address] [id number] [place] [address] Jun, [facility] [place] [facility] [address] [id number] [place] [address] Jun, [facility] [address] [id number] [place] [address] May, [facility] [place] [facility] [address] [id number] [place] [address] May, [facility] [address] [id number] [place] [address] May, [facility] [address] [id number] [place] [address]647 May, [facility] [address] [id number] [place] [address] 39[address] May, [facility] [address] [id number] [place] [address] May, [facility] [address] [id number] [place] [address] 79[address] Mar, [facility] [address] [id number] [place] [address] Mar, [facility] [address] [id number] [place] [address] Jun, [facility] [address] [id number] [place] [address] May, [facility] [place] [facility] [address] [id number] [place] [address] May, [facility] [place] [facility] [address] [id number] [place] [address] Apr, [facility] [place] [facility] [address] [id number] [place] [address] Apr, [facility] [place] [address] [facility] [id number], [place] [address] Mar, [facility] [place] [address] [facility] [id number], [place] [address] Mar, [facility] [place] [address] [facility] [id number][place] [address] [address] Jul, IMMUNIZATIONS No Known Immunizations SOCIAL HISTORY Never Assessed REASON FOR VISIT DM, pt is wanting to talk about carbon monoxide. Indira PLAN OF CARE Activity Details Follow Up 3 Months Reason:DM and fasting labs VITAL SIGNS Height 62 in 2017-06-27 Weight 144.6 lbs 2017-06-27 Temperature 98.8 degrees Fahrenheit 2017-06-27 Heart Rate 92 bpm 2017-06-27 Respiratory Rate 20 2017-06-27 BMI 26.44 kg/m2 2017-06-27 Blood pressure systolic 128 mmHg 2017-06-27 Blood pressure diastolic 76 mmHg 2017-06-27 MEDICATIONS Medication Instructions Dosage Frequency Start Date End Date Duration Status Ibuprofen 800 MG Orally Once a day 1 tablet 24h Not-Taking Victorino Contour Test - [id number] 2 times a day- 3 times weekly. test blood sugar Jul, Not-Taking Glucocard Expression Monitor w/Device as directed October, Active Potassium 99 MG Orally Once a day 1 tablet 24h Active Amaryl 2 MG TAKE TWO TABLETS BY MOUTH TWICE DAILY 90 days Active MetFORMIN HCl ER 500 mg TAKE TWO TABLETS BY MOUTH TWICE DAILY WITH MEALS. MUST BE TEVA BRAND 90 days Active Cinnamon 500 MG Orally 2 times a day 2 capsules 12h Active Diflucan 150 MG Orally one time. May repeat in 3 days if symptoms persist. 1 tablet 4 days Not-Taking Xanax 1 MG Orally Once a day 1 tablet 24h Sep, 28 days Active RESULTS Name Result Date Reference Range A1C (IN HOUSE) 2017-06-27 A1C IN HOUSE 10.3 4.3 - 5.6 % Previous A1c 9.6 Lot [id number] Exp date 03/2019 MICROALBUMIN, URINE (IN HOUSE) 2017-06-27 MICROALBUMIN Abnormal Lot # [id number] Exp date 03/17/2018 Clarity clear Color yellow ALB 10 CRE 50 A:C (IN HOUSE) 30-300 Control + Control Lot # Exp date PROCEDURES Procedure Date Ordered Result Body Site MICROALBUMIN, SEMIQUANT Jun 27, 2017 GLYCATED HEMOGLOBIN TEST Jun 27, 2017 INSTRUCTIONS MEDICATIONS ADMINISTERED No Known Medications [...]
--- OUTSIDE RECORDS SUMMARY | 2018-07-17 11:12 | XMS REPORT ---
Author Author ISREAL MORELAND [facility] eClinicalWorks Address Unknown Phone Unavailable Care Team Providers Care Mud Tank Operator Name Role Phone ISREAL MORELAND CP Unavailable Allergies, Adverse Reactions, Alerts Substance Reaction Event Type N.K.D.A. Info Not Available Non Drug Allergy Problems Problem Type Condition Code Onset Dates Condition Status Assessment Acquired hypothyroidism E03.9 Active Problem Pure hyperglyceridemia 272.1 Active Assessment Diabetes E11.9 Active Assessment Anxiety F41.9 Active Assessment Hyperlipidemia, unspecified hyperlipidemia E78.5 Active Problem Dysuria 788.1 Active Problem Other bursitis disorders 727.3 Active Problem Diabetes 250.00 Active Problem Unspecified episodic mood disorder 296.90 Active Problem Anxiety state, unspecified 300.00 Active Problem Lumbago 724.2 Active Problem Other chronic nonalcoholic liver disease 571.8 Active Medications Medication Code System Code Instructions Start Date End Date Status Dosage MetFORMIN HCl ER [facility] 90888740701 500 MG Orally 2 times a day 2 tablet with morning and evening meal Xanax [facility] [address]-65 1 MG Orally Once a day October 27, 2014 1 tablet Amaryl [facility] [id number] 2 MG Orally 2 times a day 1 tablets in the morning and 1 in the evening Procedures Procedure Coding System Code Date MICROALBUMIN, SEMIQUANT CPT-4 59923 May 11, 2015 ASSAY OF URINE CREATININE CPT-4 30886 May 11, 2015 GLYCATED HEMOGLOBIN TEST CPT-4 27878 May 11, 2015 Office Visit, Est Pt., Level 3 CPT-4 38109 May 11, 2015 MICROALBUMIN, QUANTITATIVE CPT-4 58063 May 11, 2015 Vital Signs Date/Time: May 11, 2015 Temperature 98.6 F Weight 153.0 lbs Height 62 in BMI 27.98 Index Blood Pressure Diastolic 80 mmHg Blood Pressure Systolic 128 mmHg Cardiac Monitoring Heart Rate 92 bpm Results Name Result Date Reference Range Unit Abnormality Flag MICROALBUMIN/CREATININE RATIO, URINE ----Microalb/Creat Ratio 54.6 20150511 0.0-30.0 mg/g creat H ----Creatinine, Urine 71.2 20150511 15.0-278.0 mg/dL ----Microalbumin, Urine 38.9 20150511 0.0-17.0 ug/mL H A1C (IN HOUSE) ----A1C IN HOUSE 8.2 20150511 4.30 - 5.6 % ----Previous A1c 7.6 [id number] ----Lot # [id number] ----Exp date 20150511 MICROALBUMIN, URINE (IN HOUSE) ----Lot # [id number] ----CRE 100 [id number] ----Exp date 20150511 ----ALB 80 [id number] ----Control + [id number] ----Control + [id number] ----A:C (IN HOUSE) 30-300mg/g [id number] ----Clarity Clear [id number] ----Color Yellow [id number] ----Lot # [id number] ----Exp date 20150511 ----MICROALBUMIN Abnormal [id number] Summary Purpose eClinicalWorks Submission
--- OUTSIDE RECORDS SUMMARY | 2018-07-17 11:12 | XMS REPORT ---
Author Author ISREAL MORELAND Organization eClinicalWorks Address Unknown Phone Unavailable Care Team Providers Care Community Service Coordinator Name Role Phone ISREAL MORELAND CP Unavailable [...] Start Date End Date Status Dosage Xanax [facility] [place] [address]-49 1 MG Orally Once a day October 27, 2014 1 tablet Results No Known Results Summary Purpose eClinicalWorks Submission
--- OUTSIDE RECORDS SUMMARY | 2018-07-17 11:12 | XMS REPORT ---
Author Author KATHARINE MONTEZ [facility] Address [address] [place] [address] Care Team Providers Care Mail Caller Name Role Phone KATHARINE MONTEZ Unavailable PROBLEMS Type Condition ICD9-CM Code [id number] Code Onset Dates Condition Status SNOMED Code Problem Acquired hypothyroidism E03.9 Active 403158243 Problem Diabetes E11.9 Active 323703645 Problem Anxiety disorder, unspecified F41.9 Active [id number] ALLERGIES No Information SOCIAL HISTORY Never Assessed PLAN OF CARE VITAL SIGNS MEDICATIONS Unknown [...]
--- OUTSIDE RECORDS SUMMARY | 2018-07-17 11:12 | XMS REPORT ---
Author Author PAUL Manzo [facility] Address [address] [place] [address] Care Team Providers Care Control Room Operator Name Role Phone PAUL Manzo Unavailable PROBLEMS Type Condition ICD9-CM Code XYC87-RE Code Onset Dates Condition Status SNOMED Code Problem Acquired hypothyroidism E03.9 Active 483501955 Problem Diabetes E11.9 Active 270905730 Problem Anxiety disorder, unspecified F41.9 Active 818054455 ALLERGIES Substance Reaction Event Type Date Status Sulfamethoxazole-Trimethoprim anaphylaxis Drug Allergy Apr, Active ENCOUNTERS Encounter Location Date Diagnosis [facility] [id number] [place] [address] 90047- 8762 October, [facility] [id number] [place] [address] 76664- 3672 Sep, [facility] [id number] [place] [address] 22583- 4284 Aug, [facility] [id number] [place] [address] 81656- 0223 Jul, [facility] [id number] [place] [address] 73954- 1091 Jun, [facility] [id number] [place] [address] 39937- 0078 Jun, Diabetes E11.9 and Drug-induced acute pancreatitis with uninfected necrosis K85.31 [facility] [id number] [place] [address] 96606- 0200 May, [facility] [id number] [place] [address] 83445- 8185 Apr, [facility] [id number] [place] [address] 65812 -1886 Apr, Crushing injury of right foot, initial encounter S97.81XA [facility] [id number] [place] [address] 34431- 3749 Feb, [facility] [id number] [place] [address] 56173- 9517 Feb, [facility] [id number] [place] [address] 56927 -3659 Feb, Acute non-recurrent pansinusitis J01.40 [facility] [id number] [place] [address] 65345- 5441 Feb, [facility] [id number] [place] [address] 77467- 0671 Jan, [facility] [id number] [place] [address] 55253- 7673 Nov, [facility] [id number] [place] [address] 09739- 7397 October, [facility] [id number] [place] [address] 58230- 3385 October, Diabetes E11.9 ; Anxiety disorder, unspecified F41.9 and Acquired hypothyroidism E03.9 [facility] [id number] [place] [address] 64313- 0703 October, [facility] [id number] [place] [address] 61010- 6069 Sep, [facility] [id number] [place] [address] 37046- 6310 Sep, [facility] [id number] [place] [address] 92100- 6201 Aug, [facility] [id number] [place] [address] 80473- 2179 Jul, [facility] [id number] [place] [address] 12075- 7003 Jul, [facility] [address] [place] [address]- 9358 Jul, [facility] [id number] [place] [address] 817799- 2255 Jul, [facility] [id number] [place] [address] 56913- 0714 Jul, Acute non-recurrent maxillary sinusitis J01.00 [facility] [id number] [place] [address] 78038- 4019 Jul, [facility] [id number] [place] [address] 55912- 7739 Jun, [facility] [id number] [place] [address] 83815- 4297 May, [facility] [id number] [place] [address] 99283- 3022 Apr, [facility] [id number] [place] [address] 68888- 8860 Mar, Diabetes E11.9 [facility] [id number] [place] [address] 64052- 9253 28 Feb, 2016 Pelvic pain R10.2 ; Leukocytosis, unspecified D72.829 ; Constipation, unspecified constipation type K59.00 and History of pancreatitis Z87.19 [facility] [id number] [place] [address] 75819- 2144 Feb, [facility] [id number] [place] [address] 47670- 5446 14 Feb, 2016 Diabetes E11.9 [facility] [id number] [place] [address] 41327- 1750 13 Feb, 2016 [facility] [id number] [place] [address] 30281- 9667 2016 Vaginal yeast infection B37.3 [facility] [address] [place] [address]- 4627 Feb, [facility] [id number] [place] [address] 30958- 2857 Jan, Diabetes E11.9 [facility] [address], [place] [address]- 1571 Jan, Anxiety disorder, unspecified F41.9 [facility] [id number] [place] [address] 51237- 0962 Jan, Vaginal yeast infection B37.3 [facility] [id number] [place] [address] 93372- 3710 Jan, [facility] [id number] [place] [address] 85944- 9458 Dec, Anxiety disorder, unspecified F41.9 [facility] [id number] [place] [address] 31512- 4364 Dec, Vaginal yeast infection B37.3 [facility] [address] [place] [address]- 6301 Nov, Anxiety disorder, unspecified F41.9 [facility] [address] [address]- 6632 Nov, Anxiety disorder, unspecified F41.9 [facility] [address], [place] [address]- 5189 October, Anxiety disorder, unspecified F41.9 [facility] [address], [place] [address]- 3499 October, Diabetes E11.9 [facility] [address], [place] [address]- 2904 Sep, Anxiety disorder, unspecified F41.9 [facility] [address], [place] [address]- 6557 Sep, [facility] [id number] [place] [address] 46327- 4496 Aug, Vaginal yeast infection B37.3 [facility] [id number] [place] [address] 53356- 5547 Aug, [facility] [id number] [place] [address] 12254- 7916 Jul, [facility] [id number] [place] [address] 79683- 1360 Jun, [facility] [id number] [place] [address] 13873- 3510 Jun, [facility] [id number] [place] [address] 93707- 5325 Jun, [facility] [id number] [place] [address] 70519- 8229 May, [facility] [id number] [place] [address] 05620- 7077 Apr, Diabetes E11.9 ; Acquired hypothyroidism E03.9 ; Hyperlipidemia, unspecified hyperlipidemia E78.5 and Anxiety F41.9 [facility] [id number] [place] [address] 06698- 5497 Apr, [facility] [id number] [place] [address] 99961- 7419 Mar, [facility] [id number] [place] [address] 10151- 4320 Feb, [facility] [id number] [place] [address] 44318- 2081 Feb, [facility] [id number] [place] [address] 417783- 8769 Jan, [facility] [id number] [place] [address] [id number]- 0735 Dec, [facility] [id number] [place] [address] 20700- 2278 Dec, DUB (dysfunctional uterine bleeding) 626.8 and Pap test, as part of routine gynecological examination V76.2 [facility] [address], [place] [address]- 3206 Dec, [facility] [address], [place] [address]- 2546 Dec, [facility] [id number] [place] [address] 75633- 6446 Nov, [facility] [id number] [place] [address] 27977- 2386 Nov, [facility] [id number] [place] [address] 09053- 6333 Nov, Diabetes 250.00 [facility] [id number] [place] [address] 12295- 3846 Nov, [facility] [id number] [place] [address] 68430- 3036 October, [facility] [id number] [place] [address] 65837- 9646 October, Diabetes 250.00 [facility] [id number] [place] [address] 89982- 2915 October, [facility] [address], [place] [address]- 8386 October, [facility] [address], [place] [address]- 5056 October, [facility] [address], [place] [address]- 7946 October, [facility] [id number] [place] [address]- 2546 October, [facility] [address], [place] [address]- 9536 Sep, [facility] [id number] [place] [address] 83591- 1575 14 Sep, 2014 [facility] [place] [facility] [address] [id number] [place] [address]- 5154 Sep, [facility] [place] [facility] [address] [id number] [place] [address]- 2066 Aug, [facility] [place] [facility] [address] [facility] [id number] [place] [address]- 8319 Aug, [facility] [place] [facility] [address] [id number] [place] [address]- 8094 Aug, [facility] [place] [facility] [address] [id number] [place] [address]- 9373 Aug, [facility] [place] [facility] [address] [facility] [id number] [place] [address]- 5251 Aug, [facility] [place] [facility] [address] [facility] [id number] [place] [address]- 2849 Aug, [facility] [place] [facility] [address] [facility] [id number] [place] [address]- 5605 Aug, [facility] [place] [facility] [address] [id number] [place] [address]- 7860 Aug, [facility] [place] [facility] [address] [facility] [id number] [place] [address]- 4167 Aug, [facility] [place] [facility] [address] [id number], [place] [address]- 4775 Jul, 2014 [facility] [place] [facility] [address] [id number], [place] [address]- 5347 Jul, 2014 [facility] [place] [facility] [address] [id number] [place] [address]- 7581 Jul, 2014 [facility] [place] [facility] [address] [id number], [place] [address]- 8508 Jul, 2014 [facility] [place] [facility] [address] [facility] [id number], [place] [address]- 2713 Jul, [facility] [place] [facility] [address] [id number] [place] [address]- 6327 Jul, [facility] [place] [facility] [address] [id number] [place] [address]- 0475 Jul, [facility] [place] [facility] [address] [id number] [place] [address]- 9958 Jul, [facility] [place] [facility] [address] [id number] [place] [address]- 3621 Jun, [facility] [place] [facility] [address] [id number] [place] [address]- 8280 Jun, [facility] [place] [facility] [address] [id number] [place] [address]- 3860 Jun, [facility] [place] [facility] [address] [id number] [place] [address]- 2065 Jun, [facility] [place] [facility] [address] [id number] [place] [address]- 3196 Jun, [facility] [place] [facility] [address] [id number] [place] [address]- 2922 Jun, [facility] [place] [facility] [address] [id number] [place] [address]- 7844 Jun, [facility] [place] [facility] [address] [id number] [place] [address]- 2951 Jun, [facility] [place] [facility] [address] [id number], [place] [address]- 8561 Jun, [facility] [place] [facility] [address] [id number] [place] [address]- 8175 Jun, [facility] [place] [facility] [address] [id number] [place] [address]- 2746 Jun, [facility] [place] [facility] [address] [id number] [place] [address]- 3456 Jun, [facility] [place] [facility] [address] [id number] [place] [address]- 5769 May, [facility] [place] [facility] [address] [id number] [place] [address]- 5793 May, [facility] [place] [facility] [address] [id number] [place] [address]- 5226 May, [facility] [place] [facility] [address] [id number] [place] 0586 May, [facility] [place] [facility] [address] [id number] [place] 5712 May, [facility] [place] [facility] [address] [id number] [place] 6879 17 May, 2014 [facility] [place] [facility] [address] [id number] [place] [address]- 9478 15 May, 2014 [facility] [place] [facility] [address] [id number] [place] [address]- 9563 15 May, 2014 [facility] [place] [facility] [address] [id number] [place] [address]- 9007 May, [facility] [place] [facility] [address] [id number] [place] [address]- 9079 May, [facility] [place] [facility] [address] [id number] [place] [address]- 2847 May, [facility] [place] [facility] [address] [id number] [place] [address]- 8816 May, [facility] [place] [facility] [address] [id number] [place] [address]- 3346 May, [facility] [place] [facility] [address] [id number] [place] [address]- 4106 Apr, [facility] [place] [facility] [address] [id number] [place] 2897 Apr, [facility] [place] [facility] [address] [id number] [place] [address]- 8396 Apr, [facility] [place] [facility] [address] [id number] [place] [address]- 1405 Apr, [facility] [place] [facility] [address] [id number] [place] [address]- 8499 Apr, [facility] [place] [facility] [address] [id number] [place] [address]- 3111 Apr, [facility] [place] [facility] [address] [id number] [place] [address]- 7844 Mar, [facility] [place] [facility] [address] [id number] [place] [address]- 3928 Mar, [facility] [place] [facility] [address] [id number] [place] [address]- 8437 Mar, [facility] [place] [facility] [address] [id number] [place] [address]- 8977 Mar, [facility] [place] [facility] [address] [id number] [place] [address]- 9932 Feb, [facility] [place] [facility] [address] [id number] [place] [address]- 3895 Feb, [facility] [place] [facility] [address] [id number] [place] [address]- 3623 Feb, [facility] [place] [facility] [address] [id number] [place] [address]- 7504 Feb, [facility] [place] [facility] [address] [id number] [place] [address]- 7506 Feb, [facility] [place] [facility] [address] [id number] [place] [address]- 9145 Feb, [facility] [place] [facility] [address] [id number] [place] [address]- 0100 Jan, [facility] [place] [facility] [address] [id number] [place] [address]- 6659 Jan, [facility] [place] [facility] [address] [id number] [place] [address]- 7494 Dec, [facility] [place] [facility] [address] [id number] [place] [address]- 2714 Dec, [facility] [place] [facility] [address] [id number] [place] [address]- 3931 Nov, [facility] [place] [facility] [address] [id number] [place] [address]- 5152 Nov, [facility] [place] [facility] [address] [id number] [place] [address]- 3285 Nov, [facility] [place] [facility] [address] [id number] [place] [address]- 4758 October, [facility] [place] [facility] [address] [id number] [place] [address]- 8693 October, [facility] [place] [facility] [address] [id number] [place] [address]- 6464 Sep, [facility] [place] [facility] [address] [id number] [place] [address]- 8888 Sep, [facility] [place] [facility] [address] [id number] [place] [address]- 1003 Sep, [facility] [place] [facility] [address] [id number] [place] [address]- 0565 Sep, [facility] [place] [facility] [address] [id number] [place] [address]- 3676 Sep, [facility] [place] [facility] [address] [id number], [place] [address]- 8280 Sep, [facility] [place] [facility] [address] [id number] [place] [address]- 5271 Sep, [facility] [place] [facility] [address] [id number] [place] [address]- 0913 Sep, [facility] [place] [facility] [address] [id number] [place] [address]- 1343 Sep, [facility] [place] [facility] [address] [id number] [place] [address] 254 Sep, [facility] [place] [facility] [address] [id number] [place] [address]- 9967 Aug, [facility] [place] [facility] [address] [id number] [place] [address]- 6706 Aug, [facility] [place] [facility] [address] [id number] [place] [address]- 2546 Jul, [facility] [place] [facility] [address] [id number] [place] [address]- 2549 Jul, [facility] [place] [facility] [address] [id number] [place] [address]- 6290 Apr, [facility] [place] [facility] [address] [id number] [place] [address]- 7942 Apr, [facility] [place] [facility] [address] [id number] [place] [address]- 3183 Mar, [facility] [place] [facility] [address] [id number] [place] [address]- 6951 Mar, [facility] [place] [facility] [address] [id number] [place] [address]- 3240 Feb, [facility] [place] [facility] [address] [id number] [place] [address]- 2854 Jan, [facility] [place] [facility] [address] [id number] [place] [address]- 2546 Jan, [facility] [place] [facility] [address] [id number] [place] [address]- 2546 Dec, [facility] [place] [facility] [address] [id number] [place] [address]- 6731 Jul, [facility] [place] [facility] [address] [id number] [place] [address]- 2546 Jun, [facility] [place] [facility] [address] [id number] [place] [address]- 8952 May, [facility] [place] [facility] [address] [id number] [place] [address]- 6097 19 May, 2012 [facility] [place] [facility] [address] [id number] [place] 3998 19 May, 2012 [facility] [place] [facility] [address] [id number] [place] [address]- 7762 13 May, 2012 [facility] [place] [facility] [id number] [place] [address], [place] [address]- 7636 May, [facility] [place] [facility] [address] [id number] [place] [address]- 7302 Apr, [facility] [place] [facility] [address] [id number] [place] [address]- 3008 Apr, [facility] [place] [facility] [address] [id number] [place] [address]- 2073 19 Mar, 2012 [facility] [place] [facility] [address] [id number] [place] [address]- 1620 18 Mar, 2012 [facility] [place] [facility] [address] [id number] [place] [address]- 9915 17 Mar, 2012 [facility] [place] [facility] [address] [id number] [place] [address]- 0924 17 Mar, 2012 [facility] [place] [facility] [address] [facility] [id number] [place] [address]- 7036 16 Mar, 2012 [facility] [place] [facility] [address] [id number], [place] [address]- 5306 16 Mar, 2012 [facility] [place] [facility] [address] [id number] [place] [address] 15 Mar, 2012 [facility] [place] [facility] [address] [id number] [place] [address] 27 Feb, 2012 [facility] [place] [facility] [address] [id number] [place] [address] 26 Feb, 2012 [facility] [place] [facility] [address] [id number], [place] [address] Dec, [facility] [place] [facility] [address] [id number] [place] [address] Dec, [facility] [place] [facility] [address] [id number] [place] [address] Nov, [facility] [place] [facility] [address] [id number] [place] [address] Nov, [facility] [place] [facility] [address] [id number] [place] [address] Nov, [facility] [place] [facility] [address] [id number] [place] [address] Nov, [facility] [place] [facility] [address] [id number] [place] [address] Nov, [facility] [place] [facility] [address] [id number] [place] [address] Sep, [facility] [place] [facility] [address] [id number] [place] [address] Aug, [facility] [place] [facility] [address] [id number] [place] [address] Jul, [facility] [place] [facility] [address] [id number] [place] [address] Jun, [facility] [place] [facility] [address] [id number] [place] [address] Jun, [facility] [place] [facility] [address] [id number] [place] [address] Jun, [facility] [place] [facility] [address] [id number] [place] [address] Jun, [facility] [place] [facility] [address] [id number] [place] [address] May, [facility] [place] [facility] [address] [id number] [place] [address] May, [facility] [place] [facility] [address] [id number], [place] [address] May, [facility] [address] [facility] [id number], [place] [address] May, [facility] [address] [facility] [id number] [place] [address] May, [facility] [address] [facility] [id number], [place] [address] May, [facility] [address] [facility] [id number] [place] [address] Mar, [facility] [address] [facility] [id number] [place] [address] Mar, [facility] [address] [facility] [id number], [place] [address] Jun, [facility] [id number], [place] [address] May, [facility] [id number] [address] May, [facility] [id number] [address] Apr, [facility] [address] [id number], [place] [address] Apr, [facility] [id number], [place] [address] Mar, [facility] [address] [id number], [place] [address] Mar, [facility] [address] [id number], [place] [address] Jul, IMMUNIZATIONS No Known Immunizations SOCIAL HISTORY Never Assessed REASON FOR VISIT slammed fot in the door on Sunday Tati PLAN OF CARE Activity Details Follow Up prn Reason: VITAL SIGNS Height 62 in 2017-04-27 Weight 146.6 lbs 2017-04-27 Temperature 98.5 degrees Fahrenheit 2017-04-27 Heart Rate 80 bpm 2017-04-27 Respiratory Rate 20 2017-04-27 BMI 26.81 kg/m2 2017-04-27 Blood pressure systolic 106 mmHg 2017-04-27 Blood pressure diastolic 80 mmHg 2017-04-27 MEDICATIONS Medication Instructions Dosage Frequency Start Date End Date Duration Status Cinnamon 500 MG Orally 2 times a day 2 capsules 12h Active Ibuprofen 800 MG Orally Once a day 1 tablet 24h Active Victorino Contour Test - EHF77-A30.9 2 times a day- 3 times weekly. test blood sugar Jul, Active Xanax 1 MG Orally Once a day 1 tablet 24h Sep, 28 days Active Potassium 99 MG Orally Once a day 1 tablet 24h Active Glucocard Expression Monitor w/Device as directed October, Active Amaryl 2 MG TAKE TWO TABLETS BY MOUTH TWICE DAILY 90 Active MetFORMIN HCl ER 500 MG TAKE TWO TABLETS BY MOUTH TWICE DAILY WITH MEALS. MUST BE TEVA BRAND 30 Active RESULTS Name Result Date Reference Range Xray : Foot, Right 3 views (IN HOUSE) 2017-04-27 PROCEDURES Procedure Date Ordered Result Body Site X-RAY EXAM OF FOOT Apr 27, 2017 INSTRUCTIONS MEDICATIONS ADMINISTERED No Known [...]
--- OUTSIDE RECORDS SUMMARY | 2018-07-17 11:13 | XMS REPORT ---
Author Author ISREAL MORELAND Organization [employer] Address Unknown Phone Unavailable Care Team Providers Care Food Products Sales Representative Name Role Phone ISREAL MORELAND CP Unavailable Allergies No Known Allergies Problems Problem Type Condition Code Onset Dates Condition Status Problem Anxiety disorder, unspecified F41.9 Active Problem Diabetes E11.9 Active Medications Medication Code System Code Instructions Start Date End Date Status Dosage Xanax [facility] [address]-93 1 MG Orally Once a day September 24, 2015 1 tablet Results No Known Results Summary Purpose [employer] Submission
--- OUTSIDE RECORDS SUMMARY | 2018-07-17 11:13 | XMS REPORT ---
Author Author ISREAL MORELAND [facility] Address [address] [place] [address] Care Team Providers Care Store Sales Leader Name Role Phone ISREAL MORELAND Unavailable PROBLEMS Type Condition ICD9-CM Code [id number] Code Onset Dates Condition Status SNOMED Code Problem Diabetes E11.9 Active 886311710 Problem Anxiety disorder, unspecified F41.9 Active [id number] ALLERGIES Unknown Allergies SOCIAL HISTORY No smoking Hx information available PLAN OF CARE VITAL SIGNS MEDICATIONS Medication Instructions Dosage Frequency Start Date End Date Duration Status Xanax 1 MG Orally Once a day 1 tablet 24h Sep, 28 days Active RESULTS No Results PROCEDURES No Known procedures IMMUNIZATIONS No Known Immunizations
--- OUTSIDE RECORDS SUMMARY | 2018-07-17 11:13 | XMS REPORT ---
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 Name Role Phone ISREAL MORELAND Unavailable PROBLEMS Type Condition ICD9-CM Code [id number] Code Onset Dates Condition Status SNOMED Code Problem Acquired hypothyroidism E03.9 Active 845366726 Problem Diabetes E11.9 Active 548166111 Problem Anxiety disorder, unspecified F41.9 Active [id number] ALLERGIES No Information ENCOUNTERS Encounter Location Date Diagnosis [place] [address] [address] Sep, [facility] [address] [address] Aug, [facility] [address] [address]- [address] Jul, [facility] [address] [address]- [address] Jun, [facility] [address] [address]- 2405 Jun, Diabetes E11.9 and Drug-induced acute pancreatitis with uninfected necrosis 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.31 [facility] [address] [place] [id number] [place] [address] 24177- 6875 May, [facility] [address] [address]- [address] Apr, [facility] [address] [address] 10 Apr, 2017 Crushing injury of right foot, initial encounter S97.81XA [facility] [address] [address]- [address] Feb, [facility] [address] [address] Feb, [facility] [address] [address] Feb, Acute non-recurrent pansinusitis J01.40 [facility] [address] [address] 2363 Feb, [facility] [address] [place] [id number] [place] [address] 27285- 3597 Jan, [facility] [id number] [place] [address] 20880- 0281 Nov, [facility] [address] [id number] [place] [address] 05932- 0857 October, [facility] [address] [place] [place] [id number] [place] [address] 73146- 0738 October, Diabetes E11.9 ; Anxiety disorder, unspecified F41.9 and Acquired hypothyroidism E03.9 [facility] [address] [address] 4[address] October, [facility] [id number] [address]- 20[address] Sep, [facility] [address] [address] 72[address] Sep, [facility] [id number] [address]- 9[address] Aug, [facility] [address] [address]- 0929 Jul, [facility] [address], [place] [address]- 0601 Jul, [facility] [address] [address]- 3246 Jul, [facility] [address] [place] [id number] [place] [address] 11079- 1575 Jul, [facility] [address] [place] [address] [id number] [place] [address] 43552- 9147 Jul, Acute non-recurrent maxillary sinusitis J01.00 [facility] [address] [place] [id number] [place] [address] 35735- 9292 Jul, [facility] [address] [place] [id number] [place] [address] 13448- 8205 Jun, [facility] [address] [place] [id number] [place] [address] 04673- 4175 May, [facility] [address] [place] [id number] [place] [address] 87133- 0336 Apr, [facility] [address] [place] [id number] [place] [address] 93524- 9192 Mar, Diabetes E11.9 [facility] [address] [place] [id number] [place] [address] 08905- 1486 28 Feb, 2016 Pelvic pain R10.2 ; Leukocytosis, unspecified D72.829 ; Constipation, unspecified constipation type K59.00 and History of pancreatitis Z87.19 [facility] [address] [place] [id number] [place] [address] 45884- 3173 22 Feb, 2016 [facility] [address] [place] [id number] [place] [address] 89093- 5391 14 Feb, 2016 Diabetes E11.9 [facility] [address] [place] [id number] [place] [address] 02448- 1714 13 Feb, 2016 [facility] [address] [place] [id number] [place] [address] 07909- 9145 2016 Vaginal yeast infection B37.3 [facility] [address] [place] [id number] [place] [address] 28357- 9730 08 Feb, 2016 [facility] [address] [place] [id number] [place] [address] 05807- 4813 Jan, Diabetes E11.9 [facility] [address] [address]- 5564 Jan, Anxiety disorder, unspecified F41.9 [facility] [address] 4[address] Jan, Vaginal yeast infection B37.3 [facility] [id number] [place] [address] 81913- 9654 Jan, [facility] [id number] [place] [address] 30572- 9371 Dec, Anxiety disorder, unspecified F41.9 [facility] [id number] [place] [address] 99231- 7335 Dec, Vaginal yeast infection B37.3 [facility] [address] [place] [address] 53159- 3062 Nov, Anxiety disorder, unspecified F41.9 [facility] [address] [place] [address] 38112- 7742 Nov, Anxiety disorder, unspecified F41.9 [facility] [address] [place] [address] 18378- 4714 October, Anxiety disorder, unspecified F41.9 [facility] [address] [address]- 0131 October, Diabetes E11.9 [facility] [address] [address] Sep, Anxiety disorder, unspecified F41.9 [facility] [address] [address]- 1909 Sep, [facility] [address] [address] Aug, Vaginal yeast infection B37.3 [facility] [address] [address] Aug, [facility] [address] [address]- 3091 Jul, [facility] [address] [place] [id number] [place] [address] 64645- 3476 Jun, [facility] [address] [place] [id number] [place] [address] 40707- 7548 Jun, [facility] [address] [place] [id number] [place] [address] 50130- 1160 Jun, [facility] [address] [place] [id number] [place] [address] 427671- 9118 May, [facility] [address] [place] [id number] [place] [address] 49298- 3732 Apr, Diabetes E11.9 ; Acquired hypothyroidism E03.9 ; Hyperlipidemia, unspecified hyperlipidemia E78.5 and Anxiety F41.9 [facility] [address] [place] [id number] [place] [address] 55288- 6886 Apr, [facility] [address] [place] [place] [id number] [place] [address] 80570- 9201 Mar, [facility] [address] [place] [id number] [place] [address] 214274- 8858 Feb, [facility] [address] [place] [id number] [place] [address] 70241- 6456 Feb, [facility] [address] [place] [id number] [place] [address] 98749- 2834 Jan, [facility] [id number] [place] [address] 61491- 2929 Dec, [facility] [address] [place] [id number] [place] [address] 23791- 2899 Dec, DUB (dysfunctional uterine bleeding) 626.8 and Pap test, as part of routine gynecological examination V76.2 [facility] [address] [place] [id number] [place] [address] 37462- 0966 Dec, [facility] [place] [address] [id number] [place] [address]- 1557 Dec, [facility] [address] [id number] [place] [address]- 1576 Nov, [facility] [address] [facility] [id number] [place] [address]- 3457 Nov, [facility] [address] [id number] [place] [address]- 1901 Nov, Diabetes 250.00 [facility] [address] [id number] [place] [address]- 0766 Nov, [facility] [address] [id number] [place] [address]- 7880 October, [facility] [address] [id number] [place] [address]- 7742 October, Diabetes 250.00 [facility] [address] [id number] [place] [address]- 4082 October, [facility] [address] [id number] [place] [address]- 2579 October, [facility] [place] [address] [facility] [id number] [place] [address]- 6090 October, [facility] [address] [id number] [place] [address]- 7854 October, [facility] [address] [id number] [place] [address]- 7996 October, [facility] [address] [id number] [place] [address]- 4175 Sep, [facility] [address] [id number] [place] [address]- 0502 Sep, [facility] [address] [facility] [id number] [place] [address]- 2278 Sep, [facility] [place] [facility] [address] [id number] [place] [address]- 6037 Aug, 2014 [facility] [place] [facility] [address] [id number] [place] [address]- 5275 Aug, 2014 [facility] [place] [facility] [address] [id number] [place] [address]- 9269 Aug, 2014 [facility] [place] [facility] [address] [id number] [place] [address]- 0781 Aug, 2014 [facility] [place] [facility] [address] [id number] [place] [address]- 1596 Aug, 2014 [facility] [place] [facility] [address] [id number] [place] [address]- 7111 Aug, 2014 [facility] [place] [facility] [address] [facility] [id number] [place] [address]- 6685 Aug, 2014 [facility] [place] [facility] [address] [id number] [place] [address]- 3003 Aug, 2014 [facility] [place] [facility] [address] [id number] [place] [address]- 4380 Aug, [facility] [place] [facility] [address] [id number] [place] [address]- 6757 Jul, 2014 [facility] [place] [facility] [address] [facility] [id number] [place] [address]- 4737 Jul, 2014 [facility] [place] [facility] [address] [id number] [place] [address]- 3889 Jul, 2014 [facility] [place] [facility] [address] [id number] [place] [address]- 0213 Jul, 2014 [facility] [place] [facility] [address] [id number] [place] [address]- 0453 Jul, 2014 [facility] [place] [facility] [address] [id number] [place] [address]- 6498 Jul, 2014 [facility] [place] [facility] [address] [id number] [place] [address]- 2584 Jul, [facility] [place] [facility] [address] [id number] [place] [address]- 3604 Jul, [facility] [place] [facility] [address] [id number] [place] [address]- 3931 Jun, [facility] [place] [facility] [address] [id number] [place] [address]- 9646 Jun, [facility] [place] [facility] [address] [id number] [place] [address]- 8484 Jun, [facility] [place] [facility] [address] [id number] [place] [address]- 8647 Jun, [facility] [place] [facility] [address] [id number] [place] [address]- 6321 Jun, [facility] [place] [facility] [address] [id number] [place] [address]- 4278 Jun, [facility] [place] [facility] [address] [id number] [place] [address]- 8432 Jun, [facility] [place] [facility] [address] [id number] [place] [address]- 0643 Jun, [facility] [place] [facility] [address] [id number] [place] [address]- 0191 Jun, [facility] [place] [facility] [address] [id number] [address]- 9753 Jun, [facility] [place] [facility] [address] [id number] [place] [address]- 4805 Jun, [facility] [place] [facility] [address] [id number] [place] [address]- 0217 Jun, [facility] [place] [facility] [address] [id number] [place] [address]- 4800 May, [facility] [place] [facility] [address] [id number] [place] [address]- 6994 May, [facility] [place] [facility] [address] [id number] [place] [address]- 3610 May, [facility] [place] [facility] [address] [id number] [place] [address]- 8657 May, [facility] [place] [facility] [address] [id number] [place] [address]- 0286 May, [facility] [place] [facility] [address] [id number] [place] [address]- 7596 May, [facility] [place] [facility] [address] [id number] [place] [address]- 7365 15 May, 2014 [facility] [place] [facility] [address] [id number] [place] [address]881 May, [facility] [place] [facility] [address] [id number] [place] [address]- 6895 May, [facility] [place] [facility] [address] [id number] [place] [address]- 6028 May, [facility] [place] [facility] [address] [id number] [place] [address]- 8532 May, [facility] [place] [facility] [address] [id number] [place] [address]- 0278 May, [facility] [place] [facility] [address] [id number] [place] 3832 May, [facility] [place] [facility] [address] [id number] [place] [address]- 7127 Apr, [facility] [place] [facility] [address] [id number] [place] [address]- 4510 Apr, [facility] [place] [facility] [address] [id number] [place] [address]- 7018 Apr, [facility] [place] [facility] [address] [id number] [place] [address]- 8526 Apr, [facility] [place] [facility] [address] [id number] [place] [address]- 9850 Apr, [facility] [place] [facility] [address] [id number] [place] [address]- 8148 Apr, [facility] [place] [facility] [address] [id number] [place] [address]- 3897 Mar, [facility] [place] [facility] [address] [id number] [place] [address]- 0071 Mar, [facility] [place] [facility] [address] [id number] [place] [address]- 1990 Mar, [facility] [place] [facility] [address] [id number] [place] [address]- 8425 Mar, [facility] [place] [facility] [address] [id number] [place] [address]- 8637 Feb, [facility] [place] [facility] [address] [id number] [place] [address]- 2270 Feb, [facility] [place] [facility] [address] [id number] [place] [address]- 8467 Feb, [facility] [place] [facility] [address] [id number] [place] [address]- 4755 Feb, [facility] [place] [facility] [address] [id number] [place] [address]- 0963 Feb, [facility] [place] [facility] [address] [id number] [place] [address]- 9879 Feb, [facility] [place] [facility] [address] [id number], [place] [address]- 8794 Jan, [facility] [place] [facility] [address] [id number] [place] [address]- 3204 Jan, [facility] [place] [facility] [address] [id number] [place] [address]- 7668 Dec, [facility] [place] [facility] [address] [id number] [place] [address]- 5195 Dec, [facility] [place] [facility] [address] [id number] [place] [address]- 2999 Nov, [facility] [place] [facility] [address] [id number] [place] [address]- 0719 Nov, [facility] [place] [facility] [address] [id number] [place] [address]- 0279 Nov, [facility] [place] [facility] [address] [id number] [place] [address]- 2216 October, [facility] [place] [facility] [address] [id number] [place] [address]- 9893 October, [facility] [place] [facility] [address] [id number] [place] [address]- 1969 Sep, [facility] [place] [facility] [address] [id number] [place] [address]- 5529 Sep, [facility] [place] [facility] [address] [id number] [place] [address]- 4228 Sep, [facility] [place] [facility] [address] [id number] [place] [address]- 6914 Sep, [facility] [place] [facility] [address] [id number] [place] [address]- 5471 Sep, [facility] [place] [facility] [address] [id number] [place] [address]- 2792 Sep, [facility] [place] [facility] [address] [id number] [place] [address]- 9635 Sep, [facility] [place] [facility] [address] [id number] [place] [address]- 0162 Sep, [facility] [place] [facility] [address] [id number] [place] [address]- 2258 Sep, [facility] [place] [facility] [address] [id number] [place] [address]- 5691 Sep, [facility] [place] [facility] [address] [id number] [place] [address]- 6152 Aug, [facility] [place] [facility] [address] [id number] [place] [address]- 6596 Aug, [facility] [place] [facility] [address] [id number] [place] [address]- 5840 Jul, [facility] [place] [facility] [address] [id number] [place] [address]- 2546 Jul, [facility] [place] [facility] [address] [id number] [place] [address]- 0085 Apr, [facility] [place] [facility] [address] [id number] [place] [address]- 0039 Apr, [facility] [place] [facility] [address] [id number] [place] [address]- 8767 Mar, [facility] [place] [facility] [address] [id number] [place] [address]- 7507 Mar, [facility] [place] [facility] [address] [id number] [place] [address]- 7222 Feb, [facility] [place] [facility] [address] [id number] [place] [address]- 8862 Jan, [facility] [place] [facility] [address] [id number] [place] [address]- 0496 Jan, [facility] [place] [facility] [address] [id number] [place] [address]- 2546 Dec, [facility] [place] [facility] [address] [id number] [place] [address]- 2546 Jul, [facility] [place] [facility] [address] [id number] [place] [address]- 9788 Jun, [facility] [place] [facility] [address] [id number] [place] [address]- 1876 May, [facility] [place] [facility] [address] [id number] [place] [address]- 2546 May, [facility] [place] [facility] [address] [id number], [place] [address]- 6007 May, [facility] [place] [facility] [address] [id number] [place] [address]- 5930 May, [facility] [place] [facility] [address] [id number] [place] 8788 May, [facility] [place] [facility] [address] [id number] [place] [address]- 7455 Apr, [facility] [place] [facility] [address] [id number] [place] 4403 Apr, [facility] [place] [facility] [address] [id number] [place] [address]- 6675 19 Mar, 2012 [facility] [place] [facility] [address] [id number] [place] [address]- 5296 18 Mar, 2012 [facility] [place] [facility] [address] [id number] [place] [address]- 3508 17 Mar, 2012 [facility] [place] [facility] [address] [id number] [place] [address]- 8183 17 Mar, 2012 [facility] [place] [facility] [address] [id number] [place] [address]- 4770 16 Mar, 2012 [facility] [place] [facility] [address] [id number] [place] [address]- 8952 16 Mar, 2012 [facility] [place] [facility] [address] [id number], [place] [address]- 9235 15 Mar, 2012 [facility] [place] [facility] [address] [id number][place] [address] Feb, [facility] [place] [facility] [address] [id number] [place] [address] Feb, [facility] [place] [facility] [address] [id number] [place] [address] Dec, [facility] [place] [facility] [address] [id number] [place] [address] Dec, [facility] [place] [facility] [address] [id number] [place] [address] Nov, [facility] [address] [id number] [place] [address] Nov, [facility] [place] [facility] [address] [id number] [place] [address] Nov, [facility] [address] [id number] [place] [address] Nov, [facility] [place] [facility] [address] [id number] [place] [address] Nov, [facility] [address] [id number] [place] [address] Sep, [facility] [address] [id number] [place] [address] Aug, [facility] [address] [id number] [place] [address] Jul, [facility] [address] [id number] [place] [address] Jun, [facility] [address] [id number] [place] [address] Jun, [facility] [address] [id number] [place] [address] Jun, [facility] [address] [id number] [place] [address] Jun, [facility] [address] [id number] [place] [address] May, [facility] [place] [facility] [address] [id number] [place] [address] May, [facility] [place] [facility] [address] [id number] [place] [address] May, [facility] [address] [id number] [place] [address] May, [facility] [address] [facility] [id number], [place] [address] May, [facility] [address] [facility] [id number][place] [address] May, [facility] [address] [facility] [id number][place] [address] Mar, [facility] [address] [facility] [id number][place] [address] Mar, [facility] [address] [facility] [id number], [place] [address] Jun, [facility] [id number], [place] [address] May, [facility] [id number], [place] [address] May, [facility] [id number], [place] [address] Apr, [facility] [id number], [place] [address] Apr, [facility] [id number], [place] [address] Mar, [facility] [address] [id number], [place] [address] Mar, [facility] [address] [id number], [place] [address] Jul, IMMUNIZATIONS No Known Immunizations SOCIAL HISTORY Never Assessed REASON FOR VISIT PLAN OF CARE VITAL SIGNS MEDICATIONS Unknown [...]
--- OUTSIDE RECORDS SUMMARY | 2018-07-17 11:13 | XMS REPORT ---
Author Author ISREAL MORELAND [facility] Address [address] [place] [address] Care Team Providers Care Lead Security Officer Name Role Phone ISREAL MORELAND Unavailable PROBLEMS Type Condition ICD9-CM Code [id number] Code Onset Dates Condition Status SNOMED Code Problem Acquired hypothyroidism E03.9 Active 254867384 Problem Diabetes E11.9 Active 430665740 Problem Anxiety disorder, unspecified F41.9 Active [id number] ALLERGIES No Information ENCOUNTERS Encounter Location Date Diagnosis [place] [address] [address] Aug, [facility] [address] [address]- [address] Jul, [facility] [address] [address]- [address]254 Jun, [facility] [address] [address]- 7050 Jun, Diabetes E11.9 and Drug-induced acute pancreatitis with uninfected necrosis K85.31 [facility] [address] [place] [id number] [place] [address] 64347- 7461 May, [facility] [address] 9[address]39- 9602 Apr, [facility] [address] [address] Apr, Crushing injury of right foot, initial encounter S97.81XA [facility] [address] [place] [id number] [place] [address] 13508- 0795 Feb, [facility] [address] 8[address]- 1189 Feb, [facility] [id number] [address] Feb, Acute non-recurrent pansinusitis J01.40 [facility] [address] [address]- 0385 Feb, [facility] [id number] [place] [address] 40400- 2134 Jan, [facility] [id number] [place] [address] 07217- 7889 Nov, [facility] [id number] [place] [address] 92162- 8738 October, [facility] [id number] [place] [address] 99029- 3190 October, Diabetes E11.9 ; Anxiety disorder, unspecified F41.9 and Acquired hypothyroidism E03.9 [facility] [address] [address] 6[address] October, [facility] [id number] [place] [address] 30898- 6886 Sep, [facility] [id number] [address]- 5510 Sep, [facility] [address] [address]- 9979 Aug, [facility] [id number] [address]- 2113 Jul, [facility] [address] [address]- 2661 Jul, [facility] [address] [address]- 5669 Jul, [facility] [address] [address]- 3273 Jul, [facility] [id number] [place] [address] 00765- 8320 Jul, Acute non-recurrent maxillary sinusitis J01.00 [facility] [id number] [place] [address] 56477- 1251 Jul, [facility] [id number] [place] [address] 54662- 7587 Jun, [facility] [id number] [place] [address] 56773- 2797 May, [facility] [id number] [place] [address] 92815- 8505 Apr, [facility] [address] [address] [id number] [place] [address] 95512- 9953 Mar, Diabetes E11.9 [facility] [address] [id number] [place] [address] 37587- 7724 28 Feb, 2016 Pelvic pain R10.2 ; Leukocytosis, unspecified D72.829 ; Constipation, unspecified constipation type K59.00 and History of pancreatitis Z87.19 [facility] [address] [address] [id number] [place] [address] 89741- 6704 22 Feb, 2016 [facility] [id number] [place] [address] 04489- 3752 14 Feb, 2016 Diabetes E11.9 [facility] [address] [place] [id number] [place] [address] 14983- 8229 13 Feb, 2016 [facility] [id number] [place] [address] 06440- 0693 2016 Vaginal yeast infection B37.3 [facility] [address] [id number] [place] [address] 36059- 6195 08 Feb, 2016 [facility] [id number] [place] [address] 64343- 1610 30 Jan, 2016 Diabetes E11.9 [facility] [id number] [place] [address] 86423- 1415 Jan, Anxiety disorder, unspecified F41.9 [facility] [address] [address]- 8445 Jan, Vaginal yeast infection B37.3 [facility] [id number] [address]- 5742 Jan, [facility] [address] [id number] [place] [address] 92280- 6315 Dec, Anxiety disorder, unspecified F41.9 [facility] [address] [place] [id number] [place] [address] 81059- 3891 Dec, Vaginal yeast infection B37.3 [facility] [id number] [place] [address] 605953- 4865 Nov, Anxiety disorder, unspecified F41.9 [facility] [id number] [place] [address] 36258- 6128 Nov, Anxiety disorder, unspecified F41.9 [facility] [id number] [place] [address] 27160- 0271 October, Anxiety disorder, unspecified F41.9 [facility] [id number] [place] [address] 78332- 8556 October, Diabetes E11.9 [facility] [address] [address]- 5532 Sep, Anxiety disorder, unspecified F41.9 [facility] [address], [place] [address]- 6754 Sep, [facility] [id number] [place] [address] 81415- 2155 Aug, Vaginal yeast infection B37.3 [facility] [id number] 2108 Aug, [facility] [id number] [place] [address] 33955- 7451 Jul, [facility] [address], [place] [address]- 9375 Jun, [facility] [id number] [place] [address] 64588- 5790 Jun, [facility] [id number] [place] [address] 809770- 2651 Jun, [facility] [id number] [place] [address] 99221- 8366 May, [facility] [id number] [place] [address] 45657- 7123 Apr, Diabetes E11.9 ; Acquired hypothyroidism E03.9 ; Hyperlipidemia, unspecified hyperlipidemia E78.5 and Anxiety F41.9 [facility] [id number] [place] [address] 15366- 6134 Apr, [facility] [id number] [place] [address] 15033- 9999 Mar, [facility] [id number] [place] [address] 26925- 6374 Feb, [facility] [id number] [place] [address] 01871- 3061 Feb, [facility] [address], [place] [address]- 6152 Jan, [facility] [address] [place] [address] [id number] [place] [address] 65222- 6764 Dec, [facility] [id number] [place] [address] 61397758- 4426 Dec, Pap test, as part of routine gynecological examination V76.2 and DUB (dysfunctional uterine bleeding) 626.8 [facility] [address], [place] [address]- 1586 Dec, [facility] [address] [place] [address] [id number] [place] [address] 18403- 3257 Dec, [facility] [address] [id number] [place] [address]- 0935 Nov, [facility] [address] [id number] [place] [address]- 2678 Nov, [facility] [address] [facility] [id number] [place] [address]- 2325 Nov, Diabetes 250.00 [facility] [address] [id number] [place] [address]- 1741 Nov, [facility] [address] [id number] [place] [address]- 5612 October, [facility] [address] [id number] [place] [address]- 7274 October, Diabetes 250.00 [facility] [address] [id number] [place] [address]- 3477 October, [facility] [address] [id number] [place] [address]- 8731 October, [facility] [address] [id number] [place] [address]- 7067 October, [facility] [address] [facility] [id number] [place] [address]- 5104 October, [facility] [address] [id number] [place] [address]- 3916 October, [facility] [address] [id number] [place] [address]- 4890 Sep, [facility] [address] [id number] [place] [address]- 9537 Sep, [facility] [address] [id number] [place] [address]- 5236 Sep, [facility] [address] [id number] [place] [address]- 3689 Aug, [facility] [place] [facility] [address] [id number] [place] [address]- 9958 Aug, 2014 [facility] [place] [facility] [address] [id number] [place] [address]- 5919 Aug, 2014 [facility] [place] [facility] [address] [id number] [place] [address]- 2646 Aug, 2014 [facility] [place] [facility] [address] [id number] [place] [address]- 9381 Aug, 2014 [facility] [place] [facility] [address] [id number] [place] [address]- 2135 Aug, 2014 [facility] [place] [facility] [address] [id number] [place] [address]- 8370 Aug, 2014 [facility] [place] [facility] [address] [facility] [id number] [place] [address]- 0927 Aug, 2014 [facility] [place] [facility] [address] [id number] [place] [address]- 6806 Aug, 2014 [facility] [place] [facility] [address] [id number] [place] [address]- 7789 Jul, 2014 [facility] [place] [facility] [address] [facility] [id number] [place] [address]- 3696 Jul, 2014 [facility] [place] [facility] [address] [facility] [id number] [place] [address]- 7757 Jul, 2014 [facility] [place] [facility] [address] [facility] [id number] [address]- 9007 Jul, 2014 [facility] [place] [facility] [address] [facility] [id number] [place] [address]- 3393 Jul, 2014 [facility] [place] [facility] [address] [id number] [place] [address]- 2719 Jul, 2014 [facility] [place] [facility] [address] [facility] [id number] [place] [address]- 6150 Jul, 2014 [facility] [place] [facility] [address] [facility] [id number] [address]- 8862 Jul, [facility] [place] [facility] [address] [id number] [place] [address]- 4273 Jun, [facility] [place] [facility] [address] [id number] [place] [address]- 6343 Jun, [facility] [place] [facility] [address] [id number] [place] [address]- 4375 Jun, [facility] [place] [facility] [address] [id number] [place] [address]- 8614 Jun, [facility] [place] [facility] [address] [id number] [place] [address]- 1677 Jun, [facility] [place] [facility] [address] [id number] [place] [address]- 5226 Jun, [facility] [place] [facility] [address] [id number] [place] [address]- 1204 Jun, [facility] [place] [facility] [address] [id number] [place] [address]- 6948 Jun, [facility] [place] [facility] [address] [id number] [place] [address]- 3577 Jun, [facility] [place] [facility] [address] [id number] [place] [address]- 0849 Jun, [facility] [place] [facility] [address] [id number] [place] [address]- 3344 Jun, [facility] [place] [facility] [address] [id number] [place] [address]- 8095 Jun, [facility] [place] [facility] [address] [id number] [place] [address]- 6249 May, [facility] [place] [facility] [address] [id number] [place] [address]- 1814 May, [facility] [place] [facility] [address] [id number] [place] [address]- 7836 May, [facility] [place] [facility] [address] [id number] [place] [address]- 6979 May, [facility] [place] [facility] [address] [id number] [place] 7056 May, [facility] [place] [facility] [address] [id number] [place] 6466 May, [facility] [place] [facility] [address] [id number] [place] [address]- 6696 May, [facility] [place] [facility] [address] [id number] [place] [address]- 2192 May, [facility] [place] [facility] [address] [id number] [place] 7384 May, [facility] [place] [facility] [address] [id number] [place] [address]- 8661 May, [facility] [place] [facility] [address] [id number] [place] [address]- 3777 May, [facility] [place] [facility] [address] [id number] [place] [address]- 0135 May, [facility] [place] [facility] [address] [id number] [place] [address]- 0258 May, [facility] [place] [facility] [address] [id number] [place] [address]- 5549 Apr, [facility] [place] [facility] [address] [id number] [place] [address]- 3408 Apr, [facility] [place] [facility] [address] [id number] [place] [address]- 0717 Apr, [facility] [place] [facility] [address] [id number] [place] [address]- 4221 Apr, [facility] [place] [facility] [address] [id number] [place] [address]- 4730 Apr, [facility] [place] [facility] [address] [id number] [place] [address]- 9041 Apr, [facility] [place] [facility] [address] [id number] [place] [address]- 2389 Mar, [facility] [place] [facility] [address] [id number] [place] [address]- 8095 Mar, [facility] [place] [facility] [address] [id number] [place] [address]- 3678 Mar, [facility] [place] [facility] [address] [id number] [place] [address]- 8687 Mar, [facility] [place] [facility] [address] [id number] [place] [address]- 4371 Feb, [facility] [place] [facility] [address] [id number] [place] [address]- 5541 Feb, [facility] [place] [facility] [address] [id number] [place] [address]- 3579 Feb, [facility] [place] [facility] [address] [id number] [place] [address]- 5064 Feb, [facility] [place] [facility] [address] [id number] [place] [address]- 5799 Feb, [facility] [place] [facility] [address] [id number] [place] [address]- 6411 Feb, [facility] [place] [facility] [address] [id number] [place] [address]- 0739 Jan, [facility] [place] [facility] [address] [id number], [place] [address]- 5653 Jan, [facility] [place] [facility] [address] [id number] [place] [address]- 3890 Dec, [facility] [place] [facility] [address] [id number] [place] [address]- 1330 Dec, [facility] [place] [facility] [address] [id number] [place] [address]- 6805 Nov, [facility] [place] [facility] [address] [id number] [place] [address]- 8457 Nov, [facility] [place] [facility] [address] [id number] [place] [address]- 2505 Nov, [facility] [place] [facility] [address] [id number] [place] [address]- 1638 October, [facility] [place] [facility] [address] [id number] [place] [address]- 2062 October, [facility] [place] [facility] [address] [id number] [place] [address]- 4094 Sep, [facility] [place] [facility] [address] [id number] [place] [address]- 1991 Sep, [facility] [place] [facility] [address] [id number] [place] [address]- 4892 Sep, [facility] [place] [facility] [address] [id number] [place] [address]- 6608 Sep, [facility] [place] [facility] [address] [id number] [place] [address]- 3955 Sep, [facility] [place] [facility] [address] [id number] [place] [address]- 8982 Sep, [facility] [place] [facility] [address] [id number] [place] [address]- 9486 Sep, [facility] [place] [facility] [address] [id number] [place] [address]- 8029 Sep, [facility] [place] [facility] [address] [id number] [place] [address]- 9107 Sep, [facility] [place] [facility] [address] [id number] [place] [address]- 3304 Sep, [facility] [place] [facility] [address] [id number] [place] [address]- 8954 Aug, [facility] [place] [facility] [address] [id number] [place] [address]- 5997 Aug, [facility] [place] [facility] [address] [id number] [place] [address]- 2166 Jul, [facility] [address] [id number] [place] [address]- 4213 Jul, [facility] [address] [id number] [place] [address]- 1659 Apr, [facility] [place] [facility] [address] [id number] [place] [address]- 3311 Apr, [facility] [address] [id number] [place] [address]- 2161 Mar, [facility] [place] [facility] [address] [id number] [place] [address]- 2723 Mar, [facility] [address] [id number] [place] [address]- 5343 Feb, [facility] [address] [id number] [place] [address]- 9006 Jan, [facility] [address] [id number] [place] [address]- 6515 Jan, [facility] [address] [id number] [place] [address]- 7458 Dec, [facility] [place] [facility] [address] [id number] [place] [address]- 6123 Jul, [facility] [place] [facility] [address] [id number] [place] [address]- 3107 Jun, [facility] [place] [facility] [address] [id number] [place] [address]- 2956 May, [facility] [place] [facility] [address] [id number] [place] [address]- 0186 May, [facility] [place] [facility] [address] [id number] [place] [address]- 2546 May, [facility] [place] [facility] [address] [id number] [place] [address]- 6412 May, [facility] [place] [facility] [address] [id number] [place] [address]- 9619 May, [facility] [place] [facility] [address] [id number] [place] 2386 Apr, [facility] [place] [facility] [address] [id number] [place] [address]- 5548 Apr, [facility] [place] [facility] [address] [id number] [place] [address]- 8968 19 Mar, 2012 [facility] [place] [facility] [address] [id number] [place] [address]- 3028 18 Mar, 2012 [facility] [place] [facility] [address] [id number] [place] [address]- 8425 17 Mar, 2012 [facility] [place] [facility] [address] [id number] [place] [address]- 8509 17 Mar, 2012 [facility] [place] [facility] [address] [id number] [place] [address]- 0426 16 Mar, 2012 [facility] [place] [facility] [address] [id number] [place] [address]- 6795 16 Mar, 2012 [facility] [place] [facility] [address] [id number] [place] [address]- 1822 15 Mar, 2012 [facility] [place] [facility] [address] [id number], [place] [address]- 7994 Feb, [facility] [place] [facility] [address] [id number] [place] [address]- 1473 Feb, [facility] [place] [facility] [address] [id number] [place] [address]- 1876 Dec, [facility] [place] [facility] [address] [id number] [place] [address] Dec, [facility] [place] [facility] [address] [id number] [place] [address] Nov, [facility] [place] [facility] [address] [id number] [place] [address] Nov, [facility] [address] [id number] [place] [address] Nov, [facility] [place] [facility] [address] [id number] [place] [address] Nov, [facility] [address] [id number] [place] [address] Nov, [facility] [address] [id number] [place] [address] Sep, [facility] [address] [id number] [place] [address] Aug, [facility] [address] [id number] [place] [address] Jul, [facility] [address] [id number] [place] [address] Jun, [facility] [address] [id number] [place] [address] Jun, [facility] [address] [id number] [place] [address] Jun, [facility] [address] [id number] [place] [address] Jun, [facility] [address] [id number] [place] [address] May, [facility] [address] [id number] [place] [address] May, [facility] [place] [facility] [address] [id number] [place] [address] May, [facility] [address] [id number] [place] [address] May, [facility] [address] [id number] [place] [address] [address] May, [facility] [address] [facility] [id number], [place] [address] May, [facility] [address] [facility] [id number], [place] [address] Mar, [facility] [address] [facility] [id number], [place] [address] Mar, [facility] [address] [facility] [id number], [place] [address] Jun, [facility] [address] [facility] [id number], [place] [address] May, [facility] [address] [facility] [id number], [place] [address] May, [facility] [id number] [address] Apr, [facility] [id number] [address] Apr, [facility] [id number] [address] Mar, [facility] [id number] [address] Mar, [facility] [address] [id number], [place] [address] Jul, IMMUNIZATIONS No Known Immunizations SOCIAL HISTORY Never Assessed REASON FOR VISIT Controlled Med Update PLAN OF CARE VITAL SIGNS MEDICATIONS Unknown [...]
--- OUTSIDE RECORDS SUMMARY | 2018-07-17 11:13 | XMS REPORT ---
Author Author KATHARINE MONTEZ Organization [facility] [place] Address [address] [place] [address] Care Team Providers Care Costumed Character Name Role Phone KATHARINE MONTEZ Unavailable PROBLEMS Type Condition ICD9-CM Code [id number] Code Onset Dates Condition Status SNOMED Code Problem Acquired hypothyroidism E03.9 Active 881684391 Problem Diabetes E11.9 Active 731368456 Problem Anxiety disorder, unspecified F41.9 Active [id number] ALLERGIES Substance Reaction Event Type Date Status Sulfamethoxazole-Trimethoprim anaphylaxis Drug Allergy Jul, Active SOCIAL HISTORY Never Assessed PLAN OF CARE Activity Details Follow Up if not improving with PCP or reg follow up Reason: VITAL SIGNS Height 62 in 2016-08-08 Weight 150 lbs 2016-08-08 Temperature 98.3 degrees Fahrenheit 2016-08-08 Heart Rate 88 bpm 2016-08-08 Respiratory Rate 18 2016-08-08 Oximetry 98 % 2016-08-08 BMI 27.43 kg/m2 2016-08-08 Blood pressure systolic 124 mmHg 2016-08-08 Blood pressure diastolic 76 mmHg 2016-08-08 MEDICATIONS Medication Instructions Dosage Frequency Start Date End Date Duration Status Ibuprofen 800 MG Orally Once a day 1 tablet 24h Active Azithromycin 250 MG Orally Once a day 2 tablets on the first day, then 1 tablet daily for 4 days 24h Jul, Jul, 5 day(s) Active Amaryl 2 MG TAKE TWO TABLETS BY MOUTH TWICE DAILY 30 Active Cinnamon 500 MG Orally 2 times a day 2 capsules 12h Active Potassium 99 MG Orally Once a day 1 tablet 24h Active MetFORMIN HCl ER 500 MG TAKE TWO TABLETS BY MOUTH TWICE DAILY WITH MEALS. MUST BE TEVA BRAND 30 Active Xanax 1 MG Orally Once a day 1 tablet 24h Sep, 28 days Active RESULTS No Results PROCEDURES Procedure Date Ordered Result Body Site MEASURE BLOOD OXYGEN LEVEL Aug 08, 2016 THER/PROPH/DIAG INJ, SC/IM Aug 08, 2016 ROCEPHIN 1 GM (IM) Aug 08, 2016 IMMUNIZATIONS Vaccine Route Administration Date Status ROCEPHIN 1 GM (IM) IM Intramuscular Aug 08, 2016 Administered MEDICAL (GENERAL) HISTORY Type Description Date Medical [...]
--- OUTSIDE RECORDS SUMMARY | 2018-07-17 11:13 | XMS REPORT ---
Author Author ISREAL MORELAND [facility] Address [address] [place] [address] Care Team Providers Care Grade Checker Name Role Phone ISREAL MORELAND Unavailable PROBLEMS Type Condition ICD9-CM Code [id number] Code Onset Dates Condition Status SNOMED Code Problem Anxiety disorder, unspecified F41.9 Active 938630790 Assessment Vaginal yeast infection B37.3 Feb, Active [id number] ALLERGIES Unknown Allergies SOCIAL HISTORY No smoking Hx information available PLAN OF CARE VITAL SIGNS MEDICATIONS Medication Instructions Dosage Frequency Start Date End Date Duration Status Diflucan 150 MG Orally one time. May repeat in 3 days if symptoms persist. 1 tablet 4 days Active RESULTS No Results PROCEDURES No Known procedures IMMUNIZATIONS No Known Immunizations
--- OUTSIDE RECORDS SUMMARY | 2018-07-17 11:14 | XMS REPORT ---
Author Author ISREAL MORELAND Organization [employer] Address Unknown Phone Unavailable Care Team Providers Care Coil Strapper Name Role Phone ISREAL MORELAND CP Unavailable Allergies No Known Allergies Problems Problem Type Condition ICD-9 Code Onset Dates Condition Status Problem Pure hyperglyceridemia 272.1 Active Problem Dysuria 788.1 Active Problem Other bursitis disorders 727.3 Active Problem Diabetes 250.00 Active Problem Unspecified episodic mood disorder 296.90 Active Problem Anxiety state, unspecified 300.00 Active Problem Lumbago 724.2 Active Problem Other chronic nonalcoholic liver disease 571.8 Active Medications Medication Code System Code Instructions Start Date End Date Status Dosage Xanax [facility] [address]-04 1 MG Orally Once a day October 27, 2014 1 tablet Results No Known Results Summary Purpose [employer] Submission
--- OUTSIDE RECORDS SUMMARY | 2018-07-17 11:14 | XMS REPORT ---
Author Author ISREAL MORELAND [facility] Address [address] [place] [address] Care Team Providers Care Television Script Writer Name Role Phone ISREAL MORELAND Unavailable PROBLEMS Type Condition ICD9-CM Code QIQ72-TP Code Onset Dates Condition Status SNOMED Code Problem Hypertriglyceridemia E78.1 Active 278516602 Problem Status post cholecystectomy Z90.49 Active 525428959 Problem Anxiety disorder, unspecified F41.9 Active 914421395 Problem Acquired hypothyroidism E03.9 Active 030296405 Problem Diabetes E11.9 Active [id number] ALLERGIES No Information ENCOUNTERS Encounter Location Date Diagnosis [place] [address] [address]- [address]15 Dec, [facility] [id number] [place] [address] 78098- 1127 Nov, [place] [address] 89149- 5156 Nov, Ketoacidosis E87.2 ; Status post cholecystectomy Z90.49 ; Diabetes E11.9 ; Acquired hypothyroidism E03.9 ; Hypertriglyceridemia E78.1 and Vaginal yeast infection B37.3 [place] [address] [place] [id number] [place] [address] 33821- 5071 October, [facility] [id number] [place] [address] 25309- 8211 Sep, [facility] [address] 26055- 0308 Aug, [facility] [id number] [place] [address] 84998- 7531 Jul, [place] [address] 51409- 8580 Jun, [facility] [id number] [place] [address] 38743- 3370 Jun, Diabetes E11.9 and Drug-induced acute pancreatitis with uninfected necrosis K85.31 [facility] [id number] [place] [address] 19293- 9869 May, [facility] [id number] [place] [address] 06002- 7401 Apr, [facility] [id number] [place] [address] 95211 -8025 Apr, Crushing injury of right foot, initial encounter S97.81XA [facility] [id number] [place] [address] 67836- 9553 Feb, [facility] [id number] [place] [address] 46262- 1340 Feb, [facility] [id number] [place] [address] 21410 -7447 Feb, Acute non-recurrent pansinusitis J01.40 [facility] [id number] [place] [address] 35281- 9939 Feb, [facility] [id number] [place] [address] 52736- 6465 Jan, [facility] [id number] [place] [address] 53581- 0466 Nov, [facility] [id number] [place] [address] 31503- 6864 October, [facility] [address] 08102- 4833 October, Diabetes E11.9 ; Anxiety disorder, unspecified F41.9 and Acquired hypothyroidism E03.9 [facility] [id number] [place] [address] 54230- 3608 October, [facility] [address] [address]- 0445 Sep, [facility] [id number] [place] [address] 69259- 6449 Sep, [facility] [id number] [place] [address] 86181- 1200 Aug, [facility] [id number] [place] [address] 63027- 9817 Jul, [facility] [id number] [place] [address] 81448- 8806 Jul, [facility] [id number] [place] [address] 68952- 1204 Jul, [facility] [id number] [place] [address] 14655- 3695 Jul, [facility] [id number] [place] [address] 63591- 4911 Jul, Acute non-recurrent maxillary sinusitis J01.00 [facility] [id number] [place] [address] 05057- 8436 Jul, [facility] [address] [address]- 8985 Jun, [facility] [address] [address]- 9083 May, [facility] [id number] [place] [address] 13265- 0258 Apr, [facility] [id number] [place] [address] 04064- 7990 Mar, Diabetes E11.9 [facility] [id number] [place] [address] 75395- 3415 28 Feb, 2016 Pelvic pain R10.2 ; Leukocytosis, unspecified D72.829 ; Constipation, unspecified constipation type K59.00 and History of pancreatitis Z87.19 [facility] [address] [facility] [id number], [place] [address]- 3306 22 Feb, 2016 [facility] [address] [facility] [id number], [place] [address]- 4556 14 Feb, 2016 Diabetes E11.9 [facility] [address] [facility] [id number], [place] [address] 2546 13 Feb, 2016 [facility] [address] [facility] [id number], [place] [address] 2544 2016 Vaginal yeast infection B37.3 [facility] [address] [facility] [id number] [place] [address]- 5406 08 Feb, 2016 [facility] [address] [id number] [address]- 3577 Jan, Diabetes E11.9 [facility] [address] [place] [id number] [address]- 3940 Jan, Anxiety disorder, unspecified F41.9 [facility] [address] [facility] [id number], [place] [address]- 6916 Jan, Vaginal yeast infection B37.3 [facility] [address] [facility] [id number], [place] [address]- 0258 Jan, [facility] [address] [place] [id number] [address]- 5951 Dec, Anxiety disorder, unspecified F41.9 [facility] [address] [place] [id number] [address]- 7959 Dec, Vaginal yeast infection B37.3 [facility] [address] [facility] [id number], [place] [address]- 6583 Nov, Anxiety disorder, unspecified F41.9 [facility] [address] [facility] [id number], [place] [address]- 5607 Nov, Anxiety disorder, unspecified F41.9 [facility] [address] [place] [id number] [place] [address] 87438- 3098 October, Anxiety disorder, unspecified F41.9 [facility] [address] [place] [address] 99819- 2198 October, Diabetes E11.9 [facility] [id number] [place] [address] 04060- 8508 Sep, Anxiety disorder, unspecified F41.9 [facility] [address] [id number] [place] [address] 28891- 7397 Sep, [facility] [id number] [place] [address] 31338- 8279 Aug, Vaginal yeast infection B37.3 [facility] [address] [address] [id number] [place] [address] 87910- 4556 Aug, [facility] [id number] [place] [address] 37014- 0187 Jul, [facility] [id number] [place] [address] 99846- 6480 Jun, [facility] [id number] [place] [address] 09559- 1341 Jun, [facility] [id number] [place] [address] 60927- 3771 Jun, [facility] [address] [place] [address] 48567- 3242 May, [facility] [address] [id number] [place] [address] 21565- 4667 Apr, Diabetes E11.9 ; Acquired hypothyroidism E03.9 ; Hyperlipidemia, unspecified hyperlipidemia E78.5 and Anxiety F41.9 [facility] [address] [place] [address] 05716- 9710 Apr, [facility] [address] [place] [address] 12673- 9209 Mar, [facility] [id number] [place] [address] [place] [address]- 2546 Feb, [facility] [address] [address]- 2546 Feb, [facility] [address], [place] [address]- 2546 Jan, [facility] [id number] [place] [address] 69162- 2546 Dec, [facility] [id number] [place] [address] 95893- 2546 Dec, DUB (dysfunctional uterine bleeding) 626.8 and Pap test, as part of routine gynecological examination V76.2 [facility] [address] [place] [address] 67430- 8406 Dec, [facility] [id number] [place] [address] 71250- 0306 Dec, [facility] [address] [place] [address] 18314- 4206 Nov, [facility] [address] [address]- 3066 Nov, [facility] [id number] [address]- 0156 Nov, Diabetes 250.00 [facility] [address], [place] [address] 2546 Nov, [facility] [address] [address]- 2546 October, [facility] [address], [place] [address] 2546 October, Diabetes 250.00 [facility] [address], [place] [address] 2546 October, [facility] [address], [place] [address]- 2546 October, [facility] [place] [facility] [address] [id number] [place] [address] 2546 October, [facility] [place] [facility] [address] [id number] [place] [address]- 5943 October, [facility] [place] [facility] [address] [id number] [place] [address]- 2546 October, [facility] [place] [facility] [address] [id number] [place] [address]- 6066 Sep, [facility] [place] [facility] [address] [id number] [place] [address]- 2296 Sep, [facility] [place] [facility] [address] [id number] [place] [address]- 1073 Sep, [facility] [place] [facility] [address] [id number] [place] [address]- 3636 Aug, [facility] [place] [facility] [address] [id number] [place] [address]- 7410 Aug, [facility] [place] [facility] [address] [id number] [place] [address]- 1360 Aug, [facility] [place] [facility] [address] [id number] [place] [address]- 2507 Aug, [facility] [place] [facility] [address] [id number] [place] [address]- 4774 Aug, [facility] [place] [facility] [address] [id number] [place] [address]- 6756 Aug, [facility] [place] [facility] [address] [id number] [place] [address]- 2547 Aug, [facility] [place] [facility] [address] [id number] [place] [address]- 2546 Aug, [facility] [place] [facility] [address] [id number] [place] [address]- 2546 Aug, [facility] [place] [facility] [address] [id number] [place] [address]- 3702 Jul, 2014 [facility] [place] [facility] [address] [id number] [place] [address]- 7565 Jul, 2014 [facility] [place] [facility] [address] [id number] [place] [address]- 3826 Jul, 2014 [facility] [place] [facility] [address] [facility] [id number] [place] [address]- 9086 Jul, 2014 [facility] [place] [facility] [address] [id number] [place] [address]- 8312 Jul, 2014 [facility] [place] [facility] [address] [id number] [place] [address]- 3122 Jul, 2014 [facility] [place] [facility] [address] [facility] [id number] [place] [address]- 3663 Jul, [facility] [place] [facility] [address] [facility] [id number] [place] [address]- 3749 Jul, [facility] [place] [facility] [address] [facility] [id number] [place] [address]- 8823 Jun, [facility] [place] [facility] [address] [facility] [id number] [place] [address]- 5469 Jun, [facility] [place] [facility] [address] [facility] [id number] [place] [address]- 7362 Jun, [facility] [place] [facility] [address] [facility] [id number] [place] [address]- 9209 Jun, [facility] [place] [facility] [address] [facility] [id number], [place] [address]- 0758 Jun, [facility] [place] [facility] [address] [id number], [place] [address]- 6657 Jun, [facility] [place] [facility] [address] [facility] [id number], [place] [address]- 9151 Jun, [facility] [place] [facility] [address] [facility] [id number], [place] [address]- 3672 Jun, [facility] [place] [facility] [address] [id number] [place] [address]- 2562 Jun, [facility] [place] [facility] [address] [id number] [place] [address]- 6656 Jun, [facility] [place] [facility] [address] [id number] [place] [address]- 8881 Jun, [facility] [place] [facility] [address] [id number] [place] [address]- 4096 Jun, [facility] [place] [facility] [address] [id number] [place] [address]- 0116 May, [facility] [place] [facility] [address] [id number] [place] [address]- 5693 May, [facility] [place] [facility] [address] [id number] [place] [address]- 0174 May, [facility] [place] [facility] [address] [id number] [place] [address]- 8222 May, [facility] [place] [facility] [address] [id number] [place] [address]- 0835 May, [facility] [place] [facility] [address] [id number] [place] [address]- 1456 May, [facility] [place] [facility] [address] [id number] [place] [address]- 9591 15 May, 2014 [facility] [place] [facility] [address] [id number] [place] [address]- 6416 15 May, 2014 [facility] [place] [facility] [address] [id number] [place] [address]- 3149 12 May, 2014 [facility] [place] [facility] [address] [id number] [place] [address]- 5516 08 May, 2014 [facility] [place] [facility] [address] [id number] [place] [address]- 8866 08 May, 2014 [facility] [place] [facility] [address] [id number] [place] [address]- 6222 May, [facility] [place] [facility] [address] [id number] [place] [address]- 3569 May, [facility] [place] [facility] [address] [id number] [place] [address]- 6798 Apr, [facility] [place] [facility] [address] [facility] [id number] [place] [address]- 7971 Apr, [facility] [place] [facility] [address] [id number] [place] [address]- 9936 Apr, [facility] [place] [facility] [address] [id number] [place] [address]- 5328 Apr, [facility] [place] [facility] [address] [id number] [place] [address]- 1361 Apr, [facility] [place] [facility] [address] [id number] [place] [address]- 8493 Apr, [facility] [place] [facility] [address] [id number], [place] [address]- 4330 Mar, [facility] [place] [facility] [address] [id number], [place] [address]- 0166 Mar, [facility] [place] [facility] [address] [id number], [place] [address]- 3291 Mar, [facility] [place] [facility] [address] [id number], [place] [address]- 8553 Mar, [facility] [place] [facility] [address] [id number], [place] [address]- 1728 Feb, [facility] [place] [facility] [address] [id number] [place] [address]- 0581 Feb, [facility] [place] [facility] [address] [id number], [place] [address]- 3641 Feb, [facility] [place] [facility] [address] [id number], [place] [address]- 2335 Feb, [facility] [place] [facility] [address] [id number] [place] [address]- 4621 Feb, [facility] [place] [facility] [address] [id number] [place] [address]- 5275 Feb, [facility] [place] [facility] [address] [id number] [place] [address]- 8287 Jan, [facility] [place] [facility] [address] [id number] [place] [address]- 8778 Jan, [facility] [place] [facility] [address] [id number] [place] [address]- 2510 Dec, [facility] [place] [facility] [address] [id number] [place] [address]- 9293 Dec, [facility] [place] [facility] [address] [id number] [place] [address]- 6094 Nov, [facility] [place] [facility] [address] [id number] [place] [address]- 9778 Nov, [facility] [place] [facility] [address] [id number] [place] [address]- 3196 Nov, [facility] [place] [facility] [address] [id number] [place] [address]- 9209 October, [facility] [place] [facility] [address] [id number] [place] [address]- 4396 October, [facility] [place] [facility] [address] [id number] [place] [address]- 4919 Sep, [facility] [place] [facility] [address] [id number] [place] [address]- 6786 Sep, [facility] [place] [facility] [address] [id number] [place] [address]- 9536 Sep, [facility] [place] [facility] [address] [id number] [place] [address]- 1705 Sep, [facility] [place] [facility] [address] [id number] [place] [address]- 0029 Sep, [facility] [place] [facility] [address] [id number] [place] [address]- 6897 Sep, [facility] [place] [facility] [address] [id number] [place] [address]- 5593 Sep, [facility] [place] [facility] [address] [id number] [place] [address]- 8731 Sep, [facility] [place] [facility] [address] [id number] [place] [address]- 0428 Sep, [facility] [place] [facility] [address] [id number] [place] [address]- 4418 Sep, [facility] [place] [facility] [address] [id number] [place] [address]- 5478 Aug, [facility] [place] [facility] [address] [id number] [place] [address]- 5765 Aug, [facility] [place] [facility] [address] [id number] [place] [address]- 3050 Jul, [facility] [place] [facility] [address] [id number] [place] [address]- 0475 Jul, [facility] [place] [facility] [address] [id number] [place] [address]- 5426 Apr, [facility] [place] [facility] [address] [id number] [place] [address]- 1415 Apr, [facility] [place] [facility] [address] [id number], [place] [address]- 9484 Mar, [facility] [place] [facility] [address] [id number] [place] [address]- 4882 Mar, [facility] [place] [facility] [address] [id number] [place] [address]- 1316 Feb, [facility] [place] [facility] [address] [id number] [place] [address]- 9342 Jan, [facility] [place] [facility] [address] [id number], [place] [address]- 5254 Jan, [facility] [place] [facility] [address] [id number] [place] [address]- 2743 Dec, [facility] [place] [facility] [address] [id number] [place] [address] Jul, [facility] [place] [facility] [address] [facility] [id number] [place] [address] Jun, [facility] [place] [facility] [address] [id number] [place] [address] May, [facility] [place] [facility] [address] [id number] [place] [address], [place] [address] May, [facility] [place] [facility] [address] [id number] [place] [address] May, [facility] [address] [facility] [id number] [place] [address], [place] [address] May, [facility] [place] [facility] [address] [facility] [id number] [place] [address] May, [facility] [place] [facility] [address] [facility] [id number] [place] [address] Apr, [facility] [place] [facility] [address] [facility] [id number] [place] [address] Apr, [facility] [place] [facility] [address] [facility] [id number], [place] [address] 19 Mar, 2012 [facility] [place] [facility] [address] [id number], [place] [address] 18 Mar, 2012 [facility] [place] [facility] [address] [id number] [place] [address] 17 Mar, 2012 [facility] [place] [facility] [address] [facility] [id number], [place] [address] 17 Mar, 2012 [facility] [place] [facility] [address] [facility] [id number], [place] [address] 16 Mar, 2012 [facility] [place] [facility] [address] [id number] [place] [address] 16 Mar, 2012 [facility] [place] [facility] [address] [id number] [place] [address]- [address] 15 Mar, 2012 [facility] [place] [facility] [address] [id number] [place] [address] 27 Feb, 2012 [facility] [place] [facility] [address] [id number] [place] [address] 26 Feb, 2012 [facility] [place] [facility] [address] [id number] [place] [address] Dec, [facility] [place] [facility] [address] [id number] [place] [address] 85[address] Dec, [facility] [place] [facility] [address] [id number] [place] [address] Nov, [facility] [place] [facility] [address] [id number] [place] [address] Nov, [facility] [place] [facility] [address] [id number] [place] [address] Nov, [facility] [place] [facility] [address] [id number] [place] [address] Nov, [facility] [place] [facility] [address] [id number] [place] [address] Nov, [facility] [place] [facility] [address] [id number] [place] [address] Sep, [facility] [place] [facility] [address] [id number] [place] [address] Aug, [facility] [place] [facility] [address] [id number] [place] [address] Jul, [facility] [place] [facility] [address] [id number] [place] [address] Jun, [facility] [place] [facility] [address] [id number] [place] [address]- [address] Jun, [facility] [address] [id number] [place] [address]- [address] Jun, [facility] [place] [facility] [address] [id number] [place] [address]- [address] Jun, [facility] [place] [facility] [address] [id number] [place] [address] May, [facility] [place] [facility] [address] [id number] [place] [address] May, [facility] [place] [facility] [address] [id number] [place] [address]- [address] May, [facility] [place] [facility] [address] [id number] [place] [address] May, [facility] [place] [facility] [address] [id number] [place] [address]- [address] May, [facility] [place] [facility] [address] [id number] [place] [address]- [address] May, [facility] [place] [facility] [address] [id number] [place] [address]- [address] Mar, [facility] [place] [facility] [address] [id number] [place] [address]- [address] Mar, [facility] [place] [facility] [address] [id number], [place] [address] Jun, [facility] [place] [facility] [address] [id number], [place] [address] May, [facility] [place] [facility] [address] [id number] [place] [address] May, [facility] [place] [facility] [address] [id number] [place] [address]- [address] Apr, [facility] [place] [facility] [address] [id number] [place] [address]- [address] Apr, [facility] [place] [facility] [address] [facility] [id number] [place] [address] Mar, [facility] [address] [facility] [id number] [place] [address] Mar, [facility] [address] [facility] [id number] [place] [address] Jul, IMMUNIZATIONS No Known Immunizations SOCIAL HISTORY Never Assessed REASON FOR VISIT Controlled Med Refill PLAN OF CARE VITAL SIGNS MEDICATIONS Medication [...]
--- OUTSIDE RECORDS SUMMARY | 2018-07-17 11:14 | XMS REPORT ---
Author Author ISREAL MORELAND [facility] Address [address] [place] [address] Care Team Providers Care Car Ferry Master Name Role Phone ISREAL MORELAND Unavailable PROBLEMS Type Condition ICD9-CM Code GHX32-PL Code Onset Dates Condition Status SNOMED Code Problem Acquired hypothyroidism E03.9 Active 495765706 Problem Diabetes E11.9 Active 322066159 Problem Anxiety disorder, unspecified F41.9 Active [id number] ALLERGIES No Information ENCOUNTERS Encounter Location Date Diagnosis [place] [address] [address] Aug, [facility] [address] [address]- [address] Jul, [facility] [address] [address]- [address] Jun, [facility] [address] [address]- [address] Jun, Diabetes E11.9 and Drug-induced acute pancreatitis with uninfected necrosis K85.31 [facility] [address] [place] [id number] [place] [address] 86922- 1479 May, [facility] [address] [address]- [address] Apr, [facility] [address] [address] Apr, Crushing injury of right foot, initial encounter S97.81XA [facility] [address] [place] [id number] [place] [address] 73379- 0455 Feb, [facility] [address] [address]- [address] Feb, [facility] [address] [place] [id number] [address] Feb, Acute non-recurrent pansinusitis J01.40 [facility] [address] [address] 04[address] Feb, [facility] [address] [id number] [place] [address] 97665- 8187 Jan, [facility] [id number] [place] [address] 19041- 0952 Nov, [facility] [id number] [place] [address] 73427- 4810 October, [facility] [address] [place] [id number] [place] [address] 57200- 6783 October, Diabetes E11.9 ; Anxiety disorder, unspecified F41.9 and Acquired hypothyroidism E03.9 [facility] [address] [address] 18[address] October, [facility] [address] [place] [id number] [place] [address] 61452- 8013 Sep, [facility] [address] [id number] [address] 8030 Sep, [facility] [address] [address]- 68[address] Aug, [facility] [id number] [address]- 8331 Jul, [facility] [address] [address]- 6357 Jul, [facility] [address] [address]- 9980 Jul, [facility] [address] [address]- 0013 Jul, [facility] [address] [id number] [place] [address] 99412- 4782 Jul, Acute non-recurrent maxillary sinusitis J01.00 [facility] [address] [place] [address] [id number] [place] [address] 00667- 6135 Jul, [facility] [address] [place] [id number] [place] [address] 17603- 6338 Jun, [facility] [address] [id number] [place] [address] 08570- 1998 May, [facility] [address] [place] [id number] [place] [address] 54994- 4908 Apr, [facility] [address] [place] [address] [id number] [place] [address] 10005- 5604 Mar, Diabetes E11.9 [facility] [address] [place] [address] [id number] [place] [address] 38334- 8862 28 Feb, 2016 Pelvic pain R10.2 ; Leukocytosis, unspecified D72.829 ; Constipation, unspecified constipation type K59.00 and History of pancreatitis Z87.19 [facility] [address] [place] [id number] [place] [address] 98956- 7629 22 Feb, 2016 [facility] [address] [place] [address] [id number] [place] [address] 75707- 1477 14 Feb, 2016 Diabetes E11.9 [facility] [address] [place] [id number] [place] [address] 26110- 1437 13 Feb, 2016 [facility] [address] [place] [address] [id number] [place] [address] 58590- 1122 2016 Vaginal yeast infection B37.3 [facility] [address] [place] [id number] [place] [address] 35146- 8359 08 Feb, 2016 [facility] [address] [place] [address] [id number] [place] [address] 74219- 6909 30 Jan, 2016 Diabetes E11.9 [facility] [address] [place] [address] [id number] [place] [address] 02275- 5691 Jan, Anxiety disorder, unspecified F41.9 [facility] [address] [address]- 6574 Jan, Vaginal yeast infection B37.3 [facility] [address] [place] [id number] [address]- 3028 Jan, [facility] [address] [place] [address] [id number] [place] [address] 81590- 4406 Dec, Anxiety disorder, unspecified F41.9 [facility] [address] [place] [id number] [place] [address] 35322- 8757 Dec, Vaginal yeast infection B37.3 [facility] [address] [place] [address] 159822- 2968 Nov, Anxiety disorder, unspecified F41.9 [facility] [address] [place] [id number] [place] [address] 79881- 5633 Nov, Anxiety disorder, unspecified F41.9 [facility] [address] [place] [address] 33396- 3089 October, Anxiety disorder, unspecified F41.9 [facility] [address] [place] [address] 37370- 9802 October, Diabetes E11.9 [facility] [address] [address]- 4238 Sep, Anxiety disorder, unspecified F41.9 [facility] [address] [address]- 4282 Sep, [facility] [id number] [place] [address] 42304- 8160 Aug, Vaginal yeast infection B37.3 [facility] [address] [place] [address] [id number] 7716 Aug, [facility] [address] [place] [address] 54198- 7594 Jul, [facility] [address] [address]- 3052 Jun, [facility] [address] [place] [address] [id number] [place] [address] 84300- 8403 Jun, [facility] [address] [place] [address] [id number] [place] [address] 639314- 9993 Jun, [facility] [address] [place] [address] [id number] [place] [address] 12616- 9856 May, [facility] [address] [place] [address] [id number] [place] [address] 48564- 8825 Apr, Diabetes E11.9 ; Acquired hypothyroidism E03.9 ; Hyperlipidemia, unspecified hyperlipidemia E78.5 and Anxiety F41.9 [facility] [address] [place] [address] [id number] [place] [address] 76022- 6729 Apr, [facility] [address] [place] [address] [id number] [place] [address] 37483- 7836 Mar, [facility] [address] [place] [address] [id number] [place] [address] 75935- 1230 Feb, [facility] [address] [place] [address] [id number] [place] [address] 573528- 3159 Feb, [facility] [address] 9680 Jan, [facility] [address] [place] [id number] [place] [address] 75615- 6437 Dec, [facility] [id number] [place] [address] 77927- 6553 Dec, DUB (dysfunctional uterine bleeding) 626.8 and Pap test, as part of routine gynecological examination V76.2 [facility] [address] [address]- 4406 Dec, [facility] [address] [place] [id number] [place] [address] 54640- 8158 Dec, [facility] [address] [id number] [place] [address]- 5463 Nov, [facility] [address] [id number] [place] [address]- 1973 Nov, [facility] [address] [facility] [id number] [place] [address]- 2355 Nov, Diabetes 250.00 [facility] [address] [id number] [place] [address]- 8466 Nov, [facility] [address] [id number] [place] [address]- 8993 October, [facility] [address] [id number] [place] [address]- 9192 October, Diabetes 250.00 [facility] [address] [id number] [place] [address]- 5599 October, [facility] [address] [id number] [place] [address]- 6523 October, [facility] [address] [id number] [place] [address]- 2774 October, [facility] [address] [facility] [id number] [place] [address]- 9470 October, [facility] [address] [id number] [place] [address]- 2356 October, [facility] [address] [id number] [place] [address]- 4810 Sep, [facility] [address] [id number] [place] [address]- 6284 Sep, [facility] [address] [id number] [place] [address]- 1020 Sep, [facility] [address] [id number] [place] [address]- 8962 Aug, [facility] [place] [facility] [address] [id number] [place] [address]- 9925 Aug, 2014 [facility] [place] [facility] [address] [id number] [place] [address]- 8614 Aug, 2014 [facility] [place] [facility] [address] [id number] [place] [address]- 1239 Aug, 2014 [facility] [place] [facility] [address] [id number] [place] [address]- 9507 Aug, 2014 [facility] [place] [facility] [address] [id number] [place] [address]- 9089 Aug, 2014 [facility] [place] [facility] [address] [id number] [place] [address]- 2075 Aug, 2014 [facility] [place] [facility] [address] [facility] [id number] [place] [address]- 5447 Aug, 2014 [facility] [place] [facility] [address] [id number] [place] [address]- 8536 Aug, 2014 [facility] [place] [facility] [address] [id number] [place] [address]- 0002 Jul, 2014 [facility] [place] [facility] [address] [facility] [id number] [place] [address]- 9663 Jul, 2014 [facility] [place] [facility] [address] [facility] [id number] [place] [address]- 5227 Jul, 2014 [facility] [place] [facility] [address] [facility] [id number] [address]- 5103 Jul, 2014 [facility] [place] [facility] [address] [facility] [id number] [place] [address]- 3094 Jul, 2014 [facility] [place] [facility] [address] [id number] [place] [address]- 7813 Jul, 2014 [facility] [place] [facility] [address] [facility] [id number] [place] [address]- 0225 Jul, 2014 [facility] [place] [facility] [address] [facility] [id number] [address]- 8789 Jul, [facility] [place] [facility] [address] [id number] [place] [address]- 3775 Jun, [facility] [place] [facility] [address] [id number] [place] [address]- 9401 Jun, [facility] [place] [facility] [address] [id number] [place] [address]- 2394 Jun, [facility] [place] [facility] [address] [id number] [place] [address]- 1737 Jun, [facility] [place] [facility] [address] [id number] [place] [address]- 1471 Jun, [facility] [place] [facility] [address] [id number] [place] [address]- 0121 Jun, [facility] [place] [facility] [address] [id number] [place] [address]- 5594 Jun, [facility] [place] [facility] [address] [id number] [place] [address]- 3383 Jun, [facility] [place] [facility] [address] [id number] [place] [address]- 5426 Jun, [facility] [place] [facility] [address] [id number] [place] [address]- 4791 Jun, [facility] [place] [facility] [address] [id number] [place] [address]- 2053 Jun, [facility] [place] [facility] [address] [id number] [place] [address]- 2573 Jun, [facility] [place] [facility] [address] [id number] [place] [address]- 9676 May, [facility] [place] [facility] [address] [id number] [place] [address]- 2385 May, [facility] [place] [facility] [address] [id number] [place] [address]- 4664 May, [facility] [place] [facility] [address] [id number] [place] [address]- 6025 May, [facility] [place] [facility] [address] [id number] [place] 0586 May, [facility] [place] [facility] [address] [id number] [place] 2006 May, [facility] [place] [facility] [address] [id number] [place] [address]- 8196 May, [facility] [place] [facility] [address] [id number] [place] [address]- 1484 May, [facility] [place] [facility] [address] [id number] [place] [address] May, [facility] [place] [facility] [address] [id number] [place] [address]- 4676 May, [facility] [place] [facility] [address] [id number] [place] [address]- 5047 May, [facility] [place] [facility] [address] [id number] [place] [address]- 4605 May, [facility] [place] [facility] [address] [id number] [place] [address]- 9687 May, [facility] [place] [facility] [address] [id number] [place] [address]- 1139 Apr, [facility] [place] [facility] [address] [id number] [place] [address]- 0720 Apr, [facility] [place] [facility] [address] [id number] [place] [address]- 0388 Apr, [facility] [place] [facility] [address] [id number] [place] [address]- 2722 Apr, [facility] [place] [facility] [address] [id number] [place] [address]- 7762 Apr, [facility] [place] [facility] [address] [id number] [place] [address]- 0075 Apr, [facility] [place] [facility] [address] [id number] [place] [address]- 6241 Mar, [facility] [place] [facility] [address] [id number] [place] [address]- 2740 Mar, [facility] [place] [facility] [address] [id number] [place] [address]- 7508 Mar, [facility] [place] [facility] [address] [id number] [place] [address]- 8159 Mar, [facility] [place] [facility] [address] [id number] [place] [address]- 9453 Feb, [facility] [place] [facility] [address] [id number] [place] [address]- 0707 Feb, [facility] [place] [facility] [address] [id number] [place] [address]- 5035 Feb, [facility] [place] [facility] [address] [id number] [place] [address]- 1336 Feb, [facility] [place] [facility] [address] [id number] [place] [address]- 4765 Feb, [facility] [place] [facility] [address] [id number] [place] [address]- 7541 Feb, [facility] [place] [facility] [address] [id number] [place] [address]- 0945 Jan, [facility] [place] [facility] [address] [id number] [address]- 1645 Jan, [facility] [place] [facility] [address] [id number] [place] [address]- 7142 Dec, [facility] [place] [facility] [address] [id number] [place] [address]- 5836 Dec, [facility] [place] [facility] [address] [id number] [place] [address]- 8475 Nov, [facility] [place] [facility] [address] [id number] [place] [address]- 0024 Nov, [facility] [place] [facility] [address] [id number] [place] [address]- 9332 Nov, [facility] [place] [facility] [address] [id number] [place] [address]- 8786 October, [facility] [place] [facility] [address] [id number] [place] [address]- 1556 October, [facility] [place] [facility] [address] [id number] [place] [address]- 3430 Sep, [facility] [place] [facility] [address] [id number] [place] [address]- 8320 Sep, [facility] [place] [facility] [address] [id number] [place] [address]- 2082 Sep, [facility] [place] [facility] [address] [id number] [place] [address]- 7795 Sep, [facility] [place] [facility] [address] [id number] [place] [address]- 4985 Sep, [facility] [place] [facility] [address] [id number] [place] [address]- 3148 Sep, [facility] [place] [facility] [address] [id number] [place] [address]- 9767 Sep, [facility] [place] [facility] [address] [id number] [place] [address]- 3128 Sep, [facility] [place] [facility] [address] [id number] [place] [address]- 6017 Sep, [facility] [place] [facility] [address] [id number] [place] [address]- 3946 Sep, [facility] [place] [facility] [address] [id number] [place] [address]- 3656 Aug, [facility] [place] [facility] [address] [id number] [place] [address]- 0355 Aug, [facility] [place] [facility] [address] [id number] [place] [address]- 3233 Jul, [facility] [address] [id number] [place] [address]- 8254 Jul, [facility] [address] [id number] [place] [address]- 6982 Apr, [facility] [place] [facility] [address] [id number] [place] [address]- 5396 Apr, [facility] [address] [id number] [place] [address]- 4870 Mar, [facility] [place] [facility] [address] [id number] [place] [address]- 8265 Mar, [facility] [address] [id number] [place] [address]- 7458 Feb, [facility] [address] [id number] [place] [address]- 8226 Jan, [facility] [address] [id number] [place] [address]- 8748 Jan, [facility] [address] [id number] [place] [address]- 5971 Dec, [facility] [place] [facility] [address] [id number] [place] [address]- 0438 Jul, [facility] [place] [facility] [address] [id number] [place] [address]- 5446 Jun, [facility] [place] [facility] [address] [id number] [place] [address]- 6731 May, [facility] [place] [facility] [address] [id number] [place] [address]- 3976 May, [facility] [place] [facility] [address] [id number] [place] [address]- 2546 May, [facility] [place] [facility] [address] [id number] [place] [address]- 0734 May, [facility] [place] [facility] [address] [id number] [place] [address]- 5121 May, [facility] [place] [facility] [address] [id number] [place] 5616 Apr, [facility] [place] [facility] [address] [id number] [place] [address]- 5465 Apr, [facility] [place] [facility] [address] [id number] [place] [address]- 9578 19 Mar, 2012 [facility] [place] [facility] [address] [id number] [place] [address]- 2345 18 Mar, 2012 [facility] [place] [facility] [address] [id number] [place] [address]- 1187 17 Mar, 2012 [facility] [place] [facility] [address] [id number] [place] [address]- 0232 17 Mar, 2012 [facility] [place] [facility] [address] [id number] [place] [address]- 9274 16 Mar, 2012 [facility] [place] [facility] [address] [id number] [place] [address]- 3939 16 Mar, 2012 [facility] [place] [facility] [address] [id number] [place] [address]- 8141 15 Mar, 2012 [facility] [place] [facility] [address] [id number] [address] Feb, [facility] [place] [facility] [address] [id number] [place] [address] Feb, [facility] [place] [facility] [address] [id number] [place] [address] Dec, [facility] [place] [facility] [address] [id number] [place] [address] Dec, [facility] [place] [facility] [address] [id number] [place] Nov, [facility] [place] [facility] [address] [id number] [place] [address] Nov, [facility] [address] [id number] [place] [address] Nov, [facility] [place] [facility] [address] [id number] [place] [address] Nov, [facility] [address] [id number] [place] [address] Nov, [facility] [address] [id number] [place] [address] Sep, [facility] [address] [id number] [place] [address] Aug, [facility] [address] [id number] [place] [address] Jul, [facility] [address] [id number] [place] [address] Jun, [facility] [address] [id number] [place] [address] Jun, [facility] [address] [id number] [place] [address] Jun, [facility] [address] [id number] [place] [address] Jun, [facility] [address] [id number] [place] [address] May, [facility] [address] [id number] [place] [address] May, [facility] [place] [facility] [address] [id number] [place] [address] May, [facility] [address] [id number] [place] [address] May, [facility] [address] [id number] [place] [address] May, [facility] [address] [facility] [id number] [address] May, [facility] [address] [facility] [id number] [place] [address] Mar, [facility] [address] [facility] [id number] [place] [address] Mar, [facility] [address] [facility] [id number] [place] [address] Jun, [facility] [address] [facility] [id number] [place] [address] May, [facility] [address] [facility] [id number] [place] [address] May, [facility] [id number] [address] Apr, [facility] [id number] [address] Apr, [facility] [id number] [address] Mar, [facility] [id number] [address] Mar, [facility] [address] [id number] [address] Jul, IMMUNIZATIONS No Known Immunizations SOCIAL HISTORY [...]
--- OUTSIDE RECORDS SUMMARY | 2018-07-17 11:14 | XMS REPORT ---
Author Author ISREAL MORELAND Organization [facility] Address [address] [place] [address] Care Team Providers Care Chopper Operator Name Role Phone ISREAL MORELAND Unavailable PROBLEMS Type Condition ICD9-CM Code WCV90-QG Code Onset Dates Condition Status SNOMED Code Problem Acquired hypothyroidism E03.9 Active 436040534 Problem Diabetes E11.9 Active 950300162 Problem Anxiety disorder, unspecified F41.9 Active 882213749 ALLERGIES No Information SOCIAL HISTORY Never Assessed PLAN OF CARE VITAL SIGNS MEDICATIONS Medication Instructions Dosage Frequency Start Date End Date Duration Status Victorino Contour Test - GWA27-E89.9 2 times a day- 3 times weekly. test blood sugar Jul, Active RESULTS No Results PROCEDURES No Known [...]
--- OUTSIDE RECORDS SUMMARY | 2018-07-17 11:14 | XMS REPORT ---
Author Author ISREAL MORELAND [facility] Address [address] [place] [address] Care Team Providers Care Events Traffic Controller Name Role Phone ISREAL MORELAND Unavailable PROBLEMS Type Condition ICD9-CM Code PFR07-RO Code Onset Dates Condition Status SNOMED Code Problem Anxiety disorder, unspecified F41.9 Active 036455061 ALLERGIES Unknown Allergies SOCIAL HISTORY No smoking Hx information available PLAN OF CARE VITAL SIGNS MEDICATIONS Medication Instructions Dosage Frequency Start Date End Date Duration Status Xanax 1 MG Orally Once a day 1 tablet 24h Sep, 28 days Active RESULTS No Results PROCEDURES No Known procedures IMMUNIZATIONS No Known Immunizations
--- OUTSIDE RECORDS SUMMARY | 2018-07-17 11:15 | XMS REPORT ---
Author Author ISREAL MORELAND Organization [facility] Address [address] [place] [address] Care Team Providers Care Pmp Project Manager Name Role Phone ISREAL MORELAND Unavailable PROBLEMS Type Condition ICD9-CM Code DHL50-KE Code Onset Dates Condition Status SNOMED Code Problem Acquired hypothyroidism E03.9 Active 829259976 Problem Diabetes E11.9 Active 863293327 Problem Anxiety disorder, unspecified F41.9 Active 888270846 ALLERGIES No Information SOCIAL HISTORY Never Assessed [...]
--- OUTSIDE RECORDS SUMMARY | 2018-07-17 11:15 | XMS REPORT ---
Author Author IRSEAL MORELAND Organization [facility] Address [address] [place] [address] Care Team Providers Care Bag Inspector Name Role Phone ISREAL MORELAND Unavailable PROBLEMS Type Condition ICD9-CM Code VCR30-ZL Code Onset Dates Condition Status SNOMED Code Problem Acquired hypothyroidism E03.9 Active 816495309 Problem Diabetes E11.9 Active 435509847 Problem Anxiety disorder, unspecified F41.9 Active 506061492 ALLERGIES Substance Reaction Event Type Date Status Sulfamethoxazole-Trimethoprim anaphylaxis Drug Allergy October, Active SOCIAL HISTORY Never Assessed PLAN OF CARE Activity Details Follow Up 4 Months Reason:DM VITAL SIGNS Height 62 in 2016-10-23 Weight 148.9 lbs 2016-10-23 Temperature 98.1 degrees Fahrenheit 2016-10-23 Heart Rate 82 bpm 2016-10-23 Respiratory Rate 20 2016-10-23 BMI 27.23 kg/m2 2016-10-23 Blood pressure systolic 124 mmHg 2016-10-23 Blood pressure diastolic 74 mmHg 2016-10-23 MEDICATIONS Medication Instructions Dosage Frequency Start Date End Date Duration Status MetFORMIN HCl ER 500 MG TAKE TWO TABLETS BY MOUTH TWICE DAILY WITH MEALS. MUST BE TEVA BRAND 30 Active Ibuprofen 800 MG Orally Once a day 1 tablet 24h Active Cinnamon 500 MG Orally 2 times a day 2 capsules 12h Active Potassium 99 MG Orally Once a day 1 tablet 24h Active Glucocard Expression Test - as directed 12h October, Feb, 60 days Active Victorino Contour Test - OXI62-Z73.9 2 times a day- 3 times weekly. test blood sugar Jul, Active Glucocard Expression Monitor w/Device as directed October, Active Xanax 1 MG Orally Once a day 1 tablet 24h Sep, 28 days Active Amaryl 2 MG TAKE TWO TABLETS BY MOUTH TWICE DAILY 30 Active RESULTS Name Result Date Reference Range A1C (IN HOUSE) 2016-10-23 A1C IN HOUSE 9.6 4.3 - 5.6 % Previous A1c 10.0 Lot [id number] Exp date 06/2018 MICROALBUMIN, URINE (IN HOUSE) 2016-10-23 MICROALBUMIN normal Lot # [id number] Exp date 3-18 Clarity clear Color yellow ALB 30 CRE 200 A:C (IN HOUSE) <30 Control + Control Lot # Exp date TSH 2016-10-23 TSH 2.320 0.450-4.500 CMP 2016-10-23 Glucose, Serum 337 65-99 BUN 14 6-24 Creatinine, Serum 0.80 0.57-1.00 eGFR If NonAfricn Am 86 >59 eGFR If Africn Am 99 >59 BUN/Creatinine Ratio 18 9-23 Sodium, Serum 138 134-144 Potassium, Serum 4.4 3.5-5.2 Chloride, Serum 97 96-106 Carbon Dioxide, Total 24 18-29 Calcium, Serum 9.8 8.7-10.2 Protein, Total, Serum 7.6 6.0-8.5 Albumin, Serum 4.3 3.5-5.5 Globulin, Total 3.3 1.5-4.5 A/G Ratio 1.3 1.2-2.2 Bilirubin, Total 0.2 0.0-1.2 Alkaline Phosphatase, S 99 39-117 AST (SGOT) 23 0-40 ALT (SGPT) 35 0-32 PROCEDURES Procedure Date Ordered Result Body Site GLYCATED HEMOGLOBIN TEST October 23, 2016 MICROALBUMIN, SEMIQUANT October 23, 2016 COMPREHEN METABOLIC PANEL October 23, 2016 ASSAY THYROID STIM HORMONE October 23, 2016 VENIPUNCT, ROUTINE* October 23, 2016 IMMUNIZATIONS No Known Immunizations MEDICAL (GENERAL) HISTORY [...]
--- OUTSIDE RECORDS SUMMARY | 2018-07-17 11:15 | XMS REPORT ---
Author Author ISREAL MORELAND Organization [facility] Address [address] [place] [address] Care Team Providers Care Police Commissioner Name Role Phone ISREAL MORELAND Unavailable PROBLEMS Type Condition ICD9-CM Code BLA88-LW Code Onset Dates Condition Status SNOMED Code Problem Acquired hypothyroidism E03.9 Active 113417810 Problem Diabetes E11.9 Active 572222911 Problem Anxiety disorder, unspecified F41.9 Active 910559874 ALLERGIES No Information SOCIAL HISTORY Never Assessed PLAN OF CARE VITAL SIGNS MEDICATIONS Medication Instructions Dosage Frequency Start Date End Date Duration Status Diflucan 150 MG Orally one time 1 tablet Jul, Aug, 03 days Active RESULTS No Results PROCEDURES No [...]
--- OUTSIDE RECORDS SUMMARY | 2018-07-17 11:15 | XMS REPORT ---
Author Author ISREAL MORELAND Organization [facility] Address [address] [place] [address] Care Team Providers Care Aboriginal Education Worker Coordinator Name Role Phone ISREAL MORELAND Unavailable PROBLEMS Type Condition ICD9-CM Code OTO45-RC Code Onset Dates Condition Status SNOMED Code Problem Acquired hypothyroidism E03.9 Active 632511171 Problem Diabetes E11.9 Active 772470982 Problem Anxiety disorder, unspecified F41.9 Active 097116471 ALLERGIES No Information SOCIAL HISTORY Never Assessed [...]
--- OUTSIDE RECORDS SUMMARY | 2018-07-17 11:15 | XMS REPORT ---
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 Finisher Helper Name Role Phone ISREAL MORELAND CP Unavailable Allergies, Adverse Reactions, Alerts Substance Reaction Event Type Sulfamethoxazole-Trimethoprim anaphylaxis Drug Allergy Problems Problem Type Condition Code Onset Dates Condition Status Assessment Pelvic pain R10.2 Active Problem Anxiety state, unspecified 300.00 Active Problem Pure hyperglyceridemia 272.1 Active Problem Diabetes 250.00 Active Problem Dysuria 788.1 Active Problem Anxiety disorder, unspecified F41.9 Active Problem Other chronic nonalcoholic liver disease 571.8 Active Problem Unspecified episodic mood disorder 296.90 Active Problem Other bursitis disorders 727.3 Active Problem Lumbago 724.2 Active Assessment History of pancreatitis Z87.19 Active Assessment Constipation, unspecified constipation type K59.00 Active Assessment Leukocytosis, unspecified D72.829 Active Medications Medication Code System Code Instructions Start Date End Date Status Dosage Xanax [facility] [address]-58 1 MG Orally Once a day September 24, 2015 1 tablet Potassium [facility] [address]-70 99 MG Orally Once a day 1 tablet Amaryl [facility] [address]-81 2 MG Orally 2 times a day 2 tablets with meals MetFORMIN HCl ER [facility] 36643912980 500 MG Orally 2 times a day 2 tablet with morning and evening meal Procedures Procedure Coding System Code Date URINALYSIS, AUTO, W/O SCOPE CPT-4 79340 Mar 15, 2016 COMPLETE CBC W/AUTO DIFF WBC CPT-4 04640 Mar 15, 2016 X-RAY EXAM OF ABDOMEN CPT-4 33750 Mar 15, 2016 Office Visit, Est Pt., Level 3 CPT-4 01336 Mar 15, 2016 ASSAY OF AMYLASE CPT-4 95404 Mar 15, 2016 ASSAY OF LIPASE CPT-4 19799 Mar 15, 2016 VENIPUNCT, ROUTINE* CPT-4 13995 Mar 15, 2016 COMPREHEN METABOLIC PANEL CPT-4 92562 Mar 15, 2016 Vital Signs Date/Time: Mar 15, 2016 Cardiac Monitoring Heart Rate 88 bpm Weight 143.8 lbs Height 62 in BMI 26.30 Index Blood Pressure Diastolic 74 mmHg Blood Pressure Systolic 118 mmHg Results Name Result Date Reference Range Unit Abnormality Flag LIPASE ----Lipase, Serum 47 20160315 0-59 U/L CBC ----Basos 0 06596833 % ----MCV 85 12030759 79-97 fL ----Hematocrit 35.6 52719242 34.0-46.6 % ----Eos 1 93857370 % ----MCHC 33.1 49181943 31.5-35.7 g/dL ----Monocytes 6 49606360 % ----MCH 28.2 70532921 26.6-33.0 pg ----Lymphs 11 51661280 % ----Eos (Absolute) 0.0 36981443 0.0-0.4 x10E3/uL ----WBC 5.3 17459682 3.4-10.8 x10E3/uL ----Monocytes(Absolute) 0.3 22397380 0.1-0.9 x10E3/uL ----Lymphs (Absolute) 0.6 66100460 0.7-3.1 x10E3/uL L ----Hemoglobin 11.8 03106275 11.1-15.9 g/dL ----Neutrophils (Absolute) 4.3 14596674 1.4-7.0 x10E3/uL ----RBC 4.18 34388404 3.77-5.28 x10E6/uL ----Immature Grans (Abs) 0.1 09741919 0.0-0.1 x10E3/uL ----Immature Granulocytes 1 55899252 % ----Neutrophils 81 98639314 % ----Baso (Absolute) 0.0 88930522 0.0-0.2 x10E3/uL ----RDW 14.0 55698081 12.3-15.4 % ----Platelets 187 50194114 150-379 x10E3/uL UA LONG DIP (IN HOUSE) ----KARY Negative 20160315 ----NIT Negative 20160315 ----SG 1.010 20160315 ----KET Negative 20160315 ----KARINE Negative 20160315 ----GLU 2+ 20160315 ----Odor None 20160315 ----pH 6.5 20160315 ----BLO Trace-intact 20160315 ----URO 0.2 20160315 ----Protein Negative 20160315 ----Lot # [id number] ----Exp date 20160315 ----Clarity Clear 20160315 ----Color Yellow 20160315 AMYLASE ----Amylase, Serum 49 20160315 31-124 U/L CMP ----Potassium, Serum 4.4 20160315 3.5-5.2 mmol/L ----Sodium, Serum 136 20160315 134-144 mmol/L ----BUN/Creatinine Ratio 21 2016031523 ----eGFR If Africn Am 127 64133636 >59 mL/min/1.73 ----eGFR If NonAfricn Am 110 05138650 >59 mL/min/1.73 ----Creatinine, Serum 0.53 20160315 0.57-1.00 mg/dL L ----BUN 11 20160315 6-24 mg/dL ----Glucose, Serum 351 20160315 65-99 mg/dL H ----AST (SGOT) 18 20160315 0-40 IU/L ----Globulin, Total 3.7 20160315 1.5-4.5 g/dL ----ALT (SGPT) 22 20160315 0-32 IU/L ----A/G Ratio 1.1 20160315 1.1-2.5 ----Bilirubin, Total 0.3 20160315 0.0-1.2 mg/dL ----Alkaline Phosphatase, S 119 20160315 39-117 IU/L H ----Carbon Dioxide, Total 23 20160315 18-29 mmol/L ----Calcium, Serum 9.2 20160315 8.7-10.2 mg/dL ----Protein, Total, Serum 7.8 20160315 6.0-8.5 g/dL ----Albumin, Serum 4.1 20160315 3.5-5.5 g/dL ----Chloride, Serum 94 41108906 97-108 mmol/L L Xray : MANISH (IN HOUSE) Summary Purpose [employer] Submission
--- OUTSIDE RECORDS SUMMARY | 2018-07-17 11:15 | XMS REPORT ---
Author Author ISREAL MORELAND Organization [employer] Address Unknown Phone Unavailable Care Team Providers Care Economics Professor Name Role Phone ISREAL MORELAND CP Unavailable Allergies, Adverse Reactions, Alerts Substance Reaction Event Type Sulfamethoxazole-Trimethoprim anaphylaxis Drug Allergy Problems Problem Type Condition Code Onset Dates Condition Status Problem Anxiety disorder, unspecified F41.9 Active Assessment Diabetes E11.9 Active Problem Diabetes E11.9 Active Medications Medication Code System Code Instructions Start Date End Date Status Dosage MetFORMIN HCl ER [facility] 33929522945 500 MG Orally 2 times a day 2 tablet with morning and evening meal Xanax [facility] [address]-04 1 MG Orally Once a day September 24, 2015 1 tablet Cinnamon [facility] [address]-48 500 MG Orally 2 times a day 2 capsules Amaryl [facility] [address]-09 2 MG Orally 2 times a day 2 tablets with meals Potassium [facility] [address]-58 99 MG Orally Once a day 1 tablet Ibuprofen [facility] [address]-59 800 MG Orally Once a day 1 tablet Procedures Procedure Coding System Code Date Office Visit, Est Pt., Level 3 CPT-4 86289 Mar 29, 2016 Vital Signs Date/Time: Mar 29, 2016 Cardiac Monitoring Heart Rate 86 bpm Weight 141.3 lbs Height 62 in BMI 25.84 Index Blood Pressure Diastolic 60 mmHg Blood Pressure Systolic 90 mmHg Results No Known Results Summary Purpose [employer] Submission
--- OUTSIDE RECORDS SUMMARY | 2018-07-17 11:16 | XMS REPORT ---
Author Author ISREAL MORELAND [facility] Address [address] [place] [address] Care Team Providers Care Vp Training Name Role Phone ISREAL MORELAND Unavailable PROBLEMS Type Condition ICD9-CM Code HQW27-FD Code Onset Dates Condition Status SNOMED Code Problem Hypertriglyceridemia E78.1 Active 493016947 Problem Status post cholecystectomy Z90.49 Active 551878306 Problem Anxiety disorder, unspecified F41.9 Active 776455967 Problem Acquired hypothyroidism E03.9 Active 893516626 Problem Diabetes E11.9 Active 847220856 ALLERGIES No Information ENCOUNTERS Encounter Location Date Diagnosis [place] [id number] [address]- [address] Dec, [facility] [address] [place] [id number] [place] [address] 46930- 0521 Nov, [place] [address] [address]- 9313 Nov, Ketoacidosis E87.2 ; Status post cholecystectomy Z90.49 ; Diabetes E11.9 ; Acquired hypothyroidism E03.9 ; Hypertriglyceridemia E78.1 and Vaginal yeast infection B37.3 [place] [address] [place] [id number] [place] [address] 81747- 4470 October, [place] [address] [place] [id number] [place] [address] 80183- 9406 Sep, [facility] [address] 0[address]- 0534 Aug, [facility] [address] [place] [address] [id number] [place] [address] 77317- 8336 Jul, [place] [address] 93013- 1176 Jun, [facility] [id number] [place] [address] 91692- 1030 Jun, Diabetes E11.9 and Drug-induced acute pancreatitis with uninfected necrosis K85.31 [facility] [address] [id number] [place] [address] 78057- 2447 May, [facility] [id number] [place] [address] 39697- 0780 Apr, [facility] [id number] [place] [address] 14343 -4223 Apr, Crushing injury of right foot, initial encounter S97.81XA [facility] [id number] [place] [address] 98360- 8604 Feb, [facility] [id number] [place] [address] 37812- 0177 Feb, [facility] [id number] [place] [address] 98946 -7820 Feb, Acute non-recurrent pansinusitis J01.40 [facility] [address] [place] [id number] [place] [address] 23149- 8551 Feb, [facility] [id number] [place] [address] 60479- 7695 Jan, [facility] [id number] [place] [address] 33805- 7395 Nov, [facility] [address] [id number] [place] [address] 27217- 2205 October, [facility] [address] 63600- 1134 October, Diabetes E11.9 ; Anxiety disorder, unspecified F41.9 and Acquired hypothyroidism E03.9 [facility] [address] [id number] [place] [address] 03926- 2495 October, [facility] [id number] [address]- 1128 Sep, [facility] [address] [id number] [place] [address] 50914- 2704 Sep, [facility] [address] [place] [id number] [place] [address] 44014- 4774 Aug, [facility] [address] [place] [id number] [place] [address] 74799- 5633 Jul, [facility] [address] [id number] [place] [address] 98087- 7230 Jul, [facility] [address] [place] [id number] [place] [address] 93056- 3300 Jul, [facility] [address] [id number] [place] [address] 77099- 1982 Jul, [facility] [address] [place] [id number] [place] [address] 79287- 2203 Jul, Acute non-recurrent maxillary sinusitis J01.00 [facility] [id number] [place] [address] 02818- 9580 Jul, [facility] [id number] [address]- 1654 Jun, [facility] [address] [address]- 1303 May, [facility] [address] [place] [id number] [place] [address] 51437- 2675 Apr, [facility] [id number] [place] [address] 53971- 9317 Mar, Diabetes E11.9 [facility] [id number] [place] [address] 15090- 9952 28 Feb, 2016 Pelvic pain R10.2 ; Leukocytosis, unspecified D72.829 ; Constipation, unspecified constipation type K59.00 and History of pancreatitis Z87.19 [facility] [address] [facility] [id number] [address]- 5173 22 Feb, 2016 [facility] [address] [facility] [id number] [address]- 6476 14 Feb, 2016 Diabetes E11.9 [facility] [address] [facility] [id number] [address] 2546 13 Feb, 2016 [facility] [address] [facility] [id number] [address] 2545 2016 Vaginal yeast infection B37.3 [facility] [address] [facility] [id number] [place] [address]- 6936 08 Feb, 2016 [facility] [address] [place] [id number] [address]- 5962 Jan, Diabetes E11.9 [facility] [address] [place] [id number] [address]- 7368 Jan, Anxiety disorder, unspecified F41.9 [facility] [address] [facility] [id number] [address]- 1086 Jan, Vaginal yeast infection B37.3 [facility] [address] [facility] [id number] [address]- 6038 Jan, [facility] [address] [place] [id number] [address]- 7222 Dec, Anxiety disorder, unspecified F41.9 [facility] [address] [place] [id number] [address]- 6775 Dec, Vaginal yeast infection B37.3 [facility] [address] [facility] [id number] [place] [address]- 8340 Nov, Anxiety disorder, unspecified F41.9 [facility] [address] [facility] [id number] [place] [address]- 6461 Nov, Anxiety disorder, unspecified F41.9 [facility] [address] [place] [id number] [place] [address] 20540- 6828 October, Anxiety disorder, unspecified F41.9 [facility] [id number] [place] [address] 16458- 3911 October, Diabetes E11.9 [facility] [address] [place] [id number] [place] [address] 50991- 4650 Sep, Anxiety disorder, unspecified F41.9 [facility] [address] [place] [id number] [place] [address] 60941- 2474 Sep, [facility] [address] [place] [address] [id number] [place] [address] 32370- 5510 Aug, Vaginal yeast infection B37.3 [facility] [address] [place] [id number] [place] [address] 50665- 3986 Aug, [facility] [address] [place] [id number] [place] [address] 57145- 2275 Jul, [facility] [address] [place] [id number] [place] [address] 03270- 2958 Jun, [facility] [address] [place] [address] [id number] [place] [address] 39701- 2366 Jun, [facility] [address] [place] [id number] [place] [address] 43721- 4358 Jun, [facility] [id number] [place] [address] 60436- 0857 May, [facility] [address] [place] [address] [id number] [place] [address] 34215- 6016 Apr, Diabetes E11.9 ; Acquired hypothyroidism E03.9 ; Hyperlipidemia, unspecified hyperlipidemia E78.5 and Anxiety F41.9 [facility] [id number] [place] [address] 89222- 8776 Apr, [facility] [id number] [place] [address] 22334- 3305 Mar, [facility] [address] [place] [id number] [place] [address] [place] [address]- 2546 Feb, [facility] [address] [address]- 2546 Feb, [facility] [address] [address]- 2546 Jan, [facility] [address] [place] [id number] [place] [address] 74202- 2546 Dec, [facility] [address] [place] [id number] [place] [address] 93238- 2546 Dec, DUB (dysfunctional uterine bleeding) 626.8 and Pap test, as part of routine gynecological examination V76.2 [facility] [id number] [place] [address] 76714- 5496 Dec, [facility] [address] [place] [address] [id number] [place] [address] 20526- 8156 Dec, [facility] [id number] [place] [address] 02835- 1676 Nov, [facility] [address] [address]- 4526 Nov, [facility] [address] [place] [id number] [address]- 5176 Nov, Diabetes 250.00 [facility] [id number] [address] 2546 Nov, [facility] [address] [address]- 2546 October, [facility] [address] [address] 2546 October, Diabetes 250.00 [facility] [address] [address] 2546 October, [facility] [address] [address]- 2546 October, [facility] [place] [facility] [address] [id number] [place] [address] 2546 October, [facility] [place] [facility] [address] [id number] [place] [address]- 9887 October, [facility] [place] [facility] [address] [id number] [place] [address]- 2546 October, [facility] [place] [facility] [address] [id number] [place] [address]- 4541 Sep, [facility] [place] [facility] [address] [id number] [place] [address]- 8305 Sep, [facility] [place] [facility] [address] [id number] [place] [address]- 5487 Sep, [facility] [place] [facility] [address] [id number] [place] [address]- 6791 Aug, [facility] [place] [facility] [address] [id number] [place] [address]- 5769 Aug, [facility] [place] [facility] [address] [id number] [place] [address]- 1199 Aug, [facility] [place] [facility] [address] [id number] [place] [address]- 1886 Aug, [facility] [place] [facility] [address] [id number] [place] [address]- 3822 Aug, [facility] [place] [facility] [address] [id number] [place] [address]- 5516 Aug, [facility] [place] [facility] [address] [id number] [place] [address]- 2545 Aug, [facility] [place] [facility] [address] [id number] [place] [address]- 2546 Aug, [facility] [place] [facility] [address] [id number] [place] [address]- 2546 Aug, [facility] [place] [facility] [address] [id number] [place] [address]- 1211 Jul, 2014 [facility] [place] [facility] [address] [id number] [place] [address]- 4274 Jul, 2014 [facility] [place] [facility] [address] [id number] [place] [address]- 6836 Jul, 2014 [facility] [place] [facility] [address] [facility] [id number] [place] [address]- 3926 Jul, 2014 [facility] [place] [facility] [address] [id number] [place] [address]- 3675 Jul, 2014 [facility] [place] [facility] [address] [id number] [place] [address]- 0153 Jul, 2014 [facility] [place] [facility] [address] [facility] [id number] [place] [address]- 7979 Jul, [facility] [place] [facility] [address] [facility] [id number] [place] [address]- 4916 Jul, [facility] [place] [facility] [address] [facility] [id number] [place] [address]- 9916 Jun, [facility] [place] [facility] [address] [facility] [id number] [place] [address]- 6945 Jun, [facility] [place] [facility] [address] [facility] [id number] [place] [address]- 0759 Jun, [facility] [place] [facility] [address] [facility] [id number] [place] [address]- 0101 Jun, [facility] [place] [facility] [address] [facility] [id number] [place] [address]- 5481 Jun, [facility] [place] [facility] [address] [id number] [place] [address]- 6891 Jun, [facility] [place] [facility] [address] [facility] [id number] [place] [address]- 5960 Jun, [facility] [place] [facility] [address] [facility] [id number] [place] [address]- 8249 Jun, [facility] [place] [facility] [address] [id number] [place] [address]- 6648 Jun, [facility] [place] [facility] [address] [id number] [place] [address]- 1102 Jun, [facility] [place] [facility] [address] [id number] [place] [address]- 4034 Jun, [facility] [place] [facility] [address] [id number] [place] [address]- 3483 Jun, [facility] [place] [facility] [address] [id number] [place] [address]- 4451 May, [facility] [place] [facility] [address] [id number] [place] [address]- 0942 May, [facility] [place] [facility] [address] [id number] [place] [address]- 5917 May, [facility] [place] [facility] [address] [id number] [place] [address]- 3452 May, [facility] [place] [facility] [address] [id number] [place] [address]- 9889 May, [facility] [place] [facility] [address] [id number] [place] [address]- 7244 May, [facility] [place] [facility] [address] [id number] [place] [address]- 2088 15 May, 2014 [facility] [place] [facility] [address] [id number] [place] [address]- 8850 15 May, 2014 [facility] [place] [facility] [address] [id number] [place] [address]- 6847 12 May, 2014 [facility] [place] [facility] [address] [id number] [place] [address]- 2644 08 May, 2014 [facility] [place] [facility] [address] [id number] [place] [address]- 5535 08 May, 2014 [facility] [place] [facility] [address] [id number] [place] [address]- 2420 May, [facility] [place] [facility] [address] [id number] [place] [address]- 8804 May, [facility] [place] [facility] [address] [id number] [place] [address]- 3098 Apr, [facility] [place] [facility] [address] [facility] [id number] [place] [address]- 2617 Apr, [facility] [place] [facility] [address] [id number] [place] [address]- 2687 Apr, [facility] [place] [facility] [address] [id number] [place] [address]- 2245 Apr, [facility] [place] [facility] [address] [id number] [place] [address]- 7449 Apr, [facility] [place] [facility] [address] [id number] [place] [address]- 8324 Apr, [facility] [place] [facility] [address] [id number] [place] [address]- 3723 Mar, [facility] [place] [facility] [address] [id number] [place] [address]- 9796 Mar, [facility] [place] [facility] [address] [id number] [place] [address]- 8106 Mar, [facility] [place] [facility] [address] [id number] [place] [address]- 7224 Mar, [facility] [place] [facility] [address] [id number] [place] [address]- 5711 Feb, [facility] [place] [facility] [address] [id number] [place] [address]- 2114 Feb, [facility] [place] [facility] [address] [id number] [place] [address]- 8179 Feb, [facility] [place] [facility] [address] [id number] [place] [address]- 5778 Feb, [facility] [place] [facility] [address] [id number] [place] [address]- 6316 Feb, [facility] [place] [facility] [address] [id number] [place] [address]- 1198 Feb, [facility] [place] [facility] [address] [id number] [place] [address]- 9534 Jan, [facility] [place] [facility] [address] [id number] [place] [address]- 5240 Jan, [facility] [place] [facility] [address] [id number] [place] [address]- 0434 Dec, [facility] [place] [facility] [address] [id number] [place] [address]- 4047 Dec, [facility] [place] [facility] [address] [id number] [place] [address]- 2901 Nov, [facility] [place] [facility] [address] [id number] [place] [address]- 4980 Nov, [facility] [place] [facility] [address] [id number] [place] [address]- 7048 Nov, [facility] [place] [facility] [address] [id number] [place] [address]- 6753 October, [facility] [place] [facility] [address] [id number] [place] [address]- 2546 October, [facility] [place] [facility] [address] [id number] [place] [address]- 5625 Sep, [facility] [place] [facility] [address] [id number] [place] [address]- 6539 Sep, [facility] [place] [facility] [address] [id number] [place] [address]- 4945 Sep, [facility] [place] [facility] [address] [id number] [place] [address]- 5190 Sep, [facility] [place] [facility] [address] [id number] [place] [address]- 6949 Sep, [facility] [place] [facility] [address] [id number] [place] [address]- 1487 Sep, [facility] [place] [facility] [address] [id number] [place] [address]- 7854 Sep, [facility] [place] [facility] [address] [id number] [place] [address]- 2000 Sep, [facility] [place] [facility] [address] [id number] [place] [address] Sep, [facility] [place] [facility] [address] [id number] [place] [address] Sep, [facility] [place] [facility] [address] [id number] [place] [address] Aug, [facility] [place] [facility] [address] [id number] [place] [address] Aug, [facility] [place] [facility] [address] [id number] [place] [address] Jul, [facility] [place] [facility] [address] [id number] [place] [address] Jul, [facility] [place] [facility] [address] [id number] [place] [address] Apr, [facility] [place] [facility] [address] [id number] [place] [address] Apr, [facility] [place] [facility] [address] [id number] [place] [address] Mar, [facility] [place] [facility] [address] [id number] [place] [address] Mar, [facility] [place] [facility] [address] [id number] [place] [address] Feb, [facility] [place] [facility] [address] [id number] [place] [address] Jan, [facility] [place] [facility] [address] [id number] [place] [address] Jan, [facility] [place] [facility] [address] [id number] [place] [address] Dec, [facility] [place] [facility] [address] [id number] [place] [address] Jul, [facility] [place] [facility] [address] [facility] [id number] [place] [address] Jun, [facility] [place] [facility] [address] [id number] [place] [address] May, [facility] [place] [facility] [address] [id number] [place] [address], [place] [address]- [address] May, [facility] [place] [facility] [address] [id number] [place] [address] May, [facility] [address] [facility] [id number] [place] [address], [place] [address] May, [facility] [place] [facility] [address] [facility] [id number] [place] [address] May, [facility] [place] [facility] [address] [facility] [id number] [place] [address] Apr, [facility] [place] [facility] [address] [facility] [id number] [place] [address] Apr, [facility] [place] [facility] [address] [facility] [id number] [place] [address] 19 Mar, 2012 [facility] [place] [facility] [address] [id number] [place] [address] 18 Mar, 2012 [facility] [place] [facility] [address] [id number] [place] [address] 17 Mar, 2012 [facility] [place] [facility] [address] [facility] [id number] [place] [address] 17 Mar, 2012 [facility] [place] [facility] [address] [facility] [id number] [place] [address] 16 Mar, 2012 [facility] [place] [facility] [address] [id number] [place] [address]- [address] 16 Mar, 2012 [facility] [place] [facility] [address] [id number] [place] [address] 15 Mar, 2012 [facility] [place] [facility] [address] [id number] [place] [address] 27 Feb, 2012 [facility] [place] [facility] [address] [id number] [place] [address] 1466 26 Feb, 2012 [facility] [place] [facility] [address] [id number] [place] [address] Dec, [facility] [place] [facility] [address] [id number] [place] [address] Dec, [facility] [place] [facility] [address] [id number] [place] [address] 49[address] Nov, [facility] [place] [facility] [address] [id number] [place] [address] Nov, [facility] [place] [facility] [address] [id number] [place] [address]- [address] Nov, [facility] [place] [facility] [address] [id number] [place] [address]- [address] Nov, [facility] [place] [facility] [address] [id number] [place] [address]- [address] Nov, [facility] [place] [facility] [address] [id number] [place] [address] Sep, [facility] [place] [facility] [address] [id number] [place] [address]- [address]679 Aug, [facility] [place] [facility] [address] [id number] [place] [address] Jul, [facility] [place] [facility] [address] [id number] [place] [address]- [address] Jun, [facility] [place] [facility] [address] [id number] [place] [address]- [address] Jun, [facility] [address] [id number] [place] [address]- [address] Jun, [facility] [place] [facility] [address] [id number] [place] [address]- [address] Jun, [facility] [place] [facility] [address] [id number] [place] [address]- 2010 May, [facility] [place] [facility] [address] [id number] [place] [address]- [address] May, [facility] [place] [facility] [address] [id number] [place] [address]- 1726 May, [facility] [place] [facility] [address] [id number] [place] [address] May, [facility] [place] [facility] [address] [id number] [place] [address]- 25[address] May, [facility] [place] [facility] [address] [id number] [place] [address] May, [facility] [place] [facility] [address] [id number] [place] [address] Mar, [facility] [place] [facility] [address] [id number] [place] [address] Mar, [facility] [place] [facility] [address] [id number] [place] [address] Jun, [facility] [place] [facility] [address] [id number] [place] [address] May, [facility] [place] [facility] [address] [id number] [place] [address]- [address] May, [facility] [place] [facility] [address] [id number] [place] [address]- [address] Apr, [facility] [place] [facility] [address] [id number] [place] [address]- [address] Apr, [facility] [place] [facility] [address] [facility] [id number] [place] [address] Mar, [facility] [address] [facility] [id number] [place] [address] Mar, [facility] [address] [facility] [id number] [place] [address] Jul, IMMUNIZATIONS No Known Immunizations SOCIAL HISTORY Never Assessed REASON FOR VISIT Controlled Med Refill 07/11/17 PLAN OF CARE VITAL SIGNS MEDICATIONS Medication [...]
--- OUTSIDE RECORDS SUMMARY | 2018-07-17 11:16 | XMS REPORT ---
Author Author ISREAL MORELAND [facility] Address [address] [place] [address] Care Team Providers Care Travelift Operator Name Role Phone ISREAL MORELAND Unavailable PROBLEMS Type Condition ICD9-CM Code PGX17-ME Code Onset Dates Condition Status SNOMED Code Problem Acquired hypothyroidism E03.9 Active 618295864 Problem Diabetes E11.9 Active 142482430 Problem Anxiety disorder, unspecified F41.9 Active 574811408 ALLERGIES Unknown Allergies SOCIAL HISTORY No smoking Hx information available PLAN OF CARE VITAL SIGNS MEDICATIONS Medication Instructions Dosage Frequency Start Date End Date Duration Status Xanax 1 MG Orally Once a day 1 tablet 24h Sep, 28 days Active RESULTS No Results PROCEDURES No Known procedures IMMUNIZATIONS No Known Immunizations
--- OUTSIDE RECORDS SUMMARY | 2018-07-17 11:16 | XMS REPORT ---
Author Author ISREAL MORELAND Organization [employer] Address Unknown Phone Unavailable Care Team Providers Care Centrifugal Chiller Technician Name Role Phone ISREAL MORELAND CP Unavailable Allergies No Known Allergies Problems Problem Type Condition Code Onset Dates Condition Status Assessment Anxiety disorder, unspecified F41.9 Active Problem Anxiety state, unspecified 300.00 Active [...] Start Date End Date Status Dosage Xanax [facility] [id number] 1 MG Orally Once a day September 24, 2015 1 tablet Results No Known Results Summary Purpose [employer] Submission
--- OUTSIDE RECORDS SUMMARY | 2018-07-17 11:16 | XMS REPORT ---
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 Technical Name Role Phone RADHA MEYERS Unavailable PROBLEMS Type Condition ICD9-CM Code WWN99-HT Code Onset Dates Condition Status SNOMED Code Problem Acquired hypothyroidism E03.9 Active 661170090 Problem Diabetes E11.9 Active 372078469 Problem Anxiety disorder, unspecified F41.9 Active 279440648 ALLERGIES Substance Reaction Event Type Date Status Sulfamethoxazole-Trimethoprim anaphylaxis Drug Allergy Feb, Active ENCOUNTERS Encounter Location Date Diagnosis [facility] [id number] [place] [address] 00644- 7826 Sep, [facility] [id number] [place] [address] 85152- 1103 Aug, [facility] [id number] [place] [address] 87717- 1980 Jul, [facility] [id number] [place] [address] 83873- 3581 Jun, [facility] [id number] [place] [address] 77471- 6120 Jun, Diabetes E11.9 and Drug-induced acute pancreatitis with uninfected necrosis K85.31 [facility] [id number] [place] [address] 83916- 9883 May, [facility] [id number] [place] [address] 09612- 7147 Apr, [facility] [id number] [place] [address] 10898 -5253 10 Apr, 2017 Crushing injury of right foot, initial encounter S97.81XA [facility] [address] [address] 4254 Feb, [facility] [id number] [address] 9583 Feb, [facility] [id number] [address] Feb, Acute non-recurrent pansinusitis J01.40 [facility] [id number] [place] [address] 94559- 4092 Feb, [facility] [id number] [place] [address] 36145- 2073 Jan, [facility] [id number] [place] [address] 64823- 0713 Nov, [facility] [id number] [place] [address] 60024- 7328 October, [facility] [id number] [place] [address] 19507- 4591 October, Diabetes E11.9 ; Anxiety disorder, unspecified F41.9 and Acquired hypothyroidism E03.9 [facility] [address] [address] 7714 October, [facility] [id number] [address] 6376 Sep, [facility] [id number] [address] 9413 Sep, [facility] [id number] [address] 9861 Aug, [facility] [id number] [place] [address] 84973- 6653 Jul, [facility] [address] [address] 9501 Jul, [facility] [id number] [place] [address] 27896- 0744 Jul, [facility] [address] [address] 3704 Jul, [facility] [id number] [place] [address] 87108- 9092 Jul, Acute non-recurrent maxillary sinusitis J01.00 [facility] [id number] [place] [address] 97430- 5805 Jul, [facility] [id number] [place] [address] 36586- 7178 Jun, [facility] [id number] [place] [address] 78794- 1484 May, [facility] [id number] [place] [address] 84057- 5303 Apr, [facility] [id number] [place] [address] 93030- 0799 Mar, Diabetes E11.9 [facility] [id number] [place] [address] 54868- 5236 28 Feb, 2016 Pelvic pain R10.2 ; Leukocytosis, unspecified D72.829 ; Constipation, unspecified constipation type K59.00 and History of pancreatitis Z87.19 [facility] [address] [address] 5421 Feb, [facility] [id number] [place] [address] 63839- 9126 14 Feb, 2016 Diabetes E11.9 [facility] [address] [address]- 2201 13 Feb, 2016 [facility] [id number] [place] [address] 55017- 2481 2016 Vaginal yeast infection B37.3 [facility] [address] [address]- 2768 08 Feb, 2016 [facility] [id number] [address]- 8523 Jan, Diabetes E11.9 [facility] [address], [place] [address]- 7945 Jan, Anxiety disorder, unspecified F41.9 [facility] [id number] [address]- 7485 Jan, Vaginal yeast infection B37.3 [facility] [address] [address]- 4530 Jan, [facility] [id number] [address]- 8967 Dec, Anxiety disorder, unspecified F41.9 [facility] [address] [address]- 3835 Dec, Vaginal yeast infection B37.3 [facility] [id number] [place] [address] 81486- 6050 Nov, Anxiety disorder, unspecified F41.9 [facility] [address] [address]- 0598 Nov, Anxiety disorder, unspecified F41.9 [facility] [address] [address]- 3443 October, Anxiety disorder, unspecified F41.9 [facility] [address] [address]- 7740 October, Diabetes E11.9 [facility] [id number] [address]- 4286 Sep, Anxiety disorder, unspecified F41.9 [facility] [address] [address]- 0929 Sep, [facility] [id number] [address]- 8425 Aug, Vaginal yeast infection B37.3 [facility] [id number] [address]- 9833 Aug, [facility] [id number] [place] [address] 22542- 2017 Jul, [facility] [id number] [place] [address] 41360- 5180 Jun, [facility] [id number] [place] [address] 58084- 4865 Jun, [facility] [id number] [place] [address] 62791- 1185 Jun, [facility] [id number] [place] [address] 00614- 2845 May, [facility] [id number] [place] [address] 46333- 2070 Apr, Diabetes E11.9 ; Acquired hypothyroidism E03.9 ; Hyperlipidemia, unspecified hyperlipidemia E78.5 and Anxiety F41.9 [facility] [id number] [place] [address] 06613- 2568 Apr, [facility] [id number] [place] [address] 71991- 1118 Mar, [facility] [id number] [place] [address] 27943- 1173 Feb, [facility] [id number] [place] [address] 05527- 6206 Feb, [facility] [id number] [place] [address] 13974- 7876 Jan, [facility] [id number] [place] [address] 90172- 5001 Dec, [facility] [id number] [place] [address] 320679- 7220 Dec, DUB (dysfunctional uterine bleeding) 626.8 and Pap test, as part of routine gynecological examination V76.2 [facility] [address] [address] [address]- 2128 Dec, [facility] [address] [id number] [place] [address]- 0035 Dec, [facility] [address] [id number] [place] [address]- 6146 Nov, [facility] [address] [id number] [place] [address]- 1106 Nov, [facility] [address] [id number] [place] [address]- 2948 Nov, Diabetes 250.00 [facility] [address] [id number] [place] [address]- 0436 Nov, [facility] [address] [facility] [id number] [place] [address]- 5242 October, [facility] [address] [facility] [id number] [place] [address]- 1110 October, Diabetes 250.00 [facility] [address] [id number] [place] [address]- 6469 October, [facility] [address] [facility] [id number] [place] [address]- 2587 October, [facility] [address] [facility] [id number] [place] [address]- 5956 October, [facility] [address] [facility] [id number] [place] [address]- 4926 October, [facility] [address] [id number] [place] [address]- 1050 October, [facility] [address] [id number] [place] [address]- 0496 Sep, [facility] [address] [id number] [place] [address]- 9276 14 Sep, 2014 [facility] [address] [id number] [place] [address]- 3883 Sep, [facility] [place] [facility] [address] [id number] [place] [address]- 7497 Aug, [facility] [place] [facility] [address] [id number] [place] [address]- 2436 Aug, [facility] [place] [facility] [address] [facility] [id number] [place] [address]- 8713 Aug, [facility] [place] [facility] [address] [id number] [place] [address]- 9677 Aug, [facility] [place] [facility] [address] [id number] [place] [address]- 2449 Aug, [facility] [place] [facility] [address] [id number] [place] [address]- 9868 Aug, [facility] [place] [facility] [address] [facility] [id number] [place] [address]- 5597 Aug, [facility] [place] [facility] [address] [id number] [place] [address]- 6429 Aug, [facility] [place] [facility] [address] [facility] [id number] [place] [address]- 8784 Aug, [facility] [place] [facility] [address] [facility] [id number] [place] [address]- 9053 Jul, 2014 [facility] [place] [facility] [address] [facility] [id number] [address]- 6327 Jul, 2014 [facility] [place] [facility] [address] [id number], [place] [address]- 8036 Jul, 2014 [facility] [place] [facility] [address] [id number] [place] [address]- 0043 Jul, 2014 [facility] [place] [facility] [address] [facility] [id number] [place] [address]- 6051 Jul, 2014 [facility] [place] [facility] [address] [facility] [id number] [place] [address]- 4275 Jul, 2014 [facility] [place] [facility] [address] [id number] [place] [address]- 5256 Jul, [facility] [place] [facility] [address] [id number] [place] [address]- 3268 Jul, [facility] [place] [facility] [address] [id number] [place] [address]- 9621 Jun, [facility] [place] [facility] [address] [id number] [place] [address]- 8674 Jun, [facility] [place] [facility] [address] [id number] [place] [address]- 1417 Jun, [facility] [place] [facility] [address] [id number] [place] [address]- 9582 Jun, [facility] [place] [facility] [address] [id number] [place] [address]- 4773 Jun, [facility] [place] [facility] [address] [id number] [place] [address]- 5095 Jun, [facility] [place] [facility] [address] [id number] [place] [address]- 3283 Jun, [facility] [place] [facility] [address] [id number] [place] [address]- 0913 Jun, [facility] [place] [facility] [address] [id number] [place] [address]- 7277 Jun, [facility] [place] [facility] [address] [id number] [place] [address]- 0660 Jun, [facility] [place] [facility] [address] [id number] [place] [address]- 1944 Jun, [facility] [place] [facility] [address] [id number] [place] [address]- 1907 Jun, [facility] [place] [facility] [address] [id number] [place] [address]- 7631 May, [facility] [place] [facility] [address] [id number] [place] [address]- 0356 May, [facility] [place] [facility] [address] [id number] [place] 8098 May, [facility] [place] [facility] [address] [id number] [place] [address]- 8416 May, [facility] [place] [facility] [address] [id number] [place] [address]- 2186 May, [facility] [place] [facility] [address] [id number] [place] [address]- 6621 May, [facility] [place] [facility] [address] [id number] [place] [address]- 4646 15 May, 2014 [facility] [place] [facility] [address] [id number] [place] [address]- 1032 May, [facility] [place] [facility] [address] [id number] [place] [address]- 6917 May, [facility] [place] [facility] [address] [id number] [place] [address]- 6182 May, [facility] [place] [facility] [address] [id number] [place] [address]- 4085 May, [facility] [place] [facility] [address] [id number] [place] [address]- 0911 May, [facility] [place] [facility] [address] [id number] [place] [address]- 9622 May, [facility] [place] [facility] [address] [id number], [place] [address]- 3756 Apr, [facility] [place] [facility] [address] [id number] [place] [address]- 1305 Apr, [facility] [place] [facility] [address] [id number] [place] [address]- 0979 Apr, [facility] [place] [facility] [address] [id number] [place] [address]- 1261 Apr, [facility] [place] [facility] [address] [id number] [place] [address]- 5963 Apr, [facility] [place] [facility] [address] [id number] [place] [address]- 0860 Apr, [facility] [place] [facility] [address] [id number] [place] [address]- 2997 Mar, [facility] [place] [facility] [address] [id number] [place] [address]- 3511 Mar, [facility] [place] [facility] [address] [id number] [place] [address]- 3137 Mar, [facility] [place] [facility] [address] [id number] [place] [address]- 2152 Mar, [facility] [place] [facility] [address] [id number] [place] [address]- 1940 Feb, [facility] [place] [facility] [address] [id number] [place] [address]- 2318 Feb, [facility] [place] [facility] [address] [id number] [place] [address]- 0760 Feb, [facility] [place] [facility] [address] [id number] [place] [address]- 4897 Feb, [facility] [place] [facility] [address] [id number] [place] [address]- 0715 Feb, [facility] [place] [facility] [address] [id number] [place] [address]- 1405 Feb, [facility] [place] [facility] [address] [id number] [place] [address]- 9143 Jan, [facility] [place] [facility] [address] [id number] [place] [address]- 2672 Jan, [facility] [place] [facility] [address] [id number] [place] [address]- 3315 Dec, [facility] [place] [facility] [address] [id number] [place] [address]- 0874 Dec, [facility] [place] [facility] [address] [id number] [place] [address]- 8002 Nov, [facility] [place] [facility] [address] [id number] [place] [address]- 8678 Nov, [facility] [place] [facility] [address] [id number] [place] [address]- 0198 Nov, [facility] [place] [facility] [address] [id number] [place] [address]- 8292 October, [facility] [place] [facility] [address] [id number] [place] [address]- 7982 October, [facility] [place] [facility] [address] [id number] [place] [address]- 6290 Sep, [facility] [place] [facility] [address] [id number] [place] [address]- 3016 Sep, [facility] [place] [facility] [address] [id number] [place] [address]- 0080 Sep, [facility] [place] [facility] [address] [id number] [place] [address]- 6274 Sep, [facility] [place] [facility] [address] [id number] [place] [address]- 4479 Sep, [facility] [place] [facility] [address] [id number] [place] [address]- 0463 Sep, [facility] [place] [facility] [address] [id number] [place] [address]- 7720 Sep, [facility] [place] [facility] [address] [id number] [place] [address]- 1532 Sep, [facility] [place] [facility] [address] [id number] [place] [address]- 0317 Sep, [facility] [place] [facility] [address] [id number] [place] [address]- 2577 Sep, [facility] [place] [facility] [address] [id number] [place] [address]- 3983 Aug, [facility] [address] [id number] [place] [address]- 9932 Aug, [facility] [place] [facility] [address] [id number] [place] [address]- 9100 Jul, [facility] [place] [facility] [address] [id number] [place] [address]- 4483 Jul, [facility] [place] [facility] [address] [id number] [place] [address]- 2138 Apr, [facility] [place] [facility] [address] [id number] [place] [address]- 6297 Apr, [facility] [place] [facility] [address] [id number] [place] 8881 Mar, [facility] [place] [facility] [address] [id number] [place] [address]- 4928 Mar, [facility] [place] [facility] [address] [id number] [place] [address]- 4112 Feb, [facility] [place] [facility] [address] [facility] [id number] [place] [address]- 5798 Jan, [facility] [place] [facility] [address] [facility] [id number] [place] [address]- 1158 Jan, [facility] [place] [facility] [address] [id number] [place] [address]- 7886 Dec, [facility] [place] [facility] [address] [id number] [place] [address] 2544 Jul, [facility] [place] [facility] [address] [id number] [place] [address]- 7804 Jun, [facility] [place] [facility] [address] [id number] [place] [address]- 1668 May, [facility] [place] [facility] [address] [id number] [place] [address]- 1066 May, [facility] [place] [facility] [address] [id number] [place] [address]- 4407 19 May, 2012 [facility] [place] [facility] [address] [id number] [place] [address]- 3942 May, [facility] [place] [facility] [address] [id number] [place] [address]- 8662 May, [facility] [place] [facility] [address] [id number] [place] [address]- 6486 Apr, [facility] [place] [facility] [address] [id number] [place] 5506 Apr, [facility] [place] [facility] [address] [id number] [place]608 19 Mar, 2012 [facility] [place] [facility] [address] [id number] [place] [address]- 6109 18 Mar, 2012 [facility] [place] [facility] [address] [id number] [place] [address] 17 Mar, 2012 [facility] [place] [facility] [address] [id number] [place] [address] 17 Mar, 2012 [facility] [place] [facility] [address] [id number] [place] [address] 16 Mar, 2012 [facility] [place] [facility] [address] [id number] [place] [address] 16 Mar, 2012 [facility] [place] [facility] [address] [id number] [place] [address] 15 Mar, 2012 [facility] [place] [facility] [address] [id number] [place] [address] 27 Feb, 2012 [facility] [place] [facility] [address] [id number] [place] [address] Feb, [facility] [place] [facility] [address] [id number] [place] [address] Dec, [facility] [place] [facility] [address] [id number] [place] [address] Dec, [facility] [address] [id number] [place] [address] Nov, [facility] [place] [facility] [address] [id number] [place] [address] Nov, [facility] [place] [facility] [address] [facility] [id number] [place] [address] Nov, [facility] [place] [facility] [address] [id number] [place] [address] Nov, [facility] [place] [facility] [address] [id number] [place] [address] Nov, [facility] [place] [facility] [address] [id number] [place] [address] Sep, [facility] [place] [facility] [address] [facility] [id number] [place] [address] Aug, [facility] [place] [facility] [address] [id number] [place] [address] Jul, [facility] [place] [facility] [address] [id number] [place] [address] Jun, [facility] [place] [facility] [address] [id number] [place] [address] Jun, [facility] [place] [facility] [address] [id number], [place] [address] Jun, [facility] [place] [facility] [address] [id number], [place] [address] Jun, [facility] [place] [facility] [address] [id number] [place] [address] May, [facility] [place] [facility] [address] [id number] [place] [address] May, [facility] [place] [facility] [address] [facility] [id number] [place] [address] May, [facility] [place] [facility] [id number] [address] 08 May, 2011 [facility] [id number] [address] 08 May, 2011 [facility] [id number] [address] May, [facility] [id number] [address] Mar, [facility] [id number] [address] Mar, [facility] [id number] [place] [address] Jun, [facility] [id number] [address] May, [facility] [id number] [address] May, [facility] [id number] [address] Apr, [facility] [id number] [address] Apr, [facility] [id number] Mar, [facility] [id number] [address] Mar, [facility] [id number] [address] Jul, IMMUNIZATIONS No Known Immunizations SOCIAL HISTORY Never Assessed REASON FOR VISIT Sinus Drainage and cough started Sat [facility] PLAN OF CARE Activity Details Follow Up prn Reason: VITAL SIGNS Height 62 in 2017-03-06 Weight 154.6 lbs 2017-03-06 Temperature 97.9 degrees Fahrenheit 2017-03-06 Heart Rate 84 bpm 2017-03-06 Respiratory Rate 20 2017-03-06 BMI 28.27 kg/m2 2017-03-06 Blood pressure systolic 110 mmHg 2017-03-06 Blood pressure diastolic 74 mmHg 2017-03-06 MEDICATIONS Medication Instructions Dosage Frequency Start Date End Date Duration Status Victorino Contour Test - [id number] 2 times a day- 3 times weekly. test blood sugar Jul, Active Glucocard Expression Monitor w/Device as directed October, Active Cinnamon 500 MG Orally 2 times a day 2 capsules 12h Active Amaryl 2 MG TAKE TWO TABLETS BY MOUTH TWICE DAILY 90 Active Ibuprofen 800 MG Orally Once a day 1 tablet 24h Active MetFORMIN HCl ER 500 MG TAKE TWO TABLETS BY MOUTH TWICE DAILY WITH MEALS. MUST BE Chargem[employer] BRAND 30 Active Potassium 99 MG Orally Once a day 1 tablet 24h Active Xanax 1 MG Orally Once a day 1 tablet 24h Sep, 28 days Active Augmentin 875-125 MG Orally every 12 hrs 1 tablet 12h Feb,Feb 10 day(s) Active RESULTS No Results PROCEDURES [...] appendectomy Hospitalization History childbirth Hospitalization History pancreatitis 2004 Hospitalization History appendectomy Hospitalization History Anaphylaxis to Bactrim 2015
--- OUTSIDE RECORDS SUMMARY | 2018-07-17 11:17 | XMS REPORT ---
Author Author ISREAL MORELAND [facility] Address [address] [place] [address] Care Team Providers Care Roll Form Operator Name Role Phone ISREAL MORELAND Unavailable PROBLEMS Type Condition ICD9-CM Code BOQ05-IO Code Onset Dates Condition Status SNOMED Code Problem Acquired hypothyroidism E03.9 Active 857766325 Problem Diabetes E11.9 Active 731393595 Problem Anxiety disorder, unspecified F41.9 Active [id number] ALLERGIES No Information ENCOUNTERS Encounter Location Date Diagnosis [place] [address] [address] Sep, [facility] [address] [address] Aug, [facility] [address] [address]- [address] Jul, [facility] [address] [address]- [address] Jun, [facility] [address] [address]- [address] Jun, Diabetes E11.9 and Drug-induced acute pancreatitis with uninfected necrosis K85.31 [facility] [address] [place] [id number] [place] [address]1945- 3538 May, [facility] [address] [address]- [address] Apr, [facility] [address] [address] 10 Apr, 2017 Crushing injury of right foot, initial encounter S97.81XA [facility] [address] [address]- [address] Feb, [facility] [address], [place] [address] Feb, [facility] [address], [place] [address] Feb, Acute non-recurrent pansinusitis J01.40 [facility] [address], [place] [address] 118[address] Feb, [facility] [id number] [place] [address] 13584- 1638 Jan, [facility] [id number] [place] [address] 80224- 2526 Nov, [facility] [id number] [place] [address] 99552- 1597 October, [facility] [id number] [place] [address] 91204- 7499 October, Diabetes E11.9 ; Anxiety disorder, unspecified F41.9 and Acquired hypothyroidism E03.9 [facility] [address], [place] [address] October, [facility] [id number], [place] [address] Sep, [facility] [address], [place] [address] 02[address] Sep, [facility] [id number] [address] 70[address] Aug, [facility] [address], [place] [address] 1924 Jul, [facility] [address], [place] [address]- 8933 Jul, [facility] [address], [place] [address]- 2523 Jul, [facility] [id number] [place] [address] 87814- 4439 Jul, [facility] [id number] [place] [address] 70557- 3360 Jul, Acute non-recurrent maxillary sinusitis J01.00 [facility] [id number] [place] [address] 82475- 7586 Jul, [facility] [id number] [place] [address] 86622- 5527 Jun, [facility] [address] [id number] [place] [address] 68031- 5717 May, [facility] [address] [place] [id number] [place] [address] 74735- 2144 Apr, [facility] [address] [id number] [place] [address] 23061- 8938 Mar, Diabetes E11.9 [facility] [address] [place] [id number] [place] [address] 28273- 0247 28 Feb, 2016 Pelvic pain R10.2 ; Leukocytosis, unspecified D72.829 ; Constipation, unspecified constipation type K59.00 and History of pancreatitis Z87.19 [facility] [address] [place] [id number] [place] [address] 60597- 7326 22 Feb, 2016 [facility] [address] [id number] [place] [address] 08889- 6256 14 Feb, 2016 Diabetes E11.9 [facility] [id number] [place] [address] 35901- 9321 13 Feb, 2016 [facility] [address] [place] [id number] [place] [address] 31883- 3998 2016 Vaginal yeast infection B37.3 [facility] [address] [place] [id number] [place] [address] 52396- 9508 08 Feb, 2016 [facility] [address] [place] [id number] [place] [address] 83910- 9677 Jan, Diabetes E11.9 [facility] [address], [place] [address]- 0901 Jan, Anxiety disorder, unspecified F41.9 [facility] [address] [address] Jan, Vaginal yeast infection B37.3 [facility] [address] [place] [address] 60078- 7778 Jan, [facility] [id number] [place] [address] 28737- 9783 Dec, Anxiety disorder, unspecified F41.9 [facility] [address] [place] [address] 91639- 4822 Dec, Vaginal yeast infection B37.3 [facility] [address] [place] [address] 70241- 6282 Nov, Anxiety disorder, unspecified F41.9 [facility] [address] [place] [address] 72565- 6833 Nov, Anxiety disorder, unspecified F41.9 [facility] [address] [place] [address] 03438- 2745 October, Anxiety disorder, unspecified F41.9 [facility] [address], [place] [address]- 1801 October, Diabetes E11.9 [facility] [address] 2233 Sep, Anxiety disorder, unspecified F41.9 [facility] [address], [place] [address]- 3044 Sep, [facility] [address] [address] Aug, Vaginal yeast infection B37.3 [facility] [address] 80[address] Aug, [facility] [address] [place] [address]- [address] Jul, [facility] [id number] [place] [address] 44131- 2454 Jun, [facility] [id number] [place] [address] 88938- 2865 Jun, [facility] [id number] [place] [address] 67880- 8309 Jun, [facility] [id number] [place] [address] 22231- 5308 May, [facility] [address] [place] [id number] [place] [address] 07335- 9736 Apr, Diabetes E11.9 ; Acquired hypothyroidism E03.9 ; Hyperlipidemia, unspecified hyperlipidemia E78.5 and Anxiety F41.9 [facility] [id number] [place] [address] 08909- 9869 Apr, [facility] [id number] [place] [address] 71183- 2188 Mar, [facility] [address] [id number] [place] [address] 87816- 5324 Feb, [facility] [address] [place] [id number] [place] [address] 42255- 5234 Feb, [facility] [address] [id number] [place] [address] 44094- 8626 Jan, [facility] [id number] [place] [address] 02433- 8258 Dec, [facility] [address] [place] [id number] [place] [address] 12798- 1474 Dec, Pap test, as part of routine gynecological examination V76.2 and DUB (dysfunctional uterine bleeding) 626.8 [facility] [address] [id number] [place] [address] 33790- 6101 Dec, [facility] [address] [id number] [place] [address]- 7961 Dec, [facility] [address] [id number] [place] [address]- 1656 Nov, [facility] [address] [facility] [id number] [place] [address]- 5462 Nov, [facility] [address] [id number] [place] [address]- 1971 Nov, Diabetes 250.00 [facility] [address] [id number] [place] [address]- 3771 Nov, [facility] [address] [id number] [place] [address]- 4589 October, [facility] [address] [id number] [place] [address]- 9613 October, Diabetes 250.00 [facility] [address] [id number] [place] [address]- 6250 October, [facility] [address] [id number] [place] [address]- 2452 October, [facility] [address] [facility] [id number] [place] [address]- 5892 October, [facility] [address] [id number] [place] [address]- 2204 October, [facility] [address] [id number] [place] [address]- 7126 October, [facility] [address] [id number] [place] [address]- 7624 Sep, [facility] [address] [id number] [place] [address]- 2946 Sep, [facility] [address] [facility] [id number] [place] [address]- 4354 Sep, [facility] [place] [facility] [address] [id number] [place] [address]- 6679 Aug, 2014 [facility] [place] [facility] [address] [id number] [place] [address]- 5740 Aug, 2014 [facility] [place] [facility] [address] [id number] [place] [address]- 5102 Aug, 2014 [facility] [place] [facility] [address] [id number] [place] [address]- 8968 Aug, 2014 [facility] [place] [facility] [address] [id number] [place] [address]- 2567 Aug, 2014 [facility] [place] [facility] [address] [id number] [place] [address]- 1308 Aug, 2014 [facility] [place] [facility] [address] [facility] [id number] [place] [address]- 6051 Aug, 2014 [facility] [place] [facility] [address] [id number] [place] [address]- 1458 Aug, 2014 [facility] [place] [facility] [address] [id number] [place] [address]- 7204 Aug, [facility] [place] [facility] [address] [id number] [place] [address]- 1659 Jul, 2014 [facility] [place] [facility] [address] [facility] [id number] [place] [address]- 8956 Jul, 2014 [facility] [place] [facility] [address] [id number] [place] [address]- 2553 Jul, 2014 [facility] [place] [facility] [address] [id number] [place] [address]- 8058 Jul, 2014 [facility] [place] [facility] [address] [id number] [place] [address]- 2726 Jul, 2014 [facility] [place] [facility] [address] [id number] [place] [address]- 6381 Jul, 2014 [facility] [place] [facility] [address] [id number] [place] [address]- 0748 Jul, [facility] [place] [facility] [address] [id number] [place] [address]- 4781 Jul, [facility] [place] [facility] [address] [id number] [place] [address]- 1397 Jun, [facility] [place] [facility] [address] [id number] [place] [address]- 3366 Jun, [facility] [place] [facility] [address] [id number] [place] [address]- 5195 Jun, [facility] [place] [facility] [address] [id number] [place] [address]- 4391 Jun, [facility] [place] [facility] [address] [id number] [place] [address]- 3390 Jun, [facility] [place] [facility] [address] [id number] [place] [address]- 4778 Jun, [facility] [place] [facility] [address] [id number] [place] [address]- 2433 Jun, [facility] [place] [facility] [address] [id number] [place] [address]- 2901 Jun, [facility] [place] [facility] [address] [id number] [place] [address]- 6792 Jun, [facility] [place] [facility] [address] [id number], [place] [address]- 7162 Jun, [facility] [place] [facility] [address] [id number] [place] [address]- 6804 Jun, [facility] [place] [facility] [address] [id number] [place] [address]- 2617 Jun, [facility] [place] [facility] [address] [id number] [place] [address]- 1337 May, [facility] [place] [facility] [address] [id number] [place] [address]- 0092 May, [facility] [place] [facility] [address] [id number] [place] [address]- 8071 May, [facility] [place] [facility] [address] [id number] [place] [address]- 2158 May, [facility] [place] [facility] [address] [id number] [place] [address]- 8196 May, [facility] [place] [facility] [address] [id number] [place] May, [facility] [place] [facility] [address] [id number] [place] [address]- 0532 15 May, 2014 [facility] [place] [facility] [address] [id number] [place] 6122 May, [facility] [place] [facility] [address] [id number] [place] [address]- 4406 May, [facility] [place] [facility] [address] [id number] [place] [address]- 3116 May, [facility] [place] [facility] [address] [id number] [place] [address]- 1515 May, [facility] [place] [facility] [address] [id number] [place] [address]- 7148 May, [facility] [place] [facility] [address] [id number] [place] 0740 May, [facility] [place] [facility] [address] [id number] [place] [address]- 3434 Apr, [facility] [place] [facility] [address] [id number] [place] [address]- 0760 Apr, [facility] [place] [facility] [address] [id number] [place] [address]- 8795 Apr, [facility] [place] [facility] [address] [id number] [place] [address]- 5116 Apr, [facility] [place] [facility] [address] [id number] [place] [address]- 7277 Apr, [facility] [place] [facility] [address] [id number] [place] [address]- 7391 Apr, [facility] [place] [facility] [address] [id number] [place] [address]- 8727 Mar, [facility] [place] [facility] [address] [id number] [place] [address]- 8249 Mar, [facility] [place] [facility] [address] [id number] [place] [address]- 9515 Mar, [facility] [place] [facility] [address] [id number] [place] [address]- 7169 Mar, [facility] [place] [facility] [address] [id number] [place] [address]- 8479 Feb, [facility] [place] [facility] [address] [id number] [place] [address]- 1470 Feb, [facility] [place] [facility] [address] [id number] [place] [address]- 1044 Feb, [facility] [place] [facility] [address] [id number] [place] [address]- 8360 Feb, [facility] [place] [facility] [address] [id number] [place] [address]- 7365 Feb, [facility] [place] [facility] [address] [id number] [place] [address]- 7967 Feb, [facility] [place] [facility] [address] [id number], [place] [address]- 2686 Jan, [facility] [place] [facility] [address] [id number] [place] [address]- 3611 Jan, [facility] [place] [facility] [address] [id number] [place] [address]- 7145 Dec, [facility] [place] [facility] [address] [id number] [place] [address]- 0188 Dec, [facility] [place] [facility] [address] [id number] [place] [address]- 6134 Nov, [facility] [place] [facility] [address] [id number] [place] [address]- 5274 Nov, [facility] [place] [facility] [address] [id number] [place] [address]- 5928 Nov, [facility] [place] [facility] [address] [id number] [place] [address]- 2512 October, [facility] [place] [facility] [address] [id number] [place] [address]- 3822 October, [facility] [place] [facility] [address] [id number] [place] [address]- 0392 Sep, [facility] [place] [facility] [address] [id number] [place] [address]- 5167 Sep, [facility] [place] [facility] [address] [id number] [place] [address]- 9383 Sep, [facility] [place] [facility] [address] [id number] [place] [address]- 0680 Sep, [facility] [place] [facility] [address] [id number] [place] [address]- 5290 Sep, [facility] [place] [facility] [address] [id number] [place] [address]- 5297 Sep, [facility] [place] [facility] [address] [id number] [place] [address]- 8047 Sep, [facility] [place] [facility] [address] [id number] [place] [address]- 6756 Sep, [facility] [place] [facility] [address] [id number] [place] [address]- 4223 Sep, [facility] [place] [facility] [address] [id number] [place] [address]- 0710 Sep, [facility] [place] [facility] [address] [id number] [place] [address]- 2256 Aug, [facility] [place] [facility] [address] [id number] [place] [address]- 1466 Aug, [facility] [place] [facility] [address] [id number] [place] [address]- 7333 Jul, [facility] [place] [facility] [address] [id number] [place] [address]- 2546 Jul, [facility] [place] [facility] [address] [id number] [place] [address]- 9781 Apr, [facility] [place] [facility] [address] [id number] [place] [address]- 5553 Apr, [facility] [place] [facility] [address] [id number] [place] [address]- 4976 Mar, [facility] [place] [facility] [address] [id number] [place] [address]- 4358 Mar, [facility] [place] [facility] [address] [id number] [place] [address]- 5015 Feb, [facility] [place] [facility] [address] [id number] [place] [address]- 3837 Jan, [facility] [place] [facility] [address] [id number] [place] [address]- 3096 Jan, [facility] [place] [facility] [address] [id number] [place] [address]- 2546 Dec, [facility] [place] [facility] [address] [id number] [place] [address]- 2546 Jul, [facility] [place] [facility] [address] [id number] [place] [address]- 7350 Jun, [facility] [place] [facility] [address] [id number] [place] [address]- 1106 May, [facility] [place] [facility] [address] [id number] [place] [address]- 2546 May, [facility] [place] [facility] [address] [id number], [place] [address]- 0905 May, [facility] [place] [facility] [address] [id number] [place] [address]- 1788 May, [facility] [place] [facility] [address] [id number] [place] 5539 May, [facility] [place] [facility] [address] [id number] [place] [address]- 6608 Apr, [facility] [place] [facility] [address] [id number] [place] 4664 Apr, [facility] [place] [facility] [address] [id number] [place] [address]- 5294 19 Mar, 2012 [facility] [place] [facility] [address] [id number] [place] [address]- 9646 18 Mar, 2012 [facility] [place] [facility] [address] [id number] [place] [address]- 6829 17 Mar, 2012 [facility] [place] [facility] [address] [id number] [place] [address]- 9635 17 Mar, 2012 [facility] [place] [facility] [address] [id number] [place] [address]- 4072 16 Mar, 2012 [facility] [place] [facility] [address] [id number] [place] [address] 16 Mar, 2012 [facility] [place] [facility] [address] [id number], [place] [address] 15 Mar, 2012 [facility] [place] [facility] [address] [id number], [place] [address] Feb, [facility] [place] [facility] [address] [id number] [place] Feb, [facility] [place] [facility] [address] [id number] [place] [address] Dec, [facility] [place] [facility] [address] [id number] [place] [address] Dec, [facility] [place] [facility] [address] [id number] [place] [address] Nov, [facility] [address] [id number] [place] [address] Nov, [facility] [place] [facility] [address] [id number] [place] [address] Nov, [facility] [address] [id number] [place] [address] Nov, [facility] [place] [facility] [address] [id number] [place] [address] Nov, [facility] [address] [id number] [place] [address] Sep, [facility] [address] [id number] [place] [address] Aug, [facility] [address] [id number] [place] [address] Jul, [facility] [address] [id number] [place] [address] Jun, [facility] [address] [id number] [place] [address] Jun, [facility] [address] [id number] [place] [address] Jun, [facility] [address] [id number] [place] [address] Jun, [facility] [address] [id number] [place] [address] May, [facility] [place] [facility] [address] [id number] [place] [address] May, [facility] [place] [facility] [address] [id number] [place] [address] May, [facility] [address] [id number] [place] [address] May, [facility] [id number] [address] May, [facility] [address] [facility] [id number] [address] [address] May, [facility] [id number], [place] [address] Mar, [facility] [address] [facility] [id number], [place] [address] Mar, [facility] [id number], [place] [address] Jun, [facility] [id number] [place] [address] May, [facility] [id number], [place] [address] May, [facility] [id number], [place] [address] Apr, [facility] [id number], [place] [address] Apr, [facility] [id number], [place] [address] Mar, [facility] [id number], [place] [address] Mar, [facility] [id number], [place] [address] Jul, IMMUNIZATIONS No Known Immunizations SOCIAL HISTORY Never Assessed REASON FOR VISIT Controlled Med Refill PRN PLAN OF CARE VITAL SIGNS MEDICATIONS Medication [...]
--- OUTSIDE RECORDS SUMMARY | 2018-07-17 11:18 | XMS REPORT ---
Author Author ISREAL MORELAND [facility] Address [address] [place] [address] Care Team Providers Care Survey Manager Name Role Phone ISREAL MORELAND Unavailable PROBLEMS Type Condition ICD9-CM Code [id number] Code Onset Dates Condition Status SNOMED Code Problem Anxiety disorder, unspecified F41.9 Active 806073526 ALLERGIES Unknown Allergies SOCIAL HISTORY No smoking Hx information available PLAN OF CARE VITAL SIGNS MEDICATIONS Unknown Medications RESULTS No Results PROCEDURES No Known procedures IMMUNIZATIONS No Known Immunizations
--- OUTSIDE RECORDS SUMMARY | 2018-07-17 11:18 | XMS REPORT ---
Author Author ISREAL MORELAND [facility] e[employer] Address Unknown Phone Unavailable Care Team Providers Care Realtime Captioner Name Role Phone ISREAL MORELAND CP Unavailable [...] chronic nonalcoholic liver disease 571.8 Active Medications No Known Medications Results No Known Results Summary Purpose eClinicalWorks Submission
--- OUTSIDE RECORDS SUMMARY | 2018-07-17 11:18 | XMS REPORT ---
Author Author ISREAL MORELAND Organization e[employer] Address Unknown Phone Unavailable Care Team Providers Care [employer] Offbearer Name Role Phone ISREAL MORELAND CP Unavailable [...] Start Date End Date Status Dosage Xanax [facility] [id number] 1 MG Orally Once a day October 27, 2014 1 tablet Results No Known Results Summary Purpose eClinicalWorks Submission
--- OUTSIDE RECORDS SUMMARY | 2018-07-17 11:18 | XMS REPORT ---
Author Author ISREAL MORELAND [facility] Address [address] [place] [address] Care Team Providers Care Ore Buyer Name Role Phone ISREAL MORELAND Unavailable PROBLEMS Type Condition ICD9-CM Code [id number] Code Onset Dates Condition Status SNOMED Code Problem Acquired hypothyroidism E03.9 Active 470091189 Problem Diabetes E11.9 Active 871884699 Problem Anxiety disorder, unspecified F41.9 Active [id number] ALLERGIES Unknown Allergies SOCIAL HISTORY No smoking Hx information available PLAN OF CARE VITAL SIGNS MEDICATIONS Medication Instructions Dosage Frequency Start Date End Date Duration Status Xanax 1 MG Orally Once a day 1 tablet 24h Sep, 28 days Active RESULTS No Results PROCEDURES No Known procedures IMMUNIZATIONS No Known Immunizations
--- OUTSIDE RECORDS SUMMARY | 2018-07-17 11:18 | XMS REPORT ---
Author Author ISREAL MORELAND Organization [facility] Address [address] [place] [address] Care Team Providers Care Skating Carhop Name Role Phone ISREAL MORELAND Unavailable PROBLEMS Type Condition ICD9-CM Code [id number] Code Onset Dates Condition Status SNOMED Code Problem Anxiety disorder, unspecified F41.9 Active 326962194 Assessment Diabetes E11.9 Jan, Active 355442503 ALLERGIES Substance Reaction Event Type Date Status N.K.D.A. Unknown Non Drug Allergy Jan, Unknown SOCIAL HISTORY No smoking Hx information available PLAN OF CARE VITAL SIGNS Height 62 in 2016-02-15 Weight 147.7 lbs 2016-02-15 Heart Rate 84 bpm 2016-02-15 Respiratory Rate 18 2016-02-15 BMI 27.01 kg/m2 2016-02-15 Blood pressure systolic 133 mmHg 2016-02-15 Blood pressure diastolic 84 mmHg 2016-02-15 MEDICATIONS Medication Instructions Dosage Frequency Start Date End Date Duration Status Potassium 99 MG Orally Once a day 1 tablet 24h Active MetFORMIN HCl ER 500 MG Orally 2 times a day 2 tablet with morning and evening meal 12h Active Amaryl 4 MG Orally 2 times a day TAKE ONE TABLET BY MOUTH TWICE DAILY IN THE MORNING AND THE EVENING 12h Active Xanax 1 MG Orally Once a day 1 tablet 24h Sep, 28 days Active RESULTS Name Result Date Reference Range A1C (IN HOUSE) 2016-02-15 A1C IN HOUSE 10.0 4.3 - 5.6 % Previous A1c 9.0 Lot [id number] Exp date PROCEDURES Procedure Date Ordered Related Diagnosis Body Site GLYCATED HEMOGLOBIN TEST Feb 15, 2016 Office Visit, Est Pt., Level 3 Feb 15, 2016 IMMUNIZATIONS No Known Immunizations
--- OUTSIDE RECORDS SUMMARY | 2018-07-17 11:19 | XMS REPORT | Continuity of Care Document ---
Author Author [facility] Address Unknown Phone Unavailable Allergies Active Description Code Type Severity Reaction Onset Reported/Identified Relationship to Patient Clinical Status Yes Amaryl Drug Allergy 06/29/2010 Yes Amaryl Drug Allergy N/A N/A 06/29/2010 Yes sulfamethoxazole [id number] Drug Allergy Moderate HIVES 03/05/2016 Yes trimethoprim [id number] Drug Allergy Moderate HIVES 03/05/2016 Medications There is no data. Problems Date Dx Coded Attending Type Code Diagnosis Diagnosed By 07/09/2008 ISREAL MORELAND APRN S 272.1 Essential Hypertriglyceridemia 07/09/2008 GLEN MORELAND APRNA S 626.8 Dysfunctional Uterine Bleeding 07/09/2008 GLEN MORELAND APRNA S 724.2 Lower Back Pain 07/09/2008 272.1 Essential Hypertriglyceridemia 07/09/2008 626.8 Dysfunctional Uterine Bleeding 07/09/2008 724.2 Lower Back Pain 07/09/2008 HALINA ALVARADO MD 272.1 Essential Hypertriglyceridemia 07/09/2008 HALINA ALVARADO MD 626.8 Dysfunctional Uterine Bleeding 07/09/2008 HALINA ALVARADO MD 724.2 Lower Back Pain 07/09/2008 ISREAL MORELAND APRN S 272.1 Essential Hypertriglyceridemia 07/09/2008 STACY MORELAND APRNNDA S 626.8 Dysfunctional Uterine Bleeding 07/09/2008 STACY MORELAND APRNNDA S 724.2 Lower Back Pain 07/09/2008 GLEN MORELAND APRNA S 272.1 Essential Hypertriglyceridemia 07/09/2008 STACY MORELAND APRNNDA S 626.8 Dysfunctional Uterine Bleeding 07/09/2008 STACY MORELAND APRNNDA S 724.2 Lower Back Pain 07/09/2008 GLEN MORELAND APRNA S 272.1 Essential Hypertriglyceridemia 07/09/2008 MERLY TELLER COORDINATOR, ISREAL S 626.8 Dysfunctional Uterine Bleeding 07/09/2008 MERLY TELLER COORDINATOR, ISREAL S 724.2 Lower Back Pain 07/09/2008 MERLY SULLIVANN, ISREAL S 272.1 Essential Hypertriglyceridemia 07/09/2008 MERLY TELLER COORDINATOR, ISREAL S 626.8 Dysfunctional Uterine Bleeding 07/09/2008 MERLY SULLIVANN, ISREAL S 724.2 Lower Back Pain 07/09/2008 ENA UPHOLSTERY CLEANER, SATINDER B 272.1 Essential Hypertriglyceridemia 07/09/2008 ENA UPHOLSTERY CLEANER, SATINDER B 626.8 Dysfunctional Uterine Bleeding 07/09/2008 ENA UPHOLSTERY CLEANER, SATINDER B 724.2 Lower Back Pain 07/09/2008 MERLY HUTCHINS, ISREAL S 272.1 Essential Hypertriglyceridemia 07/09/2008 MERLY SULLIVANN, ISREAL S 626.8 Dysfunctional Uterine Bleeding 07/09/2008 MERLY HUTCHINS, ISREAL S 724.2 Lower Back Pain 07/09/2008 MERLY HUTCHINS, ISREAL S 272.1 Essential Hypertriglyceridemia 07/09/2008 MELRY SULLIVANN, ISREAL S 626.8 Dysfunctional Uterine Bleeding 07/09/2008 MERLY HUTCHINS, ISREAL S 724.2 Lower Back Pain 07/09/2008 MERLY HUTCHINS, ISREAL S 272.1 Essential Hypertriglyceridemia 07/09/2008 MERLY HUTCHINS, ISREAL S 626.8 Dysfunctional Uterine Bleeding 07/09/2008 MERLY HUTCHINS, ISREAL S 724.2 Lower Back Pain 07/13/2008 MERLY HUTCHINS, ISREAL S 244.9 HYPOTHYROIDISM 07/13/2008 244.9 HYPOTHYROIDISM 07/13/2008 HALINA ALVARADO MD 244.9 HYPOTHYROIDISM 07/13/2008 MERLY HUTCHINS, ISREAL S 244.9 HYPOTHYROIDISM 07/13/2008 MERLY HUTCHINS, ISREAL S 244.9 HYPOTHYROIDISM 07/13/2008 MERLY SULLIVANN, ISREAL S 244.9 HYPOTHYROIDISM 07/13/2008 MERLY HUTCHINS, ISREAL S 244.9 HYPOTHYROIDISM 07/13/2008 ENA UPHOLSTERY CLEANER, SATINDER B 244.9 HYPOTHYROIDISM 07/13/2008 MERLY TELLER COORDINATOR, ISREAL S 244.9 HYPOTHYROIDISM 07/13/2008 MERLY TELLER COORDINATOR, ISREAL S 244.9 HYPOTHYROIDISM 07/13/2008 MERLY TELLER COORDINATOR, ISREAL S 244.9 HYPOTHYROIDISM 07/20/2008 MERLY TELLER COORDINATOR, ISREAL S 703.0 Ingrowing Nail 07/20/2008 703.0 Ingrowing Nail 07/20/2008 HALINA ALVARADO MD 703.0 Ingrowing Nail 07/20/2008 MERLY TELLER COORDINATOR, ISREAL S 703.0 Ingrowing Nail 07/20/2008 MERLY TELLER COORDINATOR, ISREAL S 703.0 Ingrowing Nail 07/20/2008 MERLY TELLER COORDINATOR, ISREAL S 703.0 Ingrowing Nail 07/20/2008 MERLY TELLER COORDINATOR, ISREAL S 703.0 Ingrowing Nail 07/20/2008 SATINDER SUTHERLAND LCPC 703.0 Ingrowing Nail 07/20/2008 MERLY TELLER COORDINATOR, ISREAL S 703.0 Ingrowing Nail 07/20/2008 MERLY TELLER COORDINATOR, ISERAL S 703.0 Ingrowing Nail 07/20/2008 MERLY TELLER COORDINATOR, ISREAL S 703.0 Ingrowing Nail 09/08/2008 MERLY TELLER COORDINATOR, ISREAL S 788.1 Dysuria 09/08/2008 788.1 Dysuria 09/08/2008 HALINA ALVARADO MD 788.1 Dysuria 09/08/2008 MERLY TELLER COORDINATOR, ISREAL S 788.1 Dysuria 09/08/2008 MERLY TELLER COORDINATOR, ISREAL S 788.1 Dysuria 09/08/2008 MERLY TELLER COORDINATOR, ISREAL S 788.1 Dysuria 09/08/2008 MERLY TELLER COORDINATOR, ISREAL S 788.1 Dysuria 09/08/2008 ENA ROBLERO, SATINDER B 788.1 Dysuria 09/08/2008 MERLY TELLER COORDINATOR, ISREAL S 788.1 Dysuria 09/08/2008 MERLY TELLER COORDINATOR, ISREAL S 788.1 Dysuria 09/08/2008 MERLY TELLER COORDINATOR, ISREAL S 788.1 Dysuria 05/15/2009 MERLY TELLER COORDINATOR, ISREAL S 462 Acute Pharyngitis 05/15/2009 MERLY TELLER COORDINATOR, ISREAL S 528.9 Mouth Pain 05/15/2009 462 Acute Pharyngitis 05/15/2009 528.9 Mouth Pain 05/15/2009 HALINA ALVARADO MD 462 Acute Pharyngitis 05/15/2009 HALINA ALVARADO MD 528.9 Mouth Pain 05/15/2009 MERLY TELLER COORDINATOR, ISREAL S 462 Acute Pharyngitis 05/15/2009 MERLY TELLER COORDINATOR, ISREAL S 528.9 Mouth Pain 05/15/2009 MERLY TELLER COORDINATOR, ISREAL S 462 Acute Pharyngitis 05/15/2009 MERLY TELLER COORDINATOR, ISREAL S 528.9 Mouth Pain 05/15/2009 MERLY TELLER COORDINATOR, ISREAL S 462 Acute Pharyngitis 05/15/2009 MERLY TELLER COORDINATOR, ISREAL S 528.9 Mouth Pain 05/15/2009 MERLY TELLER COORDINATOR, ISREAL S 462 Acute Pharyngitis 05/15/2009 MERLY TELLER COORDINATOR, ISREAL S 528.9 Mouth Pain 05/15/2009 ENA UPHOLSTERY CLEANER, SATINDER B 462 Acute Pharyngitis 05/15/2009 ENA UPHOLSTERY CLEANER, SATINDER B 528.9 Mouth Pain 05/15/2009 MERLY TELLER COORDINATOR, ISREAL S 462 Acute Pharyngitis 05/15/2009 MERLY TELLER COORDINATOR, ISREAL S 528.9 Mouth Pain 05/15/2009 MERLY TELLER COORDINATOR, ISREAL S 462 Acute Pharyngitis 05/15/2009 MERLY TELLER COORDINATOR, ISREAL S 528.9 Mouth Pain 05/15/2009 MERLY TELLER COORDINATOR, ISREAL S 462 Acute Pharyngitis 05/15/2009 MERLY TELLER COORDINATOR, ISREAL S 528.9 Mouth Pain 11/09/2009 MERLY TELLER COORDINATOR, ISREAL S 250.00 DIABETES MELLITUS 11/09/2009 MERLY TELLER COORDINATOR, ISREAL S 272.2 HYPERLIPOPROTEINEMIA TYPE II-B 11/09/2009 250.00 DIABETES MELLITUS 11/09/2009 272.2 HYPERLIPOPROTEINEMIA TYPE II-B 11/09/2009 HALINA ALVARADO MD 250.00 DIABETES MELLITUS 11/09/2009 HALINA ALVARADO MD 272.2 HYPERLIPOPROTEINEMIA TYPE II-B 11/09/2009 MERLY TELLER COORDINATOR, ISREAL S 250.00 DIABETES MELLITUS 11/09/2009 MERLY TELLER COORDINATOR, ISREAL S 272.2 HYPERLIPOPROTEINEMIA TYPE II-B 11/09/2009 MERLY TELLER COORDINATOR, ISREAL S 250.00 DIABETES MELLITUS 11/09/2009 MERLY TELLER COORDINATOR, ISREAL S 272.2 HYPERLIPOPROTEINEMIA TYPE II-B 11/09/2009 MERLY TELLER COORDINATOR, ISREAL S 250.00 DIABETES MELLITUS 11/09/2009 MERLY TELLER COORDINATOR, ISREAL S 272.2 HYPERLIPOPROTEINEMIA TYPE II-B 11/09/2009 MERLY TELLER COORDINATOR, ISREAL S 250.00 DIABETES MELLITUS 11/09/2009 MERLY TELLER COORDINATOR, ISREAL S 272.2 HYPERLIPOPROTEINEMIA TYPE II-B 11/09/2009 ENA UPHOLSTERY CLEANER, SATINDER B 250.00 DIABETES MELLITUS 11/09/2009 ENA UPHOLSTERY CLEANER, SATINDER B 272.2 HYPERLIPOPROTEINEMIA TYPE II-B 11/09/2009 MERLY TELLER COORDINATOR, ISREAL S 250.00 DIABETES MELLITUS 11/09/2009 MERLY TELLER COORDINATOR, ISREAL S 272.2 HYPERLIPOPROTEINEMIA TYPE II-B 11/09/2009 MERLY TELLER COORDINATOR, ISREAL S 250.00 DIABETES MELLITUS 11/09/2009 MERLY TELLER COORDINATOR, ISREAL S 272.2 HYPERLIPOPROTEINEMIA TYPE II-B 11/09/2009 MERLY TELLER COORDINATOR, ISREAL S 250.00 DIABETES MELLITUS 11/09/2009 MERLY TELLER COORDINATOR, ISREAL S 272.2 HYPERLIPOPROTEINEMIA TYPE II-B 05/25/2011 MERLY TELLER COORDINATOR, ISREAL S 112.1 VAGINITIS GARRY ALBICANS 05/25/2011 112.1 VAGINITIS GARRY ALBICANS 05/25/2011 HALINA ALVARADO MD 112.1 VAGINITIS GARRY ALBICANS 05/25/2011 MERLY HUTCHINS, ISREAL S 112.1 VAGINITIS GARRY ALBICANS 05/25/2011 MERLY HUTCHINS, ISREAL S 112.1 VAGINITIS GARRY ALBICANS 05/25/2011 MERLY HUTCHINS, ISREAL S 112.1 VAGINITIS GARRY ALBICANS 05/25/2011 MERLY SULLIVANN, ISREAL S 112.1 VAGINITIS GARRY ALBICANS 05/25/2011 ENA PRINCEPC, SATINDER B 112.1 VAGINITIS GARRY ALBICANS 05/25/2011 MERLY SULLIVANN, ISREAL S 112.1 VAGINITIS GARRY ALBICANS 05/25/2011 MERLY HUTCHINS, ISREAL S 112.1 VAGINITIS GARRY ALBICANS 05/25/2011 MERLY HUTCHINS, ISREAL S 112.1 VAGINITIS GARRY ALBICANS 06/06/2011 MERLY HUTCHINS, ISREAL S 524.62 TEMPOROMANDIBULAR JOINT DISORDERS ARTHRALGIA OF TEMPOROMANDIBULAR JOINT 06/06/2011 524.62 TEMPOROMANDIBULAR JOINT DISORDERS ARTHRALGIA OF TEMPOROMANDIBULAR JOINT 06/06/2011 HALINA ALVARADO MD 524.62 TEMPOROMANDIBULAR JOINT DISORDERS ARTHRALGIA OF TEMPOROMANDIBULAR JOINT 06/06/2011 MERLY HUTCHINS, ISREAL S 524.62 TEMPOROMANDIBULAR JOINT DISORDERS ARTHRALGIA OF TEMPOROMANDIBULAR JOINT 06/06/2011 MERLY HUTCHINS, ISREAL S 524.62 TEMPOROMANDIBULAR JOINT DISORDERS ARTHRALGIA OF TEMPOROMANDIBULAR JOINT 06/06/2011 MERLY HUTCHINS, ISREAL S 524.62 TEMPOROMANDIBULAR JOINT DISORDERS ARTHRALGIA OF TEMPOROMANDIBULAR JOINT 06/06/2011 MERLY HUTCHINS, ISREAL S 524.62 TEMPOROMANDIBULAR JOINT DISORDERS ARTHRALGIA OF TEMPOROMANDIBULAR JOINT 06/06/2011 ENA ROBLERO, SATINDER B 524.62 TEMPOROMANDIBULAR JOINT DISORDERS ARTHRALGIA OF TEMPOROMANDIBULAR JOINT 06/06/2011 MERLY HUTCHINS, ISREAL S 524.62 TEMPOROMANDIBULAR JOINT DISORDERS ARTHRALGIA OF TEMPOROMANDIBULAR JOINT 06/06/2011 MERLY HUTCHINS, ISREAL S 524.62 TEMPOROMANDIBULAR JOINT DISORDERS ARTHRALGIA OF TEMPOROMANDIBULAR JOINT 06/06/2011 MERLY TELLER COORDINATOR, ISREAL S 524.62 TEMPOROMANDIBULAR JOINT DISORDERS ARTHRALGIA OF TEMPOROMANDIBULAR JOINT 06/22/2011 MERLY TELLER COORDINATOR, ISREAL S 571.8 OTHER CHRONIC NONALCOHOLIC LIVER DISEASE 06/22/2011 571.8 OTHER CHRONIC NONALCOHOLIC LIVER DISEASE 06/22/2011 HALINA ALVARADO MD 571.8 OTHER CHRONIC NONALCOHOLIC LIVER DISEASE 06/22/2011 MERLY TELLER COORDINATOR, ISREAL S 571.8 OTHER CHRONIC NONALCOHOLIC LIVER DISEASE 06/22/2011 MERLY TELLER COORDINATOR, ISREAL S 571.8 OTHER CHRONIC NONALCOHOLIC LIVER DISEASE 06/22/2011 MERLY TELLER COORDINATOR, ISREAL S 571.8 OTHER CHRONIC NONALCOHOLIC LIVER DISEASE 06/22/2011 MERLY TELLER COORDINATOR, ISREAL S 571.8 OTHER CHRONIC NONALCOHOLIC LIVER DISEASE 06/22/2011 SATINDER SUTHERLAND LCPC B 571.8 OTHER CHRONIC NONALCOHOLIC LIVER DISEASE 06/22/2011 MERLY TELLER COORDINATOR, ISREAL S 571.8 OTHER CHRONIC NONALCOHOLIC LIVER DISEASE 06/22/2011 MERLY TELLER COORDINATOR, ISREAL S 571.8 OTHER CHRONIC NONALCOHOLIC LIVER DISEASE 06/22/2011 MERLY TELLER COORDINATOR, ISREAL S 571.8 OTHER CHRONIC NONALCOHOLIC LIVER DISEASE 11/18/2011 MERLY SULLIVANN, ISREAL S 724.2 LUMBAGO 11/18/2011 724.2 LUMBAGO 11/18/2011 HALINA ALVARADO MD 724.2 LUMBAGO 11/18/2011 MERLY TELLER COORDINATOR, ISREAL S 724.2 LUMBAGO 11/18/2011 MERLY TELLER COORDINATOR, ISREAL S 724.2 LUMBAGO 11/18/2011 MERLY TELLER COORDINATOR, ISREAL S 724.2 LUMBAGO 11/18/2011 MERLY TELLER COORDINATOR, ISREAL S 724.2 LUMBAGO 11/18/2011 ENA ROBLERO, SATINDER B 724.2 LUMBAGO 11/18/2011 MERLY SULLIVANN, ISREAL S 724.2 LUMBAGO 11/18/2011 MERLY TELLER COORDINATOR, ISREAL S 724.2 LUMBAGO 11/18/2011 MERLY TELLER COORDINATOR, ISREAL S 724.2 LUMBAGO 12/13/2011 MERLY TELLER COORDINATOR, ISREAL S 272.1 PURE HYPERGLYCERIDEMIA 12/13/2011 MERLY TELLER COORDINATOR, ISREAL S 477.0 ALLERGIC RHINITIS DUE TO POLLEN 12/13/2011 272.1 PURE HYPERGLYCERIDEMIA 12/13/2011 477.0 ALLERGIC RHINITIS DUE TO POLLEN 12/13/2011 HALINA ALVARADO MD 272.1 PURE HYPERGLYCERIDEMIA 12/13/2011 HALINA ALVARADO MD 477.0 ALLERGIC RHINITIS DUE TO POLLEN 12/13/2011 MERLY TELLER COORDINATOR, ISREAL S 272.1 PURE HYPERGLYCERIDEMIA 12/13/2011 MERLY TELLER COORDINATOR, ISREAL S 477.0 ALLERGIC RHINITIS DUE TO POLLEN 12/13/2011 MERLY TELLER COORDINATOR, ISREAL S 272.1 PURE HYPERGLYCERIDEMIA 12/13/2011 MERLY SULLIVANN, ISREAL S 477.0 ALLERGIC RHINITIS DUE TO POLLEN 12/13/2011 MERLY TELLER COORDINATOR, ISREAL S 272.1 PURE HYPERGLYCERIDEMIA 12/13/2011 MERLY TELLER COORDINATOR, ISREAL S 477.0 ALLERGIC RHINITIS DUE TO POLLEN 12/13/2011 MERLY TELLER COORDINATOR, ISREAL S 272.1 PURE HYPERGLYCERIDEMIA 12/13/2011 MERLY TELLER COORDINATOR, ISREAL S 477.0 ALLERGIC RHINITIS DUE TO POLLEN 12/13/2011 ENA UPHOLSTERY CLEANER, SATINDER B 272.1 PURE HYPERGLYCERIDEMIA 12/13/2011 ENA UPHOLSTERY CLEANER, SATINDER B 477.0 ALLERGIC RHINITIS DUE TO POLLEN 12/13/2011 MERLY TELLER COORDINATOR, ISREAL S 272.1 PURE HYPERGLYCERIDEMIA 12/13/2011 MERLY TELLER COORDINATOR, ISREAL S 477.0 ALLERGIC RHINITIS DUE TO POLLEN 12/13/2011 MERLY TELLER COORDINATOR, ISREAL S 272.1 PURE HYPERGLYCERIDEMIA 12/13/2011 MERLY TELLER COORDINATOR, ISREAL S 477.0 ALLERGIC RHINITIS DUE TO POLLEN 12/13/2011 MERLY TELLER COORDINATOR, ISREAL S 272.1 PURE HYPERGLYCERIDEMIA 12/13/2011 MERLY TELLER COORDINATOR, ISREAL S 477.0 ALLERGIC RHINITIS DUE TO POLLEN 07/20/2012 788.1 DYSURIA 07/20/2012 JENNY BAIG, HALINA 788.1 DYSURIA 07/20/2012 MERLY TELLER COORDINATOR, ISREAL S 788.1 DYSURIA 07/20/2012 MERLY TELLER COORDINATOR, ISREAL S 788.1 DYSURIA 07/20/2012 MERLY TELLER COORDINATOR, ISREAL S 788.1 DYSURIA 07/20/2012 MERLY TELLER COORDINATOR, ISREAL S 788.1 DYSURIA 07/20/2012 SATINDER SUTHERLAND LCPC B 788.1 DYSURIA 07/20/2012 MERLY TELLER COORDINATOR, ISREAL S 788.1 DYSURIA 07/20/2012 MERLY TELLER COORDINATOR, ISREAL S 788.1 DYSURIA 07/20/2012 MERLY TELLER COORDINATOR, ISREAL S 788.1 DYSURIA 06/01/2014 SATINDER SUTHERLAND LCPC B 296.90 MOOD DISORDER NOS 06/01/2014 MERLY TELLER COORDINATOR, ISREAL S 296.90 MOOD DISORDER NOS 06/01/2014 MERLY TELLER COORDINATOR, ISREAL S 296.90 MOOD DISORDER NOS 06/01/2014 MERLY TELLER COORDINATOR, ISREAL S 296.90 MOOD DISORDER NOS 06/03/2014 SATINDER SUTHERLAND LCPC B 300.00 AN ANXIETY UNSPEC 06/03/2014 MERLY TELLER COORDINATOR, ISREAL S 300.00 AN ANXIETY UNSPEC 06/03/2014 MERLY SULLIVANN, ISREAL S 300.00 AN ANXIETY UNSPEC 06/03/2014 MERLY SULLIVANN, ISREAL S 300.00 AN ANXIETY UNSPEC 07/20/2014 MERLY TELLER COORDINATOR, ISREAL S 727.3 OTHER BURSITIS DISORDERS 03/06/2016 BAKARI BAIG, DEEPA Rico Ot E11.9 TYPE 2 DIABETES MELLITUS WITHOUT COMPLIC 03/06/2016 BAKARI BAIG, DEEPA Rico Ot L50.0 ALLERGIC URTICARIA 03/06/2016 DEEPA VILLEGAS MD Ot R00.0 TACHYCARDIA, UNSPECIFIED 03/06/2016 DEEPA VILLEGAS MD, Ot R21 RASH AND OTHER NONSPECIFIC SKIN ERUPTION 03/06/2016 BRUEGGEMANN MD, DEEPA T Ot T78.2XXA ANAPHYLACTIC SHOCK, UNSPECIFIED, INITIAL 03/07/2016 BAKARI BAIG, DEEPA Rico Ot E11.9 TYPE 2 DIABETES MELLITUS WITHOUT COMPLIC 03/07/2016 BAKARI BAIG, DEEPA Rico Ot L50.0 ALLERGIC URTICARIA 03/07/2016 BAKARI BAIG, DEEPA Rico Ot R00.0 TACHYCARDIA, UNSPECIFIED 03/07/2016 BAKARI BAIG, DEEPA Rico Ot R21 RASH AND OTHER NONSPECIFIC SKIN ERUPTION 03/07/2016 BAKARI BAIG, DEEPA Rico Ot T78.2XXA ANAPHYLACTIC SHOCK, UNSPECIFIED, INITIAL 11/10/2017 REGINE DO MAGEN B Ot E11.65 TYPE 2 DIABETES MELLITUS WITH HYPERGLYCE 11/10/2017 DELJIMMY DO, MAGEN B Ot E87.2 ACIDOSIS 11/10/2017 REGINE DO, MAGEN B Ot K81.0 ACUTE CHOLECYSTITIS 11/10/2017 REGINE DO, MAGEN B Ot R19.7 DIARRHEA, UNSPECIFIED 11/10/2017 REGINE DO, MAGEN B Ot 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 (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 HYPOGLYC 11/10/2017 DELJIMMY DO, MAGEN B Ot Z79.899 OTHER BRAZER ASSEMBLER (CURRENT) DRUG THERAPY 11/13/2017 REGINE BURRIS, MAGEN B Ot E11.65 TYPE 2 DIABETES MELLITUS WITH HYPERGLYCE 11/13/2017 REGINE DO, MAGEN B Ot E87.2 ACIDOSIS 11/13/2017 DELJIMMY DO, MAGEN B Ot K81.0 ACUTE CHOLECYSTITIS 11/13/2017 REGINE DO, MAGEN B Ot R19.7 DIARRHEA, UNSPECIFIED 11/13/2017 DELJIMMY DO, MAGEN B Ot 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 ASSEMBLER (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 HYPOGLYC 11/13/2017 DELJIMMY DO, MAGEN B Ot Z79.899 OTHER RESIDENTIAL (CURRENT) DRUG THERAPY 11/13/2017 REGINE DO, MAGEN B Ot E11.65 TYPE 2 DIABETES MELLITUS WITH HYPERGLYCE 11/13/2017 DELJIMMY DO, MAGEN B Ot E87.2 ACIDOSIS 11/13/2017 DELMAN DO, MAGEN B Ot K81.0 ACUTE CHOLECYSTITIS 11/13/2017 REGINE DO, MAGEN B Ot R19.7 DIARRHEA, UNSPECIFIED 11/13/2017 MAGEN WEINER DO B Ot Z79.84 RESIDENTIAL (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 HYPOGLYC 11/13/2017 MAGEN WEINER DO B Ot Z79.899 OTHER RESIDENTIAL (CURRENT) DRUG THERAPY 03/30/2018 MAGEN WEINER DO B Ot E11.65 TYPE 2 DIABETES MELLITUS WITH HYPERGLYCE 03/30/2018 ESTELLA WEINER DOIC B Ot E87.2 ACIDOSIS 03/30/2018 MAGEN WEINER DO B Ot K81.0 ACUTE CHOLECYSTITIS 03/30/2018 MAGEN WEINER DO B Ot R19.7 DIARRHEA, UNSPECIFIED 03/30/2018 MAGEN WEINER DO B Ot Z79.84 RESIDENTIAL (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 HYPOGLYC 03/30/2018 MAGEN WEINER DO B Ot Z79.899 OTHER BRAZER ASSEMBLER (CURRENT) DRUG THERAPY Procedures Code Description [place] [address] PAP SMEAR 05/14/2012 93271 ROUTINE VENIPUNCTURE 05/30/2012 22126 LIPID PANEL 05/30/2012 65943 TSH 05/31/2012 90975 UA LONG DIP 07/20/2012 04091 ROUTINE VENIPUNCTURE 09/18/2013 09675 MICRO ALBUMIN-IN HOUSE 09/18/2013 02910 CMP 09/18/2013 67087 CBC 09/18/2013 [id number] GFR CALC (RESULT ONLY) 09/18/2013 52833 LIPID PANEL 09/18/2013 38288 MICROALBUMIN 09/18/2013 48173 TSH 09/18/2013 51992 A1C (RML) 09/18/2013 22053 ROUTINE VENIPUNCTURE 03/09/2014 23664 CMP 03/09/2014 59123 LIPID PANEL 03/09/2014 8625125 GFR CALC (RESULT ONLY) 03/09/2014 62684 CBC 03/09/2014 82703 TSH 03/09/2014 30822 ROUTINE VENIPUNCTURE 06/01/2014 08736 MICRO ALBUMIN-IN HOUSE 06/01/2014 06155 A1C (IN-HOUSE) 06/01/2014 57580 UA LONG DIP 06/01/2014 83517 MICROALBUMIN 06/01/2014 30469 CBC 06/01/2014 [id number] GFR CALC (RESULT ONLY) 06/01/2014 66242 CMP 06/01/2014 12704 LIPID PANEL 06/01/2014 73848 LIPASE 06/01/2014 20448 TSH 06/01/2014 74924 [facility] DIAGNOSTIC EVALUATION 06/04/2014 Results Test Result Range Complete blood count (CBC) with automated white blood cell (WBC) differential - 03/05/16 22:02 Blood leukocytes automated count (number/volume) 15.1 10*3/uL 4.3-11.0 Blood erythrocytes automated count (number/volume) 4.57 10*6/uL 4.35-5.85 Venous blood hemoglobin measurement (mass/volume) 13.0 g/dL 11.5-16.0 Blood hematocrit (volume fraction) 38 % 35-52 Automated erythrocyte mean corpuscular volume 83 [foz_us] 80-99 Automated erythrocyte mean corpuscular hemoglobin (mass per erythrocyte) 28 pg 25-34 Automated erythrocyte mean corpuscular hemoglobin concentration measurement ( mass/volume) 34 g/dL 32-36 Automated erythrocyte distribution width ratio 13.2 % 10.0-14.5 Automated blood platelet count (count/volume) 267 10*3/uL 130-400 Automated blood platelet mean volume measurement 10.2 [foz_us] 7.4-10.4 Automated blood neutrophils/100 leukocytes 91 % 42-75 Automated blood lymphocytes/100 leukocytes 7 % 12-44 Blood monocytes/100 leukocytes 2 % 0-12 Automated blood eosinophils/100 leukocytes 0 % 0-10 Automated blood basophils/100 leukocytes 0 % 0-10 Blood neutrophils automated count (number/volume) 13.7 10*3 1.8-7.8 Blood lymphocytes automated count (number/volume) 1.1 10*3 1.0-4.0 Blood monocytes automated count (number/volume) 0.3 10*3 0.0-1.0 Automated eosinophil count 0.0 10*3/uL 0.0-0.3 Automated blood basophil count (count/volume) 0.0 10*3/uL 0.0-0.1 PT panel in platelet poor plasma by coagulation assay - 03/05/16 22:02 Prothrombin time (PT) in platelet poor plasma by coagulation assay 13.7 s 12.2-14.7 INR in platelet poor plasma or blood by coagulation assay 1.1 0.8-1.4 Activated partial thromboplastin time (aPTT) in platelet poor plasma bycoagulation assay - 03/05/16 22:02 Activated partial thromboplastin time (aPTT) in platelet poor plasma bycoagulation assay 21 s 24-35 Comprehensive metabolic panel - 03/05/16 22:02 Serum or plasma sodium measurement (moles/volume) 130 mmol/L 135-145 Serum or plasma potassium measurement (moles/volume) 4.1 mmol/L 3.6-5.0 Serum or plasma chloride measurement (moles/volume) 98 mmol/L 98-107 Carbon dioxide 17 mmol/L 21-32 Serum or plasma anion gap determination (moles/volume) 15 mmol/L 5-14 Serum or plasma urea nitrogen measurement (mass/volume) 17 mg/dL 7-18 Serum or plasma creatinine measurement (mass/volume) 0.91 mg/dL 0.60-1.30 Serum or plasma urea nitrogen/creatinine mass ratio 19 NRG Serum or plasma creatinine measurement with calculation of estimated glomerular filtration rate > NRG Serum or plasma glucose measurement (mass/volume) 357 mg/dL 70-105 Serum or plasma calcium measurement (mass/volume) 9.6 mg/dL 8.5-10.1 Serum or plasma total bilirubin measurement (mass/volume) 0.5 mg/dL 0.1-1.0 Serum or plasma alkaline phosphatase measurement (enzymatic activity/volume) 130 U/L 40-136 Serum or plasma aspartate aminotransferase measurement (enzymatic activity/ volume) 24 U/L 5-34 Serum or plasma alanine aminotransferase measurement (enzymatic activity/volume ) 34 U/L 0-55 Serum or plasma protein measurement (mass/volume) 8.0 g/dL 6.4-8.2 Serum or plasma albumin measurement (mass/volume) 3.7 g/dL 3.2-4.5 Magnesium - 03/05/16 22:02 Magnesium 1.8 mg/dL 1.8-2.4 Serum or plasma troponin i.cardiac measurement (mass/volume) - 03/05/16 22:02 Serum or plasma troponin i.cardiac measurement (mass/volume) < ng/ mL <0.30 Myoglobin, serum - 03/05/16 22:02 Myoglobin, serum 12.0 ng/mL 10.0-92.0 Blood manual differential performed detection - 03/05/16 22:02 Blood monocytes/100 leukocytes 1 % NRG Manual blood segmented neutrophils/100 leukocytes 90 % NRG Manual blood lymphocytes/100 leukocytes 9 % NRG Blood erythrocyte morphology finding identification NORMAL NRG Complete urinalysis with reflex to culture - 03/05/16 23:23 Urine color determination YELLOW NRG Urine clarity determination CLEAR NRG Urine pH measurement by test strip 6 5-9 Specific gravity of urine by test strip 1.015 1.016- 1.022 Urine protein assay by test strip, semi-quantitative NEGATIVE NEGATIVE Urine glucose detection by automated test strip 4+ NEGATIVE Erythrocytes detection in urine sediment by light microscopy 1+ NEGATIVE Urine ketones detection by automated test strip 1+ NEGATIVE Urine nitrite detection by test strip NEGATIVE NEGATIVE Urine total bilirubin detection by test strip NEGATIVE NEGATIVE Urine urobilinogen measurement by automated test strip (mass/volume) NORMAL NORMAL Urine leukocyte esterase detection by dipstick 1+ NEGATIVE Automated urine sediment erythrocyte count by microscopy (number/high power field) RARE NRG Automated urine sediment leukocyte count by microscopy (number/high power field ) [HPF] NRG Bacteria detection in urine sediment by light microscopy TRACE NRG Squamous epithelial cells detection in urine sediment by light microscopy 2-5 NRG Crystals detection in urine sediment by light microscopy NONE NRG Casts detection in urine sediment by light microscopy NONE NRG Mucus detection in urine sediment by light microscopy NEGATIVE NRG Complete urinalysis with reflex to culture NO NRG Capillary blood glucose measurement by glucometer (mass/volume) - 03/06/16 00: 28 Capillary blood glucose measurement by glucometer (mass/volume) 343 mg/dL 70-110 CBC With Differential/Platelet - 03/15/16 11:58 WBC 5.3 x10E3/uL 3.4-10.8 RBC 4.18 x10E6/uL 3.77-5.28 Hemoglobin 11.8 g/dL 11.1-15.9 Hematocrit 35.6 % 34.0-46.6 MCV 85 fL 79-97 MCH 28.2 pg 26.6-33.0 MCHC 33.1 g/dL 31.5-35.7 RDW 14.0 % 12.3-15.4 Platelets 187 x10E3/uL 150-379 Neutrophils 81 % Lymphs 11 % Monocytes 6 % Eos 1 % Basos 0 % Neutrophils (Absolute) 4.3 x10E3/uL 1.4-7.0 Lymphs (Absolute) 0.6 x10E3/uL 0.7-3.1 Monocytes(Absolute) 0.3 x10E3/uL 0.1-0.9 Eos (Absolute) 0.0 x10E3/uL 0.0-0.4 Baso (Absolute) 0.0 x10E3/uL 0.0-0.2 Immature Granulocytes 1 % Immature Grans (Abs) 0.1 x10E3/uL 0.0-0.1 Comp. Metabolic Panel (14) - 03/15/16 11:58 Glucose, Serum 351 mg/dL 65-99 BUN 11 mg/dL 6-24 Creatinine, Serum 0.53 mg/dL 0.57-1.00 eGFR If NonAfricn Am 110 mL/min/1.73 >59 eGFR If Africn Am 127 mL/min/1.73 >59 BUN/Creatinine Ratio 21 9-23 Sodium, Serum 136 mmol/L 134-144 Potassium, Serum 4.4 mmol/L 3.5-5.2 Chloride, Serum 94 mmol/L 97-108 Carbon Dioxide, Total 23 mmol/L 18-29 Calcium, Serum 9.2 mg/dL 8.7-10.2 Protein, Total, Serum 7.8 g/dL 6.0-8.5 Albumin, Serum 4.1 g/dL 3.5-5.5 Globulin, Total 3.7 g/dL 1.5-4.5 A/G Ratio 1.1 1.1-2.5 Bilirubin, Total 0.3 mg/dL 0.0-1.2 Alkaline Phosphatase, S 119 IU/L 39-117 AST (SGOT) 18 IU/L 0-40 ALT (SGPT) 22 IU/L 0-32 Amylase, Serum - 03/15/16 11:58 Amylase, Serum 49 U/L 31-124 Lipase, Serum - 03/15/16 11:58 Lipase, Serum 47 U/L 0-59 Comp. Metabolic Panel (14) - 10/23/16 11:31 Glucose, Serum 337 mg/dL 65-99 BUN 14 mg/dL 6-24 Creatinine, Serum 0.80 mg/dL 0.57-1.00 eGFR If NonAfricn Am 86 mL/min/1.73 >59 eGFR If Africn Am 99 mL/min/1.73 >59 BUN/Creatinine Ratio 18 9-23 Sodium, Serum 138 mmol/L 134-144 Potassium, Serum 4.4 mmol/L 3.5-5.2 Chloride, Serum 97 mmol/L 96-106 Carbon Dioxide, Total 24 mmol/L 18-29 Calcium, Serum 9.8 mg/dL 8.7-10.2 Protein, Total, Serum 7.6 g/dL 6.0-8.5 Albumin, Serum 4.3 g/dL 3.5-5.5 Globulin, Total 3.3 g/dL 1.5-4.5 A/G Ratio 1.3 1.2-2.2 Bilirubin, Total 0.2 mg/dL 0.0-1.2 Alkaline Phosphatase, S 99 IU/L 39-117 AST (SGOT) 23 IU/L 0-40 ALT (SGPT) 35 IU/L 0-32 TSH - 10/23/16 11:31 TSH 2.320 uIU/mL 0.450-4.500 Complete blood count (CBC) with automated white blood cell (WBC) differential - 11/10/17 04:30 Blood leukocytes automated count (number/volume) 5.1 10*3/uL 4.3-11.0 Blood erythrocytes automated count (number/volume) 4.93 10*6/uL 4.35-5.85 Venous blood hemoglobin measurement (mass/volume) 14.2 g/dL 11.5-16.0 Blood hematocrit (volume fraction) 40 % 35-52 Automated erythrocyte mean corpuscular volume 82 [foz_us] 80-99 Automated erythrocyte mean corpuscular hemoglobin (mass per erythrocyte) 29 pg 25-34 Automated erythrocyte mean corpuscular hemoglobin concentration measurement ( mass/volume) 35 g/dL 32-36 Automated erythrocyte distribution width ratio 13.4 % 10.0-14.5 Automated blood platelet count (count/volume) 131 10*3/uL 130-400 Automated blood platelet mean volume measurement 10.1 [foz_us] 7.4-10.4 Automated blood neutrophils/100 leukocytes 90 % 42-75 Automated blood lymphocytes/100 leukocytes 7 % 12-44 Blood monocytes/100 leukocytes 3 % 0-12 Automated blood eosinophils/100 leukocytes 0 % 0-10 Automated blood basophils/100 leukocytes 0 % 0-10 Blood neutrophils automated count (number/volume) 4.6 10*3 1.8-7.8 Blood lymphocytes automated count (number/volume) 0.4 10*3 1.0-4.0 Blood monocytes automated count (number/volume) 0.2 10*3 0.0-1.0 Automated eosinophil count 0.0 10*3/uL 0.0-0.3 Automated blood basophil count (count/volume) 0.0 10*3/uL 0.0-0.1 Blood manual differential performed detection - 11/10/17 04:30 Blood monocytes/100 leukocytes 2 % NRG Manual blood segmented neutrophils/100 leukocytes 80 % NRG Blood band neutrophils/100 leukocytes 12 % NRG Manual blood lymphocytes/100 leukocytes 6 % NRG Manual eosinophils/100 leukocytes in nose 0 % NRG Manual blood basophils/100 leukocytes 0 % NRG Blood erythrocyte morphology finding identification NORMAL NRG Comprehensive metabolic panel - 11/10/17 04:30 Serum or plasma sodium measurement (moles/volume) 136 mmol/L 135-145 Serum or plasma potassium measurement (moles/volume) 4.0 mmol/L 3.6-5.0 Serum or plasma chloride measurement (moles/volume) 102 mmol/L 98-107 Carbon dioxide 18 mmol/L 21-32 Serum or plasma anion gap determination (moles/volume) 16 mmol/L 5-14 Serum or plasma urea nitrogen measurement (mass/volume) 16 mg/dL 7-18 Serum or plasma creatinine measurement (mass/volume) 0.82 mg/dL 0.60-1.30 Serum or plasma urea nitrogen/creatinine mass ratio 20 NRG Serum or plasma creatinine measurement with calculation of estimated glomerular filtration rate > NRG Serum or plasma glucose measurement (mass/volume) 325 mg/dL 70-105 Serum or plasma calcium measurement (mass/volume) 9.8 mg/dL 8.5-10.1 Serum or plasma total bilirubin measurement (mass/volume) 1.2 mg/dL 0.1-1.0 Serum or plasma alkaline phosphatase measurement (enzymatic activity/volume) 88 U/L 40-136 Serum or plasma aspartate aminotransferase measurement (enzymatic activity/ volume) 25 U/L 5-34 Serum or plasma alanine aminotransferase measurement (enzymatic activity/volume ) 33 U/L 0-55 Serum or plasma protein measurement (mass/volume) 8.6 g/dL 6.4-8.2 Serum or plasma albumin measurement (mass/volume) 4.7 g/dL 3.2-4.5 Magnesium - 11/10/17 04:30 Magnesium 1.9 mg/dL 1.8-2.4 Serum or plasma triglyceride measurement (mass/volume) - 11/10/17 04:30 Serum or plasma triglyceride measurement (mass/volume) 315 mg/dL <150 Lipase - 11/10/17 04:30 Lipase 61 U/L 8-78 Serum or plasma C reactive protein measurement (mass/volume) - 11/10/17 04:30 Serum or plasma C reactive protein measurement (mass/volume) 1.45 mg /dL 0.00-0.50 Capillary blood glucose measurement by glucometer (mass/volume) - 11/10/17 04: 34 Capillary blood glucose measurement by glucometer (mass/volume) 308 mg/dL 70-110 Complete urinalysis with reflex to culture - 11/10/17 05:10 Urine color determination YELLOW NRG Urine clarity determination CLEAR NRG Urine pH measurement by test strip 6 5-9 Specific gravity of urine by test strip 1.010 1.016- 1.022 Urine protein assay by test strip, semi-quantitative 1+ NEGATIVE Urine glucose detection by automated test strip 4+ NEGATIVE Erythrocytes detection in urine sediment by light microscopy NEGATIVE NEGATIVE Urine ketones detection by automated test strip 3+ NEGATIVE Urine nitrite detection by test strip NEGATIVE NEGATIVE Urine total bilirubin detection by test strip NEGATIVE NEGATIVE Urine urobilinogen measurement by automated test strip (mass/volume) NORMAL NORMAL Urine leukocyte esterase detection by dipstick NEGATIVE NEGATIVE Automated urine sediment erythrocyte count by microscopy (number/high power field) RARE NRG Automated urine sediment leukocyte count by microscopy (number/high power field ) NONE NRG Bacteria detection in urine sediment by light microscopy TRACE NRG Squamous epithelial cells detection in urine sediment by light microscopy 2-5 NRG Crystals detection in urine sediment by light microscopy NONE NRG Casts detection in urine sediment by light microscopy NONE NRG Mucus detection in urine sediment by light microscopy NEGATIVE NRG Complete urinalysis with reflex to culture NO NRG Urine drug screening test - 11/10/17 05:10 Urine phencyclidine detection by screening method NEGATIVE NEGATIVE Urine benzodiazepines detection by screening method POSITIVE NEGATIVE Urine cocaine detection NEGATIVE NEGATIVE Urine amphetamines detection by screening method NEGATIVE NEGATIVE Urine methamphetamine detection by screening method NEGATIVE NEGATIVE Urine cannabinoids detection by screening method POSITIVE NEGATIVE Urine opiates detection by screening method NEGATIVE NEGATIVE Urine barbiturates detection NEGATIVE NEGATIVE Screening urine tricyclic antidepressants detection NEGATIVE NEGATIVE Urine methadone detection by screening method NEGATIVE NEGATIVE Urine oxycodone detection NEGATIVE NEGATIVE Urine propoxyphene detection NEGATIVE NEGATIVE Capillary blood glucose measurement by glucometer (mass/volume) - 11/10/17 06: 27 Capillary blood glucose measurement by glucometer (mass/volume) 276 mg/dL 70-110 Whole blood basic metabolic panel - 11/10/17 06:38 Serum or plasma sodium measurement (moles/volume) 138 mmol/L 135-145 Serum or plasma potassium measurement (moles/volume) 3.7 mmol/L 3.6-5.0 Serum or plasma chloride measurement (moles/volume) 107 mmol/L 98-107 Carbon dioxide 18 mmol/L 21-32 Serum or plasma anion gap determination (moles/volume) 13 mmol/L 5-14 Serum or plasma urea nitrogen measurement (mass/volume) 14 mg/dL 7-18 Serum or plasma creatinine measurement (mass/volume) 0.71 mg/dL 0.60-1.30 Serum or plasma urea nitrogen/creatinine mass ratio 20 NRG Serum or plasma creatinine measurement with calculation of estimated glomerular filtration rate > NRG Serum or plasma glucose measurement (mass/volume) 275 mg/dL 70-105 Serum or plasma calcium measurement (mass/volume) 8.2 mg/dL 8.5-10.1 Capillary blood glucose measurement by glucometer (mass/volume) - 11/10/17 09: 48 Capillary blood glucose measurement by glucometer (mass/volume) 253 mg/dL 70-110 Methicillin resistant Staphylococcus aureus (MRSA) screening culture - 10:20 Methicillin resistant Staphylococcus aureus (MRSA) screening culture NEG NRG Blood type T Indirect antibody screen panel - 11/10/17 10:31 ABO+Rh group OP NRG Transfusion band number [id number] NRG Blood group antibody screen NEGATIVE NRG TSH - 03/18/18 10:07 TSH 4.15 mIU/L NRG Encounters ACCT No. Visit Date/Time Discharge Status Pt. Type Provider Facility Loc./Unit Complaint [id number] 01/09/2018 09:00:00 01/09/2018 23:59:59 CLS Outpatient ISREAL MORELAND APRN [facility] [place] [id number] 03/18/2018 09:00:00 Document Registration [id number] 10/24/2016 08:39:00 Document Registration [id number] 07/20/2014 12:49:00 07/20/2014 23:59:59 CLS Outpatient ISREAL MORELAND APRN [id number] 06/25/2014 10:36:00 06/25/2014 23:59:59 CLS Outpatient GLEN MORELAND APRNA S [id number] 06/08/2014 09:45:00 06/08/2014 23:59:59 CLS Outpatient GLEN MORELAND APRNA S [id number] 06/03/2014 14:03:00 06/03/2014 23:59:59 CLS Outpatient ENA PRINCEPCSATINDER Felix [id number] 03/24/2014 16:10:00 03/24/2014 23:59:59 CLS Outpatient GLEN MORELAND APRNA S [id number] 03/09/2014 08:03:00 03/09/2014 23:59:59 CLS Outpatient GLEN MORELAND APRNA S [id number] 02/03/2014 16:13:00 02/03/2014 23:59:59 CLS Outpatient GLEN MORELAND APRNA S [id number] 09/18/2013 09:24:00 09/18/2013 23:59:59 CLS Outpatient GLEN MORELAND APRNA S [id number] 03/10/2013 15:11:00 03/10/2013 23:59:59 CLS Outpatient HALINA ALVARADO MD [id number] 07/20/2012 14:35:00 07/20/2012 23:59:59 CLS Outpatient [id number] 06/05/2012 14:18:00 06/05/2012 23:59:59 CLS Outpatient ISERAL MORELAND APRN S [id number] 11/10/2017 09:37:00 11/10/2017 15:50:00 DIS Outpatient MAGEN WEINER DO [facility] SDC PANCREATITIS ATTACK, VOMITING,POSS FEVER [id number] 03/05/2016 20:35:00 03/06/2016 01:54:00 DIS Emergency DEEPA VILLEGAS MD [facility] ER RASH, ITCHING, SWELLING [id number] 03/05/2016 22:01:00 Document Registration [id number] 03/16/2016 08:43:00 Document Registration
[2018-07-17] MEDS ORDERED: NS IV 1000 ML 1,000 ML IV SCH ×2 (11:30→12:20)
[2018-07-17] MEDS ORDERED: ONDANSETRON 4 MG/2 ML (SDV) Z0FRAN IVP ONE (11:30)
[2018-07-17 11:32] LABS: BASOPHILS % (AUTO) 0 % (0-10); EOSINOPHILS % (AUTO) 0 % (0-10); HEMATOCRIT 41 % (35-52); HEMOGLOBIN 13.9 G/DL (11.5-16.0); LYMPHOCYTES # (AUTO) 0.2 X 10^3 (1.0-4.0); LYMPHOCYTES % (AUTO) 3 % (12-44); MEAN CORPUSCULAR HEMOGLOBIN 28 PG (25-34); MEAN CORPUSCULAR HGB CONC 34 G/DL (32-36); MEAN CORPUSCULAR VOLUME 83 FL (80-99); MEAN PLATELET VOLUME 10.2 FL (7.4-10.4); MONOCYTES # (AUTO) 0.2 X 10^3 (0.0-1.0); MONOCYTES % (AUTO) 3 % (0-12); NEUTROPHILS % (AUTO) 94 % (42-75); PLATELET COUNT 115 10^3/uL (130-400); RED CELL DISTRIBUTION WIDTH 13.7 % (10.0-14.5); WHITE BLOOD COUNT 6.4 10^3/uL (4.3-11.0)
[2018-07-17 11:33] LABS: BILIRUBIN,URINE NEGATIVE (NEGATIVE); CLARITY,URINE CLEAR; COLOR,URINE YELLOW; GLUCOSE, URINE (UA) 2+ (NEGATIVE); KETONES,URINE 2+ (NEGATIVE); LEUKOCYTE ESTERASE ,URINE 1+ (NEGATIVE); NITRITE,URINE NEGATIVE (NEGATIVE); PH,URINE 5 (5-9); PROTEIN,URINE 1+ (NEGATIVE); UROBILINOGEN,URINE NORMAL (NORMAL)
--- NOTE | 2018-07-17 11:36 | ED GI ---
General Chief Complaint: Abdominal/GI Problems Stated Complaint: N/V Nursing Triage Note: pt presents to er with complaint of abd pain, n/v, and back/kidney pain. states it feels like when she had dka back in the spring. pt states she woke up at 3 am with symptoms. Sepsis Screen: No Definite Risk Source of Information: Patient Exam Limitations: No Limitations History of Present Illness Date Seen by Provider: Jul 17, 2018 Time Seen by Provider: 11:34 Initial Comments To ER with abdominal pain nausea and vomiting as well as back and kidney pain that awakened her from sleep at 3 AM today. She is diabetic controlled with metformin and also smokes marijuana daily in the evening to help control her diabetes. No fevers or chills. She's had diarrhea chronically since her cholecystectomy last year. Timing/Duration: 12-24 Hours Severity/Quality: Moderate Location: Generalized Abdomen Radiation: No Radiation Activities at Onset: None Associated Symptoms: Nausea/Vomiting Allergies and Home Medications Allergies Coded Allergies: sulfamethoxazole (Verified Allergy, Intermediate, HIVES, 03/05/16) trimethoprim (Verified Allergy, Intermediate, HIVES, 03/05/16) Home Medications Hydrocodone Bit/Acetaminophen 1 Tab Tab, 1 TAB PO Q8H PRN Prescribed by: MAGEN WEINER on 11/10/17 1214 Prednisone 10 Mg Tab, 10 MG PO BID Prescribed by: DEEPA RAMIREZ on 03/06/16 0149 Patient Home Medication List Home Medication List Reviewed: Yes Review of Systems Review of Systems Constitutional: see HPI EENTM: No Symptoms Reported Respiratory: No Symptoms Reported Cardiovascular: No Symptoms Reported Gastrointestinal: See HPI, Abdominal Pain, Nausea, Vomiting Genitourinary: No Symptoms Reported Musculoskeletal: no symptoms reported Skin: no symptoms reported Psychiatric/Neurological: No Symptoms Reported Endocrine: No Symptoms Reported Hematologic/Lymphatic: No Symptoms Reported Past Tkglbun-Lopyyd-Tyvfwz Hx Patient Social History Alcohol Use: Past History Recreational Drug Use: Yes Drug of Choice: marijuana Smoking Status: Never a Smoker 2nd Hand Smoke Exposure: No Recent Foreign Travel: No Contact w/Someone Who Travel: No Recent Infectious Disease Expo: No Recent Hopitalizations: No Immunizations Up To Date Tetanus Booster (TDap): Unknown PED Vaccines UTD: Yes Seasonal Allergies Seasonal Allergies: No Past Medical History Surgeries: Yes Appendectomy Respiratory: No Cardiac: No Neurological: No Reproductive Disorders: No Genitourinary: No Gastrointestinal: Yes (choly 11/10/) Pancreatitis Musculoskeletal: No Endocrine: Yes Diabetes, Non-Insulin dep HEENT: No Cancer: No Psychosocial: Yes Anxiety Integumentary: No Blood Disorders: No Family Medical History Cancer, Diabetes, Hypertension Physical Exam Vital Signs Vital Signs - First Documented 07/17/18 11:10 Temp 97.1 Pulse 100 Resp 20 B/P (MAP) 125/86 (99) Pulse Ox 100 O2 Delivery Room Air Capillary Refill : Less Than 3 Seconds Height/Weight/BMI Height: 5'2.00" Weight: 135lbs. 0.0oz. [id number]; 22.7 BMI Method:Stated General Appearance: WD/WN, no apparent distress HEENT: PERRL/EOMI, normal ENT inspection Respiratory: normal breath sounds, no respiratory distress, no accessory muscle use Cardiovascular: regular rate, rhythm Gastrointestinal: normal bowel sounds, soft, tenderness Extremities: normal range of motion, non-tender Neurologic/Psychiatric: alert, normal mood/affect, oriented x 3 Skin: normal color, warm/dry Progress/Results/Core Measures Results/Orders Lab Results Laboratory Tests Test 07/17/18 11:10 07/17/18 11:20 07/17/18 11:24 Range/Units Beta-Hydroxybutyrate (Chem panel) 0.49 H 0.00-0.27 MMOL/L White Blood Count 6.4 4.3-11.0 10^3/uL Red Blood Count 4.93 4.35-5.85 10^6/uL Hemoglobin 13.9 11.5-16.0 G/DL Hematocrit 41 35-52 % Mean Corpuscular Volume 83 80-99 FL Mean Corpuscular Hemoglobin 28 25-34 PG Mean Corpuscular Hemoglobin Concent 34 32-36 G/DL Red Cell Distribution Width 13.7 10.0-14.5 % Platelet Count 115 L 130-400 10^3/uL Mean Platelet Volume 10.2 7.4-10.4 FL Neutrophils (%) (Auto) 94 H 42-75 % Lymphocytes (%) (Auto) 3 L 12-44 % Monocytes (%) (Auto) 3 0-12 % Eosinophils (%) (Auto) 0 0-10 % Basophils (%) (Auto) 0 0-10 % Neutrophils # (Auto) 6.0 1.8-7.8 X 10^3 Lymphocytes # (Auto) 0.2 L 1.0-4.0 X 10^3 Monocytes # (Auto) 0.2 0.0-1.0 X 10^3 Eosinophils # (Auto) 0.0 0.0-0.3 10^3/uL Basophils # (Auto) 0.0 0.0-0.1 10^3/uL Neutrophils % (Manual) 78 % Lymphocytes % (Manual) 4 % Monocytes % (Manual) 0 % Eosinophils % (Manual) 0 % Basophils % (Manual) 1 % Band Neutrophils 17 % Blood Morphology Comment NORMAL Urine Color YELLOW Urine Clarity CLEAR Urine pH 5 5-9 Urine Specific [place] 1.020 1.016-1.022 Urine Protein 1+ H NEGATIVE Urine Glucose (UA) 2+ H NEGATIVE Urine Ketones 2+ H NEGATIVE Urine Nitrite NEGATIVE NEGATIVE Urine Bilirubin NEGATIVE NEGATIVE Urine Urobilinogen NORMAL NORMAL MG/DL Urine Leukocyte Esterase 1+ H NEGATIVE Urine RBC (Auto) NEGATIVE NEGATIVE Urine RBC NONE /HPF Urine WBC 5-10 H /HPF Urine Squamous Epithelial Cells 10-25 H /HPF Urine Crystals NONE /LPF Urine Bacteria TRACE /HPF Urine Casts NONE /LPF Urine Mucus NEGATIVE /LPF Urine Culture Indicated YES Sodium Level 135 135-145 MMOL/L Potassium Level 3.6 3.6-5.0 MMOL/L Chloride Level 99 98-107 MMOL/L Carbon Dioxide Level 21 21-32 MMOL/L Anion Gap 15 H 5-14 MMOL/L Blood Urea Nitrogen 20 H 7-18 MG/DL Creatinine 0.85 0.60-1.30 MG/DL Estimat Glomerular Filtration Rate > 60 BUN/Creatinine Ratio 24 Glucose Level 226 H 70-105 MG/DL Calcium Level 9.8 8.5-10.1 MG/DL Corrected Calcium 8.5-10.1 MG/DL Total Bilirubin 0.8 0.1-1.0 MG/DL Aspartate Amino Transf (AST/SGOT) 33 5-34 U/L Alanine Aminotransferase (ALT/SGPT) 31 0-55 U/L Alkaline Phosphatase 100 40-136 U/L Total Protein 9.2 H 6.4-8.2 GM/DL Albumin 5.1 H 3.2-4.5 GM/DL Lipase 38 8-78 U/L Urine Opiates Screen NEGATIVE NEGATIVE Urine Oxycodone Screen NEGATIVE NEGATIVE Urine Methadone Screen NEGATIVE NEGATIVE Urine Propoxyphene Screen NEGATIVE NEGATIVE Urine Barbiturates Screen NEGATIVE NEGATIVE Ur Tricyclic Antidepressants Screen NEGATIVE NEGATIVE Urine Phencyclidine Screen NEGATIVE NEGATIVE Urine Amphetamines Screen NEGATIVE NEGATIVE Urine Methamphetamines Screen NEGATIVE NEGATIVE Urine Benzodiazepines Screen NEGATIVE NEGATIVE Urine Cocaine Screen NEGATIVE NEGATIVE Urine Cannabinoids Screen POSITIVE H NEGATIVE Glucometer 228 H 70-110 MG/DL My Orders Orders - EMERSON SPARKS APRN Cbc With Automated Diff (07/17/18 11:26) Comprehensive Metabolic Panel (07/17/18 11:26) Iv Heplock-Insert (Order) (07/17/18 11:26) Lipase (07/17/18 11:26) Ua Culture If Indicated (07/17/18 11:26) Ns Iv 1000 Ml (Sodium Chloride 0.9%) (07/17/18 11:30) Drug Screen Stat (Urine) (07/17/18 11:27) Ondansetron Injection (Zofran Injectio (07/17/18 11:30) Beta Hydroxybutyrate (07/17/18 11:32) Ns (Ivpb) (Sodium Chloride 0.9% Ivpb Bag (07/17/18 11:45) Iohexol Injection (Omnipaque 350 Mg/Ml 1 (07/17/18 11:45) Contrast Received (Contrast Received) (07/17/18 11:45) Urine Culture (07/17/18 11:20) Manual Differential (07/17/18 11:20) Haloperidol Injection (Haldol Injectio (07/17/18 12:15) Diphenhydramine Injection (Benadryl Inje (07/17/18 12:15) Ct Abdomen/Pelvis W (07/17/18 12:19) Ns Iv 1000 Ml (Sodium Chloride 0.9%) (07/17/18 12:20) Fentanyl Injection (Sublimaze Injection (07/17/18 13:00) Lorazepam Injection (Ativan Injection) (07/17/18 13:00) Medications Given in ED Current Medications Medications Dose Ordered Sig/Valentino Route Start Time Stop Time Status Last Admin Dose Admin Diphenhydramine HCl 25 mg ONCE ONCE IVP 07/17/18 12:15 07/17/18 12:16 DC 07/17/18 12:28 25 MG Fentanyl Citrate 50 mcg ONCE ONCE IVP 07/17/18 13:00 07/17/18 13:01 DC 07/17/18 13:00 50 MCG Haloperidol Lactate 3 mg ONCE ONCE IV 07/17/18 12:15 07/17/18 12:16 DC 07/17/18 12:28 3 MG Iohexol 100 ml ONCE ONCE IV 07/17/18 11:45 07/17/18 11:50 DC 07/17/18 12:32 100 ML Lorazepam 1 mg ONCE PRN IVP 07/17/18 13:00 07/17/18 13:00 1 MG Ondansetron HCl 8 mg ONCE ONCE IVP 07/17/18 11:30 07/17/18 11:31 DC 07/17/18 11:35 8 MG Sodium Chloride 100 ml ONCE ONCE IV 07/17/18 11:45 07/17/18 11:50 DC 07/17/18 12:32 80 ML Vital Signs/I&O 07/17/18 11:10 Temp 97.1 Pulse 100 Resp 20 B/P (MAP) 125/86 (99) Pulse Ox 100 O2 Delivery Room Air Blood Pressure Mean: 99 Diagnostic Imaging Diagonstic Imaging: CT Comments PT STATUS: REG ER : 1965 PHYSICIAN: EMERSON SPARKS DIGITAL X RAY SERVICE ENGINEER ADMIT DATE: 07/17/18/ER Draft Date of Exam:07/17/18 CT ABDOMEN/PELVIS W PROCEDURE: CT abdomen and pelvis with contrast. TECHNIQUE: Multiple contiguous axial images were obtained through the abdomen and pelvis after administration of intravenous contrast. INDICATION: Nausea and vomiting. Upper abdominal pain. COMPARISON: Right upper quadrant ultrasound 11/10/2017. FINDINGS: Lung bases are clear. Cholecystectomy. Reported appendectomy. Indeterminate enhancing lesion in the posterior right hepatic lobe near the dome measuring up 1.4 x 1.3 cm. There is a similar lesion in the inferior right hepatic lobe measuring 0.9 x 1.0 cm. The pancreas, spleen, adrenals, kidneys, collecting systems and unopacified bladder are negative. Low-attenuation region in the left ovary measures up 1.7 cm and may represent ovarian cyst. There are inflammatory changes in the mesentery and retroperitoneum extending from the duodenum into the right colic gutter about the cecum. No fluid collections. No free intraperitoneal air. No lymphadenopathy. Mild fluid-filled distention of most of the small bowel. No evidence of bowel obstruction. No bowel wall thickening. IMPRESSION: 1. Mild fluid-filled distention of most of the small bowel. No evidence of bowel obstruction. There are also mild inflammatory changes in the mesentery extending from region of the duodenum to the right colic gutter. No fluid collections or evidence of bowel obstruction. Findings most likely represent a nonspecific enteritis versus mesenteric panniculitis. 2. There are two indeterminate enhancing lesions in the right hepatic lobe. The appearance is most compatible with benign hemangiomas but is indeterminate on this single phase exam. Additionally, these lesions were not specifically identified on the prior ultrasound. These could be better evaluated with nonemergent dedicated multiphase CT. Dictated on workstation # [id number] Dict: 07/17/18 1254 Trans: 07/17/18 1307 KATEY [id number] Interpreted by: ERIC BEASLEY MD Electronically signed by: Departure Impression Primary Impression: Nausea and vomiting Qualified Codes: R11.2 - Nausea with vomiting, unspecified Additional Impressions: Abdominal pain Qualified Codes: R10.84 - Generalized abdominal pain Urinary tract infection Qualified Codes: N30.00 - Acute cystitis without hematuria Disposition: HOME, SELF-CARE Condition: Stable Departure-Patient Inst. Decision time for Depature: 13:22 Referrals: [facility]/ (PCP) Primary Care Physician ISREAL MORELAND (Family) Primary Care Physician Patient Instructions: Acute Abdomen (Belly Pain), Adult (DC) Add. Discharge Instructions: 1. Return to ER for any concerns 2. Follow-up with her doctor within 1 week 3. All discharge instructions reviewed with patient and/or family. Voiced understanding. Scripts Prochlorperazine Maleate (Compazine) 10 Mg Tablet 10 MG PO Q6H PRN for NAUSEA/VOMITING-1ST LINE, #14 TAB Prov: EMERSON SPARKS [employer] SERVICE ENGINEER 07/17/18 Cefuroxime Axetil (Cefuroxime) 250 Mg Tablet 250 MG PO BID, #10 TAB Prov: EMERSON SPARKS [employer] SERVICE ENGINEER 07/17/18 EMERSON SPARKS [employer] SERVICE ENGINEER Jul 17, 2018 11:36
[2018-07-17 11:42] LABS: BACTERIA,URINE TRACE /HPF
[2018-07-17] MEDS ORDERED: IOHEXOL 350 MG/ML 100 ML (OMNIPAQUE 350) VIAL IV ONE (11:45)
[2018-07-17] MEDS ORDERED: RECEIVED CONTRAST (Hold Metformin) IV SCH (11:45)
[2018-07-17] MEDS ORDERED: NS 100 ML (IVPB) BAG IV ONE (11:45)
[2018-07-17 11:47] LABS: AMPHETAMINE SCREEN, URINE NEGATIVE (NEGATIVE); BARBITURATE SCREEN URINE NEGATIVE (NEGATIVE); BENZODIAZEPINES SCREEN URINE NEGATIVE (NEGATIVE); CANNABINOID SCREEN, URINE POSITIVE (NEGATIVE); COCAINE SCREEN URINE NEGATIVE (NEGATIVE); METHADONE STAT NEGATIVE (NEGATIVE); METHAMPHETAMINE SCREEN URINE S NEGATIVE (NEGATIVE); OPIATE SCREEN URINE NEGATIVE (NEGATIVE); OXYCODONE STAT NEGATIVE (NEGATIVE); PROPOXYPHENE STAT NEGATIVE (NEGATIVE); TRICYCLIC ANTIDEPRESSANTS SCRE NEGATIVE (NEGATIVE)
[2018-07-17 11:55] LABS: ALANINE AMINOTRANSFERASE 31 U/L (0-55); ALBUMIN 5.1 GM/DL (3.2-4.5); ALKALINE PHOSPHATASE 100 U/L (40-136); BILIRUBIN,TOTAL 0.8 MG/DL (0.1-1.0); BUN/CREATININE RATIO 24; CALCIUM 9.8 MG/DL (8.5-10.1); CARBON DIOXIDE 21 MMOL/L (21-32); CHLORIDE 99 MMOL/L (98-107); CREATININE SERUM 0.85 MG/DL (0.60-1.30); GFR ESTIMATED > 60; GLUCOSE 226 MG/DL (70-105); LIPASE 38 U/L (8-78); POTASSIUM 3.6 MMOL/L (3.6-5.0); SODIUM 135 MMOL/L (135-145); TOTAL PROTEIN 9.2 GM/DL (6.4-8.2)
[2018-07-17 12:05] LABS: BAND NEUTROPHILS 17 %; BASOPHILS % (MANUAL) 1 %; EOSINOPHILS % (MANUAL) 0 %; LYMPHOCYTES % (MANUAL) 4 %; MONOCYTES % (MANUAL) 0 %; NEUTROPHILS % (MANUAL) 78 %; RBC MORPH NORMAL
[2018-07-17] MEDS ORDERED: HALOPERIDOL 5 MG/ML (HALDOL) AMP IV ONE (12:15)
[2018-07-17] MEDS ORDERED: diphenhydrAMINE 50 MG/ML INJ (BENADRYL) IVP ONE (12:15)
[2018-07-17] MEDS ORDERED: LORazepam INJ 2 MG/ML (ATIVAN) VIAL IVP PRN ×3 (13:00→14:00)
[2018-07-17] MEDS ORDERED: fentaNYL INJECTION 100 MCG/2 ML AMP IVP ONE (13:00)
--- NOTE | 2018-07-17 13:07 | Diagnostic Imaging Report ---
PROCEDURE: CT abdomen and pelvis with contrast. TECHNIQUE: Multiple contiguous axial images were obtained through the abdomen and pelvis after administration of intravenous contrast. INDICATION: Nausea and vomiting. Upper abdominal pain. COMPARISON: Right upper quadrant ultrasound 11/10/2017. FINDINGS: Lung bases are clear. Cholecystectomy. Reported appendectomy. Indeterminate enhancing lesion in the posterior right hepatic lobe near the dome measuring up 1.4 x 1.3 cm. There is a similar lesion in the inferior right hepatic lobe measuring 0.9 x 1.0 cm. The pancreas, spleen, adrenals, kidneys, collecting systems and unopacified bladder are negative. Low-attenuation region in the left ovary measures up 1.7 cm and may represent ovarian cyst. There are inflammatory changes in the mesentery and retroperitoneum extending from the duodenum into the right colic gutter about the cecum. No fluid collections. No free intraperitoneal air. No lymphadenopathy. Mild fluid-filled distention of most of the small bowel. No evidence of bowel obstruction. No bowel wall thickening. IMPRESSION: 1. Mild fluid-filled distention of most of the small bowel. No evidence of bowel obstruction. There are also mild inflammatory changes in the mesentery extending from region of the duodenum to the right colic gutter. No fluid collections or evidence of bowel obstruction. Findings most likely represent a nonspecific enteritis versus mesenteric panniculitis. 2. There are two indeterminate enhancing lesions in the right hepatic lobe. The appearance is most compatible with benign hemangiomas but is indeterminate on this single phase exam. Additionally, these lesions were not specifically identified on the prior ultrasound. These could be better evaluated with nonemergent dedicated multiphase CT. Dictated by: Dictated on workstation # [id number]
[2018-07-17] MEDS ORDERED: CEFU250T80 PO (13:23)
[2018-07-17] MEDS ORDERED: PROC-1 PO (13:23)
[2018-07-17 14:05] VITALS: BP 118/83
== END 2018-07-17 14:05 | disposition home or self-care (01) ==
LOC: EDUNIT# 11:00 → ER 11:01
DX: N39.0 Urinary tract infection, site not specified (principal); E11.9 Type 2 diabetes mellitus without complications; F12.10 Cannabis abuse, uncomplicated; F41.9 Anxiety disorder, unspecified; Z88.2 Allergy status to sulfonamides; Z88.8 Allergy status to other drugs, medicaments and biological substances; Z79.52 Long term (current) use of systemic steroids; Z82.49 Family history of ischemic heart disease and other diseases of the circulatory system; Z79.84 Long term (current) use of oral hypoglycemic drugs; Z90.49 Acquired absence of other specified parts of digestive tract; Z87.19 Personal history of other diseases of the digestive system
CPT/HCPCS: 36415; 74177; 80053; 80306; 81000; 82010; 82962; 83690; 85007; 85027; 87077; 87088

== ENCOUNTER 2023-02-03 23:38 | Emergency (ER) | payer SELFPAY ==
[~2023-02-03] VITALS: Ht 158 cm; Wt 65.8 kg
[~2023-02-03 23:38] MED LIST changes: +CEFU250T80 PO; -GLIM2TAB; +GLIM2TAB4; +METF-865; -METF500T8; +PROC-1 PO
[2023-02-03 23:49] VITALS: BP 110/72
[2023-02-04] MEDS ORDERED: TRAM50TA3 PO (00:39)
[2023-02-04] MEDS ORDERED: ONDA4TAB11 SL (00:41)
--- NOTE | 2023-02-04 00:41 | ED Lower Extremity ---
General Chief Complaint: Lower Extremity Stated Complaint: LEFT NO INJURY ,SWELLING Nursing Triage Note: PT TO ROOM BY WHEELCHAIR. STATES SHE WAS TOSSING AROUND A STACK OF EMPTY 5 [employer]ETS AND A STACK HIT HER IN THE NO. PT STATES LOWER LEFT LEG INTO LEFT ANKLE HAS PAIN AND HAS HAD TROUBLE WALKING ON IT. PT IS A&OX4, SPEECH NORMAL ON ARRIVAL Source: patient Exam Limitations: no limitations History of Present Illness Date Seen by Provider: Feb 04, 2023 Time Seen by Provider: 23:55 Allergies and Home Medications Allergies Coded Allergies: sulfamethoxazole (Verified Allergy, Intermediate, HIVES, 03/05/16) trimethoprim (Verified Allergy, Intermediate, HIVES, 03/05/16) Patient Home Medication List Alprazolam (Alprazolam) 1 Mg Tablet, (Reported) Entered as Reported by: VAISHNAVI GUNTER on 11/10/17 0507 Cefuroxime Axetil (Cefuroxime) 250 Mg Tablet, 250 MG PO BID Prescribed by: EMERSON SPARKS on 07/17/18 1323 Glimepiride (Glimepiride) 2 Mg Tablet, (Reported) Entered as Reported by: VAISHNAVI GUNTER on 11/10/17 0507 Hydrocodone Bit/Acetaminophen (Lortab 5 Mg Tablet) 1 Tab Tab, 1 TAB PO Q8H PRN Prescribed by: MAGEN WEINER on 11/10/17 1214 Metformin HCl (Metformin HCl ER) 500 Mg Tab.er.24h, (Reported) Entered as Reported by: VAISHNAVI GUNTER on 11/10/17 0507 Prednisone (Prednisone) 10 Mg Tab, 10 MG PO BID Prescribed by: DEEPA RAMIREZ on 03/06/16 0149 Prochlorperazine Maleate (Compazine) 10 Mg Tablet, 10 MG PO Q6H PRN for HELADIO SEA/VOMITING-1ST LINE Prescribed by: EMERSON SPARKS on 07/17/18 1323 Past Eempulj-Vqobge-Gsylbm Hx Patient Social History Tobacco Use?: No Use of E-Cig and/or Vaping dev: No Substance use?: No Alcohol Use?: No Immunizations Up To Date Tetanus Booster (TDap): Unknown PED Vaccines UTD: Yes Influenza Vaccine Up-to-Date: Yes; Up-to-Date Seasonal Allergies Seasonal Allergies: No Past Medical History Surgeries: Yes Appendectomy, Gallbladder Respiratory: No Cardiac: No Neurological: No Reproductive Disorders: No Genitourinary: No Gastrointestinal: Yes (choly 11/10/) Pancreatitis Musculoskeletal: No Endocrine: Yes Diabetes, Non-Insulin dep HEENT: No Cancer: No Psychosocial: Yes Anxiety Integumentary: No Blood Disorders: No Family Medical History Cancer, Diabetes, Hypertension Physical Exam Vital Signs Vital Signs - First Documented 02/03/23 23:49 Temp 36.4 Pulse 104 Resp 20 B/P (MAP) 110/72 (85) Pulse Ox 95 Capillary Refill : Height, Weight, BMI Height: 5'2.00" Weight: 135lbs. 0.0oz. 61.381355nt; 26.00 BMI Method:Stated Progress/Results/Core Measures Results/Orders My Orders Orders - DEEPA VILLEGAS MD Tibia/Fibula, Left, 2 Views (02/04/23 00:01) Ondansetron Oral Dissolve Tab (Zofran (02/04/23 00:45) Tramadol Tablet (Ultram Tablet) (02/04/23 00:45) Vital Signs/I&O 02/03/23 23:49 Temp 36.4 Pulse 104 Resp 20 B/P (MAP) 110/72 (85) Pulse Ox 95 Blood Pressure Mean: 85 Departure Impression Primary Impression: Contusion of skin Disposition: 01 HOME, SELF-CARE Condition: Stable Departure-Patient Inst. Decision time for Depature: 00:35 Referrals: [facility] (PCP) Primary Care Physician KYRA BAILON DO (Family) Primary Care Physician Patient Instructions: Contusion (DC), HEMATOMA Add. Discharge Instructions: You have a contusion (deep bruise) of your no and possibly a hematoma (collection of blood under the surface). Use Tylenol (acetaminophen) up to 1000 mg every 6 hours as needed for primary pain control. Add Ultram (tramadol) as prescribed for pain not controlled by Tylenol. Ultram may cause drowsiness, so use with caution. Do not drive, operate machinery, or make important decisions on Ultram. Ultram may also cause constipation, so you may wish to use a stool softener such as Colace while taking it. Icing in 20-minute intervals and elevating should reduce pain and swelling. When elevating, try to elevate your no to the level of your heart. Keep your foot level with or above your knee when elevating. Expect significant discoloration over the next 1 to 2 weeks as blood products spread through the tissues of your leg. Return to care if you have worsening symptoms despite following these instructions. All discharge instructions reviewed with patient and/or family. Voiced understanding. Scripts Ondansetron (Ondansetron Odt) 4 Mg Tab.rapdis 4 MG SL Q4H PRN for NAUSEA/VOMITING, #10 TAB For nausea associated with Ultram Prov: DEEPA VILLEGAS MD 02/04/23 Tramadol HCl (Tramadol HCl) 50 Mg Tablet 50 MG PO Q6H PRN for PAIN BREAKTROUGH, #10 TAB Prov: DEEPA VILLEGAS MD 02/04/23 DEEPA VILLEGAS MD Feb 04, 2023 00:41
[2023-02-04] MEDS ORDERED: ONDANSETRON 4 MG (ZOFRAN) ORAL DISSOLVE TAB SL ONE (00:45)
--- NOTE | 2023-02-04 07:13 | Diagnostic Imaging Report ---
INDICATION: Left lower leg pain. COMPARISON: None. DISCUSSION: Two views of left lower leg were obtained. Anterior soft tissue swelling noted along the left no. No soft tissue gas or foreign body. No fracture or dislocation. Joint spaces are maintained. IMPRESSION: 1. Anterior left no soft tissue swelling. No fracture. Dictated by: Dictated on workstation # [id number]
== END 2023-02-04 01:01 | disposition home or self-care (01) ==
LOC: EDUNIT# 23:38 → ER 23:42
DX: S80.12XA Contusion of left lower leg, initial encounter (principal); W22.8XXA Striking against or struck by other objects, initial encounter
CPT/HCPCS: 73590